=== PATIENT | male | born 1930 | race Caucasian/White ===

== ENCOUNTER 2016-09-13 11:43 | Emergency (ER) | payer MEDICARE, OTHER ==
[2016-09-13 12:40] VITALS: BP 117/64
[2016-09-13] MEDS ORDERED: Oxymetazoline 0.05% Nasal Spray 15 ML Bottle NAS ONE (12:50)
--- NOTE | 2016-09-13 12:51 | EDM.PDOC ---
ED HPI ENT - General Chief Complaint: ENT Problem Stated Complaint: BLOODY NOSE Time Seen by Provider: 09/13/16 12:51 Source: Reports: Patient History Limitations: Reports: No limitations - History of Present Illness INITIAL COMMENTS - FREE TEXT/NARRATIVE: Pt is on coumadin an he developed a nosebleed early this am on the left side. v Timing/Duration: Reports: Hour(s):, Other (Pt was bleeding fairly heavy on arrival. ) Severity: moderate Location: Reports: left nares Associated symptoms: Reports: denies other symptoms - Related Data Allergies/ADRs: Allergies Allergy/AdvReac Type Severity Reaction Status Date / Time amoxicillin AdvReac Diarrhea Verified 02/10/16 09:17 niacin AdvReac Headache Verified 02/10/16 09:17 Home Meds: Home Meds Allopurinol 150 mg PO DAILY 09/26/14 [History] Aspirin [Alize Chewable Aspirin] 81 mg PO DAILY 09/26/14 [History] Budesonide [Pulmicort Flexhaler] 2 puff INH BID 09/26/14 [History] Cetirizine [ZyrTEC] 10 mg PO DAILY 09/26/14 [History] Cholecalciferol (Vitamin D3) [Vitamin D3] 1,000 unit PO DAILY 09/26/14 [History] Ezetimibe [Zetia] 10 mg PO DAILY 09/26/14 [History] Fluticasone Propionate [Flonase] 2 spray NASBOTH DAILY 09/26/14 [History] Glimepiride 4 mg PO DAILY 09/26/14 [History] Metoprolol Succinate [Toprol XL] 25 mg PO BID 09/26/14 [History] Multivitamin with Minerals [Multiple Vitamin] 1 tab PO DAILY 09/26/14 [History] [place]-3 Fatty Acids [Fish Oil] 2 tab PO DAILY 09/26/14 [History] Warfarin [Coumadin] 5 mg PO DAILY 09/26/14 [History] atorvaSTATin [Lipitor] 20 mg PO BEDTIME 09/26/14 [History] metFORMIN [Glucophage] 500 mg PO BID 09/26/14 [History] Magnesium Oxide 400 mg PO DAILY #30 tablet 01/23/16 [Rx] Past Medical History HEENT History: Reports: Impaired vision Cardiovascular History: Reports: Afib, Bypass, CAD, High cholesterol, Hypertension, SOB on exertion, Other (see below) Other Cardiovascular History: Mitral valve insuffiency, recent electrical cardioversion Respiratory History: Reports: Asthma, Pneumonia, recurrent, Sleep apnea Gastrointestinal History: Reports: Diverticulosis, Hiatal hernia Musculoskeletal History: Reports: Osteoarthritis Endocrine/Metabolic History: Reports: Diabetes, type II, Obesity/BMI 30+ Hematologic History: Reports: Blood transfusion(s) Oncologic (Cancer) History: Reports: Basal cell carcinoma Dermatologic History: Reports: Melanoma, Other (see below) Other Dermatologic History: Basal Cell CA - Infectious Disease History Infectious Disease History: Reports: Chicken pox, Measles, Shingles - Past Surgical History HEENT Surgical History: Reports: Oral surgery Cardiovascular Surgical History: Reports: Coronary artery bypass, Other (see below) Other Cardiovascular Surgeries/Procedures: 2002 CABG x 3 GI Surgical History: Reports: Appendectomy, Cholecystectomy, Colon, Colonoscopy , Hernia repair/other Male Surgical History: Reports: Lithotripsy (ESWL) Musculoskeletal Surgical History: Reports: Hip replacement, Knee replacement Social & Family History - Family History Family Medical History: Noncontributory - Tobacco Use Smoking Status *Q: Never Smoker Years of Tobacco use: 0 Used Tobacco, but Quit: No Month Tobacco Last Used: 1961 Second Hand Smoke Exposure: No - Alcohol Use Days Per Week of Alcohol Use: 0 - Recreational Drug Use Recreational Drug Use: No ED ROS ENT - Review of Systems Review Of Systems: See Below Constitutional: Reports: no symptoms HEENT: Reports: Nosebleed Respiratory: Reports: No Symptoms Cardiovascular: Reports: No symptoms Endocrine: Reports: no symptoms GI/Abdominal: Reports: No symptoms : Reports: no symptoms ED EXAM, ENT - Physical Exam Exam: See Below Text/Narrative:: Pt developed bleeding from the left nare. He was bleeding quite heavy. Exam Limited By: No limitations General Appearance: alert, anxious Ears: normal TMs Nose: other (Pt had clots in both nares which he blew out. He was bleeding very little at that time. Both nares were sprayed with afrin. He was observed and he had no further bleeding. ) Mouth/Throat: Normal inspection Head: atraumatic Neck: normal inspection Respiratory/Chest: no respiratory distress Cardiovascular: regular rate, rhythm Course - Vital Signs Last Recorded V/S: Last Vital Signs Temp 36.1 C 09/13/16 14:03 Pulse 63 09/13/16 14:03 Resp 16 09/13/16 14:03 BP 117/64 09/13/16 12:39 Pulse Ox 98 09/13/16 14:03 - Orders/Labs/Meds Labs: Laboratory Tests 09/13/16 09/13/16 09/13/16 Range/Units 12:58 12:58 12:58 WBC 6.2 (4.5-11.0) K/uL RBC 3.82 L (4.30-5.90) M/uL Hgb 12.3 (12.0-15.0) g/dL Hct 38.0 L (40.0-54.0) % MCV 100 H (80-98) fL MCH 32 H (27-31) pg MCHC 32 (32-36) % Plt Count 227 (150-400) K/uL Neut % (Auto) 61 (36-66) % Lymph % (Auto) 26 (24-44) % [place] % (Auto) 11 H (2-6) % Eos % (Auto) 3 (2-4) % Baso % (Auto) 1 (0-1) % PT 21.1 H (9.5-12.0) sec INR 1.95 H (0.80-1.20) Sodium 147 (140-148) mmol/L Potassium 4.9 (3.6-5.2) mmol/L Chloride 111 H (100-108) mmol/L Carbon Dioxide 21 (21-32) mmol/L Anion Gap 19.9 H (5.0-14.0) mmol/L BUN 34 H (7-18) mg/dL Creatinine 1.6 H (0.8-1.3) mg/dL Est Cr Clr Drug Dosing 33.25 mL/min Estimated GFR (MDRD) 41 L (>60) Glucose 147 H (74-106) mg/dL Calcium 9.4 (8.5-10.1) mg/dL Meds: Medications Discontinued Medications Generic Name Dose Route Start Last Admin Trade Name Freq PRN Reason Stop Dose Admin Oxymetazoline HCl 1 ml 09/13/16 12:50 09/13/16 12:59 Afrin Original 0.05% Nasal [place] [facility] 09/13/16 12:51 1 spray ONETIME ONE Administration - Re-Assessments/Exams Free Text/Narrative Re-Assessment/Exam: 09/13/16 14:36 Pt was observed and he had no further bleeding. Departure - Departure Time of Disposition: 14:29 Disposition: Home, Self-Care 01 Condition: fair Clinical Impression: Left-sided nosebleed Referrals: Aldair Carey MD [Primary Care Provider] - Forms: ED Department Discharge Care Plan Goals: for the next 3 days use the spray 4-5 times daily to keep the vessels shrunk down. If pt should develop acute bleeding pt is to return and he will be packed , cool mist humidifier, skep coumadin for 1 day and then resume as usual.
== END 2016-09-13 14:36 | disposition home or self-care (01) ==
LOC: JP.ED 11:43
DX: R04.0 Epistaxis (principal); I25.10 Atherosclerotic heart disease of native coronary artery without angina pectoris; I48.91 Unspecified atrial fibrillation; I10 Essential (primary) hypertension; E78.00 Pure hypercholesterolemia, unspecified; E11.9 Type 2 diabetes mellitus without complications; E66.9 Obesity, unspecified; Z68.33 Body mass index [BMI] 33.0-33.9, adult; Z95.1 Presence of aortocoronary bypass graft; Z90.49 Acquired absence of other specified parts of digestive tract; Z96.659 Presence of unspecified artificial knee joint; Z96.649 Presence of unspecified artificial hip joint; Z98.890 Other specified postprocedural states; Z79.01 Long term (current) use of anticoagulants; Z79.82 Long term (current) use of aspirin; Z79.899 Other long term (current) drug therapy; Z88.1 Allergy status to other antibiotic agents; Z88.8 Allergy status to other drugs, medicaments and biological substances; Z85.828 Personal history of other malignant neoplasm of skin
CPT/HCPCS: 36415; 80048; 85025; 85610; 99284; A9270; 99282

== ENCOUNTER 2017-02-18 12:09 | Emergency (ER) | payer MEDICARE, OTHER ==
[2017-02-18 12:52] VITALS: BP 157/71
[2017-02-18] MEDS ORDERED: Cyclobenzaprine 10 MG Tab PO ONE (13:19)
[2017-02-18] MEDS ORDERED: Ketorolac 60 MG/2 ML SDV IM ONE (13:19)
[2017-02-18] MEDS ORDERED: Ketorolac 30 MG/ML SDV IM ONE (13:20)
--- NOTE | 2017-02-18 13:21 | EDM.PDOC ---
ED HPI GENERAL MEDICAL PROBLEM - General Chief Complaint: Back Pain or Injury Stated Complaint: PAIN IN BACK CAN'T SIT DOWN Time Seen by Provider: 02/18/17 13:14 Source of Information: Reports: Patient History Limitations: Reports: No Limitations - History of Present Illness INITIAL COMMENTS - FREE TEXT/NARRATIVE: 86-year-old gentleman presents emergency department day complaint of low back pain, he states is been ongoing for the last couple days doesn't seem to be improving much she has tried ibuprofen at home without much relief. Denies any loss of bowel or bladder no fevers Back Pain Score (Numeric/FACES): 1 - Related Data Allergies Allergy/AdvReac Type Severity Reaction Status Date / Time amoxicillin AdvReac Diarrhea Verified 02/10/16 09:17 niacin AdvReac Headache Verified 02/10/16 09:17 Home Meds: Home Meds Allopurinol 150 mg PO DAILY 09/26/14 [History] Aspirin [Alize Chewable Aspirin] 81 mg PO DAILY 09/26/14 [History] Budesonide [Pulmicort Flexhaler] 2 puff INH BID 09/26/14 [History] Cetirizine [ZyrTEC] 10 mg PO DAILY 09/26/14 [History] Cholecalciferol (Vitamin D3) [Vitamin D3] 1,000 unit PO DAILY 09/26/14 [History] Ezetimibe [Zetia] 10 mg PO DAILY 09/26/14 [History] Fluticasone Propionate [Flonase] 2 spray NASBOTH DAILY 09/26/14 [History] Glimepiride 4 mg PO DAILY 09/26/14 [History] Metoprolol Succinate [Toprol XL] 25 mg PO BID 09/26/14 [History] Multivitamin with Minerals [Multiple Vitamin] 1 tab PO DAILY 09/26/14 [History] [place]-3 Fatty Acids [Fish Oil] 2 tab PO DAILY 09/26/14 [History] Warfarin [Coumadin] 5 mg PO DAILY 09/26/14 [History] atorvaSTATin [Lipitor] 20 mg PO BEDTIME 09/26/14 [History] metFORMIN [Glucophage] 500 mg PO BID 09/26/14 [History] Magnesium Oxide 400 mg PO DAILY #30 tablet 01/23/16 [Rx] Past Medical History HEENT History: Reports: Impaired Vision Cardiovascular History: Reports: Afib, Bypass, CAD, High Cholesterol, Hypertension, SOB on Exertion, Other (See Below) Other Cardiovascular History: Mitral valve insuffiency, recent electrical cardioversion Respiratory History: Reports: Asthma, Pneumonia, Recurrent, Sleep Apnea Gastrointestinal History: Reports: Diverticulosis, Hiatal Hernia Musculoskeletal History: Reports: Osteoarthritis Endocrine/Metabolic History: Reports: Diabetes, Type II, Obesity/BMI 30+ Hematologic History: Reports: Blood Transfusion(s) Oncologic (Cancer) History: Reports: Basal Cell Carcinoma Dermatologic History: Reports: Melanoma, Other (See Below) Other Dermatologic History: Basal Cell CA - Infectious Disease History Infectious Disease History: Reports: Chicken Pox, Measles, Shingles - Past Surgical History HEENT Surgical History: Reports: Oral Surgery Cardiovascular Surgical History: Reports: Coronary Artery Bypass, Other (See Below) Other Cardiovascular Surgeries/Procedures: 2002 CABG x 3 GI Surgical History: Reports: Appendectomy, Cholecystectomy, Colon, Colonoscopy , Hernia Repair/Other Male Surgical History: Reports: Lithotripsy (ESWL) Musculoskeletal Surgical History: Reports: Hip Replacement, Knee Replacement Social & Family History - Family History Family Medical History: Noncontributory - Tobacco Use Smoking Status *Q: Never Smoker Years of Tobacco use: 0 Used Tobacco, but Quit: No Month Tobacco Last Used: 1961 Second Hand Smoke Exposure: No - Caffeine Use Caffeine Use: Reports: None - Alcohol Use Days Per Week of Alcohol Use: 0 - Recreational Drug Use Recreational Drug Use: No ED ROS GENERAL - Review of Systems Review Of Systems: See Below Respiratory: Reports: No Symptoms Cardiovascular: Reports: No Symptoms GI/Abdominal: Reports: No Symptoms : Reports: No Symptoms Musculoskeletal: Reports: Back Pain, Muscle Pain Skin: Reports: Cyanosis ED EXAM,LOWER BACK PAIN/INJURY - Physical Exam Exam: See Below Exam Limited By: No Limitations General Appearance: Alert, WD/WN, No Apparent Distress Respiratory/Chest: No Respiratory Distress Back Exam: Normal Inspection, Decreased Range of Motion, Muscle Spasm, Paraspinal Tenderness. No: CVA Tenderness (R), CVA Tenderness (L), Vertebral Tenderness Neurological: No: Straight Leg Raise (L), Straight Leg Raise (R) Course - Vital Signs Last Recorded V/S: Last Vital Signs Temp 98.4 F 02/18/17 12:51 Pulse 76 02/18/17 12:51 Resp 15 02/18/17 12:51 BP 157/71 H 02/18/17 12:51 Pulse Ox 97 02/18/17 12:51 - Orders/Labs/Meds Meds: Medications Discontinued Medications Generic Name Dose Route Start Last Admin Trade Name Vee PRN Reason Stop Dose Admin Cyclobenzaprine HCl 10 mg 02/18/17 13:19 02/18/17 13:39 Flexeril PO 02/18/17 13:20 10 mg ONETIME ONE Administration Ketorolac Tromethamine 60 mg 02/18/17 13:19 Toradol IM 02/18/17 13:20 ONETIME ONE Ketorolac Tromethamine 30 mg 02/18/17 13:20 02/18/17 13:38 Toradol IM 02/18/17 13:21 30 mg ONETIME ONE Administration Departure - Departure Time of Disposition: 14:26 Disposition: Home, Self-Care 01 Condition: Good Clinical Impression: Low back pain Qualifiers: Chronicity: acute Back pain laterality: left Sciatica presence: without sciatica Qualified Code(s): M54.5 - Low back pain - Discharge Information Referrals: Aldair Carey MD [Primary Care Provider] - Forms: ED Department Discharge Additional Instructions: Continue to use Aleve as needed, use hydrocodone for breakthrough pain, use Flexeril as needed for muscle relaxant, Please followup with your primary care provider in 3-5 days if not better, please call return to the emergency department with worsening of symptoms. - Assessment/Plan Plan: Assessment Acuity = acute Site and laterality = low back pain Etiology = secondary lifting injury Manifestations = pain Location of injury = Home Lab values = none Plan She had good improvement with the Toradol injection and commendation Flexeril prescription written for Flexeril 10 mg by mouth 3 times a day when necessary total #30 as well as hydrocodone 5/325 one tab by mouth every 6 hours when necessary total #10 from follow-up with his primary care 3-5 days for reevaluation Patient was in agreement with the plan all questions were answered, they were instructed to return to the emergency department or call for worsening symptoms. This note was dictated using [employer] voice recognition software please call with any questions.
== END 2017-02-18 14:45 | disposition home or self-care (01) ==
LOC: JP.ED 12:09
DX: M54.5 Low back pain (principal); I48.91 Unspecified atrial fibrillation; E78.00 Pure hypercholesterolemia, unspecified; I25.10 Atherosclerotic heart disease of native coronary artery without angina pectoris; I10 Essential (primary) hypertension; J45.909 Unspecified asthma, uncomplicated; I34.0 Nonrheumatic mitral (valve) insufficiency; M19.90 Unspecified osteoarthritis, unspecified site; E11.9 Type 2 diabetes mellitus without complications; E66.9 Obesity, unspecified; Z95.1 Presence of aortocoronary bypass graft; Z96.649 Presence of unspecified artificial hip joint; Z96.659 Presence of unspecified artificial knee joint; Z88.1 Allergy status to other antibiotic agents; Z88.8 Allergy status to other drugs, medicaments and biological substances; Z79.82 Long term (current) use of aspirin; Z79.899 Other long term (current) drug therapy; Z79.84 Long term (current) use of oral hypoglycemic drugs; Z68.33 Body mass index [BMI] 33.0-33.9, adult
CPT/HCPCS: 96372; 99283; A9270; J1885

== ENCOUNTER 2017-10-02 21:36 | Emergency (ER) | payer MEDICARE, OTHER ==
[2017-10-02] MEDS ORDERED: Acetaminophen 500 MG Tab PO ONE (22:25)
[2017-10-02] MEDS ORDERED: Sodium Chloride 0.9% 10 ML Syringe FLUSH PRN (22:32)
--- NOTE | 2017-10-02 22:54 | EDM.PDOC ---
ED HPI GENERAL MEDICAL PROBLEM - General Chief Complaint: General Stated Complaint: WEAKNESS Time Seen by Provider: 10/02/17 22:35 Source of Information: Reports: Patient, Old Records, RN History Limitations: Reports: No Limitations - History of Present Illness INITIAL COMMENTS - FREE TEXT/NARRATIVE: 87 yo male presents with progressive weakness since yesterday. Is unaware of fever. No cough, MOTA, sore throat, or dysuria. Does have redness on his R hip area since yesterday and to a lesser extent his L hip. These areas are quite tender and made if not possible for him to lie on his side when he sleeps which is his favored sleep position. Has some mild LLQ abdominal tenderness since yesterday as well. No self tx. Onset: Gradual Onset Date: 10/01/17 Duration: Hour(s):, Getting Worse Location: Reports: Generalized (weakness), Other (skin pain both hips R>L) Quality: Reports: Ache (abdomen LLQ), Burning (skin pain) Severity: Moderate Improves with: Reports: None Worsens with: Reports: Other (? time) Context: Reports: Other (unknown other than he lies on his sides a lot and has AODM.) Associated Symptoms: Reports: Malaise, Rash (both hips R>L), Weakness. Denies: Fever/Chills (unaware), Headaches, Loss of Appetite, Nausea/Vomiting, Shortness of Breath Treatments NUCLEAR PHYSICS PROFESSOR: Reports: Other (see below) (none) Hips Pain Score (Numeric/FACES): 4 - Related Data Allergies Allergy/AdvReac Type Severity Reaction Status Date / Time amoxicillin AdvReac Diarrhea Verified 10/02/17 22:15 niacin AdvReac Headache Verified 10/02/17 22:15 Home Meds: Home Meds Budesonide [Pulmicort Flexhaler] 2 puff INH BID 09/26/14 [History] Cetirizine [ZyrTEC] 10 mg PO DAILY 09/26/14 [History] Cholecalciferol (Vitamin D3) [Vitamin D3] 1,000 unit PO DAILY 09/26/14 [History] Ezetimibe [Zetia] 10 mg PO DAILY 09/26/14 [History] Fluticasone Propionate [Flonase] 2 spray NASBOTH DAILY 09/26/14 [History] Glimepiride 4 mg PO DAILY 09/26/14 [History] Multivitamin with Minerals [Multiple Vitamin] 1 tab PO DAILY 09/26/14 [History] [place]-3 Fatty Acids [Fish Oil] 2 tab PO DAILY 09/26/14 [History] Warfarin [Coumadin] 5 mg PO DAILY 09/26/14 [History] atorvaSTATin [Lipitor] 20 mg PO BEDTIME 09/26/14 [History] metFORMIN [Glucophage] 500 mg PO BID 09/26/14 [History] Magnesium Oxide 400 mg PO DAILY #30 tablet 01/23/16 [Rx] Clopidogrel Bisulfate [Clopidogrel] 75 mg PO DAILY 10/02/17 [History] Metoprolol Succinate [Toprol XL] 25 mg PO BID 10/02/17 [History] Past Medical History HEENT History: Reports: Impaired Vision Cardiovascular History: Reports: Afib, Bypass, CAD, High Cholesterol, Hypertension, SOB on Exertion, Other (See Below) Other Cardiovascular History: Mitral valve insuffiency, recent electrical cardioversion Respiratory History: Reports: Asthma, Pneumonia, Recurrent, Sleep Apnea Gastrointestinal History: Reports: Diverticulosis, Hiatal Hernia Musculoskeletal History: Reports: Osteoarthritis Endocrine/Metabolic History: Reports: Diabetes, Type II, Obesity/BMI 30+ Hematologic History: Reports: Blood Transfusion(s) Oncologic (Cancer) History: Reports: Basal Cell Carcinoma Dermatologic History: Reports: Melanoma, Other (See Below) Other Dermatologic History: Basal Cell CA - Infectious Disease History Infectious Disease History: Reports: Chicken Pox - Past Surgical History HEENT Surgical History: Reports: Oral Surgery Cardiovascular Surgical History: Reports: Coronary Artery Bypass, Other (See Below) Other Cardiovascular Surgeries/Procedures: 2002 CABG x 3 GI Surgical History: Reports: Appendectomy, Cholecystectomy, Colon, Colonoscopy , Hernia Repair/Other Male Surgical History: Reports: Lithotripsy (ESWL) Musculoskeletal Surgical History: Reports: Hip Replacement, Knee Replacement Social & Family History - Family History Family Medical History: Noncontributory - Tobacco Use Smoking Status *Q: Never Smoker Years of Tobacco use: 0 Used Tobacco, but Quit: No Month/Year Tobacco Last Used: 1961 Second Hand Smoke Exposure: No - Caffeine Use Caffeine Use: Reports: Coffee - Alcohol Use Days Per Week of Alcohol Use: 0 - Recreational Drug Use Recreational Drug Use: No ED ROS GENERAL - Review of Systems Review Of Systems: See Below Constitutional: Reports: Malaise, Weakness HEENT: Reports: No Symptoms Respiratory: Reports: No Symptoms Cardiovascular: Reports: No Symptoms Endocrine: Reports: No Symptoms GI/Abdominal: Reports: Abdominal Pain (LLQ) : Reports: No Symptoms Musculoskeletal: Reports: No Symptoms Skin: Reports: Erythema (both hips R>L, with tenderness) Neurological: Reports: No Symptoms ED EXAM, GENERAL - Physical Exam Exam: See Below Exam Limited By: No Limitations General Appearance: Alert, WD/WN, No Apparent Distress Eye Exam: Bilateral Eye: Normal Inspection Ears: Normal External Exam, Normal Canal, Hearing Grossly Normal, Normal TMs Ear Exam: Bilateral Ear: Auricle Normal, Canal Normal, TM normal Nose: Normal Inspection, No Blood Throat/Mouth: Normal Inspection, Normal Lips, Normal Oropharynx, Normal Voice, No Airway Compromise Head: Atraumatic, Normocephalic Neck: Normal Inspection, Supple Respiratory/Chest: No Respiratory Distress, Lungs Clear, Normal Breath Sounds, No Accessory Muscle Use Cardiovascular: Regular Rate, Rhythm, No Edema GI/Abdominal: Normal Bowel Sounds, Soft, No Distention, Tender (LLQ without rebound or guarding). No: Guarding, Rigid, Rebound Back Exam: Normal Inspection. No: CVA Tenderness (R), CVA Tenderness (L) Extremities: Normal Inspection, Normal Range of Motion, Non-Tender, No Pedal Edema Neurological: Alert, Oriented, CN II-XII Intact, Normal Cognition, No Motor/ Sensory Deficits Psychiatric: Normal Affect, Normal Mood Skin Exam: Warm, Dry, Intact, Erythema (both hips R>L, also noted to most of lower abdomen. ), Other (No crepitus) Lymphatic: No Adenopathy Course - Vital Signs Last Recorded V/S: Last Vital Signs Temp 37.7 C 10/02/17 23:36 Pulse 53 L 10/02/17 23:36 Resp 18 10/02/17 23:36 BP 140/62 10/02/17 23:36 Pulse Ox 93 L 10/02/17 23:36 - Orders/Labs/Meds Orders: Active Orders 24 hr Category Date Time Status Abdomen Pelvis w Cont [CT] Stat Exams 10/03/17 00:01 Ordered CULTURE BLOOD [BC] Stat Lab 10/02/17 22:40 Received CULTURE BLOOD [BC] Stat Lab 10/02/17 23:20 Ordered UA W/MICROSCOPIC [URIN] Stat Lab 10/02/17 22:24 Ordered Lactated Ringers [Ringers, Lactated] 1,000 ml Med 10/02/17 23:17 Active IV BOLUS Sodium Chloride 0.9% [Saline Flush] Med 10/02/17 22:32 Active 10 ml FLUSH ASDIRECTED PRN Saline Lock Insert [OM.PC] Routine Oth 10/02/17 22:32 Ordered Medication Orders Lactated Ringer's (Ringers, Lactated) 1,000 mls @ 1,000 mls/hr IV BOLUS ONE Stop: 10/03/17 00:16 Last Admin: 10/02/17 23:29 Dose: 1,000 mls/hr Sodium Chloride (Saline Flush) 10 ml FLUSH ASDIRECTED PRN PRN Reason: Keep Vein Open Last Admin: 10/02/17 22:44 Dose: 10 ml Labs: Laboratory Tests 10/02/17 10/02/17 Range/Units 22:35 22:35 WBC 8.0 (4.5-11.0) K/uL RBC 3.35 L (4.30-5.90) M/uL Hgb 10.7 L (12.0-15.0) g/dL Hct 34.1 L (40.0-54.0) % MCV 102 H (80-98) fL MCH 32 H (27-31) pg MCHC 31 L (32-36) % Plt Count 209 (150-400) K/uL Sodium 140 (140-148) mmol/L Potassium 4.0 (3.6-5.2) mmol/L Chloride 103 (100-108) mmol/L Carbon Dioxide 27 (21-32) mmol/L Anion Gap 10.1 (5.0-14.0) mmol/L BUN 39 H (7-18) mg/dL Creatinine 2.0 H (0.8-1.3) mg/dL Est Cr Clr Drug Dosing 25.65 mL/min Estimated GFR (MDRD) 32 L (>60) Glucose 132 H (74-106) mg/dL Calcium 9.6 (8.5-10.1) mg/dL C-Reactive Protein 14.47 H (0.0-0.3) mg/dL Meds: Medications Generic Name Dose Route Start Last Admin Trade Name Freq PRN Reason Stop Dose Admin Lactated Ringer's 1,000 mls @ 1,000 mls/hr 10/02/17 23:17 10/02/17 23:29 Ringers, Lactated IV 10/03/17 00:16 1,000 mls/hr BOLUS ONE Administration Sodium Chloride 10 ml 10/02/17 22:32 10/02/17 22:44 Saline Flush FLUSH 10 ml ASDIRECTED PRN Administration Keep Vein Open Discontinued Medications Generic Name Dose Route Start Last Admin Trade Name Vee PRN Reason Stop Dose Admin Acetaminophen 1,000 mg 10/02/17 22:25 10/02/17 22:43 Tylenol Extra Strength PO 10/02/17 22:26 1,000 mg ONETIME ONE Administration Meropenem 1 gm/ Sodium 50 mls @ 100 mls/hr 10/02/17 23:16 10/02/17 23:29 Chloride IV 10/02/17 23:45 100 mls/hr ONETIME ONE Administration Departure - Departure Time of Disposition: 00:20 Disposition: DC/Tfer to Acute Hospital 02 Condition: Fair Clinical Impression: Erysipelas Chronic renal failure Qualifiers: Chronic kidney disease stage: stage 3 (moderate) Qualified Code(s): N18.3 - Chronic kidney disease, stage 3 (moderate) - Discharge Information Referrals: PCP,None [Primary Care Provider] - Forms: ED Department Discharge - My Orders Last 24 Hours: My Active Orders 10/02/17 22:24 UA W/MICROSCOPIC [URIN] Stat 10/02/17 22:32 Sodium Chloride 0.9% [Saline Flush] 10 ml FLUSH ASDIRECTED PRN Saline Lock Insert [OM.PC] Routine 10/02/17 22:40 CULTURE BLOOD [BC] Stat 10/02/17 23:17 Lactated Ringers [Ringers, Lactated] 1,000 ml IV BOLUS 10/02/17 23:20 CULTURE BLOOD [BC] Stat 10/03/17 00:01 Abdomen Pelvis w Cont [CT] Stat - Assessment/Plan Last 24 Hours: My Active Orders 10/02/17 22:24 UA W/MICROSCOPIC [URIN] Stat 10/02/17 22:32 Sodium Chloride 0.9% [Saline Flush] 10 ml FLUSH ASDIRECTED PRN Saline Lock Insert [OM.PC] Routine 10/02/17 22:40 CULTURE BLOOD [BC] Stat 10/02/17 23:17 Lactated Ringers [Ringers, Lactated] 1,000 ml IV BOLUS 10/02/17 23:20 CULTURE BLOOD [BC] Stat 10/03/17 00:01 Abdomen Pelvis w Cont [CT] Stat
[2017-10-02] MEDS ORDERED: Lactated Ringers 1,000 ML IV ONE (23:17)
[2017-10-02 23:38] VITALS: BP 140/62
== END 2017-10-03 01:09 ==
LOC: JP.ED 21:36
DX: A46 Erysipelas (principal); I12.9 Hypertensive chronic kidney disease with stage 1 through stage 4 chronic kidney disease, or unspecified chronic kidney disease; N18.3 Chronic kidney disease, stage 3 (moderate); I48.91 Unspecified atrial fibrillation; I25.810 Atherosclerosis of coronary artery bypass graft(s) without angina pectoris; E78.00 Pure hypercholesterolemia, unspecified; J45.909 Unspecified asthma, uncomplicated; Z87.01 Personal history of pneumonia (recurrent); E11.9 Type 2 diabetes mellitus without complications; E66.9 Obesity, unspecified; Z79.01 Long term (current) use of anticoagulants; Z88.1 Allergy status to other antibiotic agents; Z88.8 Allergy status to other drugs, medicaments and biological substances; Z79.899 Other long term (current) drug therapy; Z79.84 Long term (current) use of oral hypoglycemic drugs; Z95.1 Presence of aortocoronary bypass graft; Z68.32 Body mass index [BMI] 32.0-32.9, adult; Z90.49 Acquired absence of other specified parts of digestive tract
CPT/HCPCS: 36415; 80048; 85027; 86140; 87040; 96365; 99285; A9270; J2185; J7050; J7120; 99284

== ENCOUNTER 2017-12-09 06:06 | Emergency (ER) | payer MEDICARE, OTHER ==
[2017-12-09] MEDS ORDERED: Albuterol/Ipratropium 3.0-0.5 MG/3 ML Neb Soln NEB ONE (07:20)
--- NOTE | 2017-12-09 07:58 | EDM.PDOC ---
ED HPI GENERAL MEDICAL PROBLEM - General Chief Complaint: Respiratory Problem Stated Complaint: SOB Time Seen by Provider: 12/09/17 07:00 Source of Information: Reports: Patient History Limitations: Reports: No Limitations - History of Present Illness INITIAL COMMENTS - FREE TEXT/NARRATIVE: 87-year-old male complaining of shortness of breath, thinks that his chest might be "full of fluid". He does have a history of bronchial asthma, and his inhaler does help briefly but doesn't last long. He has a cough productive of some clear sputum. No fever or chills, symptoms of thing going on for 3 or 4 days. He has some chest pain with coughing but not with activity. No recent medication changes. Just doesn't feel well. No abdominal pain, rashes or joint pains. Onset: Gradual Duration: Day(s): (4-5 days) Severity: Moderate Associated Symptoms: Reports: Chest Pain (With coughing), Cough, Malaise, Shortness of Breath. Denies: Fever/Chills, Headaches, Nausea/Vomiting - Related Data Allergies Allergy/AdvReac Type Severity Reaction Status Date / Time amoxicillin AdvReac Diarrhea Verified 10/02/17 22:15 niacin AdvReac Headache Verified 10/02/17 22:15 Home Meds: Home Meds Budesonide [Pulmicort Flexhaler] 2 puff INH BID 09/26/14 [History] Cetirizine [ZyrTEC] 10 mg PO DAILY 09/26/14 [History] Cholecalciferol (Vitamin D3) [Vitamin D3] 1,000 unit PO DAILY 09/26/14 [History] Ezetimibe [Zetia] 10 mg PO DAILY 09/26/14 [History] Fluticasone Propionate [Flonase] 2 spray NASBOTH DAILY 09/26/14 [History] Glimepiride 4 mg PO DAILY 09/26/14 [History] Multivitamin with Minerals [Multiple Vitamin] 1 tab PO DAILY 09/26/14 [History] [place]-3 Fatty Acids [Fish Oil] 2 tab PO DAILY 09/26/14 [History] Warfarin [Coumadin] 5 mg PO DAILY 09/26/14 [History] atorvaSTATin [Lipitor] 20 mg PO BEDTIME 09/26/14 [History] metFORMIN [Glucophage] 500 mg PO BID 09/26/14 [History] Magnesium Oxide 400 mg PO DAILY #30 tablet 01/23/16 [Rx] Clopidogrel Bisulfate [Clopidogrel] 75 mg PO DAILY 10/02/17 [History] Metoprolol Succinate [Toprol XL] 25 mg PO BID 10/02/17 [History] Allopurinol [Zyloprim] 150 mg PO DAILY 12/09/17 [History] Furosemide 40 mg PO DAILY 12/09/17 [History] Past Medical History HEENT History: Reports: Impaired Vision Cardiovascular History: Reports: Afib, Bypass, CAD, High Cholesterol, Hypertension, SOB on Exertion, Other (See Below) Other Cardiovascular History: Mitral valve insuffiency, recent electrical cardioversion Respiratory History: Reports: Asthma, Pneumonia, Recurrent, Sleep Apnea Gastrointestinal History: Reports: Diverticulosis, Hiatal Hernia Musculoskeletal History: Reports: Osteoarthritis Endocrine/Metabolic History: Reports: Diabetes, Type II, Obesity/BMI 30+ Hematologic History: Reports: Blood Transfusion(s) Oncologic (Cancer) History: Reports: Basal Cell Carcinoma Dermatologic History: Reports: Melanoma, Other (See Below) Other Dermatologic History: Basal Cell CA - Infectious Disease History Infectious Disease History: Reports: Chicken Pox, Measles, Mumps - Past Surgical History HEENT Surgical History: Reports: Oral Surgery Cardiovascular Surgical History: Reports: Coronary Artery Bypass, Other (See Below) Other Cardiovascular Surgeries/Procedures: 2002 CABG x 3 GI Surgical History: Reports: Appendectomy, Cholecystectomy, Colon, Colonoscopy , Hernia Repair/Other Male Surgical History: Reports: Lithotripsy (ESWL) Musculoskeletal Surgical History: Reports: Hip Replacement, Knee Replacement Social & Family History - Family History Family Medical History: Noncontributory - Tobacco Use Smoking Status *Q: Former Smoker Used Tobacco, but Quit: Yes Month/Year Tobacco Last Used: 1964 - Caffeine Use Caffeine Use: Reports: Soda - Recreational Drug Use Recreational Drug Use: No ED ROS GENERAL - Review of Systems Review Of Systems: See Below Constitutional: Reports: Malaise. Denies: Fever, Chills HEENT: Denies: Ear Pain, Throat Pain Respiratory: Reports: Shortness of Breath, Wheezing, Cough, Sputum Cardiovascular: Reports: Chest Pain GI/Abdominal: Denies: Abdominal Pain (With coughing), Nausea, Vomiting : Reports: No Symptoms Skin: Reports: No Symptoms Neurological: Denies: Headache Psychiatric: Reports: No Symptoms ED EXAM, GENERAL - Physical Exam Exam: See Below Exam Limited By: No Limitations General Appearance: Alert, No Apparent Distress Head: Atraumatic Respiratory/Chest: No Respiratory Distress, Wheezing (Patient has diffuse expiratory wheezes but otherwise good air movement to the bases) Cardiovascular: Bradycardia (Periods of bradycardia), Systolic Murmur, Irregularly Irregular GI/Abdominal: Soft, Non-Tender Extremities: Normal Inspection. No: Pedal Edema Neurological: Alert, Oriented Psychiatric: Normal Affect, Normal Mood Skin Exam: Other (Numerous ecchymosis and bruises are present on the extremities with deep skin tears in different stages of healing on the forearms) EKG INTERPRETATION Rhythm: A-Fib Rate (Beats/Min): 54 ST-T: Normal Course - Vital Signs Last Recorded V/S: Last Vital Signs Temp 96.7 F 12/09/17 06:10 Pulse 66 12/09/17 09:20 Resp 13 12/09/17 09:20 BP 157/70 H 12/09/17 09:20 Pulse Ox 98 12/09/17 09:20 - Orders/Labs/Meds Orders: Active Orders 24 hr Category Date Time Status EKG Documentation Completion [RC] ASDIRECTED Care 12/09/17 07:26 Active RT Aerosol Therapy [RC] ASDIRECTED Care 12/09/17 07:20 Active EKG 12 Lead [EK] Routine Ther 12/09/17 07:26 Ordered Labs: Laboratory Tests 12/09/17 12/09/17 Range/Units 07:27 07:27 WBC 4.1 L (4.5-11.0) K/uL RBC 2.90 L (4.30-5.90) M/uL Hgb 9.5 L (12.0-15.0) g/dL Hct 30.1 L (40.0-54.0) % MCV 104 H (80-98) fL MCH 33 H (27-31) pg MCHC 32 (32-36) % Plt Count 196 (150-400) K/uL Neut % (Auto) 63 (36-66) % Lymph % (Auto) 23 L (24-44) % [place] % (Auto) 13 H (2-6) % Eos % (Auto) 2 (2-4) % Baso % (Auto) 0 (0-1) % Sodium 143 (140-148) mmol/L Potassium 4.0 (3.6-5.2) mmol/L Chloride 111 H (100-108) mmol/L Carbon Dioxide 23 (21-32) mmol/L Anion Gap 13.0 (5.0-14.0) mmol/L BUN 23 H (7-18) mg/dL Creatinine 1.6 H (0.8-1.3) mg/dL Est Cr Clr Drug Dosing 32.06 mL/min Estimated GFR (MDRD) 41 L (>60) Glucose 121 H (74-106) mg/dL Calcium 8.8 (8.5-10.1) mg/dL Total Bilirubin 0.9 (0.2-1.0) mg/dL AST 18 (15-37) U/L ALT 21 (12-78) U/L Alkaline Phosphatase 99 (46-116) U/L Troponin I 0.023 (0.000-0.056) ng/mL Total Protein 6.0 L (6.4-8.2) g/dL Albumin 3.1 L (3.4-5.0) g/dL Globulin 2.9 (2.3-3.5) g/dL Albumin/Globulin Ratio 1.1 L (1.2-2.2) Meds: Medications Discontinued Medications Generic Name Dose Route Start Last Admin Trade Name Freq PRN Reason Stop Dose Admin Albuterol/Ipratropium 3 ml 12/09/17 07:20 12/09/17 07:27 Duoneb 3.0-0.5 Mg/3 Ml NEB 12/09/17 07:21 3 ml ONETIME ONE Administration Methylprednisolone Sodium Succinate 62.5 mg 12/09/17 09:08 12/09/17 09:20 Solu-Medrol IM 12/09/17 09:09 62.5 mg ONETIME ONE Administration - Re-Assessments/Exams Free Text/Narrative Re-Assessment/Exam: 12/09/17 07:58 EKG showed no acute ST changes. He was in the bradycardic atrial fibrillation. Rate ranged from the low 40s to mid 60s. He said this is normal for him, he also has periods of normal sinus rhythm. He was given a DuoNeb, then sent back for a two-view chest x-ray. CBC CMP and troponin were also obtained. 12/09/17 08:33 Patient did feel better after the DuoNeb but still very weak. Hemoglobin returned 9.5 which is falling from levels 2 months ago. Chest x-ray does not look like there is failure or infiltrates present. 12/09/17 09:07 Patient continued to feel better, O2 saturations 98-99% and no respiratory distress or extra effort. Lung sounds now some basically clear. I reviewed his medication list, he is on Pulmicort twice a day but does not have albuterol. I' m going to give him 62.5 mg of IM Solu-Medrol, and supplied with an albuterol inhaler to use every 3-4 hours and if he is not improved in the next 2-3 days he can return Departure - Departure Time of Disposition: :33 Disposition: Home, Self-Care 01 Condition: Fair Clinical Impression: Exacerbation of asthma Qualifiers: Asthma severity: moderate Asthma persistence: unspecified Qualified Code(s): J45.901 - Unspecified asthma with (acute) exacerbation - Discharge Information Instructions: Shortness of Breath, Adult, [id number] Referrals: PCP,None [Primary Care Provider] - Forms: ED Department Discharge Care Plan Goals: Continue your current medications, and use albuterol inhaler every 3-4 hours if needed to help with wheezing and shortness of breath. Recheck next week if not improving satisfactorily, or return to the emergency room at any time if you feel you are worsening or need further treatment or observation. - My Orders Last 24 Hours: My Active Orders 12/09/17 07:20 RT Aerosol Therapy [RC] ASDIRECTED 12/09/17 07:26 EKG Documentation Completion [RC] ASDIRECTED EKG 12 Lead [EK] Routine - Assessment/Plan Last 24 Hours: My Active Orders 12/09/17 07:20 RT Aerosol Therapy [RC] ASDIRECTED 12/09/17 07:26 EKG Documentation Completion [RC] ASDIRECTED EKG 12 Lead [EK] Routine
[2017-12-09] MEDS ORDERED: methylPREDNISolone Sodium Succinate 125 MG/2 ML SDV IM ONE (09:08)
[2017-12-09 09:22] VITALS: BP 157/70
--- NOTE | 2017-12-09 09:23 | CR ---
CHEST: 2 view CLINICAL HISTORY:Dyspnea COMPARISON:2016 FINDINGS: The heart is mildly enlarged. There are atherosclerotic changes in the aorta. Patient has h ad previous sternotomy. There are numerous the fragments of wire suture in the paraspinal region. [place] earance is unchanged since 2009 Lungs are clear IMPRESSION: Mild cardiomegaly Previous sternotomy with partial removal of numerous sternal sutures. There is some retained the line ar radiopacities in the lower parasternal region.
== END 2017-12-09 09:33 | disposition home or self-care (01) ==
LOC: JP.ED 06:06
DX: J45.901 Unspecified asthma with (acute) exacerbation (principal); I25.810 Atherosclerosis of coronary artery bypass graft(s) without angina pectoris; E78.00 Pure hypercholesterolemia, unspecified; I48.92 Unspecified atrial flutter; I10 Essential (primary) hypertension; J45.909 Unspecified asthma, uncomplicated; Z87.01 Personal history of pneumonia (recurrent); Z79.84 Long term (current) use of oral hypoglycemic drugs; Z88.1 Allergy status to other antibiotic agents; Z88.8 Allergy status to other drugs, medicaments and biological substances; Z79.899 Other long term (current) drug therapy; Z87.891 Personal history of nicotine dependence; Z95.1 Presence of aortocoronary bypass graft
CPT/HCPCS: 36415; 71046; 80053; 84484; 85025; 93005; 94640; 96372; 99285; J2930; J7620; 99284

== ENCOUNTER 2018-09-26 08:10 | Inpatient (IN) | payer MEDICARE, OTHER ==
[2018-09-26] MEDS ORDERED: Nitroglycerin 0.4 MG Tab.SL SL PRN (08:49)
[2018-09-26] MEDS ORDERED: Sodium Chloride 0.9% 10 ML Syringe FLUSH PRN ×2 (08:49→13:17)
[2018-09-26] MEDS ORDERED: Furosemide 40 MG/4 ML VIAL IVPUSH ONE ×2 (08:51→19:00)
--- NOTE | 2018-09-26 08:55 | EDM.PDOC ---
ED HPI GENERAL MEDICAL PROBLEM - General Chief Complaint: Respiratory Problem Stated Complaint: SOB, RETAINING FLUID, COPD Time Seen by Provider: 09/26/18 08:43 Source of Information: Reports: Patient, Old Records, RN Notes Reviewed History Limitations: Reports: No Limitations - History of Present Illness INITIAL COMMENTS - FREE TEXT/NARRATIVE: 87-year-old gentleman presents emergency department today with complaint of shortness of breath, he states he's been short of breath over the last week and has progressively getting worse, he does have leg edema and has gained a significant amount of weight. He does have a history of coronary artery disease as well as congestive heart failure last exacerbation was couple years ago, used to use Lasix on a daily basis but however does not use that at this time. He was evaluated in urgent care clinic felt to have bronchitis treated with azithromycin without any relief. Denies any fevers nausea vomiting chest pain no other GI symptomatology. Echocardiogram done in 2018 shows a reduced ejection fraction around 40% with global kinesis chest Pain Score (Numeric/FACES): 2 - Related Data Allergies Allergy/AdvReac Type Severity Reaction Status Date / Time amoxicillin AdvReac Diarrhea Verified 09/26/18 08:38 niacin AdvReac Headache Verified 09/26/18 08:38 Home Meds: Home Meds Budesonide [Pulmicort Flexhaler] 2 puff INH BID 09/26/14 [History] Cetirizine [ZyrTEC] 10 mg PO DAILY 09/26/14 [History] Cholecalciferol (Vitamin D3) [Vitamin D3] 1,000 unit PO DAILY 09/26/14 [History] Ezetimibe [Zetia] 10 mg PO DAILY 09/26/14 [History] Fluticasone Propionate [Flonase] 2 spray NASBOTH DAILY 09/26/14 [History] Glimepiride 4 mg PO DAILY 09/26/14 [History] Multivitamin with Minerals [Multiple Vitamin] 1 tab PO DAILY 09/26/14 [History] [place]-3 Fatty Acids [Fish Oil] 2 tab PO DAILY 09/26/14 [History] Warfarin [Coumadin] 5 mg PO DAILY 09/26/14 [History] atorvaSTATin [Lipitor] 20 mg PO BEDTIME 09/26/14 [History] metFORMIN [Glucophage] 500 mg PO BID 09/26/14 [History] Magnesium Oxide 400 mg PO DAILY #30 tablet 08/11/16 [Rx] Clopidogrel Bisulfate [Clopidogrel] 75 mg PO DAILY 10/02/17 [History] Metoprolol Succinate [Toprol XL] 25 mg PO BID 10/02/17 [History] Allopurinol [Zyloprim] 150 mg PO DAILY 12/09/17 [History] Furosemide 40 mg PO DAILY 12/09/17 [History] Cilostazol [Pletal] 100 mg PO DAILY 01/17/18 [History] Past Medical History HEENT History: Reports: Impaired Vision Cardiovascular History: Reports: Afib, Bypass, CAD, Heart Failure, High Cholesterol, Hypertension, SOB on Exertion, Other (See Below) Other Cardiovascular History: Mitral valve insuffient, electrical cardioversion Respiratory History: Reports: Asthma, Pneumonia, Recurrent, Sleep Apnea Gastrointestinal History: Reports: Diverticulosis, Hiatal Hernia, Other (See Below) Other Gastrointestinal History: right and left ing hernias Musculoskeletal History: Reports: Osteoarthritis Endocrine/Metabolic History: Reports: Diabetes, Type II, Obesity/BMI 30+ Hematologic History: Reports: Blood Transfusion(s) Oncologic (Cancer) History: Reports: Basal Cell Carcinoma Dermatologic History: Reports: Melanoma, Other (See Below) Other Dermatologic History: Basal Cell CA - Infectious Disease History Infectious Disease History: Reports: Chicken Pox, Measles, Mumps - Past Surgical History HEENT Surgical History: Reports: Oral Surgery Cardiovascular Surgical History: Reports: Coronary Artery Bypass, Other (See Below) Other Cardiovascular Surgeries/Procedures: 2002 CABG x 3 GI Surgical History: Reports: Appendectomy, Cholecystectomy, Colon, Colonoscopy , Hernia Repair/Other Male Surgical History: Reports: Lithotripsy (ESWL) Musculoskeletal Surgical History: Reports: Hip Replacement, Knee Replacement Social & Family History - Family History Family Medical History: Noncontributory - Tobacco Use Smoking Status *Q: Never Smoker - Caffeine Use Caffeine Use: Reports: Soda - Recreational Drug Use Recreational Drug Use: No ED ROS GENERAL - Review of Systems Review Of Systems: See Below Constitutional: Denies: Fever, Chills, Weakness HEENT: Reports: No Symptoms Respiratory: Reports: Shortness of Breath Cardiovascular: Reports: Dyspnea on Exertion. Denies: Chest Pain, Palpitations GI/Abdominal: Reports: No Symptoms : Reports: No Symptoms Musculoskeletal: Reports: No Symptoms Skin: Reports: No Symptoms Neurological: Reports: No Symptoms ED EXAM, GENERAL - Physical Exam Exam: See Below Exam Limited By: No Limitations General Appearance: Alert, WD/WN, No Apparent Distress Throat/Mouth: Normal Inspection, Normal Lips, Normal Teeth, Normal Gums, Normal Oropharynx, Normal Voice, No Airway Compromise Head: Atraumatic, Normocephalic Neck: Normal Inspection, Supple, Other (JVD +2) Respiratory/Chest: No Respiratory Distress, No Accessory Muscle Use, Crackles Cardiovascular: Systolic Murmur, Irregularly Irregular GI/Abdominal: Soft, Non-Tender Extremities: Normal Inspection, Pedal Edema Course - Vital Signs Last Recorded V/S: Last Vital Signs Temp 96.3 F 09/26/18 08:37 Pulse 68 09/26/18 09:16 Resp 24 H 09/26/18 09:16 BP 122/54 L 09/26/18 09:16 Pulse Ox 97 09/26/18 09:16 - Orders/Labs/Meds Orders: Active Orders 24 hr Category Date Time Status Cardiac Monitoring [RC] .As Directed Care 09/26/18 08:49 Active EKG Documentation Completion [RC] ASDIRECTED Care 09/26/18 08:50 Active Peripheral IV Care [RC] . DIRECTED Care 09/26/18 08:50 Active Nitroglycerin [Nitrostat] Med 09/26/18 08:49 Active 0.4 mg SL Q5M PRN Sodium Chloride 0.9% [Saline Flush] Med 09/26/18 08:49 Active 10 ml FLUSH ASDIRECTED PRN Peripheral IV Insertion Adult [OM.PC] Stat Oth 09/26/18 08:49 Ordered Saline Lock Insert [OM.PC] Stat Oth 09/26/18 08:49 Ordered EKG 12 Lead [EK] Stat Ther 09/26/18 08:50 Ordered Medication Orders Nitroglycerin (Nitrostat) 0.4 mg SL Q5M PRN PRN Reason: Chest Pain Stop: 09/27/18 08:50 Last Admin: 09/26/18 09:08 Dose: 0.4 mg Sodium Chloride (Saline Flush) 10 ml FLUSH ASDIRECTED PRN PRN Reason: Keep Vein Open Last Admin: 09/26/18 09:09 Dose: 10 ml Labs: Laboratory Tests 09/26/18 09/26/18 Range/Units 09:04 09:04 WBC 5.4 (4.5-11.0) K/uL RBC 2.57 L (4.30-5.90) M/uL Hgb 9.3 L (12.0-15.0) g/dL Hct 30.0 L (40.0-54.0) % MCV 117 H (80-98) fL MCH 36 H (27-31) pg MCHC 31 L (32-36) % Plt Count 180 (150-400) K/uL Neut % (Auto) 66 (36-66) % Lymph % (Auto) 23 L (24-44) % [place] % (Auto) 9 H (2-6) % Eos % (Auto) 2 (2-4) % Baso % (Auto) 0 (0-1) % Sodium 143 (140-148) mmol/L Potassium 4.4 (3.6-5.2) mmol/L Chloride 109 H (100-108) mmol/L Carbon Dioxide 23 (21-32) mmol/L Anion Gap 15.4 H (5.0-14.0) mmol/L BUN 28 H (7-18) mg/dL Creatinine 1.7 H (0.8-1.3) mg/dL Est Cr Clr Drug Dosing 30.68 mL/min Estimated GFR (MDRD) 38 L (>60) Glucose 121 H (74-106) mg/dL Calcium 9.3 (8.5-10.1) mg/dL Total Bilirubin 1.1 H (0.2-1.0) mg/dL AST 19 (15-37) U/L ALT 18 (12-78) U/L Alkaline Phosphatase 95 (46-116) U/L Troponin I 0.040 (0.000-0.056) ng/mL NT-Pro-B Natriuret Pep 4485 H (5-450) pg/mL Total Protein 6.0 L (6.4-8.2) g/dL Albumin 3.3 L (3.4-5.0) g/dL Globulin 2.7 (2.3-3.5) g/dL Albumin/Globulin Ratio 1.2 (1.2-2.2) Meds: Medications Generic Name Dose Route Start Last Admin Trade Name Freq PRN Reason Stop Dose Admin Nitroglycerin 0.4 mg 09/26/18 08:49 09/26/18 09:08 Nitrostat SL 09/27/18 08:50 0.4 mg Q5M PRN Administration Chest Pain Sodium Chloride 10 ml 09/26/18 08:49 09/26/18 09:09 Saline Flush FLUSH 10 ml ASDIRECTED PRN Administration Keep Vein Open Discontinued Medications Generic Name Dose Route Start Last Admin Trade Name Sathishq PRN Reason Stop Dose Admin Furosemide 40 mg 09/26/18 08:51 09/26/18 09:08 Lasix IVPUSH 09/26/18 08:52 40 mg ONETIME ONE Administration Departure - Departure Time of Disposition: 11:19 Disposition: Refer to Observation Condition: Fair Clinical Impression: Acute exacerbation of CHF (congestive heart failure) Qualifiers: Heart failure type: systolic Qualified Code(s): I50.23 - Acute on chronic systolic (congestive) heart failure - Discharge Information Referrals: Aldair Carey MD [Primary Care Provider] - Forms: ED Department Discharge - My Orders Last 24 Hours: My Active Orders 09/26/18 08:49 Cardiac Monitoring [RC] .As Directed Nitroglycerin [Nitrostat] 0.4 mg SL Q5M PRN Sodium Chloride 0.9% [Saline Flush] 10 ml FLUSH ASDIRECTED PRN Peripheral IV Insertion Adult [OM.PC] Stat Saline Lock Insert [OM.PC] Stat 09/26/18 08:50 EKG Documentation Completion [RC] ASDIRECTED Peripheral IV Care [RC] . DIRECTED EKG 12 Lead [EK] Stat - Assessment/Plan Last 24 Hours: My Active Orders 09/26/18 08:49 Cardiac Monitoring [RC] .As Directed Nitroglycerin [Nitrostat] 0.4 mg SL Q5M PRN Sodium Chloride 0.9% [Saline Flush] 10 ml FLUSH ASDIRECTED PRN Peripheral IV Insertion Adult [OM.PC] Stat Saline Lock Insert [OM.PC] Stat 09/26/18 08:50 EKG Documentation Completion [RC] ASDIRECTED Peripheral IV Care [RC] . 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 creatinine elevated 1.7 consistent chronic renal failure stage GIV troponin elevated 0.04 within normal limits probably related to leak phenomenon BNP elevated 4488 consistent fluid overload type pattern albumin low at 3.3 consistent hypoalbuminemia EKG demonstrates atrial fibrillation chest x-ray shows cardiomegaly Plan Discuss case hospitalist recreational sports director at 11:00 he kindly agreed to evaluate the patient emergency department for admission has received nitroglycerin sublingual 140 mg Lasix with good urine output and some improvement on his dyspnea This note was dictated using [employer] voice recognition software please call with any questions on syntax or grammar.
--- NOTE | 2018-09-26 10:21 | CR ---
CHEST: 2 view CLINICAL HISTORY:Shortness of breath COMPARISON:2018 FINDINGS: Heart is enlarged. Pulmonary vascular disease normal. Patient has had previous sternotomy. No infiltrate effusion or pneumothorax is seen Impression: Cardiomegaly with no significant evidence of decompensation
--- NOTE | 2018-09-26 12:00 | PCM.HP ---
H&P History of Present Illness - General Date of Service: 09/26/18 Admit Problem/Dx: Admission Diagnosis/Problem Admission Diagnosis/Problem CHF, Congestive heart failure Source of Information: Patient, Provider, RN Notes Reviewed History Limitations: Reports: No Limitations - History of Present Illness Initial Comments - Free Text/Narative: Mr. Kamara is an 87-year-old gentleman who is admitted through the emergency department with shortness of breath that is developed over the past several days. He has a known history of congestive heart failure with decreased ejection fraction, most recent echocardiogram showed left ventricular contraction fraction of 40-45%. He is remained on his usual medications but has become progressively more short of breath to the point where he was short of breath at rest this morning. He is unable to sleep during the night he cousin PND and orthopnea. During this period of time has also noted an increase in his peripheral edema. chest Pain Score (Numeric/FACES): 2 Left Middle Abdomen Pain Score (Numeric/FACES): 4 - Related Data Allergies/Adverse Reactions: Allergies Allergy/AdvReac Type Severity Reaction Status Date / Time amoxicillin AdvReac Diarrhea Verified 09/26/18 08:38 niacin AdvReac Headache Verified 09/26/18 08:38 Home Medications: Home Meds Budesonide [Pulmicort Flexhaler] 2 puff INH BID 09/26/14 [History] Cetirizine [ZyrTEC] 10 mg PO DAILY 09/26/14 [History] Cholecalciferol (Vitamin D3) [Vitamin D3] 1,000 unit PO DAILY 09/26/14 [History] Ezetimibe [Zetia] 10 mg PO DAILY 09/26/14 [History] Fluticasone Propionate [Flonase] 2 spray NASBOTH DAILY 09/26/14 [History] Glimepiride 4 mg PO DAILY 09/26/14 [History] Multivitamin with Minerals [Multiple Vitamin] 1 tab PO DAILY 09/26/14 [History] [place]-3 Fatty Acids [Fish Oil] 2 tab PO DAILY 09/26/14 [History] Warfarin [Coumadin] 5 mg PO DAILY 09/26/14 [History] atorvaSTATin [Lipitor] 20 mg PO BEDTIME 09/26/14 [History] metFORMIN [Glucophage] 500 mg PO BID 09/26/14 [History] Magnesium Oxide 400 mg PO DAILY #30 tablet 01/23/16 [Rx] Clopidogrel Bisulfate [Clopidogrel] 75 mg PO DAILY 10/02/17 [History] Metoprolol Succinate [Toprol XL] 25 mg PO BID 10/02/17 [History] Allopurinol [Zyloprim] 150 mg PO DAILY 12/09/17 [History] Furosemide 40 mg PO DAILY 12/09/17 [History] Cilostazol [Pletal] 100 mg PO DAILY 01/17/18 [History] Past Medical History HEENT History: Reports: Impaired Vision Cardiovascular History: Reports: Afib, Bypass, CAD, Heart Failure, High Cholesterol, Hypertension, SOB on Exertion, Other (See Below) Other Cardiovascular History: Mitral valve insuffient, electrical cardioversion Respiratory History: Reports: Asthma, Pneumonia, Recurrent, Sleep Apnea Gastrointestinal History: Reports: Diverticulosis, Hiatal Hernia, Other (See Below) Other Gastrointestinal History: right and left ing hernias Musculoskeletal History: Reports: Osteoarthritis Endocrine/Metabolic History: Reports: Diabetes, Type II, Obesity/BMI 30+ Hematologic History: Reports: Blood Transfusion(s) Oncologic (Cancer) History: Reports: Basal Cell Carcinoma Dermatologic History: Reports: Melanoma, Other (See Below) Other Dermatologic History: Basal Cell CA - Infectious Disease History Infectious Disease History: Reports: Chicken Pox, Measles, Mumps - Past Surgical History HEENT Surgical History: Reports: Oral Surgery Cardiovascular Surgical History: Reports: Coronary Artery Bypass, Other (See Below) Other Cardiovascular Surgeries/Procedures: 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 Denies: Fever, Chills HEENT: Reports: No Symptoms Pulmonary: Reports: Shortness of Breath, Cough, Sputum. Denies: Wheezing, Pleuritic Chest Pain, Hemoptysis Cardiovascular: Reports: Dyspnea on Exertion, Orthopnea, PND, Edema. Denies: Chest Pain, Palpitations, Lightheadedness Gastrointestinal: Reports: No Symptoms Genitourinary: Reports: No Symptoms Musculoskeletal: Reports: No Symptoms Skin: Reports: No Symptoms Psychiatric: Reports: No Symptoms Neurological: Reports: No Symptoms Hematologic/Lymphatic: Reports: No Symptoms Immunologic: Reports: No Symptoms Exam - Exam Exam: See Below - Vital Signs Vital Signs: Last Vital Signs Temp 96.3 F 09/26/18 08:37 Pulse 70 09/26/18 11:07 Resp 24 H 09/26/18 11:07 BP 141/58 H 09/26/18 11:07 Pulse Ox 97 09/26/18 11:07 Weight: 231 lb 0.711 oz - Exam Quality Assessment: Supplemental Oxygen, DVT Prophylaxis General: Alert, Oriented, Cooperative, Mild Distress HEENT: Conjunctiva Clear, Hearing Intact, Mucosa Moist & [place], Normal Nasal Septum, Posterior Pharynx Clear, Pupils Equal Neck: Supple, Trachea Midline, +2 Carotid Pulse wo Bruit Lungs: Normal Respiratory Effort, Rales Cardiovascular: Regular Rate, Regular Rhythm, Normal S1, Normal S2, Systolic Murmur. No: Diastolic Murmur GI/Abdominal Exam: Soft, Non-Tender, No Organomegaly, No Distention Back Exam: Normal Inspection, Full Range of Motion Extremities: Non-Tender, Pedal Edema Skin: Warm, Dry, Intact Neurological: Cranial Nerves Intact, Strength Equal Bilateral, Normal Speech, Normal Tone, Sensation Intact. No: Focal Deficit Neuro Extensive - Mental Status: Alert, Oriented x3, Normal Mood/Affect, Normal Cognition, Memory Intact - Patient Data Lab Results Last 24 hrs: Laboratory Results - last 24 hr 09/26/18 09/26/18 09/26/18 Range/Units 09:00 09:04 09:04 WBC 5.4 (4.5-11.0) K/uL RBC 2.57 L (4.30-5.90) M/uL Hgb 9.3 L (12.0-15.0) g/dL Hct 30.0 L (40.0-54.0) % MCV 117 H (80-98) fL MCH 36 H (27-31) pg MCHC 31 L (32-36) % Plt Count 180 (150-400) K/uL Neut % (Auto) 66 (36-66) % Lymph % (Auto) 23 L (24-44) % [place] % (Auto) 9 H (2-6) % Eos % (Auto) 2 (2-4) % Baso % (Auto) 0 (0-1) % PT 23.5 H (9.5-12.0) sec INR 2.24 H (0.80-1.20) Sodium 143 (140-148) mmol/L Potassium 4.4 (3.6-5.2) mmol/L Chloride 109 H (100-108) mmol/L Carbon Dioxide 23 (21-32) mmol/L Anion Gap 15.4 H (5.0-14.0) mmol/L BUN 28 H (7-18) mg/dL Creatinine 1.7 H (0.8-1.3) mg/dL Est Cr Clr Drug Dosing 30.68 mL/min Estimated GFR (MDRD) 38 L (>60) Glucose 121 H (74-106) mg/dL Calcium 9.3 (8.5-10.1) mg/dL Total Bilirubin 1.1 H (0.2-1.0) mg/dL AST 19 (15-37) U/L ALT 18 (12-78) U/L Alkaline Phosphatase 95 (46-116) U/L Troponin I 0.040 (0.000-0.056) ng/mL NT-Pro-B Natriuret Pep 4485 H (5-450) pg/mL Total Protein 6.0 L (6.4-8.2) g/dL Albumin 3.3 L (3.4-5.0) g/dL Globulin 2.7 (2.3-3.5) g/dL Albumin/Globulin Ratio 1.2 (1.2-2.2) Result Diagrams: 09/26/18 09:04 09/26/18 09:04 *Q Meaningful Use (ADM) - VTE Risk Assess *Q Each Risk Factor Represents 1 Point: Swollen Legs, Current, Obesity ( BMI > 25 kg/m2), Congestive heart failure (CHF) Total Score 1 Point Risk Factors: 3 Each Risk Factor Represents 2 Points: None Total Score 2 Point Risk Factors: 0 Each Risk Factor Represents 3 Points: Age 75 Years or Greater Total Score 3 Point Risk Factors: 3 Each Risk Factor Represents 5 Points: None Total Score 5 Point Risk Factors: 0 Venous Thromboembolism Risk Factor Score *Q: 6 Problem List Initiated/Reviewed/Updated: Yes Orders Last 24hrs: Active Orders 24 hr Category Date Time Status Patient Status Manage Transfer [TRANSFER] Routine ADT 09/26/18 11:48 Active Cardiac Monitoring [RC] .As Directed Care 09/26/18 08:49 Active EKG Documentation Completion [RC] ASDIRECTED Care 09/26/18 08:50 Active Peripheral IV Care [RC] . DIRECTED Care 09/26/18 08:50 Active Nitroglycerin [Nitrostat] Med 09/26/18 08:49 Active 0.4 mg SL Q5M PRN Sodium Chloride 0.9% [Saline Flush] Med 09/26/18 08:49 Active 10 ml FLUSH ASDIRECTED PRN Peripheral IV Insertion Adult [OM.PC] Stat Oth 09/26/18 08:49 Ordered Saline Lock Insert [OM.PC] Stat Oth 09/26/18 08:49 Ordered Resuscitation Status Routine Resus Stat 09/26/18 11:51 Ordered EKG 12 Lead [EK] Stat Ther 09/26/18 08:50 Ordered Medication Orders Nitroglycerin (Nitrostat) 0.4 mg SL Q5M PRN PRN Reason: Chest Pain Stop: 09/27/18 08:50 Last Admin: 09/26/18 09:08 Dose: 0.4 mg Sodium Chloride (Saline Flush) 10 ml FLUSH ASDIRECTED PRN PRN Reason: Keep Vein Open Last Admin: 09/26/18 09:09 Dose: 10 ml Assessment/Plan Comment:: ASSESSMENT AND PLAN CONGESTIVE HEART FAILURE-known history of decreased left ventricular function, most recent estimated ejection fraction of 40-45%. Increased shortness of breath over the past several days, with orthopnea and PND. Increase in peripheral edema occurring during the same period of time. -Furosemide 40 mg IV tonight, reassess in a.m. -2 g sodium diet -Consider addition of MEL inhibitor to current regimen -Echocardiogram to reassess left ventricular function CHRONIC KIDNEY DISEASE STAGE IIIb -Closely monitor urine output and renal function with diuresis TYPE 2 DIABETES MELLITUS -4 times a day glucometers -Low-dose sliding scale insulin -Continue metformin ATRIAL FIBRILLATION-rate control adequate, on long-term oral anticoagulation with warfarin -Continue usual dose of warfarin -Reassess INR in a.m. MAINTENANCE ISSUES -DVT prophylaxis; current therapy with warfarin should provide adequate DVT prophylaxis -GI prophylaxis; not indicated -[place] catheter; not indicated -Nutrition; 2 g sodium diet -Nicotine dependence; not required CODE STATUS-DNR/DNI ADMISSION STATUS-patient will be admitted to inpatient status, expect at least a 2 night hospital stay for evaluation and management of problems as outlined above. At the time of this admission I do not reasonably expected evaluation and management of this problem will require more than a 96 hour hospital stay. DISPOSITION-anticipate discharge to home after the hospital stay. PRIMARY CARE PROVIDER-Braeden Caldwell
[2018-09-26] MEDS ORDERED: 50% Dextrose in Water 50 ML Syringe IV PRN (13:17)
[2018-09-26] MEDS ORDERED: Acetaminophen 325 MG Tab PO PRN (13:17)
[2018-09-26] MEDS ORDERED: Ondansetron 4 MG/2 ML SDV IV PRN (13:17)
[2018-09-26] MEDS ORDERED: Polyethylene Glycol 3350 Powder 17 GM Packet PO PRN (13:17)
[2018-09-26] MEDS ORDERED: Albuterol 0.083% 2.5 MG/3 ML Neb Soln NEB PRN (13:17)
[2018-09-26] MEDS ORDERED: Glucose Gel 15 GM in 37.5 GM Tube PO PRN (13:17)
[2018-09-26] MEDS: metFORMIN 500 MG Tab PO SCH (17:09)
[2018-09-26] MEDS: Insulin Lispro 100 Unit/ML 3 ML KwikPen SUBCUT SCH ×2 (17:10→21:45)
[2018-09-26] MEDS: Magnesium Sulfate/Water 2 GM in Premix Bag 1 BAG IV SCH ×2 (19:07→23:42)
[2018-09-26] MEDS: atorvaSTATin 20 MG Tab PO SCH (20:16)
[2018-09-26] MEDS: Metoprolol Succinate 25 MG Tab.ER PO SCH (20:16)
[2018-09-26] MEDS: Magnesium Oxide 400 MG Tab PO SCH (20:16)
[2018-09-27] MEDS: Mometasone Furoate HFA 200 mcg/Puff 13 GM Inhaler INH SCH (07:22)
[2018-09-27] MEDS: Insulin Lispro 100 Unit/ML 3 ML KwikPen SUBCUT SCH ×4 (08:28→21:15)
[2018-09-27] MEDS ORDERED: Magnesium Oxide 400 MG Tab PO SCH (09:00)
[2018-09-27] MEDS: Ezetimibe 10 MG Tab PO SCH (09:11)
[2018-09-27] MEDS: Glimepiride 2 MG Tab PO SCH (09:11)
[2018-09-27] MEDS: Allopurinol 300 MG Tab PO SCH (09:11)
[2018-09-27] MEDS: Metoprolol Succinate 25 MG Tab.ER PO SCH (09:12)
[2018-09-27] MEDS: Clopidogrel 75 MG Tab PO SCH (09:12)
[2018-09-27] MEDS: metFORMIN 500 MG Tab PO SCH ×2 (09:13→17:13)
[2018-09-27] MEDS: Cetirizine 10 MG Tab PO SCH (09:13)
[2018-09-27] MEDS: Fluticasone Propionate Nasal Spray 16 GM Bottle NASBOTH SCH (09:13)
[2018-09-27] MEDS: Magnesium Oxide 400 MG Tab PO SCH ×2 (09:15→21:17)
[2018-09-27] MEDS ORDERED: Furosemide 40 MG/4 ML VIAL IVPUSH ONE (09:45)
[2018-09-27] MEDS ORDERED: Warfarin 5 MG Tab PO SCH (13:00)
[2018-09-27] MEDS ORDERED: Potassium Chloride 20 MEQ Tab.ER PO ONE (17:45)
--- NOTE | 2018-09-27 17:48 | PCM.PN ---
- General Info Date of Service: 09/27/18 Subjective Update: Mr. Kamara has improved since admission with good diuresis and less shortness of breath. His cough has essentially resolved in peripheral edema significant minimally improved. He has been able to walk short distances in the hallways. He did experience significant bradycardia during the night with heart rate into the low 30s and upper 20s. He was asymptomatic with this and has been not noted to have other episodes of bradycardia. He does report that he has a history of sleep apnea but has not treated this with C Pap. Functional Status: Reports: Tolerating Diet, Ambulating, Urinating - Review of Systems General: Reports: Weakness. Denies: Fever, Chills Pulmonary: Reports: Shortness of Breath. Denies: Pleuritic Chest Pain, Cough, Sputum, Hemoptysis, Wheezing Cardiovascular: Reports: Dyspnea on Exertion, Edema. Denies: Chest Pain, Palpitations, Orthopnea, PND, Lightheadedness Gastrointestinal: Reports: No Symptoms - Patient Data Vitals - Most Recent: Last Vital Signs Temp 97.0 F 09/27/18 14:37 Pulse 73 09/27/18 14:37 Resp 16 09/27/18 14:37 BP 113/56 L 09/27/18 14:37 Pulse Ox 97 09/27/18 14:37 Weight - Most Recent: 220 lb 12.793 oz I&O - Last 24 Hours: Intake & Output 09/27/18 09/27/18 09/27/18 06:59 14:59 22:59 Intake Total 340 150 Output Total 800 985 200 Balance -800 -645 -50 Lab Results Last 24 Hours: Laboratory Results - last 24 hr 09/27/18 09/27/18 09/27/18 Range/Units 05:00 05:00 05:00 WBC 3.9 L (4.5-11.0) K/uL RBC 2.58 L (4.30-5.90) M/uL Hgb 9.3 L (12.0-15.0) g/dL Hct 29.1 L (40.0-54.0) % MCV 113 H (80-98) fL MCH 36 H (27-31) pg MCHC 32 (32-36) % Plt Count 162 (150-400) K/uL Neut % (Auto) 57 (36-66) % Lymph % (Auto) 22 L (24-44) % [place] % (Auto) 17 H (2-6) % Eos % (Auto) 3 (2-4) % Baso % (Auto) 1 (0-1) % PT 20.4 H (9.5-12.0) sec INR 1.92 H (0.80-1.20) Sodium 140 (140-148) mmol/L Potassium 3.7 (3.6-5.2) mmol/L Chloride 105 (100-108) mmol/L Carbon Dioxide 25 (21-32) mmol/L Anion Gap 9.8 (5.0-14.0) mmol/L BUN 26 H (7-18) mg/dL Creatinine 1.5 H (0.8-1.3) mg/dL Est Cr Clr Drug Dosing 34.78 mL/min Estimated GFR (MDRD) 44 L (>60) Glucose 116 H (74-106) mg/dL Calcium 9.6 (8.5-10.1) mg/dL Magnesium 2.2 (1.8-2.4) mg/dL Med Orders - Current: Current Medications Acetaminophen (Tylenol) 650 mg PO Q4H PRN PRN Reason: Pain (Mild 1-3)/fever Albuterol (Proventil Neb Soln) 2.5 mg NEB Q4H PRN PRN Reason: Shortness Of Breath/wheezing Allopurinol (Zyloprim) 150 mg PO DAILY [facility] [place] Last Admin: 09/27/18 09:11 Dose: 150 mg Atorvastatin Calcium (Lipitor) 20 mg PO BEDTIME [facility] [place] Last Admin: 09/26/18 20:16 Dose: 20 mg Cetirizine HCl (Zyrtec) 10 mg PO DAILY [facility] [place] Last Admin: 09/27/18 09:13 Dose: 10 mg Cilostazol (Pletal) 100 mg PO DAILY [facility] [place] Last Admin: 09/27/18 09:12 Dose: 100 mg Clopidogrel Bisulfate (Plavix) 75 mg PO DAILY [facility] [place] Last Admin: 09/27/18 09:12 Dose: 75 mg Dextrose (Glutose 15) 15 gm PO ONETIME PRN PRN Reason: Hypoglycemia Dextrose/Water (Dextrose 50% In Water) 50 ml IV ONETIME PRN PRN Reason: Hypoglycemia Ezetimibe (Zetia) 10 mg PO DAILY [facility] [place] Last Admin: 04/16/19 09:11 Dose: 10 mg Fluticasone Propionate (Flonase) 0 gm NASBOTH DAILY [facility] [place] Last Admin: 09/27/18 09:13 Dose: 16 gm Furosemide (Lasix) 40 mg IVPUSH NOW ONE Stop: 09/27/18 19:01 Glimepiride (Amaryl) 4 mg PO DAILY [facility] [place] Last Admin: 09/27/18 09:11 Dose: 4 mg Insulin Human Lispro (Humalog) 0 unit SUBCUT QIDACANDBED [facility] [place]; Protocol Last Admin: 09/27/18 17:14 Dose: 1 units Magnesium Oxide (Magnesium Oxide) 400 mg PO BID [facility] [place] Last Admin: 09/27/18 09:15 Dose: 400 mg Metformin HCl (Glucophage) 500 mg PO BIDMEALS [facility] [place] Last Admin: 09/27/18 17:13 Dose: 500 mg Mometasone Furoate (Asmanex Hfa 200mcg) [facility] Last Admin: 09/27/18 07:22 Dose: 2 puff Ondansetron HCl (Zofran) 4 mg IV Q4H PRN PRN Reason: Nausea/Vomiting Polyethylene Glycol (Miralax) 17 gm PO DAILY PRN PRN Reason: Constipation Potassium Chloride (Klor-Con M20) 40 meq PO ONETIME ONE Stop: 09/27/18 17:46 Sodium Chloride (Saline Flush) 10 ml FLUSH ASDIRECTED PRN PRN Reason: Keep Vein Open Warfarin Sodium (Coumadin) 5 mg PO DAILY@1300 [facility] [place] Last Admin: 09/27/18 14:06 Dose: 5 mg Discontinued Medications Furosemide (Lasix) 40 mg IVPUSH ONETIME ONE Stop: 09/26/18 08:52 Last Admin: 09/26/18 09:08 Dose: 40 mg Furosemide (Lasix) 40 mg IVPUSH ONETIME ONE Stop: 09/26/18 19:01 Last Admin: 09/26/18 18:50 Dose: 40 mg Furosemide (Lasix) 40 mg IVPUSH NOW ONE Stop: 09/27/18 09:46 Last Admin: 09/27/18 09:49 Dose: 40 mg Magnesium Sulfate 2 gm/ Premix 50 mls @ 25 mls/hr IV Q6H [facility] [place] Stop: 09/27/18 01:44 Last Admin: 09/26/18 23:42 Dose: 25 mls/hr Magnesium Oxide (Magnesium Oxide) 400 mg PO DAILY [facility] [place] Metoprolol Succinate (Toprol Xl) 25 mg PO BID [place] Last Admin: 09/27/18 09:12 Dose: 25 mg Nitroglycerin (Nitrostat) 0.4 mg SL Q5M PRN PRN Reason: Chest Pain Stop: 09/27/18 08:50 Last Admin: 09/26/18 09:08 Dose: 0.4 mg Sodium Chloride (Saline Flush) 10 ml FLUSH ASDIRECTED PRN PRN Reason: Keep Vein Open Last Admin: 09/26/18 09:09 Dose: 10 ml - Exam Quality Assessment: DVT Prophylaxis. No: Supplemental Oxygen, Urine Catheter General: Alert, Oriented, Cooperative, No Acute Distress Lungs: Clear to Auscultation, Normal Respiratory Effort, Decreased Breath Sounds Cardiovascular: Regular Rate, Regular Rhythm, Murmurs GI/Abdominal Exam: Soft, Non-Tender, No Organomegaly, No Distention Extremities: Non-Tender, Pedal Edema - Problem List Review Problem List Initiated/Reviewed/Updated: Yes - My Orders Last 24 Hours: My Active Orders 09/26/18 17:00 Insulin Lispro [HumaLOG] See Protocol SUBCUT QIDACANDBED metFORMIN [Glucophage] 500 mg PO BIDMEALS 09/26/18 21:00 Magnesium Oxide 400 mg PO BID atorvaSTATin [Lipitor] 20 mg PO BEDTIME 09/27/18 07:00 Mometasone Furoate 200mcg [Asmanex HFA 200mcg] 0 gm INH DAILYRT 09/27/18 09:00 Allopurinol [Zyloprim] 150 mg PO DAILY Cetirizine [ZyrTEC] 10 mg PO DAILY Cilostazol [Pletal] 100 mg PO DAILY Clopidogrel [Plavix] 75 mg PO DAILY Ezetimibe [Zetia] 10 mg PO DAILY Fluticasone Propionate [Flonase] 0 gm NASBOTH DAILY Glimepiride [Amaryl] 4 mg PO DAILY 09/27/18 10:30 Echo Comp wo Cont [US] Urgent 09/27/18 13:00 Warfarin [Coumadin] 5 mg PO DAILY@1300 09/27/18 17:16 Overnight Pulse Oximetry [RC] Click to Edit Pulse Oximetry Continuous Monitoring [OM.PC] Routine 09/27/18 17:45 Potassium Chloride [Klor-Con M20] 40 meq PO ONETIME ONE 09/27/18 19:00 Furosemide [Lasix] 40 mg IVPUSH NOW ONE 09/27/18 21:00 GLUCOSE POC LAB TO COLLECT [POC] QIDACANDBED 09/28/18 05:00 BASIC METABOLIC PANEL,BMP [CHEM] Timed INR,PT,PROTHROMBIN TIME [COAG] Timed 09/28/18 07:30 GLUCOSE POC LAB TO COLLECT [POC] QIDACANDBED 09/28/18 11:30 GLUCOSE POC LAB TO COLLECT [POC] QIDACANDBED 09/28/18 16:30 GLUCOSE POC LAB TO COLLECT [POC] QIDACANDBED 09/28/18 21:00 GLUCOSE POC LAB TO COLLECT [POC] QIDACANDBED 09/29/18 07:30 GLUCOSE POC LAB TO COLLECT [POC] QIDACANDBED 09/29/18 11:30 GLUCOSE POC LAB TO COLLECT [POC] QIDACANDBED 09/29/18 16:30 GLUCOSE POC LAB TO COLLECT [POC] QIDACANDBED 09/29/18 21:00 GLUCOSE POC LAB TO COLLECT [POC] QIDACANDBED 09/30/18 07:30 GLUCOSE POC LAB TO COLLECT [POC] QIDACANDBED 09/30/18 11:30 GLUCOSE POC LAB TO COLLECT [POC] QIDACANDBED 09/30/18 16:30 GLUCOSE POC LAB TO COLLECT [POC] QIDACANDBED 09/30/18 21:00 GLUCOSE POC LAB TO COLLECT [POC] QIDACANDBED 10/01/18 07:30 GLUCOSE POC LAB TO COLLECT [POC] QIDACANDBED 10/01/18 11:30 GLUCOSE POC LAB TO COLLECT [POC] QIDACANDBED - Plan Plan:: ASSESSMENT AND PLAN SYSTOLIC AND DIASTOLIC CONGESTIVE HEART FAILURE-preliminary report from echocardiogram obtained earlier today shows decreased left ventricular function , estimated ejection fraction of 40-45%. Level of dysfunction is stable from previous echocardiogram. Echocardiogram also showed evidence of diastolic dysfunction -Furosemide 40 mg IV twice today, reassess in a.m. -2 g sodium diet -Consider addition of MEL inhibitor to current regimen -Echocardiogram to reassess left ventricular function BRADYCARDIA-I suspect that this is related to hypoxia and sleep apnea -Continuous pulse oximeter -Hold metoprolol CHRONIC KIDNEY DISEASE STAGE IIIb -Closely monitor urine output and renal function with diuresis TYPE 2 DIABETES MELLITUS -4 times a day glucometers -Low-dose sliding scale insulin -Continue metformin ATRIAL FIBRILLATION-rate control adequate, on long-term oral anticoagulation with warfarin -Continue usual dose of warfarin -Reassess INR in a.m. MAINTENANCE ISSUES -DVT prophylaxis; current therapy with warfarin should provide adequate DVT prophylaxis -GI prophylaxis; not indicated -[place] catheter; not indicated -Nutrition; 2 g sodium diet -Nicotine dependence; not required CODE STATUS-DNR/DNI ADMISSION STATUS-patient will be admitted to inpatient status, expect at least a 2 night hospital stay for evaluation and management of problems as outlined above. At the time of this admission I do not reasonably expected evaluation and management of this problem will require more than a 96 hour hospital stay. DISPOSITION-anticipate discharge to home after the hospital stay. PRIMARY CARE PROVIDER-Braeden Caldwell
[2018-09-27] MEDS: Furosemide 40 MG/4 ML VIAL IVPUSH ONE ×2 (17:50→18:22)
[2018-09-27] MEDS: atorvaSTATin 20 MG Tab PO SCH (21:17)
[2018-09-28] MEDS: Mometasone Furoate HFA 200 mcg/Puff 13 GM Inhaler INH SCH (07:08)
[2018-09-28 07:18] VITALS: BP 137/64
[2018-09-28] MEDS: Insulin Lispro 100 Unit/ML 3 ML KwikPen SUBCUT SCH ×2 (08:05→11:55)
[2018-09-28] MEDS: metFORMIN 500 MG Tab PO SCH (08:09)
[2018-09-28] MEDS: Fluticasone Propionate Nasal Spray 16 GM Bottle NASBOTH SCH (08:10)
[2018-09-28] MEDS: Glimepiride 2 MG Tab PO SCH (08:10)
[2018-09-28] MEDS: Clopidogrel 75 MG Tab PO SCH (08:11)
[2018-09-28] MEDS: Magnesium Oxide 400 MG Tab PO SCH (08:11)
[2018-09-28] MEDS: Allopurinol 300 MG Tab PO SCH (08:12)
[2018-09-28] MEDS: Ezetimibe 10 MG Tab PO SCH (08:12)
[2018-09-28] MEDS: Cetirizine 10 MG Tab PO SCH (08:13)
[2018-09-28] MEDS ORDERED: Furosemide 40 MG Tab PO SCH (09:00)
--- NOTE | 2018-09-28 11:00 | PCM.DCSUM1 ---
Discharge Summary - Hospital Course Brief History: Mr. Kamara is an 87-year-old gentleman who was admitted through the emergency department with weakness and shortness of breath secondary to congestive heart failure exacerbation. - Discharge Data Discharge Date: 09/28/18 Discharge Disposition: Home, Self-Care 01 Condition: Fair - Discharge Diagnosis/Problem(s) (1) CKD (chronic kidney disease) stage 3, GFR 30-59 ml/min SNOMED Code(s): 285876726 ICD Code: N18.3 - CHRONIC KIDNEY DISEASE, STAGE 3 (MODERATE) Status: Acute Current Visit: Yes (2) Acute exacerbation of CHF (congestive heart failure) SNOMED Code(s): 17540772 ICD Code: I50.9 - HEART FAILURE, UNSPECIFIED Status: Acute Current Visit : Yes Qualifiers: Heart failure type: systolic Qualified Code(s): I50.23 - Acute on chronic systolic (congestive) heart failure (3) Afib, Atrial fibrillation SNOMED Code(s): 19059698 ICD Code: I48.91 - UNSPECIFIED ATRIAL FIBRILLATION Status: Chronic Current Visit: No (4) CAD (coronary artery disease) SNOMED Code(s): 96496049 ICD Code: I25.10 - ATHSCL HEART DISEASE OF [place] CORONARY ARTERY W/O ANG PCTRS Status: Chronic Current Visit: No (5) Type 2 diabetes mellitus SNOMED Code(s): 79712766 ICD Code: E11.9 - TYPE 2 DIABETES MELLITUS WITHOUT COMPLICATIONS Status: Chronic Current Visit: No - Patient Summary/Data Consults: Consultations 09/26/18 13:17 PT Evaluation and Treatment [CONS] Routine Please Evaluate and Treat. PT Reason for Consult: Weakness This query below is only for informational purposes and is not editable. Hospital Course: Mr. Kamara is an 87-year-old gentleman who is admitted through the emergency department with shortness of breath that is developed over the past several days. He has a known history of congestive heart failure with decreased ejection fraction, most recent echocardiogram showed left ventricular contraction fraction of 40-45%. He is remained on his usual medications but has become progressively more short of breath to the point where he was short of breath at rest this morning. He is unable to sleep during the night he cousin PND and orthopnea. During this period of time has also noted an increase in his peripheral edema. In the emergency department he was given IV furosemide, followed by IV furosemide twice daily over the next hospital day. On the day of discharge he was doing well and was transitioned to oral furosemide 40 mg daily. He had an excellent diuresis and was feeling significantly improved. Dyspnea was back to baseline level, he continued to have a slight amount of peripheral edema. Echocardiogram was obtained during the hospitalization, preliminary report showed decreased left ventricular systolic function with estimated ejection fraction of 40-45%. He was also noted to have diastolic dysfunction, biatrial enlargement, and moderate mitral regurgitation, with mild aortic stenosis. On the first hospital night he did develop significant bradycardia during the night with heart rates in the low 30s and upper 20s. His metoprolol was discontinued and he had no further episodes of significant bradycardia. Metoprolol will be discontinued when he goes home and he will be on furosemide 40 mg daily. The importance of a low-sodium diet was reviewed with him. Activity will be as tolerated and a follow-up appointment will be scheduled with Dr. Carey within one week. BMP and magnesium level should be obtained at the time of follow-up appointment. - Patient Instructions Diet: Low Sodium, Diabetic Diet Activity: As Tolerated Other/Special Instructions: Please schedule follow-up appointment with Dr. Carey within one week. BMP and magnesium level should be obtained at the time of follow-up appointment. - Discharge Plan *PRESCRIPTION DRUG MONITORING PROGRAM REVIEWED*: Not Applicable *COPY OF PRESCRIPTION DRUG MONITORING REPORT IN PATIENT ROHIT: Not Applicable Prescriptions/Med Rec: Furosemide [Lasix] 40 mg PO DAILY #30 tablet Home Medications: Home Meds Budesonide [Pulmicort Flexhaler] 2 puff INH BID 09/26/14 [History] Cetirizine [ZyrTEC] 10 mg PO DAILY 09/26/14 [History] Cholecalciferol (Vitamin D3) [Vitamin D3] 1,000 unit PO DAILY 09/26/14 [History] Ezetimibe [Zetia] 10 mg PO DAILY 09/26/14 [History] Fluticasone Propionate [Flonase] 2 spray NASBOTH DAILY 09/26/14 [History] Glimepiride 4 mg PO DAILY 09/26/14 [History] Multivitamin with Minerals [Multiple Vitamin] 1 tab PO DAILY 09/26/14 [History] [place]-3 Fatty Acids [Fish Oil] 2 tab PO DAILY 09/26/14 [History] Warfarin [Coumadin] 5 mg PO DAILY 09/26/14 [History] atorvaSTATin [Lipitor] 20 mg PO BEDTIME 09/26/14 [History] metFORMIN [Glucophage] 500 mg PO BID 09/26/14 [History] Magnesium Oxide 400 mg PO DAILY #30 tablet 01/23/16 [Rx] Clopidogrel Bisulfate [Clopidogrel] 75 mg PO DAILY 10/02/17 [History] Allopurinol [Zyloprim] 150 mg PO DAILY 12/09/17 [History] Furosemide 40 mg PO DAILY 12/09/17 [History] Cilostazol [Pletal] 100 mg PO DAILY 01/17/18 [History] Furosemide [Lasix] 40 mg PO DAILY #30 tablet 09/28/18 [Rx] Patient Handouts: Heart Failure, [id number] Referrals: Aldair Carey MD [Primary Care Provider] - 10/06/18 1:30 pm (Please arrive 15 minutes early to register for your appointment.) Constantino Campbell, PT [Consulting Physician] - 10/04/18 10:00 am (Please arrive 15 minutes early to register for your appointment) - Discharge Summary/Plan Comment DC Time >30 min.: No - Patient Data Vitals - Most Recent: Last Vital Signs Temp 97.3 F 09/28/18 07:16 Pulse 87 09/28/18 07:16 Resp 16 09/28/18 07:16 BP 137/64 09/28/18 07:16 Pulse Ox 97 09/28/18 07:22 Weight - Most Recent: 218 lb 6.4 oz I&O - Last 24 hours: Intake & Output 09/27/18 09/28/18 09/28/18 22:59 06:59 14:59 Intake Total 505 814 Output Total 851 300 325 Balance -346 -300 489 Lab Results - Last 24 hrs: Laboratory Results - last 24 hr 09/28/18 09/28/18 Range/Units 05:09 05:09 PT 22.9 H (9.5-12.0) sec INR 2.18 H (0.80-1.20) Sodium 143 (140-148) mmol/L Potassium 4.2 (3.6-5.2) mmol/L Chloride 107 (100-108) mmol/L Carbon Dioxide 25 (21-32) mmol/L Anion Gap 11.4 (5.0-14.0) mmol/L BUN 36 H (7-18) mg/dL Creatinine 1.7 H (0.8-1.3) mg/dL Est Cr Clr Drug Dosing 30.69 mL/min Estimated GFR (MDRD) 38 L (>60) Glucose 140 H (74-106) mg/dL Calcium 9.8 (8.5-10.1) mg/dL Med Orders - Current: Current Medications Acetaminophen (Tylenol) 650 mg PO Q4H PRN PRN Reason: Pain (Mild 1-3)/fever Albuterol (Proventil Neb Soln) 2.5 mg NEB Q4H PRN PRN Reason: Shortness Of Breath/wheezing Allopurinol (Zyloprim) 150 mg PO DAILY [facility] Last Admin: 09/28/18 08:12 Dose: 150 mg Atorvastatin Calcium (Lipitor) 20 mg PO BEDTIME [facility] Last Admin: 09/27/18 21:17 Dose: 20 mg Cetirizine HCl (Zyrtec) 10 mg PO DAILY [facility] Last Admin: 09/28/18 08:13 Dose: 10 mg Cilostazol (Pletal) 100 mg PO DAILY [facility] Last Admin: 09/28/18 08:12 Dose: 100 mg Clopidogrel Bisulfate (Plavix) 75 mg PO DAILY [facility] Last Admin: 09/28/18 08:11 Dose: 75 mg Dextrose (Glutose 15) 15 gm PO ONETIME PRN PRN Reason: Hypoglycemia Dextrose/Water (Dextrose 50% In Water) 50 ml IV ONETIME PRN PRN Reason: Hypoglycemia Ezetimibe (Zetia) 10 mg PO DAILY [facility] Last Admin: 09/28/18 08:12 Dose: 10 mg Fluticasone Propionate (Flonase) 0 gm NASBOTH DAILY [facility] Last Admin: 09/28/18 08:10 Dose: 1 spray Furosemide (Lasix) 40 mg PO DAILY [facility] Last Admin: 09/28/18 09:52 Dose: 40 mg Glimepiride (Amaryl) 4 mg PO DAILY [facility] Last Admin: 09/28/18 08:10 Dose: 4 mg Insulin Human Lispro (Humalog) 0 unit SUBCUT QIDACANDBED [facility]; Protocol Last Admin: 09/28/18 08:05 Dose: 1 units Magnesium Oxide (Magnesium Oxide) 400 mg PO BID [facility] Last Admin: 09/28/18 08:11 Dose: 400 mg Metformin HCl (Glucophage) 500 mg PO BIDMEALS [facility] Last Admin: 09/28/18 08:09 Dose: 500 mg Mometasone Furoate (Asmanex Hfa 200mcg) 0 gm INH DAILYRT [facility] Last Admin: 09/28/18 07:08 Dose: 2 puff Ondansetron HCl (Zofran) 4 mg IV Q4H PRN PRN Reason: Nausea/Vomiting Polyethylene Glycol (Miralax) 17 gm PO DAILY PRN PRN Reason: Constipation Sodium Chloride (Saline Flush) 10 ml FLUSH ASDIRECTED PRN PRN Reason: Keep Vein Open Warfarin Sodium (Coumadin) 5 mg PO DAILY@1300 [facility] Last Admin: 09/27/18 14:06 Dose: 5 mg Discontinued Medications Furosemide (Lasix) 40 mg IVPUSH ONETIME ONE Stop: 09/26/18 08:52 Last Admin: 09/26/18 09:08 Dose: 40 mg Furosemide (Lasix) 40 mg IVPUSH ONETIME ONE Stop: 09/26/18 19:01 Last Admin: 09/26/18 18:50 Dose: 40 mg Furosemide (Lasix) 40 mg IVPUSH NOW ONE Stop: 09/27/18 09:46 Last Admin: 09/27/18 09:49 Dose: 40 mg Furosemide (Lasix) 40 mg IVPUSH NOW ONE Stop: 09/27/18 19:01 Last Admin: 09/27/18 18:22 Dose: Not Given Magnesium Sulfate 2 gm/ Premix 50 mls @ 25 mls/hr IV Q6H [facility] Stop: 09/27/18 01:44 Last Admin: 09/26/18 23:42 Dose: 25 mls/hr Magnesium Oxide (Magnesium Oxide) 400 mg PO DAILY [facility] Metoprolol Succinate (Toprol Xl) 25 mg PO BID [facility] Last Admin: 09/27/18 09:12 Dose: 25 mg Nitroglycerin (Nitrostat) 0.4 mg SL Q5M PRN PRN Reason: Chest Pain Stop: 09/27/18 08:50 Last Admin: 09/26/18 09:08 Dose: 0.4 mg Potassium Chloride (Klor-Con M20) 40 meq PO ONETIME ONE Stop: 09/27/18 17:46 Last Admin: 04/16/19 17:50 Dose: 40 meq Sodium Chloride (Saline Flush) 10 ml FLUSH ASDIRECTED PRN PRN Reason: Keep Vein Open Last Admin: 09/26/18 09:09 Dose: 10 ml - Exam General: Reports: Alert, Oriented, Cooperative, No Acute Distress Lungs: Reports: Clear to Auscultation, Normal Respiratory Effort Cardiovascular: Reports: Regular Rate, Irregular Rhythm, Murmurs GI/Abdominal Exam: Soft, Non-Tender, No Organomegaly, No Distention Extremities: Non-Tender, Pedal Edema *Q Meaningful Use (DIS) - VTE *Q VTE Pharmacological Contraindications *Q: High INR Value
== END 2018-09-28 13:11 | disposition home or self-care (01) | DRG 291 ==
LOC: JP.ED 08:10 → JP.MS 11:48
PROVIDERS: ADMIT Hospitalist; ATTEND Hospitalist
DX: I13.0 Hypertensive heart and chronic kidney disease with heart failure and stage 1 through stage 4 chronic kidney disease, or unspecified chronic kidney disease (principal); I50.23 Acute on chronic systolic (congestive) heart failure; I50.43 Acute on chronic combined systolic (congestive) and diastolic (congestive) heart failure; Z66 Do not resuscitate; N18.3 Chronic kidney disease, stage 3 (moderate); E11.22 Type 2 diabetes mellitus with diabetic chronic kidney disease; Z79.84 Long term (current) use of oral hypoglycemic drugs; I48.2 Chronic atrial fibrillation; R53.1 Weakness; R06.02 Shortness of breath; I25.10 Atherosclerotic heart disease of native coronary artery without angina pectoris; Z79.01 Long term (current) use of anticoagulants; I34.0 Nonrheumatic mitral (valve) insufficiency; I35.0 Nonrheumatic aortic (valve) stenosis; R00.1 Bradycardia, unspecified; T44.7X5A Adverse effect of beta-adrenoreceptor antagonists, initial encounter; Y92.239 Unspecified place in hospital as the place of occurrence of the external cause; E78.00 Pure hypercholesterolemia, unspecified; G47.30 Sleep apnea, unspecified; M19.90 Unspecified osteoarthritis, unspecified site; Z85.820 Personal history of malignant melanoma of skin; Z85.828 Personal history of other malignant neoplasm of skin; Z87.01 Personal history of pneumonia (recurrent); Z95.1 Presence of aortocoronary bypass graft; H54.7 Unspecified visual loss; Z90.49 Acquired absence of other specified parts of digestive tract; Z96.649 Presence of unspecified artificial hip joint; Z96.659 Presence of unspecified artificial knee joint; Z88.1 Allergy status to other antibiotic agents; Z88.8 Allergy status to other drugs, medicaments and biological substances; Z79.899 Other long term (current) drug therapy; E66.9 Obesity, unspecified; Z68.34 Body mass index [BMI] 34.0-34.9, adult
CPT/HCPCS: 36415; 71046; 71046-26; 80048; 80053; 82962; 83735; 83880; 84484; 85025; 85610; 93005; 93306; 94640; 96374; 97162-GP; 97530-GP; 97535-GP; 99285-25; A9270-GY; C9399; J1815; J1940; J3475

== ENCOUNTER 2018-12-15 10:49 | Inpatient (IN) | payer MEDICARE, OTHER ==
[2018-12-15] MEDS ORDERED: Sodium Chloride 0.9% 10 ML Syringe FLUSH PRN (11:37)
[2018-12-15] MEDS ORDERED: Furosemide 40 MG/4 ML VIAL IVPUSH ONE (11:37)
--- NOTE | 2018-12-15 11:40 | EDM.PDOC ---
ED HPI GENERAL MEDICAL PROBLEM - General Chief Complaint: Respiratory Problem Stated Complaint: SOB Time Seen by Provider: 12/15/18 11:38 Source of Information: Reports: Patient History Limitations: Reports: No Limitations - History of Present Illness INITIAL COMMENTS - FREE TEXT/NARRATIVE: pt has been very sob for the past 2 days. He has not had chest pain. He does notice that he has had increased ankle swelling. He has had fluid overload in the past. Onset: Gradual, Other (last 2-3 days. ) Duration: Hour(s): Location: Reports: Chest Associated Symptoms: Reports: Cough, Shortness of Breath, Weakness - Related Data Allergies Allergy/AdvReac Type Severity Reaction Status Date / Time amoxicillin AdvReac Diarrhea Verified 12/15/18 11:08 niacin AdvReac Headache Verified 12/15/18 11:08 Home Meds: Home Meds Budesonide [Pulmicort Flexhaler] 2 puff INH BID 09/26/14 [History] Cetirizine [ZyrTEC] 10 mg PO DAILY 09/26/14 [History] Cholecalciferol (Vitamin D3) [Vitamin D3] 1,000 unit PO DAILY 09/26/14 [History] Ezetimibe [Zetia] 10 mg PO DAILY 09/26/14 [History] Fluticasone Propionate [Flonase] 2 spray NASBOTH DAILY 09/26/14 [History] Glimepiride 4 mg PO DAILY 09/26/14 [History] Multivitamin with Minerals [Multiple Vitamin] 1 tab PO DAILY 09/26/14 [History] [place]-3 Fatty Acids [Fish Oil] 2 tab PO DAILY 09/26/14 [History] Warfarin [Coumadin] 5 mg PO DAILY 09/26/14 [History] atorvaSTATin [Lipitor] 20 mg PO BEDTIME 09/26/14 [History] metFORMIN [Glucophage] 500 mg PO BID 09/26/14 [History] Magnesium Oxide 400 mg PO DAILY #30 tablet 01/23/16 [Rx] Clopidogrel Bisulfate [Clopidogrel] 75 mg PO DAILY 10/02/17 [History] Allopurinol [Zyloprim] 150 mg PO DAILY 12/09/17 [History] Furosemide 40 mg PO DAILY 12/09/17 [History] Cilostazol [Pletal] 100 mg PO DAILY 01/17/18 [History] Furosemide [Lasix] 40 mg PO DAILY #30 tablet 09/28/18 [Rx] Past Medical History HEENT History: Reports: Impaired Vision Cardiovascular History: Reports: Afib, Bypass, CAD, Heart Failure, High Cholesterol, Hypertension, SOB on Exertion, Other (See Below) Other Cardiovascular History: Mitral valve insuffient, electrical cardioversion Respiratory History: Reports: Asthma, Pneumonia, Recurrent, Sleep Apnea Gastrointestinal History: Reports: Diverticulosis, Hiatal Hernia, Other (See Below) Other Gastrointestinal History: right and left ing hernias Genitourinary History: Reports: Other (See Below) Other Genitourinary History: "kidneys getting weak" Musculoskeletal History: Reports: Osteoarthritis Endocrine/Metabolic History: Reports: Diabetes, Type II, Obesity/BMI 30+ Hematologic History: Reports: Blood Transfusion(s) Oncologic (Cancer) History: Reports: Basal Cell Carcinoma Other Oncologic History: melanoma on nose Dermatologic History: Reports: Melanoma, Other (See Below) Other Dermatologic History: Basal Cell CA - Infectious Disease History Infectious Disease History: Reports: Chicken Pox, Measles, Mumps - Past Surgical History HEENT Surgical History: Reports: Oral Surgery GI Surgical History: Reports: Appendectomy, Cholecystectomy, Colon, Colonoscopy , Hernia Repair/Other Musculoskeletal Surgical History: Reports: Hip Replacement, Knee Replacement Social & Family History - Family History Family Medical History: Noncontributory - Tobacco Use Smoking Status *Q: Never Smoker - Caffeine Use Caffeine Use: Reports: Soda ED ROS GENERAL - Review of Systems Review Of Systems: See Below Constitutional: Reports: Weakness HEENT: Reports: No Symptoms Respiratory: Reports: Shortness of Breath Cardiovascular: Reports: Dyspnea on Exertion, Edema, PND Endocrine: Reports: No Symptoms GI/Abdominal: Reports: No Symptoms : Reports: No Symptoms Musculoskeletal: Reports: No Symptoms Skin: Reports: No Symptoms ED EXAM, GENERAL - Physical Exam Exam: See Below Free Text/Narrative:: pt arrived with a history of 2 nites of marked sob. He states last nite he was not able to sleep at all. He was very sob on arrival but was oxgenating fair at 93. Exam Limited By: No Limitations General Appearance: Alert, Anxious, Moderate Distress Ears: Normal TMs Nose: Normal Inspection Throat/Mouth: Normal Inspection Head: Atraumatic Neck: Normal Inspection Respiratory/Chest: Respiratory Distress Cardiovascular: Regular Rate, Rhythm GI/Abdominal: Soft, Non-Tender (Male) Exam: Deferred Rectal (Males) Exam: Deferred Back Exam: Normal Inspection Extremities: Pedal Edema Neurological: Alert, Oriented, Normal Cognition Course - Vital Signs Last Recorded V/S: Last Vital Signs Temp 37.1 C 12/15/18 11:13 Pulse 82 12/15/18 11:13 Resp 20 12/15/18 11:06 BP 154/67 H 12/15/18 11:13 Pulse Ox 96 12/15/18 11:13 - Orders/Labs/Meds Orders: Active Orders 24 hr Category Date Time Status EKG Documentation Completion [RC] ASDIRECTED Care 12/15/18 11:36 Active Sodium Chloride 0.9% [Saline Flush] Med 12/15/18 11:37 Active 10 ml FLUSH ASDIRECTED PRN Saline Lock Insert [OM.PC] Routine Oth 12/15/18 11:37 Ordered EKG 12 Lead [EK] Routine Ther 12/15/18 11:36 Ordered Medication Orders Sodium Chloride (Saline Flush) 10 ml FLUSH ASDIRECTED PRN PRN Reason: Keep Vein Open Last Admin: 12/15/18 12:09 Dose: 10 ml Labs: Laboratory Tests 12/15/18 12/15/18 12/15/18 Range/Units 11:25 11:35 11:40 WBC (4.5-11.0) K/uL RBC (4.30-5.90) M/uL Hgb (12.0-15.0) g/dL Hct (40.0-54.0) % MCV (80-98) fL MCH (27-31) pg MCHC (32-36) % Plt Count (150-400) K/uL Neut % (Auto) (36-66) % Lymph % (Auto) (24-44) % Harris % (Auto) (2-6) % Eos % (Auto) (2-4) % Baso % (Auto) (0-1) % PT 20.2 H (9.5-12.0) sec INR 1.90 H (0.80-1.20) Sodium (140-148) mmol/L Potassium (3.6-5.2) mmol/L Chloride (100-108) mmol/L Carbon Dioxide (21-32) mmol/L Anion Gap (5.0-14.0) mmol/L BUN (7-18) mg/dL Creatinine (0.8-1.3) mg/dL Est Cr Clr Drug Dosing mL/min Estimated GFR (MDRD) (>60) Glucose (74-106) mg/dL Calcium (8.5-10.1) mg/dL Total Bilirubin (0.2-1.0) mg/dL AST (15-37) U/L ALT (12-78) U/L Alkaline Phosphatase (46-116) U/L Troponin I 0.046 (0.000-0.056) ng/mL NT-Pro-B Natriuret Pep (5-450) pg/mL Total Protein (6.4-8.2) g/dL Albumin (3.4-5.0) g/dL Globulin (2.3-3.5) g/dL Albumin/Globulin Ratio (1.2-2.2) Urine Color Yellow Urine Appearance Clear Urine pH 7.0 (4.5-8.0) Ur Specific [place] 1.010 (1.008-1.030) Urine Protein Negative (NEGATIVE) mg/dL Urine Glucose (UA) Normal (NEGATIVE) mg/dL Urine Ketones Negative (NEGATIVE) mg/dL Urine Occult Blood Negative (NEGATIVE) Urine Nitrite Negative (NEGAITVE) Urine Bilirubin Negative (NEGATIVE) Urine Urobilinogen Normal (NORMAL) mg/dL Ur Leukocyte Esterase Negative (NEGATIVE) Urine RBC Not seen (0-5) Urine WBC Not seen (0-5) Ur Epithelial Cells Not seen Amorphous Sediment Few Urine Bacteria Not seen Urine Mucus Not seen 12/15/18 12/15/18 12/15/18 Range/Units 11:40 11:40 11:43 WBC 4.3 L (4.5-11.0) K/uL RBC 2.17 L (4.30-5.90) M/uL Hgb 8.1 L (12.0-15.0) g/dL Hct 25.6 L (40.0-54.0) % MCV 118 H (80-98) fL MCH 37 H (27-31) pg MCHC 32 (32-36) % Plt Count 176 (150-400) K/uL Neut % (Auto) 70 H (36-66) % Lymph % (Auto) 16 L (24-44) % Harris % (Auto) 12 H (2-6) % Eos % (Auto) 2 (2-4) % Baso % (Auto) 0 (0-1) % PT (9.5-12.0) sec INR (0.80-1.20) Sodium 144 (140-148) mmol/L Potassium 3.9 (3.6-5.2) mmol/L Chloride 109 H (100-108) mmol/L Carbon Dioxide 26 (21-32) mmol/L Anion Gap 12.9 (5.0-14.0) mmol/L BUN 34 H (7-18) mg/dL Creatinine 1.8 H (0.8-1.3) mg/dL Est Cr Clr Drug Dosing 28.44 mL/min Estimated GFR (MDRD) 36 L (>60) Glucose 160 H (74-106) mg/dL Calcium 9.1 (8.5-10.1) mg/dL Total Bilirubin 1.1 H (0.2-1.0) mg/dL AST 14 L (15-37) U/L ALT 17 (12-78) U/L Alkaline Phosphatase 85 (46-116) U/L Troponin I (0.000-0.056) ng/mL NT-Pro-B Natriuret Pep 4270 H (5-450) pg/mL Total Protein 5.7 L (6.4-8.2) g/dL Albumin 3.3 L (3.4-5.0) g/dL Globulin 2.4 (2.3-3.5) g/dL Albumin/Globulin Ratio 1.4 (1.2-2.2) Urine Color Urine Appearance Urine pH (4.5-8.0) Ur Specific [place] (1.008-1.030) Urine Protein (NEGATIVE) mg/dL Urine Glucose (UA) (NEGATIVE) mg/dL Urine Ketones (NEGATIVE) mg/dL Urine Occult Blood (NEGATIVE) Urine Nitrite (NEGAITVE) Urine Bilirubin (NEGATIVE) Urine Urobilinogen (NORMAL) mg/dL Ur Leukocyte Esterase (NEGATIVE) Urine RBC (0-5) Urine WBC (0-5) Ur Epithelial Cells Amorphous Sediment Urine Bacteria Urine Mucus Meds: Medications Generic Name Dose Route Start Last Admin Trade Name Freq PRN Reason Stop Dose Admin Sodium Chloride 10 ml 12/15/18 11:37 12/15/18 12:09 Saline Flush FLUSH 10 ml ASDIRECTED PRN Administration Keep Vein Open Discontinued Medications Generic Name Dose Route Start Last Admin Trade Name Vee PRN Reason Stop Dose Admin Furosemide 60 mg 12/15/18 11:37 12/15/18 12:09 Lasix IVPUSH 12/15/18 11:38 60 mg ONETIME ONE Administration - Re-Assessments/Exams Free Text/Narrative Re-Assessment/Exam: 12/15/18 14:06 pt had a high bnp, his chest did not reveal alot of fluid, He has sig edema in his ankles and he was very symptomatic in the last 2 nites. Departure - Departure Time of Disposition: 14:24 Disposition: Admitted As Inpatient 67 Condition: Fair Clinical Impression: Fluid overload, Renal insufficiency - Discharge Information Referrals: Aldair Carey MD [Primary Care Provider] - Forms: ED Department Discharge Care Plan Goals: admit to Dr Moreno. - My Orders Last 24 Hours: My Active Orders 12/15/18 11:36 EKG Documentation Completion [RC] ASDIRECTED EKG 12 Lead [EK] Routine 12/15/18 11:37 Sodium Chloride 0.9% [Saline Flush] 10 ml FLUSH ASDIRECTED PRN Saline Lock Insert [OM.PC] Routine - Assessment/Plan Last 24 Hours: My Active Orders 12/15/18 11:36 EKG Documentation Completion [RC] ASDIRECTED EKG 12 Lead [EK] Routine 12/15/18 11:37 Sodium Chloride 0.9% [Saline Flush] 10 ml FLUSH ASDIRECTED PRN Saline Lock Insert [OM.PC] Routine
--- NOTE | 2018-12-15 12:36 | CRLCR ---
INDICATION: Shortness of breath TECHNIQUE: Chest radiograph 1 view COMPARISON: None FINDINGS: Cardiac silhouette mildly enlarged. 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 No congestive heart failure pattern. Costophrenic sulci clear. Both lungs are unremarkable in appearance. No sign of pleural effusion seen. No pneumothorax is identified. IMPRESSION: 1. Mild cardiomegaly. No acute abnormality. Dictated by Tomás Mendez MD @ 12/15/2018 12:34:18 PM Dictated by: Tomás Mendez MD @ 12/15/2018 12:34:22 (Electronically Signed)
--- NOTE | 2018-12-15 14:52 | PCM.HP ---
H&P History of Present Illness - General Date of Service: 12/15/18 Admit Problem/Dx: Admission Diagnosis/Problem Admission Diagnosis/Problem Systolic congestive heart failure Source of Information: Patient, Provider History Limitations: Reports: No Limitations - History of Present Illness Initial Comments - Free Text/Narative: CC: I'm short of breath HPI: Juan presents to the emergency room today with 2 days of progressive shortness of breath and orthopnea. He noted a fairly sudden onset of shortness of breath with any activity and even at rest 2 days ago. That night he had difficulty sleeping because of orthopnea and had persistent symptoms throughout the day yesterday and worsening throughout the day and overnight last night. This morning he was extremely short of breath and came to the emergency room for evaluation. He has not had any chest pain. He has noticed that his ankles have been more swollen over the past couple of days. His abdomen feels bloated but does not have any pain. He does not regularly keep track of his weight but doesn't think he's gained significant weight. He does have a cough with some clear sputum but has not had any fevers or chills. This feels similar to previous exacerbations of his congestive heart failure. Workup in the emergency room was suggestive of acute on chronic congestive heart failure. He has edema, crackles and JVD. Creatinine slightly higher than usual. He is not currently hypoxic but short of breath even at rest. He will be admitted for further management. He did receive furosemide in the emergency room and has been urinating frequently. - Related Data Allergies/Adverse Reactions: Allergies Allergy/AdvReac Type Severity Reaction Status Date / Time amoxicillin AdvReac Diarrhea Verified 12/15/18 11:08 niacin AdvReac Headache Verified 12/15/18 11:08 Home Medications: Home Meds Budesonide [Pulmicort Flexhaler] 2 puff INH BID 09/26/14 [History] Cetirizine [ZyrTEC] 10 mg PO DAILY 09/26/14 [History] Cholecalciferol (Vitamin D3) [Vitamin D3] 1,000 unit PO DAILY 09/26/14 [History] Ezetimibe [Zetia] 10 mg PO DAILY 09/26/14 [History] Fluticasone Propionate [Flonase] 2 spray NASBOTH DAILY 09/26/14 [History] Glimepiride 4 mg PO DAILY 09/26/14 [History] Multivitamin with Minerals [Multiple Vitamin] 1 tab PO DAILY 09/26/14 [History] [place]-3 Fatty Acids [Fish Oil] 2 tab PO DAILY 09/26/14 [History] Warfarin [Coumadin] 5 mg PO ASDIRECTED 09/26/14 [History] atorvaSTATin [Lipitor] 20 mg PO BEDTIME 09/26/14 [History] metFORMIN [Glucophage] 1,000 mg PO BID 09/26/14 [History] Magnesium Oxide 400 mg PO DAILY #30 tablet 01/23/16 [Rx] Clopidogrel Bisulfate [Clopidogrel] 75 mg PO DAILY 10/02/17 [History] Allopurinol [Zyloprim] 150 mg PO DAILY 12/09/17 [History] Cilostazol [Pletal] 100 mg PO DAILY 01/17/18 [History] Furosemide [Lasix] 40 mg PO DAILY #30 tablet 09/28/18 [Rx] Warfarin [Coumadin] 2.5 mg PO ASDIRECTED 12/15/18 [History] Past Medical History HEENT History: Reports: Impaired Vision Cardiovascular History: Reports: Afib, Bypass, CAD, Heart Failure, High Cholesterol, Hypertension, SOB on Exertion, Other (See Below) Other Cardiovascular History: Mitral valve insuffient, electrical cardioversion Respiratory History: Reports: Asthma, Pneumonia, Recurrent, Sleep Apnea Gastrointestinal History: Reports: Diverticulosis, Hiatal Hernia, Other (See Below) Other Gastrointestinal History: right and left ing hernias Genitourinary History: Reports: Other (See Below) Other Genitourinary History: "kidneys getting weak" Musculoskeletal History: Reports: Osteoarthritis Endocrine/Metabolic History: Reports: Diabetes, Type II, Obesity/BMI 30+ Hematologic History: Reports: Blood Transfusion(s) Oncologic (Cancer) History: Reports: Basal Cell Carcinoma Other Oncologic History: melanoma on nose Dermatologic History: Reports: Melanoma, Other (See Below) Other Dermatologic History: Basal Cell CA - Infectious Disease History Infectious Disease History: Reports: Chicken Pox, Measles, Mumps - Past Surgical History HEENT Surgical History: Reports: Oral Surgery GI Surgical History: Reports: Appendectomy, Cholecystectomy, Colon, Colonoscopy , Hernia Repair/Other Musculoskeletal Surgical History: Reports: Hip Replacement, Knee Replacement Social & Family History - Family History Family Medical History: Noncontributory - Tobacco Use Smoking Status *Q: Never Smoker - Caffeine Use Caffeine Use: Reports: Soda - Alcohol Use Alcohol Use History: No H&P Review of Systems - Review of Systems: Review Of Systems: See Below Free Text/Narrative: A complete 12 point review of systems was obtained. Pertinent positives and negatives are noted in the history of present illness. All other systems were reviewed and were negative except as noted. Exam - Exam Exam: See Below - Vital Signs Vital Signs: Last Vital Signs Temp 37.1 C 12/15/18 11:13 Pulse 82 12/15/18 11:13 Resp 20 12/15/18 11:06 BP 154/67 H 12/15/18 11:13 Pulse Ox 96 12/15/18 11:13 Weight: 102.9 kg - Exam Quality Assessment: No: Supplemental Oxygen General: Alert, Oriented, Cooperative. No: Mild Distress HEENT: Conjunctiva Clear, Mucosa Moist & [place]. No: Scleral Icterus Neck: Supple, Trachea Midline, JVD. No: Lymphadenopathy Lungs: Normal Respiratory Effort, Crackles (both bases) Cardiovascular: Regular Rate, Irregular Rhythm, Systolic Murmur, Gallop/S3 GI/Abdominal Exam: Normal Bowel Sounds, Soft, Non-Tender, No Distention Extremities: Pedal Edema (pitting to midshin bilaterally ). No: Increased Warmth Skin: Warm, Dry Neuro Extensive - Mental Status: Alert, Oriented x3, Nl Response to Commands Neuro Extensive - Motor, Sensory, Reflexes: No: Dysarthria, Abnormal Motor, Tremor Psychiatric: Alert, Normal Affect - Patient Data Lab Results Last 24 hrs: Laboratory Results - last 24 hr 12/15/18 12/15/18 12/15/18 Range/Units 11:25 11:35 11:40 WBC (4.5-11.0) K/uL RBC (4.30-5.90) M/uL Hgb (12.0-15.0) g/dL Hct (40.0-54.0) % MCV (80-98) fL MCH (27-31) pg MCHC (32-36) % Plt Count (150-400) K/uL Neut % (Auto) (36-66) % Lymph % (Auto) (24-44) % Boyd % (Auto) (2-6) % Eos % (Auto) (2-4) % Baso % (Auto) (0-1) % PT 20.2 H (9.5-12.0) sec INR 1.90 H (0.80-1.20) Sodium (140-148) mmol/L Potassium (3.6-5.2) mmol/L Chloride (100-108) mmol/L Carbon Dioxide (21-32) mmol/L Anion Gap (5.0-14.0) mmol/L BUN (7-18) mg/dL Creatinine (0.8-1.3) mg/dL Est Cr Clr Drug Dosing mL/min Estimated GFR (MDRD) (>60) Glucose (74-106) mg/dL Calcium (8.5-10.1) mg/dL Total Bilirubin (0.2-1.0) mg/dL AST (15-37) U/L ALT (12-78) U/L Alkaline Phosphatase (46-116) U/L Troponin I 0.046 (0.000-0.056) ng/mL NT-Pro-B Natriuret Pep (5-450) pg/mL Total Protein (6.4-8.2) g/dL Albumin (3.4-5.0) g/dL Globulin (2.3-3.5) g/dL Albumin/Globulin Ratio (1.2-2.2) Urine Color Yellow Urine Appearance Clear Urine pH 7.0 (4.5-8.0) Ur Specific [place] 1.010 (1.008-1.030) Urine Protein Negative (NEGATIVE) mg/dL Urine Glucose (UA) Normal (NEGATIVE) mg/dL Urine Ketones Negative (NEGATIVE) mg/dL Urine Occult Blood Negative (NEGATIVE) Urine Nitrite Negative (NEGAITVE) Urine Bilirubin Negative (NEGATIVE) Urine Urobilinogen Normal (NORMAL) mg/dL Ur Leukocyte Esterase Negative (NEGATIVE) Urine RBC Not seen (0-5) Urine WBC Not seen (0-5) Ur Epithelial Cells Not seen Amorphous Sediment Few Urine Bacteria Not seen Urine Mucus Not seen 12/15/18 12/15/18 12/15/18 Range/Units 11:40 11:40 11:43 WBC 4.3 L (4.5-11.0) K/uL RBC 2.17 L (4.30-5.90) M/uL Hgb 8.1 L (12.0-15.0) g/dL Hct 25.6 L (40.0-54.0) % MCV 118 H (80-98) fL MCH 37 H (27-31) pg MCHC 32 (32-36) % Plt Count 176 (150-400) K/uL Neut % (Auto) 70 H (36-66) % Lymph % (Auto) 16 L (24-44) % Boyd % (Auto) 12 H (2-6) % Eos % (Auto) 2 (2-4) % Baso % (Auto) 0 (0-1) % PT (9.5-12.0) sec INR (0.80-1.20) Sodium 144 (140-148) mmol/L Potassium 3.9 (3.6-5.2) mmol/L Chloride 109 H (100-108) mmol/L Carbon Dioxide 26 (21-32) mmol/L Anion Gap 12.9 (5.0-14.0) mmol/L BUN 34 H (7-18) mg/dL Creatinine 1.8 H (0.8-1.3) mg/dL Est Cr Clr Drug Dosing 28.44 mL/min Estimated GFR (MDRD) 36 L (>60) Glucose 160 H (74-106) mg/dL Calcium 9.1 (8.5-10.1) mg/dL Total Bilirubin 1.1 H (0.2-1.0) mg/dL AST 14 L (15-37) U/L ALT 17 (12-78) U/L Alkaline Phosphatase 85 (46-116) U/L Troponin I (0.000-0.056) ng/mL NT-Pro-B Natriuret Pep 4270 H (5-450) pg/mL Total Protein 5.7 L (6.4-8.2) g/dL Albumin 3.3 L (3.4-5.0) g/dL Globulin 2.4 (2.3-3.5) g/dL Albumin/Globulin Ratio 1.4 (1.2-2.2) Urine Color Urine Appearance Urine pH (4.5-8.0) Ur Specific [place] (1.008-1.030) Urine Protein (NEGATIVE) mg/dL Urine Glucose (UA) (NEGATIVE) mg/dL Urine Ketones (NEGATIVE) mg/dL Urine Occult Blood (NEGATIVE) Urine Nitrite (NEGAITVE) Urine Bilirubin (NEGATIVE) Urine Urobilinogen (NORMAL) mg/dL Ur Leukocyte Esterase (NEGATIVE) Urine RBC (0-5) Urine WBC (0-5) Ur Epithelial Cells Amorphous Sediment Urine Bacteria Urine Mucus Result Diagrams: 12/15/18 11:40 12/15/18 11:40 Imaging Impressions Last 24 hrs: CXR - images personally reviewed - lungs are clear with no mass, infiltrate or effusion. Cardiomegally present. *Q Meaningful Use (ADM) - VTE Risk Assess *Q Each Risk Factor Represents 1 Point: Swollen Legs, Current, Obesity ( BMI > 25 kg/m2), Congestive heart failure (CHF) Total Score 1 Point Risk Factors: 3 Each Risk Factor Represents 2 Points: None Total Score 2 Point Risk Factors: 0 Each Risk Factor Represents 3 Points: Age 75 Years or Greater Total Score 3 Point Risk Factors: 3 Each Risk Factor Represents 5 Points: None Total Score 5 Point Risk Factors: 0 Venous Thromboembolism Risk Factor Score *Q: 6 - Problem List (1) Systolic congestive heart failure, NYHA class 3 SNOMED Code(s): 433176574, 867623520, 475220416 ICD Code: I50.20 - UNSPECIFIED SYSTOLIC (CONGESTIVE) HEART FAILURE Status: Acute Current Visit: Yes Qualifiers: Congestive heart failure chronicity: acute on chronic Qualified Code(s): I50.23 - Acute on chronic systolic (congestive) heart failure (2) CKD (chronic kidney disease) stage 3, GFR 30-59 ml/min SNOMED Code(s): 463091833 ICD Code: N18.3 - CHRONIC KIDNEY DISEASE, STAGE 3 (MODERATE) Status: Acute Current Visit: No (3) Afib, Atrial fibrillation SNOMED Code(s): 59441236 ICD Code: I48.91 - UNSPECIFIED ATRIAL FIBRILLATION Status: Chronic Current Visit: No (4) Type 2 diabetes mellitus SNOMED Code(s): 66767325 ICD Code: E11.9 - TYPE 2 DIABETES MELLITUS WITHOUT COMPLICATIONS Status: Chronic Current Visit: No Qualifiers: Diabetes mellitus skilled nursing insulin use: without skilled nursing use Diabetes mellitus complication status: with other specified complication Qualified Code (s): E11.69 - Type 2 diabetes mellitus with other specified complication Problem List Initiated/Reviewed/Updated: Yes Orders Last 24hrs: Active Orders 24 hr Category Date Time Status Patient Status Manage Transfer [TRANSFER] Routine ADT 12/15/18 14:44 Ordered EKG Documentation Completion [RC] ASDIRECTED Care 12/15/18 11:36 Active Sodium Chloride 0.9% [Saline Flush] Med 12/15/18 11:37 Active 10 ml FLUSH ASDIRECTED PRN Saline Lock Insert [OM.PC] Routine Oth 12/15/18 11:37 Ordered Resuscitation Status Routine Resus Stat 12/15/18 14:46 Ordered EKG 12 Lead [EK] Routine Ther 12/15/18 11:36 Ordered Medication Orders Sodium Chloride (Saline Flush) 10 ml FLUSH ASDIRECTED PRN PRN Reason: Keep Vein Open Last Admin: 12/15/18 12:09 Dose: 10 ml Assessment/Plan Comment:: ASSESSMENT AND PLAN - Acute on chronic systolic congestive heart failure - some contribution from valvular disease. No obvious trigger for the exacerbation with possible multifactorial contributions including atrial fibrillation, systolic dysfunction and chronic kidney disease. Current manifestations include dyspnea with any exertion, orthopnea and lower extremity edema . Patient is very short of breath even at rest and not safe for outpatient management. He does feel a little better after the furosemide administered in the emergency room. -Strict intake and output monitoring -Repeat furosemide dosing in the morning -Daily weights -Supplement oxygen if needed Chronic atrial fibrillation - Currently rate controlled. He is systemically anticoagulated on a chronic basis. -Continue warfarin Stage III B chronic kidney disease - Creatinine slightly higher than baseline but not too far off. Should improve with diuresis. -Management as above and repeat labs in the morning Type 2 diabetes mellitus - not on long-term insulin therapy. -Hold metformin with low GFR -Continue Maintenance issues - - DVT prophylaxis - warfarin - GI prophylaxis - not indicated - Nutrition - low sodium - [place] catheter - not indicated CODE STATUS - DNR/DNI Admission justification - This patient will be admitted for inpatient services and is medically appropriate meeting medical necessity for inpatient admission as outlined in my documentation. I reasonably expect the patient will require inpatient services that span a period time over 2 midnights. I reasonably expect this patient to be discharged or transferred within 96 hours [facility]. Disposition - I would anticipate discharge home after the hospital stay Primary care physician - Dr. Aurelio Moreno M.D.
[2018-12-15] MEDS ORDERED: Ondansetron 4 MG Tab.DIS PO PRN (16:04)
[2018-12-15] MEDS ORDERED: Ondansetron 4 MG/2 ML SDV IV PRN (16:04)
[2018-12-15] MEDS ORDERED: traZODone 50 MG Tab PO PRN (16:04)
[2018-12-15] MEDS ORDERED: Acetaminophen 325 MG Tab PO PRN (16:04)
[2018-12-15] MEDS ORDERED: Albuterol 0.083% 2.5 MG/3 ML Neb Soln NEB PRN (16:04)
[2018-12-15] MEDS ORDERED: Warfarin 5 MG Tab PO ONE (16:04)
[2018-12-15] MEDS: atorvaSTATin 20 MG Tab PO SCH (20:03)
[2018-12-15] MEDS ORDERED: Trolamine Salicylate/Aloe Vera 10% Crm 85 GM Tube TOP PRN (22:03)
[2018-12-15] MEDS ORDERED: Lidocaine 5% 700 MG Patch TOP ONE (23:00)
[2018-12-16] MEDS: Glimepiride 2 MG Tab PO SCH (07:46)
[2018-12-16] MEDS: Allopurinol 300 MG Tab PO SCH (08:10)
[2018-12-16] MEDS: Clopidogrel 75 MG Tab PO SCH (08:11)
[2018-12-16] MEDS: Ezetimibe 10 MG Tab PO SCH (08:11)
[2018-12-16] MEDS: Mometasone Furoate Powder 220 MCG/Puff 14 Dose Inhaler INH SCH (08:30)
[2018-12-16] MEDS ORDERED: Furosemide 40 MG/4 ML VIAL IVPUSH SCH (09:00)
--- NOTE | 2018-12-16 11:02 | PCM.PN ---
- General Info Date of Service: 12/16/18 Subjective Update: there were no acute events overnight. The patient has had a good response to diuresis and feels moderately better today. Shortness of breath has improved. Lower extremity edema has improved but he still has some left on his right leg. No complaints of chest pain. He did have orthopnea overnight. No fevers. Still has a cough with clear sputum. Kidney function slightly better today. INR still therapeutic. Functional Status: Reports: Pain Controlled, Tolerating Diet - Review of Systems General: Denies: Fever Pulmonary: Reports: Shortness of Breath - Patient Data Vitals - Most Recent: Last Vital Signs Temp 36.1 C 12/16/18 07:00 Pulse 70 12/16/18 07:00 Resp 18 12/16/18 07:00 BP 134/53 L 12/16/18 07:00 Pulse Ox 93 L 12/16/18 07:00 Weight - Most Recent: 98.792 kg I&O - Last 24 Hours: Intake & Output 12/15/18 12/16/18 12/16/18 22:59 06:59 14:59 Intake Total 750 120 Output Total 650 200 425 Balance 100 -200 -305 Lab Results Last 24 Hours: Laboratory Results - last 24 hr 12/15/18 12/15/18 12/15/18 Range/Units 11:25 11:35 11:40 WBC (4.5-11.0) K/uL RBC (4.30-5.90) M/uL Hgb (12.0-15.0) g/dL Hct (40.0-54.0) % MCV (80-98) fL MCH (27-31) pg MCHC (32-36) % Plt Count (150-400) K/uL Neut % (Auto) (36-66) % Lymph % (Auto) (24-44) % [place] % (Auto) (2-6) % Eos % (Auto) (2-4) % Baso % (Auto) (0-1) % PT 20.2 H (9.5-12.0) sec INR 1.90 H (0.80-1.20) Sodium (140-148) mmol/L Potassium (3.6-5.2) mmol/L Chloride (100-108) mmol/L Carbon Dioxide (21-32) mmol/L Anion Gap (5.0-14.0) mmol/L BUN (7-18) mg/dL Creatinine (0.8-1.3) mg/dL Est Cr Clr Drug Dosing mL/min Estimated GFR (MDRD) (>60) Glucose (74-106) mg/dL Calcium (8.5-10.1) mg/dL Magnesium (1.8-2.4) mg/dL Total Bilirubin (0.2-1.0) mg/dL AST (15-37) U/L ALT (12-78) U/L Alkaline Phosphatase (46-116) U/L Troponin I 0.046 (0.000-0.056) ng/mL NT-Pro-B Natriuret Pep (5-450) pg/mL Total Protein (6.4-8.2) g/dL Albumin (3.4-5.0) g/dL Globulin (2.3-3.5) g/dL Albumin/Globulin Ratio (1.2-2.2) Urine Color Yellow Urine Appearance Clear Urine pH 7.0 (4.5-8.0) Ur Specific [place] 1.010 (1.008-1.030) Urine Protein Negative (NEGATIVE) mg/dL Urine Glucose (UA) Normal (NEGATIVE) mg/dL Urine Ketones Negative (NEGATIVE) mg/dL Urine Occult Blood Negative (NEGATIVE) Urine Nitrite Negative (NEGAITVE) Urine Bilirubin Negative (NEGATIVE) Urine Urobilinogen Normal (NORMAL) mg/dL Ur Leukocyte Esterase Negative (NEGATIVE) Urine RBC Not seen (0-5) Urine WBC Not seen (0-5) Ur Epithelial Cells Not seen Amorphous Sediment Few Urine Bacteria Not seen Urine Mucus Not seen 12/15/18 12/15/18 12/15/18 Range/Units 11:40 11:40 11:43 WBC 4.3 L (4.5-11.0) K/uL RBC 2.17 L (4.30-5.90) M/uL Hgb 8.1 L (12.0-15.0) g/dL Hct 25.6 L (40.0-54.0) % MCV 118 H (80-98) fL MCH 37 H (27-31) pg MCHC 32 (32-36) % Plt Count 176 (150-400) K/uL Neut % (Auto) 70 H (36-66) % Lymph % (Auto) 16 L (24-44) % [place] % (Auto) 12 H (2-6) % Eos % (Auto) 2 (2-4) % Baso % (Auto) 0 (0-1) % PT (9.5-12.0) sec INR (0.80-1.20) Sodium 144 (140-148) mmol/L Potassium 3.9 (3.6-5.2) mmol/L Chloride 109 H (100-108) mmol/L Carbon Dioxide 26 (21-32) mmol/L Anion Gap 12.9 (5.0-14.0) mmol/L BUN 34 H (7-18) mg/dL Creatinine 1.8 H (0.8-1.3) mg/dL Est Cr Clr Drug Dosing 28.44 mL/min Estimated GFR (MDRD) 36 L (>60) Glucose 160 H (74-106) mg/dL Calcium 9.1 (8.5-10.1) mg/dL Magnesium (1.8-2.4) mg/dL Total Bilirubin 1.1 H (0.2-1.0) mg/dL AST 14 L (15-37) U/L ALT 17 (12-78) U/L Alkaline Phosphatase 85 (46-116) U/L Troponin I (0.000-0.056) ng/mL NT-Pro-B Natriuret Pep 4270 H (5-450) pg/mL Total Protein 5.7 L (6.4-8.2) g/dL Albumin 3.3 L (3.4-5.0) g/dL Globulin 2.4 (2.3-3.5) g/dL Albumin/Globulin Ratio 1.4 (1.2-2.2) Urine Color Urine Appearance Urine pH (4.5-8.0) Ur Specific [place] (1.008-1.030) Urine Protein (NEGATIVE) mg/dL Urine Glucose (UA) (NEGATIVE) mg/dL Urine Ketones (NEGATIVE) mg/dL Urine Occult Blood (NEGATIVE) Urine Nitrite (NEGAITVE) Urine Bilirubin (NEGATIVE) Urine Urobilinogen (NORMAL) mg/dL Ur Leukocyte Esterase (NEGATIVE) Urine RBC (0-5) Urine WBC (0-5) Ur Epithelial Cells Amorphous Sediment Urine Bacteria Urine Mucus 12/16/18 12/16/18 Range/Units 05:11 05:11 WBC (4.5-11.0) K/uL RBC (4.30-5.90) M/uL Hgb (12.0-15.0) g/dL Hct (40.0-54.0) % MCV (80-98) fL MCH (27-31) pg MCHC (32-36) % Plt Count (150-400) K/uL Neut % (Auto) (36-66) % Lymph % (Auto) (24-44) % [place] % (Auto) (2-6) % Eos % (Auto) (2-4) % Baso % (Auto) (0-1) % PT 21.8 H (9.5-12.0) sec INR 2.06 H (0.80-1.20) Sodium 145 (140-148) mmol/L Potassium 3.7 (3.6-5.2) mmol/L Chloride 107 (100-108) mmol/L Carbon Dioxide 27 (21-32) mmol/L Anion Gap 10.9 (5.0-14.0) mmol/L BUN 30 H (7-18) mg/dL Creatinine 1.7 H (0.8-1.3) mg/dL Est Cr Clr Drug Dosing 29.62 mL/min Estimated GFR (MDRD) 38 L (>60) Glucose 120 H (74-106) mg/dL Calcium 9.2 (8.5-10.1) mg/dL Magnesium 1.6 L D (1.8-2.4) mg/dL Total Bilirubin (0.2-1.0) mg/dL AST (15-37) U/L ALT (12-78) U/L Alkaline Phosphatase (46-116) U/L Troponin I (0.000-0.056) ng/mL NT-Pro-B Natriuret Pep (5-450) pg/mL Total Protein (6.4-8.2) g/dL Albumin (3.4-5.0) g/dL Globulin (2.3-3.5) g/dL Albumin/Globulin Ratio (1.2-2.2) Urine Color Urine Appearance Urine pH (4.5-8.0) Ur Specific [place] (1.008-1.030) Urine Protein (NEGATIVE) mg/dL Urine Glucose (UA) (NEGATIVE) mg/dL Urine Ketones (NEGATIVE) mg/dL Urine Occult Blood (NEGATIVE) Urine Nitrite (NEGAITVE) Urine Bilirubin (NEGATIVE) Urine Urobilinogen (NORMAL) mg/dL Ur Leukocyte Esterase (NEGATIVE) Urine RBC (0-5) Urine WBC (0-5) Ur Epithelial Cells Amorphous Sediment Urine Bacteria Urine Mucus Med Orders - Current: Current Medications Acetaminophen (Tylenol) 650 mg PO Q4H PRN PRN Reason: Pain (Mild 1-3)/fever Albuterol (Proventil Neb Soln) 2.5 mg NEB Q4H PRN PRN Reason: Shortness Of Breath/wheezing Allopurinol (Zyloprim) 150 mg PO DAILY [facility] Last Admin: 12/16/18 08:10 Dose: 150 mg Atorvastatin Calcium (Lipitor) 20 mg PO BEDTIME [facility] Last Admin: 12/15/18 20:03 Dose: 20 mg Clopidogrel Bisulfate (Plavix) 75 mg PO DAILY [facility] Last Admin: 12/16/18 08:11 Dose: 75 mg Ezetimibe (Zetia) 10 mg PO DAILY [facility] Last Admin: 12/16/18 08:11 Dose: 10 mg Furosemide (Lasix) 40 mg IVPUSH DAILY [facility] Last Admin: 12/16/18 08:12 Dose: 40 mg Glimepiride (Amaryl) 4 mg PO DAILY@0800 [facility] Last Admin: 12/16/18 07:46 Dose: 4 mg Mometasone Furoate (Asmanex 220 Mcg) 2 puff INH DAILY [facility] Last Admin: 12/16/18 08:30 Dose: 2 puff Ondansetron HCl (Zofran Odt) 4 mg PO Q6H PRN PRN Reason: Nausea able to take PO Ondansetron HCl (Zofran) 4 mg IV Q6H PRN PRN Reason: Nausea/Vomiting Sodium Chloride (Saline Flush) 10 ml FLUSH ASDIRECTED PRN PRN Reason: Keep Vein Open Last Admin: 12/15/18 12:09 Dose: 10 ml Trazodone HCl (Trazodone) 50 mg PO BEDTIME PRN PRN Reason: Sleep Trolamine Salicylate (Aspercreme 10%) 0 gm TOP Q2H PRN PRN Reason: Pain Warfarin Sodium (Coumadin) 2.5 mg PO DAILY@1300 [facility] Stop: 12/16/18 13:01 Discontinued Medications Furosemide (Lasix) 60 mg IVPUSH ONETIME ONE Stop: 12/15/18 11:38 Last Admin: 12/15/18 12:09 Dose: 60 mg Lidocaine (Lidoderm 5%) 700 mg TOP ONETIME ONE Stop: 12/15/18 23:01 Last Admin: 12/15/18 23:27 Dose: 700 mg Miscellaneous Information (Remove Patch) 1 ea TRDERM ONETIME ONE Stop: 12/16/18 11:01 Trolamine Salicylate (Aspercreme 10%) 1 gm TOP Q2H PRN PRN Reason: Pain Warfarin Sodium (Coumadin) 5 mg PO ONETIME ONE Stop: 12/15/18 16:05 Last Admin: 12/15/18 17:23 Dose: 5 mg - Exam Quality Assessment: No: Supplemental Oxygen General: Alert, Oriented, Cooperative, No Acute Distress Lungs: Clear to Auscultation, Normal Respiratory Effort. No: Crackles, Wheezing Cardiovascular: Regular Rate, Irregular Rhythm GI/Abdominal Exam: Soft, No Distention Extremities: Pedal Edema (mild left leg). No: Increased Warmth Psy/Mental Status: Alert, Normal Affect - Problem List & Annotations (1) Systolic congestive heart failure, NYHA class 3 SNOMED Code(s): 139277838, 435792202, 110027584 Code(s): I50.20 - UNSPECIFIED SYSTOLIC (CONGESTIVE) HEART FAILURE Status: Acute Current Visit: Yes Qualifiers: Congestive heart failure chronicity: acute on chronic Qualified Code(s): I50.23 - Acute on chronic systolic (congestive) heart failure (2) CKD (chronic kidney disease) stage 3, GFR 30-59 ml/min SNOMED Code(s): 913408119 Code(s): N18.3 - CHRONIC KIDNEY DISEASE, STAGE 3 (MODERATE) Status: Acute Current Visit: No (3) Afib, Atrial fibrillation SNOMED Code(s): 98210874 Code(s): I48.91 - UNSPECIFIED ATRIAL FIBRILLATION Status: Chronic Current Visit: No (4) Type 2 diabetes mellitus SNOMED Code(s): 58395921 Code(s): E11.9 - TYPE 2 DIABETES MELLITUS WITHOUT COMPLICATIONS Status: Chronic Current Visit: No Qualifiers: Diabetes mellitus chcf insulin use: without terminal system operator use Diabetes mellitus complication status: with other specified complication Qualified Code (s): E11.69 - Type 2 diabetes mellitus with other specified complication - Problem List Review Problem List Initiated/Reviewed/Updated: Yes - My Orders Last 24 Hours: My Active Orders 12/15/18 14:46 Resuscitation Status Routine 12/15/18 16:04 Patient Status [ADT] Routine Height and Weight [RC] DAILY Intake and Output [RC] QSHIFT Notify Provider Vital Signs [RC] ASDIRECTED Oxygen Therapy [RC] PRN RT Aerosol Therapy [RC] ASDIRECTED Up With Assistance [RC] ASDIRECTED VTE/DVT Education [RC] Per Unit Routine Vital Signs [RC] Q4H Acetaminophen [Tylenol] 650 mg PO Q4H PRN Albuterol [Proventil Neb Soln] 2.5 mg NEB Q4H PRN Ondansetron [Zofran ODT] 4 mg PO Q6H PRN Ondansetron [Zofran] 4 mg IV Q6H PRN traZODone 50 mg PO BEDTIME PRN Antiembolic Hose [OM.PC] Routine 12/15/18 21:00 atorvaSTATin [Lipitor] 20 mg PO BEDTIME 12/15/18 Dinner 2 Gram Sodium Diet [DIET] 12/16/18 08:00 Glimepiride [Amaryl] 4 mg PO DAILY@0800 Trolamine Salicylate/Aloe Vera [Aspercreme 10%] 0 gm TOP Q2H PRN 12/16/18 09:00 Allopurinol [Zyloprim] 150 mg PO DAILY Clopidogrel [Plavix] 75 mg PO DAILY Ezetimibe [Zetia] 10 mg PO DAILY Furosemide [Lasix] 40 mg IVPUSH DAILY Mometasone Furoate [Asmanex 220 MCG] 2 puff INH DAILY 12/16/18 11:01 Magnesium Sulfate/Water [Magnesium Sulfate in Water Premix] 2 gm Premix Bag 1 bag IV ONETIME 12/16/18 13:00 Warfarin [Coumadin] 2.5 mg PO DAILY@1300 12/16/18 15:00 Furosemide [Lasix] 40 mg IVPUSH ONETIME ONE 12/17/18 05:00 BASIC METABOLIC PANEL,BMP [CHEM] Timed INR,PT,PROTHROMBIN TIME [COAG] Timed 12/17/18 09:00 Furosemide [Lasix] 40 mg PO DAILY - Plan Plan:: ASSESSMENT AND PLAN - Acute on chronic systolic congestive heart failure - some contribution from valvular disease. No obvious trigger for the exacerbation with possible multifactorial contributions including atrial fibrillation, systolic dysfunction and chronic kidney disease. clinically improving with current management. Still has some JVD and edema. Still short of breath and has orthopnea. He would benefit from additional IV diuresis. -Strict intake and output monitoring -IV furosemide twice today, anticipate transition to oral medications tomorrow -Daily weights -Supplement oxygen if needed Chronic atrial fibrillation - Currently rate controlled. He is systemically anticoagulated and his INR is therapeutic. -Continue warfarin Stage III B chronic kidney disease - Creatinine slightly better today than at the time of admission. -Management as above and repeat labs in the morning Type 2 diabetes mellitus - not on long-term insulin therapy. -Hold metformin with low GFR -Continue glimepiride Maintenance issues - - DVT prophylaxis - warfarin - GI prophylaxis - not indicated - Nutrition - low sodium Disposition - I would anticipate discharge home after the hospital stay Primary care physician - Dr. Aurelio Moreno M.D.
[2018-12-16] MEDS ORDERED: Magnesium Sulfate/Water 2 GM in Premix Bag 1 BAG IV ONE (11:30)
[2018-12-16] MEDS: Trolamine Salicylate/Aloe Vera 10% Crm 85 GM Tube TOP PRN ×3 (11:38→23:01)
[2018-12-16] MEDS ORDERED: Warfarin 2.5 MG Tab PO SCH (13:00)
[2018-12-16] MEDS ORDERED: Furosemide 40 MG/4 ML VIAL IVPUSH ONE (15:00)
[2018-12-16] MEDS: atorvaSTATin 20 MG Tab PO SCH (21:21)
[2018-12-17] MEDS: Trolamine Salicylate/Aloe Vera 10% Crm 85 GM Tube TOP PRN ×2 (07:33→14:32)
[2018-12-17] MEDS: Glimepiride 2 MG Tab PO SCH (07:33)
[2018-12-17] MEDS: Furosemide 40 MG Tab PO SCH (08:14)
[2018-12-17] MEDS: Allopurinol 300 MG Tab PO SCH (08:15)
[2018-12-17] MEDS: Clopidogrel 75 MG Tab PO SCH (08:15)
[2018-12-17] MEDS: Ezetimibe 10 MG Tab PO SCH (08:15)
[2018-12-17] MEDS: Mometasone Furoate Powder 220 MCG/Puff 14 Dose Inhaler INH SCH (08:18)
[2018-12-17] MEDS ORDERED: Potassium Chloride 20 MEQ Tab.ER PO ONE (10:00)
[2018-12-17] MEDS: Warfarin 5 MG Tab PO SCH (13:41)
--- NOTE | 2018-12-17 13:50 | PCM.PN ---
- General Info Date of Service: 12/17/18 Subjective Update: No acute events overnight. Shortness of breath and edema have improved further today but have not gone back to baseline. Still short of breath with activity. Still coughing up clear phlegm. No complaints of chest pain. Strength is not as good as usual but improving. Kidney function stable. Still having radicular pain from his back down the right leg which has not improved much since admission though it is at his chronic level. Functional Status: Reports: Pain Controlled, Tolerating Diet - Review of Systems Pulmonary: Reports: Shortness of Breath, Cough Cardiovascular: Reports: Edema - Patient Data Vitals - Most Recent: Last Vital Signs Temp 36.7 C 12/17/18 10:52 Pulse 66 12/17/18 10:52 Resp 18 12/17/18 10:52 BP 159/55 H 12/17/18 10:52 Pulse Ox 96 12/17/18 10:52 Weight - Most Recent: 97.25 kg I&O - Last 24 Hours: Intake & Output 12/16/18 12/17/18 12/17/18 22:59 06:59 14:59 Intake Total 720 200 720 Output Total 1075 150 575 Balance -355 50 145 Lab Results Last 24 Hours: Laboratory Results - last 24 hr 12/17/18 12/17/18 Range/Units 05:04 05:04 PT 21.6 H (9.5-12.0) sec INR 2.04 H (0.80-1.20) Sodium 145 (140-148) mmol/L Potassium 3.3 L (3.6-5.2) mmol/L Chloride 107 (100-108) mmol/L Carbon Dioxide 28 (21-32) mmol/L Anion Gap 13.3 (5.0-14.0) mmol/L BUN 33 H (7-18) mg/dL Creatinine 1.7 H (0.8-1.3) mg/dL Est Cr Clr Drug Dosing 29.73 mL/min Estimated GFR (MDRD) 38 L (>60) Glucose 145 H (74-106) mg/dL Calcium 9.3 (8.5-10.1) mg/dL Med Orders - Current: Current Medications Acetaminophen (Tylenol) 650 mg PO Q4H PRN PRN Reason: Pain (Mild 1-3)/fever Albuterol (Proventil Neb Soln) 2.5 mg NEB Q4H PRN PRN Reason: Shortness Of Breath/wheezing Allopurinol (Zyloprim) 150 mg PO DAILY [facility] Last Admin: 12/17/18 08:15 Dose: 150 mg Atorvastatin Calcium (Lipitor) 20 mg PO BEDTIME [facility] Last Admin: 12/16/18 21:21 Dose: 20 mg Clopidogrel Bisulfate (Plavix) 75 mg PO DAILY [facility] Last Admin: 12/17/18 08:15 Dose: 75 mg Ezetimibe (Zetia) 10 mg PO DAILY [facility] Last Admin: 12/17/18 08:15 Dose: 10 mg Furosemide (Lasix) 40 mg PO DAILY [facility] Last Admin: 12/17/18 08:14 Dose: 40 mg Glimepiride (Amaryl) 4 mg PO DAILY@0800 [facility] Last Admin: 12/17/18 07:33 Dose: 4 mg Mometasone Furoate (Asmanex 220 Mcg) 2 puff INH DAILY [facility] Last Admin: 12/17/18 08:18 Dose: 2 puff Ondansetron HCl (Zofran Odt) 4 mg PO Q6H PRN PRN Reason: Nausea able to take PO Ondansetron HCl (Zofran) 4 mg IV Q6H PRN PRN Reason: Nausea/Vomiting Sodium Chloride (Saline Flush) 10 ml FLUSH ASDIRECTED PRN PRN Reason: Keep Vein Open Last Admin: 12/15/18 12:09 Dose: 10 ml Trazodone HCl (Trazodone) 50 mg PO BEDTIME PRN PRN Reason: Sleep Trolamine Salicylate (Aspercreme 10%) 0 gm TOP Q2H PRN PRN Reason: Pain Last Admin: 12/17/18 07:33 Dose: 1 applic Warfarin Sodium (Coumadin) 5 mg PO DAILY@1300 [facility] Stop: 12/18/18 13:01 Last Admin: 12/17/18 13:41 Dose: 5 mg Discontinued Medications Furosemide (Lasix) 60 mg IVPUSH ONETIME ONE Stop: 12/15/18 11:38 Last Admin: 12/15/18 12:09 Dose: 60 mg Furosemide (Lasix) 40 mg IVPUSH DAILY [facility] Last Admin: 12/16/18 08:12 Dose: 40 mg Furosemide (Lasix) 40 mg IVPUSH ONETIME ONE Stop: 12/16/18 15:01 Last Admin: 12/16/18 15:10 Dose: 40 mg Magnesium Sulfate 2 gm/ Premix 50 mls @ 12.5 mls/hr IV ONETIME ONE Stop: 12/16/18 15:29 Last Admin: 12/16/18 11:35 Dose: 12.5 mls/hr Lidocaine (Lidoderm 5%) 700 mg TOP ONETIME ONE Stop: 12/15/18 23:01 Last Admin: 12/15/18 23:27 Dose: 700 mg Miscellaneous Information (Remove Patch) 1 ea TRDERM ONETIME ONE Stop: 12/16/18 11:01 Last Admin: 12/16/18 11:40 Dose: 1 ea Potassium Chloride (Klor-Con M20) 40 meq PO ONETIME ONE Stop: 12/17/18 10:01 Last Admin: 12/17/18 09:50 Dose: 40 meq Trolamine Salicylate (Aspercreme 10%) 1 gm TOP Q2H PRN PRN Reason: Pain Warfarin Sodium (Coumadin) 5 mg PO ONETIME ONE Stop: 12/15/18 16:05 Last Admin: 12/15/18 17:23 Dose: 5 mg Warfarin Sodium (Coumadin) 2.5 mg PO DAILY@1300 [facility] Stop: 12/16/18 13:01 Last Admin: 12/16/18 12:52 Dose: 2.5 mg - Exam Quality Assessment: No: Supplemental Oxygen General: Alert, Oriented, Cooperative, No Acute Distress Neck: No JVD Lungs: Clear to Auscultation, Normal Respiratory Effort Cardiovascular: Regular Rate, Irregular Rhythm, Murmurs GI/Abdominal Exam: Soft, No Distention Extremities: Pedal Edema (Trace bilateral ankle edema). No: Increased Warmth Skin: Warm, Dry Psy/Mental Status: Alert, Normal Affect - Problem List & Annotations (1) Systolic congestive heart failure, NYHA class 3 SNOMED Code(s): 837507081, 845108049, 165321483 Code(s): I50.20 - UNSPECIFIED SYSTOLIC (CONGESTIVE) HEART FAILURE Status: Acute Current Visit: Yes Qualifiers: Congestive heart failure chronicity: acute on chronic Qualified Code(s): I50.23 - Acute on chronic systolic (congestive) heart failure (2) CKD (chronic kidney disease) stage 3, GFR 30-59 ml/min SNOMED Code(s): 989476014 Code(s): N18.3 - CHRONIC KIDNEY DISEASE, STAGE 3 (MODERATE) Status: Acute Current Visit: No (3) Afib, Atrial fibrillation SNOMED Code(s): 97334619 Code(s): I48.91 - UNSPECIFIED ATRIAL FIBRILLATION Status: Chronic Current Visit: No (4) Type 2 diabetes mellitus SNOMED Code(s): 56429021 Code(s): E11.9 - TYPE 2 DIABETES MELLITUS WITHOUT COMPLICATIONS Status: Chronic Current Visit: No Qualifiers: Diabetes mellitus halfway insulin use: without halfway use Diabetes mellitus complication status: with other specified complication Qualified Code (s): E11.69 - Type 2 diabetes mellitus with other specified complication - Problem List Review Problem List Initiated/Reviewed/Updated: Yes - My Orders Last 24 Hours: My Active Orders 12/17/18 09:00 Furosemide [Lasix] 40 mg PO DAILY 12/17/18 13:00 Warfarin [Coumadin] 5 mg PO DAILY@1300 12/18/18 05:00 BASIC METABOLIC PANEL,BMP [CHEM] Timed HGB [HEMOGLOBIN] [HEME] Timed INR,PT,PROTHROMBIN TIME [COAG] Timed - Plan Plan:: ASSESSMENT AND PLAN - Acute on chronic systolic congestive heart failure - some contribution from valvular disease. No obvious trigger for the exacerbation with possible multifactorial contributions including atrial fibrillation, systolic dysfunction and chronic kidney disease. Steadily improving and volume status appears to be nearly euvolemic. Still short of breath and coughing but steadily improving. This is his second exacerbation in 3 months and he may need some adjustment on his oral dosing. -Start oral furosemide today with close monitoring of intake and output -Daily weights -Supplement oxygen if needed Lumbar radiculopathy - pain radiating from his low back down the right leg below the knee. This is a chronic issue that has been giving him more trouble over the recent months. Gabapentin started last night. -Continue gabapentin -Consider outpatient steroid injections Chronic atrial fibrillation - Currently rate controlled. He is systemically anticoagulated and his INR is therapeutic. -Continue warfarin Stage III B chronic kidney disease - Creatinine back to baseline. -Management as above and repeat labs in the morning Type 2 diabetes mellitus - not on long-term insulin therapy. -Discontinue metformin with low GFR -Continue glimepiride Maintenance issues - - DVT prophylaxis - warfarin - GI prophylaxis - not indicated - Nutrition - low sodium Disposition - I would anticipate discharge home after the hospital stay Primary care physician - Dr. Aurelio Moreno M.D.
[2018-12-17] MEDS: atorvaSTATin 20 MG Tab PO SCH (21:04)
[2018-12-18] MEDS: Trolamine Salicylate/Aloe Vera 10% Crm 85 GM Tube TOP PRN (07:25)
[2018-12-18] MEDS: Glimepiride 2 MG Tab PO SCH (07:26)
[2018-12-18] MEDS: Mometasone Furoate Powder 220 MCG/Puff 14 Dose Inhaler INH SCH (08:17)
[2018-12-18] MEDS: Ezetimibe 10 MG Tab PO SCH (09:02)
[2018-12-18] MEDS: Clopidogrel 75 MG Tab PO SCH (09:03)
[2018-12-18] MEDS: Furosemide 40 MG Tab PO SCH (09:03)
[2018-12-18] MEDS: Allopurinol 300 MG Tab PO SCH (09:03)
[2018-12-18] MEDS ORDERED: Furosemide 40 MG/4 ML VIAL IVPUSH ONE (11:00)
--- NOTE | 2018-12-18 12:19 | PCM.DCSUM1 ---
Discharge Summary - Hospital Course Brief History: 88-year-old male with history of systolic congestive heart failure, chronic atrial fibrillation and stage III chronic kidney disease who presented with increasing shortness of breath and edema. He was admitted for management of decompensated congestive heart failure. Diagnosis: Stroke: No - Discharge Data Discharge Date: 12/18/18 Discharge Disposition: Home, Self-Care 01 Condition: Good - Discharge Diagnosis/Problem(s) (1) Systolic congestive heart failure, NYHA class 3 SNOMED Code(s): 089480892, 105655352, 294143834 ICD Code: I50.20 - UNSPECIFIED SYSTOLIC (CONGESTIVE) HEART FAILURE Status: Acute Current Visit: Yes Qualifiers: Congestive heart failure chronicity: acute on chronic Qualified Code(s): I50.23 - Acute on chronic systolic (congestive) heart failure (2) CKD (chronic kidney disease) stage 3, GFR 30-59 ml/min SNOMED Code(s): 548506464 ICD Code: N18.3 - CHRONIC KIDNEY DISEASE, STAGE 3 (MODERATE) Status: Acute Current Visit: No (3) Afib, Atrial fibrillation SNOMED Code(s): 37144518 ICD Code: I48.91 - UNSPECIFIED ATRIAL FIBRILLATION Status: Chronic Current Visit: No (4) Type 2 diabetes mellitus SNOMED Code(s): 65276316 ICD Code: E11.9 - TYPE 2 DIABETES MELLITUS WITHOUT COMPLICATIONS Status: Chronic Current Visit: No Qualifiers: Diabetes mellitus salvage determiner insulin use: without group home use Diabetes mellitus complication status: with other specified complication Qualified Code (s): E11.69 - Type 2 diabetes mellitus with other specified complication - Patient Summary/Data Hospital Course: Juan presented to the emergency room with progressive shortness of breath and increasing lower extremity edema as well as mild weight gain. Workup in the emergency room suggested subacute exacerbation of his systolic congestive heart failure. He was short of breath with any activity and had significant orthopnea. He received parenteral diuretic in the emergency room and was admitted for further management. He did respond well to IV diuresis over the next couple of days. Symptoms and clinical examination both improved steadily throughout the course of the hospital stay. He remains mildly short of breath towards the end of the hospital stay and the day of discharge but dramatically better than at the time of presentation. He also has mild residual swelling in his feet but most of his lower extremity edema has resolved. JVD has resolved by the day of discharge. Weight is down more than 10 pounds since his admission. He has been up and walking around without significant symptoms. Tolerating his diet well. We did monitor his intake and output with his previous usual home dosing regimen at 40 mg daily but unfortunately this was not adequate to maintain balance between intake and output. At the time of discharge the plan is for him to increase his furosemide to 60 mg once daily. He has 40 mg tablets at home and I sent a prescription for 20 mg tablets to take in addition. He has follow-up scheduled for the end of this week which is 5 days away. His INR has been therapeutic during the course of the hospital stay and we did not make any changes to his warfarin dosing. I suspect the trigger for the exacerbation was slow accumulation of fluid with suboptimal furosemide dosing. Kidney function has been stable. Also of note, his GFR is low enough that metformin is contraindicated in this medication was discontinued. He will continue with his other oral antidiabetic medication. - Patient Instructions Diet: Low Sodium Activity: As Tolerated Showering/Bathing: May Shower Notify Provider of: Fever, Increased Pain, Nausea and/or Vomiting Other/Special Instructions: 1. You were in the hospital for management of acute on chronic systolic congestive heart failure. Your condition is improving with diuretic therapy. I would recommend that you increase your daily dose of furosemide to 60 mg daily. I have sent a new prescription for 20 mg tablets which you can take along with your 40 mg tablets. Your first dose of the new 60 mg dose will start Wednesday morning. Please weigh yourself regularly and alert your provider if you gain more than 2 pounds in 1 day or 4 pounds over several days. 2. Continue your other medications as previously prescribed. 3. Follow up as scheduled with the Coumadin clinic and Dr. Carey. 4. Seek medical attention if you have fever greater than 101, severe shortness of breath or significant weight gain and increased swelling - Discharge Plan *PRESCRIPTION DRUG MONITORING PROGRAM REVIEWED*: Not Applicable *COPY OF PRESCRIPTION DRUG MONITORING REPORT IN PATIENT ROHIT: Not Applicable Prescriptions/Med Rec: Furosemide [Lasix] 20 mg PO DAILY #30 tab Home Medications: Home Meds Budesonide [Pulmicort Flexhaler] 2 puff INH BID 09/26/14 [History] Cetirizine [ZyrTEC] 10 mg PO DAILY 09/26/14 [History] Cholecalciferol (Vitamin D3) [Vitamin D3] 1,000 unit PO DAILY 09/26/14 [History] Ezetimibe [Zetia] 10 mg PO DAILY 09/26/14 [History] Fluticasone Propionate [Flonase] 2 spray NASBOTH DAILY 09/26/14 [History] Glimepiride 4 mg PO DAILY 09/26/14 [History] Multivitamin with Minerals [Multiple Vitamin] 1 tab PO DAILY 09/26/14 [History] [place]-3 Fatty Acids [Fish Oil] 2 tab PO DAILY 09/26/14 [History] Warfarin [Coumadin] 5 mg PO ASDIRECTED 09/26/14 [History] atorvaSTATin [Lipitor] 20 mg PO BEDTIME 09/26/14 [History] metFORMIN [Glucophage] 1,000 mg PO BID 09/26/14 [History] Magnesium Oxide 400 mg PO DAILY #30 tablet 01/23/16 [Rx] Clopidogrel Bisulfate [Clopidogrel] 75 mg PO DAILY 10/02/17 [History] Allopurinol [Zyloprim] 150 mg PO DAILY 12/09/17 [History] Cilostazol [Pletal] 100 mg PO DAILY 01/17/18 [History] Furosemide [Lasix] 40 mg PO DAILY #30 tablet 09/28/18 [Rx] Warfarin [Coumadin] 2.5 mg PO ASDIRECTED 12/15/18 [History] traZODone HCl [Trazodone HCl] 50 mg PO BEDTIME PRN 12/15/18 [History] Furosemide [Lasix] 20 mg PO DAILY #30 tab 12/18/18 [Rx] Oxygen Therapy Mode: Room Air Patient Handouts: Furosemide tablets, Heart Failure, [id number] Referrals: Aldair Carey MD [Primary Care Provider] - 12/23/18 1:30 pm (Please arrive 15 minutes ara to register for your appointment.) - Discharge Summary/Plan Comment DC Time >30 min.: No - Patient Data Vitals - Most Recent: Last Vital Signs Temp 35.9 C 12/18/18 10:51 Pulse 64 12/18/18 10:51 Resp 18 12/18/18 10:51 BP 139/52 L 12/18/18 10:51 Pulse Ox 97 12/18/18 10:51 Weight - Most Recent: 97.636 kg I&O - Last 24 hours: Intake & Output 12/17/18 12/18/18 12/18/18 22:59 06:59 14:59 Intake Total 420 Output Total 100 200 Balance -100 220 Lab Results - Last 24 hrs: Laboratory Results - last 24 hr 12/18/18 12/18/18 12/18/18 Range/Units 04:30 04:30 04:30 Hgb 8.7 L (12.0-15.0) g/dL PT 20.1 H (9.5-12.0) sec INR 1.89 H (0.80-1.20) Sodium 145 (140-148) mmol/L Potassium 3.5 L (3.6-5.2) mmol/L Chloride 108 (100-108) mmol/L Carbon Dioxide 27 (21-32) mmol/L Anion Gap 13.5 (5.0-14.0) mmol/L BUN 32 H (7-18) mg/dL Creatinine 1.5 H (0.8-1.3) mg/dL Est Cr Clr Drug Dosing 33.69 mL/min Estimated GFR (MDRD) 44 L (>60) Glucose 148 H (74-106) mg/dL Calcium 9.2 (8.5-10.1) mg/dL Med Orders - Current: Current Medications Acetaminophen (Tylenol) 650 mg PO Q4H PRN PRN Reason: Pain (Mild 1-3)/fever Albuterol (Proventil Neb Soln) 2.5 mg NEB Q4H PRN PRN Reason: Shortness Of Breath/wheezing Allopurinol (Zyloprim) 150 mg PO DAILY [facility] Last Admin: 12/18/18 09:03 Dose: 150 mg Atorvastatin Calcium (Lipitor) 20 mg PO BEDTIME [facility] Last Admin: 12/17/18 21:04 Dose: 20 mg Clopidogrel Bisulfate (Plavix) 75 mg PO DAILY [facility] Last Admin: 12/18/18 09:03 Dose: 75 mg Ezetimibe (Zetia) 10 mg PO DAILY [facility] Last Admin: 12/18/18 09:02 Dose: 10 mg Furosemide (Lasix) 40 mg PO DAILY [facility] Last Admin: 12/18/18 09:03 Dose: 40 mg Glimepiride (Amaryl) 4 mg PO DAILY@0800 [facility] Last Admin: 12/18/18 07:26 Dose: 4 mg Mometasone Furoate (Asmanex 220 Mcg) 2 puff INH DAILY [facility] Last Admin: 12/18/18 08:17 Dose: 2 puff Ondansetron HCl (Zofran Odt) 4 mg PO Q6H PRN PRN Reason: Nausea able to take PO Ondansetron HCl (Zofran) 4 mg IV Q6H PRN PRN Reason: Nausea/Vomiting Sodium Chloride (Saline Flush) 10 ml FLUSH ASDIRECTED PRN PRN Reason: Keep Vein Open Last Admin: 12/15/18 12:09 Dose: 10 ml Trazodone HCl (Trazodone) 50 mg PO BEDTIME PRN PRN Reason: Sleep Trolamine Salicylate (Aspercreme 10%) 0 gm TOP Q2H PRN PRN Reason: Pain Last Admin: 12/18/18 07:25 Dose: 1 applic Warfarin Sodium (Coumadin) 5 mg PO DAILY@1300 [facility] Stop: 12/18/18 13:01 Last Admin: 12/17/18 13:41 Dose: 5 mg Discontinued Medications Furosemide (Lasix) 60 mg IVPUSH ONETIME ONE Stop: 12/15/18 11:38 Last Admin: 12/15/18 12:09 Dose: 60 mg Furosemide (Lasix) 40 mg IVPUSH DAILY [facility] Last Admin: 12/16/18 08:12 Dose: 40 mg Furosemide (Lasix) 40 mg IVPUSH ONETIME ONE Stop: 12/16/18 15:01 Last Admin: 12/16/18 15:10 Dose: 40 mg Furosemide (Lasix) 40 mg IVPUSH ONETIME ONE Stop: 12/18/18 11:01 Last Admin: 12/18/18 11:24 Dose: 40 mg Magnesium Sulfate 2 gm/ Premix 50 mls @ 12.5 mls/hr IV ONETIME ONE Stop: 12/16/18 15:29 Last Admin: 12/16/18 11:35 Dose: 12.5 mls/hr Lidocaine (Lidoderm 5%) 700 mg TOP ONETIME ONE Stop: 12/15/18 23:01 Last Admin: 12/15/18 23:27 Dose: 700 mg Miscellaneous Information (Remove Patch) 1 ea TRDERM ONETIME ONE Stop: 12/16/18 11:01 Last Admin: 12/16/18 11:40 Dose: 1 ea Potassium Chloride (Klor-Con M20) 40 meq PO ONETIME ONE Stop: 12/17/18 10:01 Last Admin: 12/17/18 09:50 Dose: 40 meq Trolamine Salicylate (Aspercreme 10%) 1 gm TOP Q2H PRN PRN Reason: Pain Warfarin Sodium (Coumadin) 5 mg PO ONETIME ONE Stop: 12/15/18 16:05 Last Admin: 12/15/18 17:23 Dose: 5 mg Warfarin Sodium (Coumadin) 2.5 mg PO DAILY@1300 [place] Stop: 12/16/18 13:01 Last Admin: 12/16/18 12:52 Dose: 2.5 mg - Exam Quality Assessment: Denies: Supplemental Oxygen General: Reports: Alert, Oriented, Cooperative, No Acute Distress Lungs: Reports: Normal Respiratory Effort Cardiovascular: Reports: Regular Rate, Irregular Rhythm GI/Abdominal Exam: Soft, No Distention Extremities: Pedal Edema (Pitting bilateral ankle edema) Psy/Mental Status: Reports: Alert, Normal Affect
[2018-12-18] MEDS: Warfarin 5 MG Tab PO SCH (13:28)
[2018-12-18 14:48] VITALS: BP 142/60; PULSE 66
== END 2018-12-18 16:56 | disposition home or self-care (01) | DRG 291 ==
LOC: JP.ED 10:49 → JP.MS 14:44
PROVIDERS: ADMIT Internal Medicine; ATTEND Internal Medicine
DX: E87.70 Fluid overload, unspecified (principal); N28.9 Disorder of kidney and ureter, unspecified; I13.0 Hypertensive heart and chronic kidney disease with heart failure and stage 1 through stage 4 chronic kidney disease, or unspecified chronic kidney disease; I48.91 Unspecified atrial fibrillation; I50.23 Acute on chronic systolic (congestive) heart failure; I50.9 Heart failure, unspecified; E11.22 Type 2 diabetes mellitus with diabetic chronic kidney disease; I11.0 Hypertensive heart disease with heart failure; N18.3 Chronic kidney disease, stage 3 (moderate); H54.7 Unspecified visual loss; I25.10 Atherosclerotic heart disease of native coronary artery without angina pectoris; E78.00 Pure hypercholesterolemia, unspecified; I34.0 Nonrheumatic mitral (valve) insufficiency; J45.909 Unspecified asthma, uncomplicated; G47.30 Sleep apnea, unspecified; M19.90 Unspecified osteoarthritis, unspecified site; G89.29 Other chronic pain; I48.2 Chronic atrial fibrillation; M54.16 Radiculopathy, lumbar region; E66.9 Obesity, unspecified; Z68.34 Body mass index [BMI] 34.0-34.9, adult; Z66 Do not resuscitate; Z85.828 Personal history of other malignant neoplasm of skin; Z85.820 Personal history of malignant melanoma of skin; R06.00 Dyspnea, unspecified; R06.03 Acute respiratory distress; R53.1 Weakness; R60.9 Edema, unspecified; R06.02 Shortness of breath; R05 Cough; Z90.49 Acquired absence of other specified parts of digestive tract; Z88.8 Allergy status to other drugs, medicaments and biological substances; Z79.899 Other long term (current) drug therapy; Z87.01 Personal history of pneumonia (recurrent); Z88.1 Allergy status to other antibiotic agents; Z95.1 Presence of aortocoronary bypass graft; Z79.01 Long term (current) use of anticoagulants; Z96.649 Presence of unspecified artificial hip joint; Z96.659 Presence of unspecified artificial knee joint
CPT/HCPCS: 36415; 71045; 80053; 81001; 83880; 84484; 85025; 85610; 93005; 96374; 99285; J1940; 80048; 83735; 85018; 93010; 94640; A9270-GY; J3475

== ENCOUNTER 2019-05-07 00:36 | Emergency (ER) | payer MEDICARE, OTHER ==
[2019-05-07 00:55] VITALS: BP 147/74; PULSE 62
[2019-05-07] MEDS ORDERED: Silver Nitrate Applicator Each TOP ONE (01:09)
--- NOTE | 2019-05-07 01:20 | EDM.PDOC ---
ED HPI GENERAL MEDICAL PROBLEM - General Chief Complaint: Lower Extremity Injury/Pain Stated Complaint: BLEEDING TOE RIGHT FOOT Time Seen by Provider: 05/07/19 01:05 Source of Information: Reports: Patient, Family, Old Records, RN Notes Reviewed History Limitations: Reports: No Limitations - History of Present Illness INITIAL COMMENTS - FREE TEXT/NARRATIVE: 88-year-old gentleman presents to the emergency department today with complaint of bleeding from his fifth toe on his right foot he was in the emergency department couple days ago same complaint does have a known history of diabetes as well as peripheral vascular disease and peripheral neuropathy, also on Coumadin for atrial fibrillation - Related Data Allergies Allergy/AdvReac Type Severity Reaction Status Date / Time amoxicillin AdvReac Diarrhea Verified 05/07/19 00:54 niacin AdvReac Headache Verified 05/07/19 00:54 Home Meds: Home Meds Budesonide [Pulmicort Flexhaler] 2 puff INH BID 09/26/14 [History] Cetirizine [ZyrTEC] 10 mg PO DAILY 09/26/14 [History] Cholecalciferol (Vitamin D3) [Vitamin D3] 1,000 unit PO DAILY 09/26/14 [History] Ezetimibe [Zetia] 10 mg PO DAILY 09/26/14 [History] Fluticasone Propionate [Flonase] 2 spray NASBOTH DAILY 09/26/14 [History] Glimepiride 4 mg PO DAILY 09/26/14 [History] Multivitamin with Minerals [Multiple Vitamin] 1 tab PO DAILY 09/26/14 [History] [place]-3 Fatty Acids [Fish Oil] 2 tab PO DAILY 09/26/14 [History] Warfarin [Coumadin] 5 mg PO ASDIRECTED 09/26/14 [History] atorvaSTATin [Lipitor] 20 mg PO BEDTIME 09/26/14 [History] Clopidogrel Bisulfate [Clopidogrel] 75 mg PO DAILY 10/02/17 [History] Allopurinol [Zyloprim] 150 mg PO DAILY 12/09/17 [History] Cilostazol [Pletal] 100 mg PO DAILY 01/17/18 [History] Furosemide [Lasix] 40 mg PO DAILY #30 tablet 09/28/18 [Rx] Warfarin [Coumadin] 2.5 mg PO ASDIRECTED 12/15/18 [History] traZODone HCl [Trazodone HCl] 50 mg PO BEDTIME PRN 12/15/18 [History] Furosemide [Lasix] 20 mg PO DAILY #30 tab 12/18/18 [Rx] Past Medical History HEENT History: Reports: Impaired Vision Cardiovascular History: Reports: Afib, Bypass, CAD, Heart Failure, High Cholesterol, Hypertension, SOB on Exertion, Other (See Below) Other Cardiovascular History: Mitral valve insuffient, electrical cardioversion Respiratory History: Reports: Asthma, Pneumonia, Recurrent, Sleep Apnea Gastrointestinal History: Reports: Diverticulosis, Hiatal Hernia, Other (See Below) Other Gastrointestinal History: right and left ing hernias Genitourinary History: Reports: Other (See Below) Other Genitourinary History: "kidneys getting weak" Musculoskeletal History: Reports: Osteoarthritis, Other (See Below) Other Musculoskeletal History: low back and right hip pain Neurological History: Reports: None Psychiatric History: Reports: None Endocrine/Metabolic History: Reports: Diabetes, Type II, Obesity/BMI 30+ Hematologic History: Reports: Blood Transfusion(s) Immunologic History: Reports: None Oncologic (Cancer) History: Reports: Basal Cell Carcinoma Other Oncologic History: melanoma on nose Dermatologic History: Reports: Melanoma, Other (See Below) Other Dermatologic History: Basal Cell CA - Infectious Disease History Infectious Disease History: Reports: Chicken Pox, Measles, Mumps - Past Surgical History HEENT Surgical History: Reports: Oral Surgery GI Surgical History: Reports: Appendectomy, Cholecystectomy, Colon, Colonoscopy , Hernia Repair/Other Musculoskeletal Surgical History: Reports: Hip Replacement, Knee Replacement Social & Family History - Family History Family Medical History: Noncontributory - Tobacco Use Smoking Status *Q: Never Smoker - Caffeine Use Caffeine Use: Reports: Soda - Recreational Drug Use Recreational Drug Use: No Review of Systems - Review of Systems Review Of Systems: See Below Constitutional: Reports: No Symptoms Skin: Reports: Wound ED EXAM, GENERAL - Physical Exam Exam: See Below Free Text/Narrative:: Examination of the right foot he does have a number superficial abrasion distal aspect of digit #5 right foot bleeding is controlled with a small amount of silver nitrate Course - Vital Signs Last Recorded V/S: Last Vital Signs Temp 98.6 F 05/07/19 00:57 Pulse 62 05/07/19 00:57 Resp 16 05/07/19 00:57 BP 147/74 H 05/07/19 00:57 Pulse Ox 97 05/07/19 00:57 - Orders/Labs/Meds Meds: Medications Discontinued Medications Generic Name Dose Route Start Last Admin Trade Name Vee PRN Reason Stop Dose Admin Silver Nitrate 1 each 05/07/19 01:09 05/07/19 01:13 Silver Nitrate TOP 05/07/19 01:10 1 each ONETIME ONE Administration Departure - Departure Time of Disposition: : Disposition: Home, Self-Care 01 Condition: Fair Clinical Impression: Abrasion of toe of right foot Qualifiers: Encounter type: initial encounter Qualified Code(s): S90.414A - Abrasion, right lesser toe(s), initial encounter - Discharge Information Referrals: Aldair Carey MD [Primary Care Provider] - Additional Instructions: Use the silver nitrate if bleeding starts again, please followup with your primary care provider in 3-5 days if not better, please call return to the emergency department with worsening of symptoms. - Assessment/Plan Plan: Assessment Acuity = acute Site and laterality = bleeding digit #5 right foot Etiology = superficial abrasion Manifestations = none Location of injury = Home Lab values = none Plan After bleeding was controlled, wound was dressed he will follow-up with his primary care in 3 to 5 days for reevaluation was provided to extra sticks of silver nitrate if bleeding restarts This note was dictated using iGo voice recognition software please call with any questions on syntax or grammar.
== END 2019-05-07 01:33 | disposition home or self-care (01) ==
LOC: JP.ED 00:36
DX: S90.414A Abrasion, right lesser toe(s), initial encounter (principal); I48.91 Unspecified atrial fibrillation; I25.10 Atherosclerotic heart disease of native coronary artery without angina pectoris; E78.00 Pure hypercholesterolemia, unspecified; I11.0 Hypertensive heart disease with heart failure; I50.9 Heart failure, unspecified; J45.909 Unspecified asthma, uncomplicated; E11.9 Type 2 diabetes mellitus without complications; Z88.1 Allergy status to other antibiotic agents; Z88.8 Allergy status to other drugs, medicaments and biological substances; Z68.32 Body mass index [BMI] 32.0-32.9, adult; Z79.02 Long term (current) use of antithrombotics/antiplatelets; Z79.51 Long term (current) use of inhaled steroids; Z79.84 Long term (current) use of oral hypoglycemic drugs; Z79.01 Long term (current) use of anticoagulants; Z85.828 Personal history of other malignant neoplasm of skin; X58.XXXA Exposure to other specified factors, initial encounter
CPT/HCPCS: 99283

== ENCOUNTER 2019-05-23 09:09 | Inpatient (IN) | payer MEDICARE, OTHER ==
[2019-05-23] MEDS ORDERED: traZODone 50 MG Tab PO PRN (10:01)
[2019-05-23] MEDS ORDERED: Albuterol 0.083% 2.5 MG/3 ML Neb Soln NEB PRN (10:05)
[2019-05-23] MEDS ORDERED: Glucose Gel 15 GM in 37.5 GM Tube PO PRN (10:05)
[2019-05-23] MEDS ORDERED: Polyethylene Glycol 3350 Powder 17 GM Packet PO PRN (10:05)
[2019-05-23] MEDS ORDERED: Sodium Chloride 0.9% 10 ML Syringe FLUSH PRN (10:05)
[2019-05-23] MEDS ORDERED: 50% Dextrose in Water 50 ML Syringe IV PRN (10:05)
[2019-05-23] MEDS ORDERED: Ondansetron 4 MG/2 ML SDV IV PRN (10:05)
--- NOTE | 2019-05-23 10:15 | PCM.HP.2 ---
H&P History of Present Illness - General Date of Service: 05/23/19 Admit Problem/Dx: Admission Diagnosis/Problem Admission Diagnosis/Problem CHF, Congestive heart failure Source of Information: Patient, Old Records, Provider, RN Notes Reviewed History Limitations: Reports: No Limitations - History of Present Illness Initial Comments - Free Text/Narative: Mr. Kamara is an 88-year-old gentleman who was admitted as a direct admission from the clinic with weakness and shortness of breath secondary to congestive heart failure, fluid retention, and anemia. He has a known history of coronary artery disease and is status post coronary artery bypass surgery, denies a history of congestive heart failure. He has long-standing type 2 diabetes mellitus and underlying chronic kidney disease. He is had pain in his right leg over the past year and apparently has problems with his prosthetic hip as well as evidence of radiculopathy. Over the past few weeks his had increased swelling in the leg. Venous Doppler study pain last week showed evidence of superficial thrombophlebitis. He is on long-term oral anticoagulation with warfarin. The past week has become progressively more short of breath and his experienced increased swelling in the right lower extremity. He was felt to have cellulitis last week and has been treated with antibiotic therapy for the past 7 days. - Related Data Allergies/Adverse Reactions: Allergies Allergy/AdvReac Type Severity Reaction Status Date / Time amoxicillin AdvReac Intermediate Diarrhea Verified 05/23/19 09:41 niacin AdvReac Mild Headache Verified 05/23/19 09:41 Home Medications: Home Meds Budesonide [Pulmicort Flexhaler] 2 puff INH BID 09/26/14 [History] Cetirizine [ZyrTEC] 10 mg PO DAILY 09/26/14 [History] Cholecalciferol (Vitamin D3) [Vitamin D3] 1,000 unit PO DAILY 09/26/14 [History] Ezetimibe [Zetia] 10 mg PO DAILY 09/26/14 [History] Fluticasone Propionate [Flonase] 2 spray NASBOTH DAILY 09/26/14 [History] Glimepiride 4 mg PO DAILY 09/26/14 [History] Multivitamin with Minerals [Multiple Vitamin] 1 tab PO DAILY 09/26/14 [History] Sanborn-3 Fatty Acids [Fish Oil] 2 tab PO DAILY 09/26/14 [History] Warfarin [Coumadin] 5 mg PO DAILY 09/26/14 [History] atorvaSTATin [Lipitor] 20 mg PO BEDTIME 09/26/14 [History] Clopidogrel Bisulfate [Clopidogrel] 75 mg PO DAILY 10/02/17 [History] Allopurinol [Zyloprim] 150 mg PO DAILY 12/09/17 [History] Cilostazol [Pletal] 100 mg PO BIDAC 01/17/18 [History] Furosemide [Lasix] 40 mg PO DAILY #30 tablet 09/28/18 [Rx] traZODone HCl [Trazodone HCl] 50 mg PO BEDTIME PRN 12/15/18 [History] Furosemide [Lasix] 20 mg PO DAILY 05/23/19 [History] Sulfamethoxazole/Trimethoprim [Bactrim Ds Tablet] 1 tab PO BID 05/23/19 [History ] Past Medical History HEENT History: Reports: Impaired Vision Cardiovascular History: Reports: Afib, Bypass, CAD, Heart Failure, High Cholesterol, Hypertension, SOB on Exertion, Other (See Below) Other Cardiovascular History: Mitral valve insuffient, electrical cardioversion Respiratory History: Reports: Asthma, Pneumonia, Recurrent, Sleep Apnea Gastrointestinal History: Reports: Diverticulosis, Hiatal Hernia, Other (See Below) Other Gastrointestinal History: right and left ing hernias Genitourinary History: Reports: Other (See Below) Other Genitourinary History: "kidneys getting weak" Musculoskeletal History: Reports: Osteoarthritis, Other (See Below) Other Musculoskeletal History: low back and right hip pain Neurological History: Reports: None Psychiatric History: Reports: None Endocrine/Metabolic History: Reports: Diabetes, Type II, Obesity/BMI 30+ Hematologic History: Reports: Blood Transfusion(s) Immunologic History: Reports: None Oncologic (Cancer) History: Reports: Basal Cell Carcinoma Other Oncologic History: melanoma on nose Dermatologic History: Reports: Melanoma, Other (See Below) Other Dermatologic History: Basal Cell CA - Infectious Disease History Infectious Disease History: Reports: Chicken Pox, Measles, Mumps - Past Surgical History HEENT Surgical History: Reports: Oral Surgery GI Surgical History: Reports: Appendectomy, Cholecystectomy, Colon, Colonoscopy , Hernia Repair/Other Musculoskeletal Surgical History: Reports: Hip Replacement, Knee Replacement Social & Family History - Family History Family Medical History: Noncontributory - Tobacco Use Smoking Status *Q: Former Smoker Years of Tobacco use: 10 Packs/Tins Daily: 1 Used Tobacco, but Quit: Yes Month/Year Tobacco Last Used: 1961 - Caffeine Use Caffeine Use: Reports: Soda - Alcohol Use Days Per Week of Alcohol Use: 0 - Recreational Drug Use Recreational Drug Use: No H&P Review of Systems - Review of Systems: Review Of Systems: See Below General: Reports: Malaise, Weakness. Denies: Fever, Chills HEENT: Reports: No Symptoms Pulmonary: Reports: Shortness of Breath. Denies: Wheezing, Pleuritic Chest Pain , Cough, Sputum, Hemoptysis Cardiovascular: Reports: Dyspnea on Exertion, Edema. Denies: Chest Pain, Palpitations, Orthopnea, PND, Lightheadedness Gastrointestinal: Reports: No Symptoms Genitourinary: Reports: No Symptoms Musculoskeletal: Reports: Leg Pain Skin: Reports: No Symptoms Psychiatric: Reports: No Symptoms Neurological: Reports: No Symptoms Exam - Exam Exam: See Below - Vital Signs Vital Signs: Last Vital Signs Temp 96.1 F 05/23/19 09:22 Pulse 75 05/23/19 09:22 Resp 20 05/23/19 09:22 BP 145/68 H 05/23/19 09:22 Pulse Ox 100 05/23/19 09:22 Weight: 228 lb 4.8 oz - Exam Quality Assessment: DVT Prophylaxis General: Alert, Oriented, Cooperative, Mild Distress HEENT: Conjunctiva Clear, Hearing Intact, Mucosa Moist & [place], Normal Nasal Septum, Posterior Pharynx Clear, Pupils Equal Neck: Supple, Trachea Midline, +2 Carotid Pulse wo Bruit Lungs: Clear to Auscultation, Normal Respiratory Effort Cardiovascular: Regular Rate, Regular Rhythm, Normal S1, Normal S2. No: Systolic Murmur, Diastolic Murmur GI/Abdominal Exam: Soft, Non-Tender, No Organomegaly, No Distention Extremities: Non-Tender, Pedal Edema, Leg Pain Skin: Warm, Dry, Intact Neurological: Cranial Nerves Intact, Strength Equal Bilateral, Normal Speech, Normal Tone, Sensation Intact Neuro Extensive - Mental Status: Alert, Oriented x3, Normal Mood/Affect, Normal Cognition, Memory Intact Sepsis Event Note - Evaluation Current Stage of Sepsis: Ruled Out Reason for Ruling Out Sepsis: No current infection - Focused Exam Vital Signs: Vital Signs Temp Pulse Resp BP Pulse Ox 05/23/19 09:22 96.1 F 75 20 145/68 H 100 Date Exam was Performed: 05/23/19 Time Exam was Performed: 10:17 *Q Meaningful Use (ADM) - VTE *Q VTE Pharmacological Contraindications *Q: High INR Value - VTE Risk Assess *Q Each Risk Factor Represents 1 Point: Swollen Legs, Current, Obesity ( BMI > 25 kg/m2), Congestive heart failure (CHF) Total Score 1 Point Risk Factors: 3 Each Risk Factor Represents 2 Points: None Total Score 2 Point Risk Factors: 0 Each Risk Factor Represents 3 Points: Age 75 Years or Greater Total Score 3 Point Risk Factors: 3 Each Risk Factor Represents 5 Points: None Total Score 5 Point Risk Factors: 0 Venous Thromboembolism Risk Factor Score *Q: 6 Problem List Initiated/Reviewed/Updated: Yes Orders Last 24hrs: Active Orders 24 hr Category Date Time Status Patient Status [ADT] Routine ADT 05/23/19 10:05 Active Ambulate [RC] QID Care 05/23/19 10:05 Active Blood Glucose Check, Bedside [RC] QIDACANDBED Care 05/23/19 10:05 Active Cardiac Monitoring [RC] .As Directed Care 05/23/19 10:07 Active Communication Order [RC] STAT Care 05/23/19 10:05 Active Diabetes Education [RC] Click to Edit Care 05/23/19 10:05 Active Height and Weight [RC] DAILY Care 05/23/19 10:05 Active Intake and Output [RC] QSHIFT Care 05/23/19 10:05 Active Notify Provider Vital Signs [RC] ASDIRECTED Care 05/23/19 10:05 Active Notify Provider [RC] PRN Care 05/23/19 10:05 Active Oxygen Therapy [RC] PRN Care 05/23/19 10:05 Active RT Aerosol Therapy [RC] ASDIRECTED Care 05/23/19 10:09 Active Up With Assistance [RC] ASDIRECTED Care 05/23/19 10:05 Active Up to Chair [RC] QID Care 05/23/19 10:05 Active VTE/DVT Education [RC] Per Unit Routine Care 05/23/19 10:05 Active Vital Signs [RC] Q4H Care 05/23/19 10:05 Active 2 Gram Sodium Diet [DIET] Diet 05/23/19 Lunch Active Chest 2V [CR] Stat Exams 05/23/19 10:05 Ordered Echo Comp wo Cont [US] Urgent Exams 05/24/19 08:00 Ordered VL Duplex Lwr Ext Veins Ltd Rt [US] Urgent Exams 05/23/19 10:10 Ordered BASIC METABOLIC PANEL,BMP [CHEM] Timed Lab 05/24/19 05:00 Ordered CBC WITH AUTO DIFF [HEME] Stat Lab 05/23/19 10:05 Ordered CBC WITH AUTO DIFF [HEME] Timed Lab 05/24/19 05:00 Ordered COMPREHENSIVE METABOLIC PN,CMP [CHEM] Stat Lab 05/23/19 10:05 Ordered GLUCOSE POC LAB TO COLLECT [POC] QIDACANDBED Lab 05/23/19 11:30 Ordered GLUCOSE POC LAB TO COLLECT [POC] QIDACANDBED Lab 05/23/19 16:30 Ordered GLUCOSE POC LAB TO COLLECT [POC] QIDACANDBED Lab 05/23/19 21:00 Ordered GLUCOSE POC LAB TO COLLECT [POC] QIDACANDBED Lab 05/24/19 07:30 Ordered GLUCOSE POC LAB TO COLLECT [POC] QIDACANDBED Lab 05/24/19 11:30 Ordered GLUCOSE POC LAB TO COLLECT [POC] QIDACANDBED Lab 05/24/19 16:30 Ordered GLUCOSE POC LAB TO COLLECT [POC] QIDACANDBED Lab 05/24/19 21:00 Ordered GLUCOSE POC LAB TO COLLECT [POC] QIDACANDBED Lab 05/25/19 07:30 Ordered GLUCOSE POC LAB TO COLLECT [POC] QIDACANDBED Lab 05/25/19 11:30 Ordered GLUCOSE POC LAB TO COLLECT [POC] QIDACANDBED Lab 05/25/19 16:30 Ordered GLUCOSE POC LAB TO COLLECT [POC] QIDACANDBED Lab 05/25/19 21:00 Ordered GLUCOSE POC LAB TO COLLECT [POC] QIDACANDBED Lab 05/26/19 07:30 Ordered GLUCOSE POC LAB TO COLLECT [POC] QIDACANDBED Lab 05/26/19 11:30 Ordered GLUCOSE POC LAB TO COLLECT [POC] QIDACANDBED Lab 05/26/19 16:30 Ordered GLUCOSE POC LAB TO COLLECT [POC] QIDACANDBED Lab 05/26/19 21:00 Ordered GLUCOSE POC LAB TO COLLECT [POC] QIDACANDBED Lab 05/27/19 07:30 Ordered GLUCOSE POC LAB TO COLLECT [POC] QIDACANDBED Lab 05/27/19 11:30 Ordered GLUCOSE POC LAB TO COLLECT [POC] QIDACANDBED Lab 05/27/19 16:30 Ordered GLUCOSE POC LAB TO COLLECT [POC] QIDACANDBED Lab 05/27/19 21:00 Ordered GLUCOSE POC LAB TO COLLECT [POC] QIDACANDBED Lab 05/28/19 07:30 Ordered INR,PT,PROTHROMBIN TIME [COAG] Stat Lab 05/23/19 10:05 Ordered INR,PT,PROTHROMBIN TIME [COAG] Timed Lab 05/24/19 05:00 Ordered MAGNESIUM [CHEM] Stat Lab 05/23/19 10:05 Ordered MAGNESIUM [CHEM] Timed Lab 05/24/19 05:00 Ordered Acetaminophen [Tylenol] Med 05/23/19 10:05 Ordered 650 mg PO Q4H PRN Albuterol [Proventil Neb Soln] Med 05/23/19 10:05 Ordered 2.5 mg NEB Q4H PRN Allopurinol [Zyloprim] Med 05/24/19 09:00 Ordered 150 mg PO DAILY Budesonide [Pulmicort Flexhaler] Med 05/23/19 21:00 Ordered 2 puff INH BID Bumetanide [Bumex] Med 05/23/19 10:12 Once 4 mg IVPUSH ONETIME ONE Cetirizine [ZyrTEC] Med 05/24/19 09:00 Ordered 10 mg PO DAILY Cilostazol [Pletal] Med 05/23/19 16:30 Ordered 100 mg PO BIDAC Clopidogrel [Plavix] Med 05/24/19 09:00 Ordered 75 mg PO DAILY Dextrose 50% in Water Med 05/23/19 10:05 Ordered 50 ml IV ONETIME PRN Dextrose [Glutose 15] Med 05/23/19 10:05 Ordered 15 gm PO ONETIME PRN Ezetimibe [Zetia] Med 05/24/19 09:00 Ordered 10 mg PO DAILY Fluticasone Propionate [Flonase] Med 05/24/19 09:00 Ordered 2 spray NASBOTH DAILY Glimepiride [Glimepiride] Med 05/24/19 09:00 Ordered 4 mg PO DAILY Insulin Lispro [HumaLOG] Med 05/23/19 11:00 Ordered See Protocol SUBCUT QIDACANDBED Ondansetron [Zofran] Med 05/23/19 10:05 Ordered 4 mg IV Q4H PRN Polyethylene Glycol 3350 [MiraLAX] Med 05/23/19 10:05 Ordered 17 gm PO DAILY PRN Sodium Chloride 0.9% [Saline Flush] Med 05/23/19 10:05 Ordered 10 ml FLUSH ASDIRECTED PRN Warfarin [Coumadin] Med 05/24/19 09:00 Ordered 5 mg PO DAILY atorvaSTATin [Lipitor] Med 05/23/19 21:00 Ordered 20 mg PO BEDTIME traZODone Med 05/23/19 10:01 Ordered 50 mg PO BEDTIME PRN Saline Lock Insert [OM.PC] Routine Oth 05/23/19 10:05 Ordered VTE Pharmacological Contraindications [AST] Per Unit Oth 05/23/19 10:05 Ordered Routine Resuscitation Status Routine Resus Stat 05/23/19 10:05 Ordered Assessment/Plan Comment:: ASSESSMENT AND PLAN CONGESTIVE HEART FAILURE-increased shortness of breath and unilateral edema right lower leg over the past few weeks. -Echocardiogram -PA and lateral chest x-ray -Venous Doppler right lower extremity -Bumex 4 mg IV now -2 Gram sodium diet CHRONIC KIDNEY DISEASE-labs pending -Closely monitor renal function output TYPE 2 DIABETES MELLITUS -Continue oral hypoglycemic therapy -Low-dose sliding scale Humalog -4 times a day glucometers ANEMIA-History of chronic mild anemia, now worse with hemoglobin of 7.9. Denies any history or symptoms of active bleeding -Laboratory studies pending, including; iron, ferritin, vitamin B12, Folic acid , LDH, and reticulocyte count MAINTENANCE ISSUES -DVT prophylaxis;Warfarin -GI prophylaxis;Not indicated -Gaona catheter;Not indicated -Nutrition;2 Gram sodium -Nicotine dependence;Not indicated CODE STATUS-DNR/DNI ADMISSION STATUS-patient will be admitted to inpatient status, expect at least a 2 night hospital stay for evaluation and management of problems as outlined above. At the time of this admission I do not reasonably expected evaluation and management of this problem will require more than a 96 hour hospital stay. DISPOSITION-anticipate discharge to home after the hospital stay. PRIMARY CARE PROVIDER-Dr. Carey - Mortality Measure Prognosis:: Good
[2019-05-23] MEDS ORDERED: Bumetanide 2.5 MG/10 ML MDV IVPUSH ONE (10:45)
--- NOTE | 2019-05-23 11:38 | CRLCR ---
INDICATION: Dyspnea. TECHNIQUE: PA and lateral. COMPARISON: 12/15/2018. FINDINGS: No obvious change. Lungs low in volume. No obvious infiltrate. No pleural effusion. Mild cardiomegaly and postop changes of coronary bypass. Pulmonary veins normal in caliber. No significant bony abnormality. IMPRESSION: 1. No significant change. 2. Lungs low in volume, clear. 3. Mild cardiomegaly and postop changes of coronary bypass. Dictated by Hernán Mccrary MD @ May 23 2019 11:35AM Signed by Dr. Hernán Mccrary @ May 23 2019 11:37AM
[2019-05-23] MEDS: Insulin Lispro 100 Unit/ML 3 ML KwikPen SUBCUT SCH ×3 (11:50→21:27)
--- NOTE | 2019-05-23 12:09 | CRLUS ---
INDICATION: Right leg edema. TECHNIQUE: Grayscale two-dimensional ultrasound without and with compression as well as color-flow and spectral Doppler of the right lower extremity veins. COMPARISON: None. FINDINGS: Normal compressibility of and flow within the right common femoral, superficial femoral, popliteal, posterior tibial, profunda, and greater saphenous veins is demonstrated. No thrombus is identified. The left common femoral vein is clear. IMPRESSION: Negative right lower extremity venous Doppler study. Dictated by Hernán Mccrary MD @ May 23 2019 12:07PM Signed by Dr. Hernán Mccrary @ May 23 2019 12:08PM
[2019-05-23] MEDS ORDERED: BUDESONIDE INH SCH (21:00)
[2019-05-23] MEDS: atorvaSTATin 20 MG Tab PO SCH (21:26)
[2019-05-23] MEDS: Acetaminophen 325 MG Tab PO PRN (21:56)
[2019-05-24] MEDS: Mometasone Furoate Powder 220 MCG/Puff 14 Dose Inhaler INH SCH (07:29)
[2019-05-24] MEDS: Insulin Lispro 100 Unit/ML 3 ML KwikPen SUBCUT SCH ×4 (07:37→19:50)
[2019-05-24] MEDS ORDERED: Bumetanide 2.5 MG/10 ML MDV IVPUSH ONE (08:45)
[2019-05-24] MEDS ORDERED: Non-Formulary Medication 1 Each (Glimepiride [Glimepiride] 4 MG) PO SCH (09:00)
[2019-05-24] MEDS: Ezetimibe 10 MG Tab PO SCH (09:25)
[2019-05-24] MEDS: Clopidogrel 75 MG Tab PO SCH (09:25)
[2019-05-24] MEDS: Glimepiride 2 MG Tab PO SCH (09:26)
[2019-05-24] MEDS: Fluticasone Propionate Nasal Spray 16 GM Bottle NASBOTH SCH (09:26)
[2019-05-24] MEDS: Cetirizine 10 MG Tab PO SCH (09:26)
[2019-05-24] MEDS: Allopurinol 300 MG Tab PO SCH (09:26)
--- NOTE | 2019-05-24 09:49 | PCM.PN ---
- General Info Date of Service: 05/24/19 Subjective Update: Mr. Kamara has been stable since admission. He had an excellent diuresis yesterday, resulting in decreased edema of his right lower extremity. Renal function has remained stable with diuresis, not significantly improved from admission. Hemoglobin has dropped further today and he will require transfusion of 1 units of red blood cells. Functional Status: Reports: Tolerating Diet, Ambulating, Urinating - Review of Systems General: Reports: Weakness. Denies: Fever, Chills Pulmonary: Reports: Shortness of Breath. Denies: Pleuritic Chest Pain, Cough, Sputum, Hemoptysis, Wheezing Cardiovascular: Reports: Dyspnea on Exertion, Edema. Denies: Chest Pain, Palpitations, Orthopnea, PND Gastrointestinal: Reports: No Symptoms - Patient Data Vitals - Most Recent: Last Vital Signs Temp 97.5 F 05/24/19 08:00 Pulse 73 05/24/19 08:00 Resp 14 05/24/19 08:00 BP 135/65 05/24/19 08:00 Pulse Ox 95 05/24/19 08:00 Weight - Most Recent: 228 lb 4.8 oz I&O - Last 24 Hours: Intake & Output 05/23/19 05/24/19 05/24/19 22:59 06:59 14:59 Intake Total 360 Output Total 1700 375 Balance -1700 -375 360 Lab Results Last 24 Hours: Laboratory Results - last 24 hr 05/23/19 05/23/19 05/23/19 Range/Units 10:30 10:30 10:30 WBC 5.6 (4.5-11.0) K/uL RBC 2.21 L (4.30-5.90) M/uL Hgb 7.8 L (12.0-15.0) g/dL Hct 25.6 L (40.0-54.0) % MCV 116 H (80-98) fL MCH 35 H (27-31) pg MCHC 31 L (32-36) % Plt Count 233 (150-400) K/uL Add Manual Diff Yes Neutrophils % (Manual) 71 H (36-66) % Band Neutrophils % 9 (5-11) % Lymphocytes % (Manual) 8 L (24-44) % Monocytes % (Manual) 7 H (2-6) % Eosinophils % (Manual) 1 L (2-4) % Metamyelocytes % 4 % Hypochromasia Tear Drop Cells Schistocytes Percent Retic (0.5-1.5) % PT 20.6 H (9.5-12.0) sec INR 1.98 H (0.80-1.20) Sodium 139 L (140-148) mmol/L Potassium 4.6 (3.6-5.2) mmol/L Chloride 104 (100-108) mmol/L Carbon Dioxide 25 (21-32) mmol/L Anion Gap 14.6 H (5.0-14.0) mmol/L BUN 38 H (7-18) mg/dL Creatinine 2.6 H D (0.8-1.3) mg/dL Est Cr Clr Drug Dosing 19.69 mL/min Estimated GFR (MDRD) 23 L (>60) Glucose 169 H (74-106) mg/dL Calcium 8.9 (8.5-10.1) mg/dL Magnesium 2.1 (1.8-2.4) mg/dL Iron (65-175) ug/dL TIBC (250-450) ug/dl % Saturation (20-55) % Ferritin (8-388) ng/ml Total Bilirubin 0.6 (0.2-1.0) mg/dL AST 15 (15-37) U/L ALT 19 (12-78) U/L Alkaline Phosphatase 110 (46-116) U/L Lactate Dehydrogenase (85-227) U/L Total Protein 5.9 L (6.4-8.2) g/dL Albumin 3.1 L (3.4-5.0) g/dL Globulin 2.8 (2.3-3.5) g/dL Albumin/Globulin Ratio 1.1 L (1.2-2.2) Vitamin B12 (193-986) pg/ml Folate (8.6-58.9) ng/ml Blood Type Gel Antibody Screen Crossmatch 05/23/19 05/23/19 05/23/19 Range/Units 10:30 10:30 10:30 WBC (4.5-11.0) K/uL RBC (4.30-5.90) M/uL Hgb (12.0-15.0) g/dL Hct (40.0-54.0) % MCV (80-98) fL MCH (27-31) pg MCHC (32-36) % Plt Count (150-400) K/uL Add Manual Diff Neutrophils % (Manual) (36-66) % Band Neutrophils % (5-11) % Lymphocytes % (Manual) (24-44) % Monocytes % (Manual) (2-6) % Eosinophils % (Manual) (2-4) % Metamyelocytes % % Hypochromasia Tear Drop Cells Schistocytes Percent Retic 2.1 H (0.5-1.5) % PT (9.5-12.0) sec INR (0.80-1.20) Sodium (140-148) mmol/L Potassium (3.6-5.2) mmol/L Chloride (100-108) mmol/L Carbon Dioxide (21-32) mmol/L Anion Gap (5.0-14.0) mmol/L BUN (7-18) mg/dL Creatinine (0.8-1.3) mg/dL Est Cr Clr Drug Dosing mL/min Estimated GFR (MDRD) (>60) Glucose (74-106) mg/dL Calcium (8.5-10.1) mg/dL Magnesium (1.8-2.4) mg/dL Iron (65-175) ug/dL TIBC (250-450) ug/dl % Saturation (20-55) % Ferritin 118 (8-388) ng/ml Total Bilirubin (0.2-1.0) mg/dL AST (15-37) U/L ALT (12-78) U/L Alkaline Phosphatase (46-116) U/L Lactate Dehydrogenase 205 (85-227) U/L Total Protein (6.4-8.2) g/dL Albumin (3.4-5.0) g/dL Globulin (2.3-3.5) g/dL Albumin/Globulin Ratio (1.2-2.2) Vitamin B12 1416 H (193-986) pg/ml Folate 13.9 (8.6-58.9) ng/ml Blood Type Gel Antibody Screen Crossmatch 05/23/19 05/24/19 05/24/19 Range/Units 10:30 04:54 04:54 WBC 4.1 L (4.5-11.0) K/uL RBC 2.07 L (4.30-5.90) M/uL Hgb 7.4 L (12.0-15.0) g/dL Hct 24.0 L (40.0-54.0) % MCV 116 H (80-98) fL MCH 36 H (27-31) pg MCHC 31 L (32-36) % Plt Count 223 (150-400) K/uL Add Manual Diff Yes Neutrophils % (Manual) 57 (36-66) % Band Neutrophils % 10 (5-11) % Lymphocytes % (Manual) 23 L (24-44) % Monocytes % (Manual) 10 H (2-6) % Eosinophils % (Manual) (2-4) % Metamyelocytes % % Hypochromasia Few Tear Drop Cells Few Schistocytes Few Percent Retic (0.5-1.5) % PT 22.7 H (9.5-12.0) sec INR 2.20 H (0.80-1.20) Sodium (140-148) mmol/L Potassium (3.6-5.2) mmol/L Chloride (100-108) mmol/L Carbon Dioxide (21-32) mmol/L Anion Gap (5.0-14.0) mmol/L BUN (7-18) mg/dL Creatinine (0.8-1.3) mg/dL Est Cr Clr Drug Dosing mL/min Estimated GFR (MDRD) (>60) Glucose (74-106) mg/dL Calcium (8.5-10.1) mg/dL Magnesium (1.8-2.4) mg/dL Iron 104 (65-175) ug/dL TIBC 344 (250-450) ug/dl % Saturation 30 (20-55) % Ferritin (8-388) ng/ml Total Bilirubin (0.2-1.0) mg/dL AST (15-37) U/L ALT (12-78) U/L Alkaline Phosphatase (46-116) U/L Lactate Dehydrogenase (85-227) U/L Total Protein (6.4-8.2) g/dL Albumin (3.4-5.0) g/dL Globulin (2.3-3.5) g/dL Albumin/Globulin Ratio (1.2-2.2) Vitamin B12 (193-986) pg/ml Folate (8.6-58.9) ng/ml Blood Type Gel Antibody Screen Crossmatch 05/24/19 05/24/19 Range/Units 04:54 08:17 WBC (4.5-11.0) K/uL RBC (4.30-5.90) M/uL Hgb (12.0-15.0) g/dL Hct (40.0-54.0) % MCV (80-98) fL MCH (27-31) pg MCHC (32-36) % Plt Count (150-400) K/uL Add Manual Diff Neutrophils % (Manual) (36-66) % Band Neutrophils % (5-11) % Lymphocytes % (Manual) (24-44) % Monocytes % (Manual) (2-6) % Eosinophils % (Manual) (2-4) % Metamyelocytes % % Hypochromasia Tear Drop Cells Schistocytes Percent Retic (0.5-1.5) % PT (9.5-12.0) sec INR (0.80-1.20) Sodium 140 (140-148) mmol/L Potassium 4.6 (3.6-5.2) mmol/L Chloride 105 (100-108) mmol/L Carbon Dioxide 28 (21-32) mmol/L Anion Gap 7.2 (5.0-14.0) mmol/L BUN 36 H (7-18) mg/dL Creatinine 2.5 H (0.8-1.3) mg/dL Est Cr Clr Drug Dosing 20.48 mL/min Estimated GFR (MDRD) 25 L (>60) Glucose 153 H (74-106) mg/dL Calcium 8.8 (8.5-10.1) mg/dL Magnesium (1.8-2.4) mg/dL Iron (65-175) ug/dL TIBC (250-450) ug/dl % Saturation (20-55) % Ferritin (8-388) ng/ml Total Bilirubin (0.2-1.0) mg/dL AST (15-37) U/L ALT (12-78) U/L Alkaline Phosphatase (46-116) U/L Lactate Dehydrogenase (85-227) U/L Total Protein (6.4-8.2) g/dL Albumin (3.4-5.0) g/dL Globulin (2.3-3.5) g/dL Albumin/Globulin Ratio (1.2-2.2) Vitamin B12 (193-986) pg/ml Folate (8.6-58.9) ng/ml Blood Type O POSITIVE Gel Antibody Screen Negative Crossmatch See Detail Med Orders - Current: Current Medications Acetaminophen (Tylenol) 650 mg PO Q4H PRN PRN Reason: Pain (Mild 1-3)/fever Last Admin: 05/23/19 21:56 Dose: 650 mg Albuterol (Proventil Neb Soln) 2.5 mg NEB Q4H PRN PRN Reason: Shortness Of Breath/wheezing Allopurinol (Zyloprim) 150 mg PO DAILY [facility] Last Admin: 05/24/19 09:26 Dose: 150 mg Atorvastatin Calcium (Lipitor) 20 mg PO BEDTIME [facility] Last Admin: 05/23/19 21:26 Dose: 20 mg Cetirizine HCl (Zyrtec) 10 mg PO DAILY [facility] Last Admin: 05/24/19 09:26 Dose: 10 mg Cilostazol (Pletal) 100 mg PO BIDAC [facility] Last Admin: 05/24/19 07:47 Dose: 100 mg Clopidogrel Bisulfate (Plavix) 75 mg PO DAILY [facility] Last Admin: 05/24/19 09:25 Dose: 75 mg Dextrose (Glutose 15) 15 gm PO ASDIRECTED PRN PRN Reason: Hypoglycemia Dextrose/Water (Dextrose 50% In Water) 50 ml IV ASDIRECTED PRN PRN Reason: Hypoglycemia Ezetimibe (Zetia) 10 mg PO DAILY [facility] Last Admin: 05/24/19 09:25 Dose: 10 mg Fluticasone Propionate (Flonase) 0 gm NASBOTH DAILY [facility] Last Admin: 05/24/19 09:26 Dose: 2 spray Glimepiride (Amaryl) 4 mg PO DAILY [facility] Last Admin: 05/24/19 09:26 Dose: 4 mg Insulin Human Lispro (Humalog) 0 unit SUBCUT QIDACANDBED [facility]; Protocol Last Admin: 05/24/19 07:37 Dose: 1 units Mometasone Furoate (Asmanex 220 Mcg) 0 puff INH DAILYRT [facility] Last Admin: 05/24/19 07:29 Dose: 2 puff Ondansetron HCl (Zofran) 4 mg IV Q4H PRN PRN Reason: Nausea/Vomiting Polyethylene Glycol (Miralax) 17 gm PO DAILY PRN PRN Reason: Constipation Sodium Chloride (Saline Flush) 10 ml FLUSH ASDIRECTED PRN PRN Reason: Keep Vein Open Trazodone HCl (Trazodone) 50 mg PO BEDTIME PRN PRN Reason: Sleep Warfarin Sodium (Coumadin) 5 mg PO DAILY@1300 [place] Discontinued Medications Bumetanide (Bumex) 4 mg IVPUSH ONETIME ONE Stop: 05/23/19 10:46 Last Admin: 05/23/19 11:39 Dose: 4 mg Bumetanide (Bumex) 4 mg IVPUSH ONETIME ONE Stop: 05/24/19 08:46 Last Admin: 05/24/19 09:25 Dose: 4 mg - Exam Quality Assessment: DVT Prophylaxis General: Alert, Oriented, Cooperative, Mild Distress Lungs: Clear to Auscultation, Normal Respiratory Effort Cardiovascular: Regular Rate, Regular Rhythm, No Murmurs GI/Abdominal Exam: Soft, Non-Tender, No Organomegaly, No Distention Extremities: Pedal Edema (Persistent edema right lower extremity, improved from admission) Peripheral Pulses: 4+: Radial (L) Sepsis Event Note - Evaluation Sepsis Screening Result: No Definite Risk - Focused Exam Vital Signs: Vital Signs Temp Pulse Resp BP Pulse Ox 05/24/19 08:00 97.5 F 73 14 135/65 95 05/24/19 04:00 72 14 141/82 H 100 05/24/19 00:00 60 19 135/56 L 98 Date Exam was Performed: 05/24/19 Time Exam was Performed: 09:43 - Problem List Review Problem List Initiated/Reviewed/Updated: Yes - My Orders Last 24 Hours: My Active Orders 05/23/19 10:01 traZODone 50 mg PO BEDTIME PRN 05/23/19 10:05 Patient Status [ADT] Routine Ambulate [RC] QID Blood Glucose Check, Bedside [RC] QIDACANDBED Communication Order [RC] STAT Diabetes Education [RC] Click to Edit Height and Weight [RC] DAILY Intake and Output [RC] QSHIFT Notify Provider Vital Signs [RC] ASDIRECTED Notify Provider [RC] PRN Oxygen Therapy [RC] PRN Up With Assistance [RC] ASDIRECTED Up to Chair [RC] QID VTE/DVT Education [RC] Per Unit Routine Vital Signs [RC] Q4H Acetaminophen [Tylenol] 650 mg PO Q4H PRN Albuterol [Proventil Neb Soln] 2.5 mg NEB Q4H PRN Dextrose 50% in Water 50 ml IV ASDIRECTED PRN Dextrose [Glutose 15] 15 gm PO ASDIRECTED PRN Ondansetron [Zofran] 4 mg IV Q4H PRN Polyethylene Glycol 3350 [MiraLAX] 17 gm PO DAILY PRN Sodium Chloride 0.9% [Saline Flush] 10 ml FLUSH ASDIRECTED PRN Saline Lock Insert [OM.PC] Routine VTE Pharmacological Contraindications [AST] Per Unit Routine Resuscitation Status Routine 05/23/19 10:07 Cardiac Monitoring [RC] .As Directed 05/23/19 10:09 RT Aerosol Therapy [RC] ASDIRECTED 05/23/19 11:00 Insulin Lispro [HumaLOG] See Protocol SUBCUT QIDACANDBED 05/23/19 12:52 HEMATOPATH CONSULTATION, SMEAR Routine 05/23/19 13:00 Echo Comp wo Cont [US] Urgent 05/23/19 16:30 Cilostazol [Pletal] 100 mg PO BIDAC 05/23/19 21:00 atorvaSTATin [Lipitor] 20 mg PO BEDTIME 05/23/19 Lunch 2 Gram Sodium Diet [DIET] 05/24/19 07:00 Mometasone Furoate [Asmanex 220 MCG] 0 puff INH DAILYRT 05/24/19 08:17 RED BLOOD CELLS LP [BBK] Urgent TYPE AND SCREEN [BBK] Urgent Transfuse Red Blood Cells [COMM] Urgent 05/24/19 09:00 Allopurinol [Zyloprim] 150 mg PO DAILY Cetirizine [ZyrTEC] 10 mg PO DAILY Clopidogrel [Plavix] 75 mg PO DAILY Ezetimibe [Zetia] 10 mg PO DAILY Fluticasone Propionate [Flonase] 0 gm NASBOTH DAILY Glimepiride [Amaryl] 4 mg PO DAILY 05/24/19 13:00 Warfarin [Coumadin] 5 mg PO DAILY@1300 05/24/19 21:00 GLUCOSE POC LAB TO COLLECT [POC] QIDACANDBED 05/25/19 05:00 BASIC METABOLIC PANEL,BMP [CHEM] Timed CBC WITH AUTO DIFF [HEME] Timed INR,PT,PROTHROMBIN TIME [COAG] Timed MAGNESIUM [CHEM] Timed 05/25/19 07:30 GLUCOSE POC LAB TO COLLECT [POC] QIDACANDBED 05/25/19 11:30 GLUCOSE POC LAB TO COLLECT [POC] QIDACANDBED 05/25/19 16:30 GLUCOSE POC LAB TO COLLECT [POC] QIDACANDBED 05/25/19 21:00 GLUCOSE POC LAB TO COLLECT [POC] QIDACANDBED 05/26/19 07:30 GLUCOSE POC LAB TO COLLECT [POC] QIDACANDBED 05/26/19 11:30 GLUCOSE POC LAB TO COLLECT [POC] QIDACANDBED 05/26/19 16:30 GLUCOSE POC LAB TO COLLECT [POC] QIDACANDBED 05/26/19 21:00 GLUCOSE POC LAB TO COLLECT [POC] QIDACANDBED 05/27/19 07:30 GLUCOSE POC LAB TO COLLECT [POC] QIDACANDBED 05/27/19 11:30 GLUCOSE POC LAB TO COLLECT [POC] QIDACANDBED 05/27/19 16:30 GLUCOSE POC LAB TO COLLECT [POC] QIDACANDBED 05/27/19 21:00 GLUCOSE POC LAB TO COLLECT [POC] QIDACANDBED 05/28/19 07:30 GLUCOSE POC LAB TO COLLECT [POC] QIDACANDBED - Plan Plan:: ASSESSMENT AND PLAN DIASTOLIC CONGESTIVE HEART FAILURE-increased shortness of breath and unilateral edema right lower leg over the past few weeks. Improvement in edema with diuresis. Echocardiogram shows preserved systolic left ventricular function, moderate diastolic dysfunction, moderate to severe aortic stenosis, severe mitral regurgitation, severe tricuspid regurgitation, and severe pulmonary hypertension. -Bumex 4 mg IV now -2 Gram sodium diet CHRONIC KIDNEY DISEASE-labs pending -Closely monitor renal function output TYPE 2 DIABETES MELLITUS -Continue oral hypoglycemic therapy -Low-dose sliding scale Humalog -4 times a day glucometers CHRONIC MACROCYTIC ANEMIA-History of chronic mild/moderate anemia, and leukopenia. Probable underlying myelodysplastic syndrome. Hemoglobin this morning is down to 7.4. -Peripheral smear pending -May need to consider bone marrow biopsy -Transfuse 1 unit of red blood cells MAINTENANCE ISSUES -DVT prophylaxis;Warfarin -GI prophylaxis;Not indicated -Gaona catheter;Not indicated -Nutrition;2 Gram sodium -Nicotine dependence;Not indicated CODE STATUS-DNR/DNI ADMISSION STATUS-patient will be admitted to inpatient status, expect at least a 2 night hospital stay for evaluation and management of problems as outlined above. At the time of this admission I do not reasonably expected evaluation and management of this problem will require more than a 96 hour hospital stay. DISPOSITION-anticipate discharge to home after the hospital stay. PRIMARY CARE PROVIDER-Dr. Carey
[2019-05-24] MEDS ORDERED: Warfarin 5 MG Tab PO SCH (13:00)
[2019-05-24] MEDS: Acetaminophen 325 MG Tab PO PRN (21:30)
[2019-05-24] MEDS: atorvaSTATin 20 MG Tab PO SCH (21:31)
[2019-05-25] MEDS: Insulin Lispro 100 Unit/ML 3 ML KwikPen SUBCUT SCH ×4 (06:32→21:39)
[2019-05-25] MEDS ORDERED: Bumetanide 1 MG/4 ML MDV IVPUSH ONE (07:15)
[2019-05-25] MEDS: Mometasone Furoate Powder 220 MCG/Puff 14 Dose Inhaler INH SCH (07:32)
[2019-05-25] MEDS: Glimepiride 2 MG Tab PO SCH (08:51)
[2019-05-25] MEDS: Ezetimibe 10 MG Tab PO SCH (08:51)
[2019-05-25] MEDS: Clopidogrel 75 MG Tab PO SCH (08:51)
[2019-05-25] MEDS: Fluticasone Propionate Nasal Spray 16 GM Bottle NASBOTH SCH (08:51)
[2019-05-25] MEDS: Cetirizine 10 MG Tab PO SCH (08:52)
[2019-05-25] MEDS: Allopurinol 300 MG Tab PO SCH (08:52)
--- NOTE | 2019-05-25 11:51 | PCM.PN ---
- General Info Date of Service: 05/25/19 Subjective Update: Mr. Kamara been stable since yesterday, shortness of breath and peripheral edema have improved with diuretic therapy. Vital signs have remained stable and he is been afebrile. Renal function has improved modestly since admission. Functional Status: Reports: Tolerating Diet, Ambulating, Urinating - Review of Systems General: Reports: Weakness. Denies: Fever, Chills Pulmonary: Reports: No Symptoms Cardiovascular: Reports: No Symptoms Gastrointestinal: Reports: No Symptoms - Patient Data Vitals - Most Recent: Last Vital Signs Temp 98.1 F 05/25/19 07:00 Pulse 86 05/25/19 07:00 Resp 14 05/25/19 07:00 BP 126/61 05/25/19 07:00 Pulse Ox 95 05/25/19 07:00 Weight - Most Recent: 226 lb I&O - Last 24 Hours: Intake & Output 05/24/19 05/25/19 05/25/19 22:59 06:59 14:59 Intake Total 240 Output Total 450 300 675 Balance -210 300 -675 Lab Results Last 24 Hours: Laboratory Results - last 24 hr 05/25/19 05/25/19 05/25/19 Range/Units 05:30 05:30 05:30 WBC 4.0 L (4.5-11.0) K/uL RBC 2.33 L (4.30-5.90) M/uL Hgb 8.1 L (12.0-15.0) g/dL Hct 25.5 L (40.0-54.0) % MCV 109 H (80-98) fL MCH 35 H (27-31) pg MCHC 32 (32-36) % Plt Count 210 (150-400) K/uL Neut % (Auto) 54 (36-66) % Lymph % (Auto) 24 (24-44) % Hayes % (Auto) 16 H (2-6) % Eos % (Auto) 5 H (2-4) % Baso % (Auto) 1 (0-1) % PT 18.2 H (9.5-12.0) sec INR 1.74 H (0.80-1.20) Sodium 140 (140-148) mmol/L Potassium 3.9 (3.6-5.2) mmol/L Chloride 105 (100-108) mmol/L Carbon Dioxide 26 (21-32) mmol/L Anion Gap 8.9 (5.0-14.0) mmol/L BUN 40 H (7-18) mg/dL Creatinine 2.4 H (0.8-1.3) mg/dL Est Cr Clr Drug Dosing 21.33 mL/min Estimated GFR (MDRD) 26 L (>60) Glucose 174 H (74-106) mg/dL Calcium 8.6 (8.5-10.1) mg/dL Magnesium 1.8 (1.8-2.4) mg/dL Med Orders - Current: Current Medications Acetaminophen (Tylenol) 650 mg PO Q4H PRN PRN Reason: Pain (Mild 1-3)/fever Last Admin: 05/24/19 21:30 Dose: 650 mg Albuterol (Proventil Neb Soln) 2.5 mg NEB Q4H PRN PRN Reason: Shortness Of Breath/wheezing Allopurinol (Zyloprim) 150 mg PO DAILY [facility] Last Admin: 05/25/19 08:52 Dose: 150 mg Atorvastatin Calcium (Lipitor) 20 mg PO BEDTIME [facility] Last Admin: 05/24/19 21:31 Dose: 20 mg Cetirizine HCl (Zyrtec) 10 mg PO DAILY [facility] Last Admin: 05/25/19 08:52 Dose: 10 mg Cilostazol (Pletal) 100 mg PO BIDAC [facility] Last Admin: 05/25/19 08:51 Dose: 100 mg Clopidogrel Bisulfate (Plavix) 75 mg PO DAILY [facility] Last Admin: 05/25/19 08:51 Dose: 75 mg Dextrose (Glutose 15) 15 gm PO ASDIRECTED PRN PRN Reason: Hypoglycemia Dextrose/Water (Dextrose 50% In Water) 50 ml IV ASDIRECTED PRN PRN Reason: Hypoglycemia Ezetimibe (Zetia) 10 mg PO DAILY [facility] Last Admin: 05/25/19 08:51 Dose: 10 mg Fluticasone Propionate (Flonase) 0 gm NASBOTH DAILY [facility] Last Admin: 05/25/19 08:51 Dose: 2 spray Glimepiride (Amaryl) 4 mg PO DAILY [facility] Last Admin: 05/25/19 08:51 Dose: 4 mg Insulin Human Lispro (Humalog) 0 unit SUBCUT QIDACANDBED [facility]; Protocol Last Admin: 05/25/19 06:32 Dose: 1 units Mometasone Furoate (Asmanex 220 Mcg) 0 puff INH DAILYRT [facility] Last Admin: 05/25/19 07:32 Dose: 2 puff Ondansetron HCl (Zofran) 4 mg IV Q4H PRN PRN Reason: Nausea/Vomiting Polyethylene Glycol (Miralax) 17 gm PO DAILY PRN PRN Reason: Constipation Sodium Chloride (Saline Flush) 10 ml FLUSH ASDIRECTED PRN PRN Reason: Keep Vein Open Trazodone HCl (Trazodone) 50 mg PO BEDTIME PRN PRN Reason: Sleep Warfarin Sodium (Coumadin) 7.5 mg PO DAILY@1300 [facility] Discontinued Medications Bumetanide (Bumex) 4 mg IVPUSH ONETIME ONE Stop: 05/23/19 10:46 Last Admin: 05/23/19 11:39 Dose: 4 mg Bumetanide (Bumex) 4 mg IVPUSH ONETIME ONE Stop: 05/24/19 08:46 Last Admin: 05/24/19 09:25 Dose: 4 mg Bumetanide (Bumex) 4 mg IVPUSH ONETIME ONE Stop: 05/25/19 07:16 Last Admin: 05/25/19 08:49 Dose: 4 mg Warfarin Sodium (Coumadin) 5 mg PO DAILY@1300 [facility] Last Admin: 05/24/19 12:29 Dose: 5 mg - Exam Quality Assessment: DVT Prophylaxis General: Mild Distress Lungs: Clear to Auscultation, Normal Respiratory Effort Cardiovascular: Regular Rate, Irregular Rhythm, Murmurs GI/Abdominal Exam: Soft, Non-Tender, No Organomegaly, No Distention Extremities: Pedal Edema (Right leg) Sepsis Event Note - Evaluation Sepsis Screening Result: No Definite Risk - Focused Exam Vital Signs: Vital Signs Temp Pulse Resp BP Pulse Ox 05/25/19 07:00 98.1 F 86 14 126/61 95 05/25/19 03:00 108 H 19 125/74 96 Date Exam was Performed: 05/25/19 Time Exam was Performed: 11:48 - Problem List Review Problem List Initiated/Reviewed/Updated: Yes - My Orders Last 24 Hours: My Active Orders 05/24/19 21:00 GLUCOSE POC LAB TO COLLECT [POC] QIDACANDBED 05/25/19 13:00 Warfarin [Coumadin] 7.5 mg PO DAILY@1300 05/26/19 05:00 BASIC METABOLIC PANEL,BMP [CHEM] Timed CBC WITH AUTO DIFF [HEME] Timed INR,PT,PROTHROMBIN TIME [COAG] Timed 05/26/19 07:30 GLUCOSE POC LAB TO COLLECT [POC] QIDACANDBED 05/26/19 11:30 GLUCOSE POC LAB TO COLLECT [POC] QIDACANDBED 05/26/19 16:30 GLUCOSE POC LAB TO COLLECT [POC] QIDACANDBED 05/26/19 21:00 GLUCOSE POC LAB TO COLLECT [POC] QIDACANDBED 05/27/19 07:30 GLUCOSE POC LAB TO COLLECT [POC] QIDACANDBED 05/27/19 11:30 GLUCOSE POC LAB TO COLLECT [POC] QIDACANDBED 05/27/19 16:30 GLUCOSE POC LAB TO COLLECT [POC] QIDACANDBED 05/27/19 21:00 GLUCOSE POC LAB TO COLLECT [POC] QIDACANDBED 05/28/19 07:30 GLUCOSE POC LAB TO COLLECT [POC] QIDACANDBED - Plan Plan:: ASSESSMENT AND PLAN DIASTOLIC CONGESTIVE HEART FAILURE-increased shortness of breath and unilateral edema right lower leg over the past few weeks. Echocardiogram shows preserved systolic left ventricular function, moderate diastolic dysfunction, moderate to severe aortic stenosis, severe mitral regurgitation, severe tricuspid regurgitation, and severe pulmonary hypertension. Futher improvement noted over the last 24 hours -Bumex 4 mg IV now -2 Gram sodium diet CHRONIC KIDNEY DISEASE-renal function modestly improved -Closely monitor renal function output TYPE 2 DIABETES MELLITUS -Continue oral hypoglycemic therapy -Low-dose sliding scale Humalog -4 times a day glucometers CHRONIC MACROCYTIC ANEMIA-History of chronic mild/moderate anemia, and leukopenia. Probable underlying myelodysplastic syndrome. Hemoglobin this morning is down to 7.4. -Peripheral smear pending -May need to consider bone marrow biopsy -Follow-up hemoglobin in a.m. MAINTENANCE ISSUES -DVT prophylaxis;Warfarin -GI prophylaxis;Not indicated -Gaona catheter;Not indicated -Nutrition;2 Gram sodium -Nicotine dependence;Not indicated CODE STATUS-DNR/DNI ADMISSION STATUS-patient will be admitted to inpatient status, expect at least a 2 night hospital stay for evaluation and management of problems as outlined above. At the time of this admission I do not reasonably expected evaluation and management of this problem will require more than a 96 hour hospital stay. DISPOSITION-anticipate discharge to home after the hospital stay. PRIMARY CARE PROVIDER-Dr. Carey
[2019-05-25] MEDS: Warfarin 2.5 MG Tab PO SCH (13:31)
[2019-05-25] MEDS: Acetaminophen 325 MG Tab PO PRN ×2 (17:30→23:19)
[2019-05-25 18:08] LABS: BASO (ABSOLUTE) 0.1 x10E3/uL (0.0-0.2); BASOS 1 % (Not Estab.); COMMENTS/RECOMMENDATIONS Note: (.); EOS 3 % (Not Estab.); EOS (ABSOLUTE) 0.2 x10E3/uL (0.0-0.4); HEMATOCRIT 23.4 % (37.5-51.0); HEMATOLOGY COMMENTS: Note: (.); HEMOGLOBIN 7.9 g/dL (13.0-17.7); IMMATURE CELLS Note (.); LYMPHS 12 % (Not Estab.); LYMPHS (ABSOLUTE) 0.7 x10E3/uL (0.7-3.1); MCH 36.2 pg (26.6-33.0); MCHC 33.8 g/dL (31.5-35.7); MCV 107 fL (79-97); METAMYELOCYTES 1 % (0 - 0); MONOCYTES 3 % (Not Estab.); MONOCYTES(ABSOLUTE) 0.2 x10E3/uL (0.1-0.9); MYELOCYTES 2 % (0 - 0); NEUTROPHILS 78 % (Not Estab.); NEUTROPHILS (ABSOLUTE) 4.3 x10E3/uL (1.4-7.0); NRBC 1 % (0 - 0); PATHOLOGIST Note: (.); PLATELETS 233 x10E3/uL (150-450); PLTS Note: (.); RBC 2.18 x10E6/uL (4.14-5.80); RBC Note: (.); RDW 20.6 % (12.3-15.4); WBC 5.5 x10E3/uL (3.4-10.8); WBC Note: (.)
[2019-05-25] MEDS: atorvaSTATin 20 MG Tab PO SCH (21:38)
[2019-05-26] MEDS: Mometasone Furoate Powder 220 MCG/Puff 14 Dose Inhaler INH SCH (07:05)
[2019-05-26] MEDS: Insulin Lispro 100 Unit/ML 3 ML KwikPen SUBCUT SCH ×3 (07:43→17:09)
[2019-05-26] MEDS ORDERED: Potassium Chloride 20 MEQ Tab.ER PO ONE (08:00)
[2019-05-26] MEDS: Clopidogrel 75 MG Tab PO SCH (09:18)
[2019-05-26] MEDS: Glimepiride 2 MG Tab PO SCH (09:18)
[2019-05-26] MEDS: Fluticasone Propionate Nasal Spray 16 GM Bottle NASBOTH SCH (09:18)
[2019-05-26] MEDS: Ezetimibe 10 MG Tab PO SCH (09:19)
[2019-05-26] MEDS: Allopurinol 300 MG Tab PO SCH (09:19)
[2019-05-26] MEDS: Cetirizine 10 MG Tab PO SCH (09:19)
--- NOTE | 2019-05-26 10:24 | PCM.DCSUM1 ---
Discharge Summary - Hospital Course Brief History: Mr. Kamara is an 88-year-old gentleman who was admitted as a direct admission from the clinic with shortness of breath and right lower extremity edema secondary to congestive heart failure. - Discharge Data Discharge Date: 05/26/19 Discharge Disposition: Home, Self-Care 01 Condition: Fair - Referral to Home Health Primary Care Physician: Aldair Carey MD - Discharge Diagnosis/Problem(s) (1) Diastolic CHF SNOMED Code(s): 082614377, 413059427 ICD Code: I50.30 - UNSPECIFIED DIASTOLIC (CONGESTIVE) HEART FAILURE Status : Acute Current Visit: Yes (2) CKD (chronic kidney disease) stage 3, GFR 30-59 ml/min SNOMED Code(s): 332192269 ICD Code: N18.3 - CHRONIC KIDNEY DISEASE, STAGE 3 (MODERATE) Status: Acute Current Visit: Yes (3) Aortic stenosis SNOMED Code(s): 43327946 ICD Code: I35.0 - NONRHEUMATIC AORTIC (VALVE) STENOSIS Status: Acute Current Visit: Yes (4) Pulmonary hypertension SNOMED Code(s): 04434932 ICD Code: I27.20 - PULMONARY HYPERTENSION, UNSPECIFIED Status: Acute Current Visit: Yes (5) Mitral regurgitation SNOMED Code(s): 60497946 ICD Code: I34.0 - NONRHEUMATIC MITRAL (VALVE) INSUFFICIENCY Status: Acute Current Visit: Yes (6) Peripheral edema SNOMED Code(s): 602017786 ICD Code: R60.9 - EDEMA, UNSPECIFIED Status: Acute Current Visit: Yes (7) Macrocytic anemia SNOMED Code(s): 68751045 ICD Code: D53.9 - NUTRITIONAL ANEMIA, UNSPECIFIED Status: Acute Current Visit: Yes - Patient Summary/Data Consults: Consultations 05/25/19 11:52 Consult to Physical Therapy [PT Evaluation and Treatment] [CONS] Routine Please Evaluate and Treat. PT Reason for Consult: Weakness This query below is only for informational purposes and is not editable. Admission Diagnosis/Problem: CHF, Congestive heart failure Hospital Course: Mr. Kamara is an 88-year-old gentleman who was admitted as a direct admission from the clinic with weakness and shortness of breath secondary to congestive heart failure, fluid retention, and anemia. He has a known history of coronary artery disease and is status post coronary artery bypass surgery, denies a history of congestive heart failure. He has long-standing type 2 diabetes mellitus and underlying chronic kidney disease. He is had pain in his right leg over the past year and apparently has problems with his prosthetic hip as well as evidence of radiculopathy. Over the past few weeks his had increased swelling in the leg. Venous Doppler study pain last week showed evidence of superficial thrombophlebitis. He is on long-term oral anticoagulation with warfarin. The past week has become progressively more short of breath and his experienced increased swelling in the right lower extremity. He was felt to have cellulitis last week and has been treated with antibiotic therapy for the past 7 days. On admission he was given daily dose of Bumex 4 mg IV. During the course of his hospital stay he had a good improvement of peripheral edema and erythema. On evaluation on admission was not felt to have significant cellulitis so he was not treated with further antibiotic therapy. Venous Doppler study of the right leg was obtained after admission and showed no evidence of vein thrombosis or superficial thrombophlebitis. He was continued on his usual dose of oral anticoagulation while hospitalized and INR was checked daily. Diabetes was monitored regularly and he was treated with low- dose sliding scale Humalog. Hemoglobin was low on admission and followed up the next morning at which time it was down to 7.4. He was transfused 1 unit of red blood cells and hemoglobin came up to slightly above 8. Laboratory studies were obtained showing no evidence of significant vitamin or iron deficiency. Review of past laboratory studies show that he has had a significant macrocytic anemia over the past several months. Peripheral smear was obtained during hospitalization, the results of which are pending at the time of this dictation. I am suspicious that he has an underlying myelodysplastic syndrome. Hematology consult will be scheduled for further evaluation, he will likely require a bone marrow biopsy. Echocardiogram was obtained and showed preserved left ventricular systolic function, moderate diastolic dysfunction, moderate to severe aortic stenosis, severe mitral regurgitation and tricuspid regurgitation , and severe pulmonary hypertension. With daily diuretic therapy his shortness of breath improved significantly prior to discharge and he was able to ambulate around the room hypoxia or significant shortness of breath. On discharge his furosemide will be discontinued and he will be started on oral Bumex 4 mg daily. Follow-up appointment will be scheduled with his primary care provider within 1 week, BMP and CBC should be obtained at the time of follow-up appointment. Follow-up appointment will be scheduled in the Coumadin clinic for May 30. - Patient Instructions Diet: Heart Healthy Diet, Diabetic Diet Activity: As Tolerated Other/Special Instructions: Kieran wrap right lower extremity daily. Keep leg elevated when sitting. Please schedule follow-up appointment with Dr. Carey within 1 week, BMP and CBC should be obtained at the time of follow-up appointment. Please schedule hematology consult for evaluation of macrocytic anemia. Coumadin clinic follow-up appointment May 30. - Discharge Plan *PRESCRIPTION DRUG MONITORING PROGRAM REVIEWED*: Not Applicable *COPY OF PRESCRIPTION DRUG MONITORING REPORT IN PATIENT ROHIT: Not Applicable Prescriptions/Med Rec: Bumetanide [Bumex] 4 mg PO DAILY #60 tab Home Medications: Home Meds Budesonide [Pulmicort Flexhaler] 2 puff INH BID 09/26/14 [History] Cetirizine [ZyrTEC] 10 mg PO DAILY 09/26/14 [History] Cholecalciferol (Vitamin D3) [Vitamin D3] 1,000 unit PO DAILY 09/26/14 [History] Ezetimibe [Zetia] 10 mg PO DAILY 09/26/14 [History] Fluticasone Propionate [Flonase] 2 spray NASBOTH DAILY 09/26/14 [History] Glimepiride 4 mg PO DAILY 09/26/14 [History] Multivitamin with Minerals [Multiple Vitamin] 1 tab PO DAILY 09/26/14 [History] [place]-3 Fatty Acids [Fish Oil] 2 tab PO DAILY 09/26/14 [History] Warfarin [Coumadin] 5 mg PO DAILY 09/26/14 [History] atorvaSTATin [Lipitor] 20 mg PO BEDTIME 09/26/14 [History] Clopidogrel Bisulfate [Clopidogrel] 75 mg PO DAILY 10/02/17 [History] Allopurinol [Zyloprim] 150 mg PO DAILY 12/09/17 [History] Cilostazol [Pletal] 100 mg PO BIDAC 01/17/18 [History] traZODone HCl [Trazodone HCl] 50 mg PO BEDTIME PRN 12/15/18 [History] Bumetanide [Bumex] 4 mg PO DAILY #60 tab 05/26/19 [Rx] Patient Handouts: Heart Failure, Qdem-[id number] - Discharge Summary/Plan Comment DC Time >30 min.: No - Patient Data Vitals - Most Recent: Last Vital Signs Temp 98.1 F 05/26/19 07:00 Pulse 96 05/26/19 07:00 Resp 20 05/26/19 07:00 BP 133/83 05/26/19 07:00 Pulse Ox 95 05/26/19 07:09 Weight - Most Recent: 219 lb I&O - Last 24 hours: Intake & Output 05/25/19 05/26/19 05/26/19 22:59 06:59 14:59 Intake Total 560 300 Output Total 500 200 200 Balance 60 -200 100 Lab Results - Last 24 hrs: Laboratory Results - last 24 hr 05/23/19 05/26/19 05/26/19 Range/Units 12:52 05:47 05:47 WBC 3.7 L (4.5-11.0) K/uL WBC (Send Out) 5.5 (3.4-10.8) x10E3/uL RBC 2.31 L (4.30-5.90) M/uL RBC (Send Out) 2.18 L (4.14-5.80) x10E6/uL Hgb 7.9 L (12.0-15.0) g/dL Hgb (Send Out) 7.9 L (13.0-17.7) g/dL Hct 25.1 L (40.0-54.0) % Hct (Send Out) 23.4 L (37.5-51.0) % MCV 109 H (80-98) fL MCV (Send Out) 107 H (79-97) fL MCH 34 H (27-31) pg MCH (Send Out) 36.2 H (26.6-33.0) pg MCHC 32 (32-36) % MCHC (Send Out) 33.8 (31.5-35.7) g/dL Red Cell Dist (Send Out) 20.6 H (12.3-15.4) % Plt Count 199 (150-400) K/uL Plt Count (Send Out) 233 (150-450) x10E3/uL Add Manual Diff Yes Diff Scan Note: (.) Immature Gran % TNP Neutrophils % (Manual) 56 (36-66) % Neutrophils % Send Out 78 (Not Estab.) % Band Neutrophils % TNP 1 L Lymphocytes % (Manual) 24 (24-44) % Lymphocytes % (Send Out) 12 (Not Estab.) % Monocytes % (Manual) 14 H (2-6) % Monocytes % (Send Out) 3 (Not Estab.) % Eosinophils % (Manual) 5 H (2-4) % Eosinophils % Send Out 3 (Not Estab.) % Basophils % (Send Out) 1 (Not Estab.) % Metamyelocytes % 1 H (0 - 0) % Myelocytes % 2 H (0 - 0) % Promyelocytes % TNP Blast Cells % TNP Megakaryocytes % TNP Other Cells % TNP Immature Gran # TNP Neutrophils # (Send Out) 4.3 (1.4-7.0) x10E3/uL Lymphocytes # (Send Out) 0.7 (0.7-3.1) x10E3/uL Monocytes #(Send Out) 0.2 (0.1-0.9) x10E3/uL Eosinophils # Send Out 0.2 (0.0-0.4) x10E3/uL Basophils # (Send Out) 0.1 (0.0-0.2) x10E3/uL Nucleated RBCs Send Out 1 H (0 - 0) % Immature Cells Send Out Note (.) Platelet Morphology Note: (.) RBC Morphology Note: (.) Anisocytosis Marked H Tear Drop Cells Few Ovalocytes Few Peripher Smr Path Cons Note: (.) Smear Path Review Note: (.) Hematology Comments Note: (.) PT 20.1 H (9.5-12.0) sec INR 1.93 H (0.80-1.20) Sodium (140-148) mmol/L Potassium (3.6-5.2) mmol/L Chloride (100-108) mmol/L Carbon Dioxide (21-32) mmol/L Anion Gap (5.0-14.0) mmol/L BUN (7-18) mg/dL Creatinine (0.8-1.3) mg/dL Est Cr Clr Drug Dosing mL/min Estimated GFR (MDRD) (>60) Glucose (74-106) mg/dL Calcium (8.5-10.1) mg/dL 05/26/19 Range/Units 05:47 WBC (4.5-11.0) K/uL WBC (Send Out) (3.4-10.8) x10E3/uL RBC (4.30-5.90) M/uL RBC (Send Out) (4.14-5.80) x10E6/uL Hgb (12.0-15.0) g/dL Hgb (Send Out) (13.0-17.7) g/dL Hct (40.0-54.0) % Hct (Send Out) (37.5-51.0) % MCV (80-98) fL MCV (Send Out) (79-97) fL MCH (27-31) pg MCH (Send Out) (26.6-33.0) pg MCHC (32-36) % MCHC (Send Out) (31.5-35.7) g/dL Red Cell Dist (Send Out) (12.3-15.4) % Plt Count (150-400) K/uL Plt Count (Send Out) (150-450) x10E3/uL Add Manual Diff Diff Scan (.) Immature Gran % Neutrophils % (Manual) (36-66) % Neutrophils % Send Out (Not Estab.) % Band Neutrophils % Lymphocytes % (Manual) (24-44) % Lymphocytes % (Send Out) (Not Estab.) % Monocytes % (Manual) (2-6) % Monocytes % (Send Out) (Not Estab.) % Eosinophils % (Manual) (2-4) % Eosinophils % Send Out (Not Estab.) % Basophils % (Send Out) (Not Estab.) % Metamyelocytes % (0 - 0) % Myelocytes % (0 - 0) % Promyelocytes % Blast Cells % Megakaryocytes % Other Cells % Immature Gran # Neutrophils # (Send Out) (1.4-7.0) x10E3/uL Lymphocytes # (Send Out) (0.7-3.1) x10E3/uL Monocytes #(Send Out) (0.1-0.9) x10E3/uL Eosinophils # Send Out (0.0-0.4) x10E3/uL Basophils # (Send Out) (0.0-0.2) x10E3/uL Nucleated RBCs Send Out (0 - 0) % Immature Cells Send Out (.) Platelet Morphology (.) RBC Morphology (.) Anisocytosis Tear Drop Cells Ovalocytes Peripher Smr Path Cons (.) Smear Path Review (.) Hematology Comments (.) PT (9.5-12.0) sec INR (0.80-1.20) Sodium 141 (140-148) mmol/L Potassium 3.5 L (3.6-5.2) mmol/L Chloride 105 (100-108) mmol/L Carbon Dioxide 25 (21-32) mmol/L Anion Gap 14.5 H (5.0-14.0) mmol/L BUN 40 H (7-18) mg/dL Creatinine 2.2 H (0.8-1.3) mg/dL Est Cr Clr Drug Dosing 23.27 mL/min Estimated GFR (MDRD) 28 L (>60) Glucose 185 H (74-106) mg/dL Calcium 8.7 (8.5-10.1) mg/dL Med Orders - Current: Current Medications Acetaminophen (Tylenol) 650 mg PO Q4H PRN PRN Reason: Pain (Mild 1-3)/fever Last Admin: 05/25/19 23:19 Dose: 650 mg Albuterol (Proventil Neb Soln) 2.5 mg NEB Q4H PRN PRN Reason: Shortness Of Breath/wheezing Allopurinol (Zyloprim) 150 mg PO DAILY [facility] Last Admin: 05/26/19 09:19 Dose: 150 mg Atorvastatin Calcium (Lipitor) 20 mg PO BEDTIME [facility] Last Admin: 05/25/19 21:38 Dose: 20 mg Bumetanide (Bumex) 4 mg IVPUSH ONETIME ONE Stop: 05/26/19 10:31 Cetirizine HCl (Zyrtec) 10 mg PO DAILY [facility] Last Admin: 05/26/19 09:19 Dose: 10 mg Cilostazol (Pletal) 100 mg PO BIDAC [facility] Last Admin: 05/26/19 07:44 Dose: 100 mg Clopidogrel Bisulfate (Plavix) 75 mg PO DAILY [facility] Last Admin: 05/26/19 09:18 Dose: 75 mg Dextrose (Glutose 15) 15 gm PO ASDIRECTED PRN PRN Reason: Hypoglycemia Dextrose/Water (Dextrose 50% In Water) 50 ml IV ASDIRECTED PRN PRN Reason: Hypoglycemia Ezetimibe (Zetia) 10 mg PO DAILY [facility] Last Admin: 05/26/19 09:19 Dose: 10 mg Fluticasone Propionate (Flonase) 0 gm NASBOTH DAILY [facility] Last Admin: 05/26/19 09:18 Dose: 1 spray Glimepiride (Amaryl) 4 mg PO DAILY [facility] Last Admin: 05/26/19 09:18 Dose: 4 mg Insulin Human Lispro (Humalog) 0 unit SUBCUT QIDACANDBED [facility]; Protocol Last Admin: 05/26/19 07:43 Dose: 1 units Mometasone Furoate (Asmanex 220 Mcg) [facility] Last Admin: 05/26/19 07:05 Dose: 2 puff Ondansetron HCl (Zofran) 4 mg IV Q4H PRN PRN Reason: Nausea/Vomiting Polyethylene Glycol (Miralax) 17 gm PO DAILY PRN PRN Reason: Constipation Sodium Chloride (Saline Flush) 10 ml FLUSH ASDIRECTED PRN PRN Reason: Keep Vein Open Trazodone HCl (Trazodone) 50 mg PO BEDTIME PRN PRN Reason: Sleep Last Admin: 05/25/19 23:20 Dose: 50 mg Warfarin Sodium (Coumadin) 7.5 mg PO DAILY@1300 [facility] Last Admin: 05/25/19 13:31 Dose: 7.5 mg Discontinued Medications Bumetanide (Bumex) 4 mg IVPUSH ONETIME ONE Stop: 05/23/19 10:46 Last Admin: 05/23/19 11:39 Dose: 4 mg Bumetanide (Bumex) 4 mg IVPUSH ONETIME ONE Stop: 05/24/19 08:46 Last Admin: 05/24/19 09:25 Dose: 4 mg Bumetanide (Bumex) 4 mg IVPUSH ONETIME ONE Stop: 05/25/19 07:16 Last Admin: 05/25/19 08:49 Dose: 4 mg Potassium Chloride (Klor-Con M20) 40 meq PO ONETIME ONE Stop: 05/26/19 08:01 Last Admin: 05/26/19 09:21 Dose: 40 meq Warfarin Sodium (Coumadin) 5 mg PO DAILY@1300 [facility] Last Admin: 05/24/19 12:29 Dose: 5 mg - Exam General: Reports: Alert, Oriented, Cooperative, No Acute Distress Lungs: Reports: Clear to Auscultation, Normal Respiratory Effort Cardiovascular: Reports: Regular Rate, Irregular Rhythm GI/Abdominal Exam: Soft, Non-Tender, No Organomegaly, No Distention Extremities: Pedal Edema (Mild persistent edema and erythema right lower leg) *Q Meaningful Use (DIS) - VTE *Q VTE Pharmacological Contraindications *Q: High INR Value
[2019-05-26] MEDS ORDERED: Bumetanide 1 MG/4 ML MDV IVPUSH ONE (10:30)
[2019-05-26 11:26] VITALS: BP 123/85; PULSE 92
[2019-05-26] MEDS: Acetaminophen 325 MG Tab PO PRN (11:36)
[2019-05-26] MEDS: Warfarin 2.5 MG Tab PO SCH (13:15)
== END 2019-05-26 16:45 | disposition home or self-care (01) | DRG 291 ==
LOC: JP.ICU 09:09 → JP.MS 05-25 15:51
PROVIDERS: ADMIT Hospitalist; ATTEND Hospitalist
PROC: 30233N1 Transfusion of Nonautologous Red Blood Cells into Peripheral Vein, Percutaneous Approach (ICD-10-PCS; principal; 2019-05-24)
DX: I13.0 Hypertensive heart and chronic kidney disease with heart failure and stage 1 through stage 4 chronic kidney disease, or unspecified chronic kidney disease (principal); I50.31 Acute diastolic (congestive) heart failure; N18.3 Chronic kidney disease, stage 3 (moderate); I27.20 Pulmonary hypertension, unspecified; D53.9 Nutritional anemia, unspecified; Z66 Do not resuscitate; I25.10 Atherosclerotic heart disease of native coronary artery without angina pectoris; E11.22 Type 2 diabetes mellitus with diabetic chronic kidney disease; D46.9 Myelodysplastic syndrome, unspecified; I08.1 Rheumatic disorders of both mitral and tricuspid valves; H54.7 Unspecified visual loss; I48.91 Unspecified atrial fibrillation; E78.00 Pure hypercholesterolemia, unspecified; J45.909 Unspecified asthma, uncomplicated; G47.30 Sleep apnea, unspecified; K44.9 Diaphragmatic hernia without obstruction or gangrene; M19.90 Unspecified osteoarthritis, unspecified site; E66.9 Obesity, unspecified; Z96.649 Presence of unspecified artificial hip joint; Z96.659 Presence of unspecified artificial knee joint; Z87.891 Personal history of nicotine dependence; Z87.01 Personal history of pneumonia (recurrent); Z79.899 Other long term (current) drug therapy; Z79.84 Long term (current) use of oral hypoglycemic drugs; Z90.49 Acquired absence of other specified parts of digestive tract; Z79.01 Long term (current) use of anticoagulants; Z85.828 Personal history of other malignant neoplasm of skin; Z95.1 Presence of aortocoronary bypass graft; Z88.1 Allergy status to other antibiotic agents; Z68.32 Body mass index [BMI] 32.0-32.9, adult
CPT/HCPCS: 36415; 36430; 71046; 80048; 80053; 82607; 82728; 82746; 82962; 83550; 83615; 83735; 85025; 85045; 85060; 85610; 86850; 86900; 86901; 86920; 86922; 93306; 93971-RT; 94640; 97110-GP; 97162-GP; 97530-GP; A9270-GY; J1815; J3490; P9016

== ENCOUNTER 2019-07-25 13:42 | Emergency (ER) | payer MEDICARE, OTHER ==
--- NOTE | 2019-07-25 14:46 | EDM.PDOC ---
ED HPI GENERAL MEDICAL PROBLEM - General Chief Complaint: Cardiovascular Problem Stated Complaint: RETAINING FLUIDS Time Seen by Provider: 07/25/19 14:26 Source of Information: Reports: Patient, Provider, RN Notes Reviewed History Limitations: Reports: No Limitations - History of Present Illness INITIAL COMMENTS - FREE TEXT/NARRATIVE: 88-year-old gentleman presents emergency department today with complaint of increasing shortness of breath and weight gain. He has known history of diastolic congestive heart failure which is usually controlled with Bumex he states over the last week he has progressively gained more weight estimate 7 pounds. He initially went to the clinic for evaluation however clinic provider felt she was uncomfortable sending him home at this time and wanted him evaluated in the emergency department. He denies any chest pain nausea or vomiting feels the shortness of breath is worse with exertion Right Leg Pain Score (Numeric/FACES): 8 - Related Data Allergies Allergy/AdvReac Type Severity Reaction Status Date / Time amoxicillin AdvReac Intermediate Diarrhea Verified 07/25/19 14:10 niacin AdvReac Mild Headache Verified 07/25/19 14:10 Home Meds: Home Meds Budesonide [Pulmicort Flexhaler] 2 puff INH BID 09/26/14 [History] Cetirizine [ZyrTEC] 10 mg PO DAILY 09/26/14 [History] Ezetimibe [Zetia] 10 mg PO DAILY 09/26/14 [History] Fluticasone Propionate [Flonase] 2 spray NASBOTH DAILY 09/26/14 [History] Glimepiride 4 mg PO DAILY 09/26/14 [History] Multivitamin with Minerals [Multiple Vitamin] 1 tab PO DAILY 09/26/14 [History] Warfarin [Coumadin] 5 mg PO DAILY 09/26/14 [History] atorvaSTATin [Lipitor] 20 mg PO BEDTIME 09/26/14 [History] Clopidogrel Bisulfate [Clopidogrel] 75 mg PO DAILY 10/02/17 [History] allopurinoL [Zyloprim] 150 mg PO DAILY 12/09/17 [History] cilostazoL [Pletal] 100 mg PO BIDAC 01/17/18 [History] traZODone HCl [Trazodone HCl] 50 mg PO BEDTIME PRN 12/15/18 [History] Bumetanide [Bumex] 4 mg PO DAILY #60 tab 05/26/19 [Rx] Warfarin [Coumadin] 2.5 mg PO DAILY 07/25/19 [History] Past Medical History HEENT History: Reports: Impaired Vision Cardiovascular History: Reports: Afib, Bypass, CAD, Heart Failure, High Cholesterol, Hypertension, SOB on Exertion, Other (See Below) Other Cardiovascular History: Mitral valve insuffient, electrical cardioversion Respiratory History: Reports: Asthma, Pneumonia, Recurrent, Sleep Apnea Gastrointestinal History: Reports: Diverticulosis, Hiatal Hernia, Other (See Below) Other Gastrointestinal History: right and left ing hernias Genitourinary History: Reports: Other (See Below) Other Genitourinary History: "kidneys getting weak" Musculoskeletal History: Reports: Osteoarthritis, Other (See Below) Other Musculoskeletal History: low back and right hip pain Endocrine/Metabolic History: Reports: Diabetes, Type II, Obesity/BMI 30+ Hematologic History: Reports: Blood Transfusion(s) Oncologic (Cancer) History: Reports: Basal Cell Carcinoma Other Oncologic History: melanoma on nose Dermatologic History: Reports: Melanoma, Other (See Below) Other Dermatologic History: Basal Cell CA - Infectious Disease History Infectious Disease History: Reports: C-Difficile, Measles, Mumps - Past Surgical History HEENT Surgical History: Reports: Oral Surgery GI Surgical History: Reports: Appendectomy, Cholecystectomy, Colon, Colonoscopy , Hernia Repair/Other Musculoskeletal Surgical History: Reports: Hip Replacement, Knee Replacement Social & Family History - Family History Family Medical History: Noncontributory - Tobacco Use Smoking Status *Q: Former Smoker Used Tobacco, but Quit: Yes Month/Year Tobacco Last Used: 1961 - Caffeine Use Caffeine Use: Reports: Soda - Recreational Drug Use Recreational Drug Use: No ED ROS GENERAL - Review of Systems Review Of Systems: See Below Constitutional: Denies: Fever, Chills, Diaphoresis HEENT: Reports: No Symptoms Respiratory: Reports: Shortness of Breath. Denies: Cough, Sputum Cardiovascular: Reports: Dyspnea on Exertion. Denies: Chest Pain GI/Abdominal: Reports: No Symptoms : Reports: No Symptoms Musculoskeletal: Reports: No Symptoms ED EXAM, GENERAL - Physical Exam Exam: See Below Exam Limited By: No Limitations General Appearance: Alert, WD/WN, No Apparent Distress Neck: Normal Inspection, Supple, Non-Tender, Full Range of Motion Respiratory/Chest: No Respiratory Distress, Lungs Clear, Normal Breath Sounds, No Accessory Muscle Use, Chest Non-Tender Cardiovascular: No Murmur, Irregularly Irregular GI/Abdominal: Soft, Distended Back Exam: Normal Inspection, Full Range of Motion. No: CVA Tenderness (R), CVA Tenderness (L) Extremities: Normal Inspection, No Pedal Edema Course - Vital Signs Last Recorded V/S: Last Vital Signs Temp 96.9 F 07/25/19 14:08 Pulse 75 07/25/19 15:47 Resp 20 07/25/19 14:08 BP 145/58 H 07/25/19 15:47 Pulse Ox 100 07/25/19 15:47 - Orders/Labs/Meds Orders: Active Orders 24 hr Category Date Time Status Cardiac Monitoring [RC] .As Directed Care 07/25/19 15:01 Active Peripheral IV Care [RC] . DIRECTED Care 07/25/19 15:04 Active Sodium Chloride 0.9% [Saline Flush] Med 07/25/19 15:01 Active 10 ml FLUSH ASDIRECTED PRN Peripheral IV Insertion Adult [OM.PC] Stat Oth 07/25/19 15:01 Ordered Saline Lock Insert [OM.PC] Stat Ot 07/25/19 15:01 Ordered Medication Orders Sodium Chloride (Saline Flush) 10 ml FLUSH ASDIRECTED PRN PRN Reason: Keep Vein Open Last Admin: 07/25/19 15:36 Dose: 10 ml Labs: Laboratory Tests 07/25/19 07/25/19 07/25/19 Range/Units 15:15 15:15 15:15 PT 25.7 H (9.5-12.0) sec INR 2.51 H (0.80-1.20) Sodium 142 (140-148) mmol/L Potassium 4.3 (3.6-5.2) mmol/L Chloride 104 (100-108) mmol/L Carbon Dioxide 30 (21-32) mmol/L Anion Gap 8.3 (5.0-14.0) mmol/L BUN 36 H (7-18) mg/dL Creatinine 2.1 H (0.8-1.3) mg/dL Est Cr Clr Drug Dosing 24.78 mL/min Estimated GFR (MDRD) 30 L (>60) Glucose 251 H (74-106) mg/dL Lactic Acid 1.9 (0.4-2.0) mmol/L Calcium 9.2 (8.5-10.1) mg/dL Total Bilirubin 1.1 H D (0.2-1.0) mg/dL AST 20 (15-37) U/L ALT 20 (12-78) U/L Alkaline Phosphatase 105 (46-116) U/L Troponin I 0.051 (0.000-0.056) ng/mL NT-Pro-B Natriuret Pep 2949 H (5-450) pg/mL Total Protein 6.1 L (6.4-8.2) g/dL Albumin 3.6 (3.4-5.0) g/dL Globulin 2.5 (2.3-3.5) g/dL Albumin/Globulin Ratio 1.4 (1.2-2.2) Meds: Medications Generic Name Dose Route Start Last Admin Trade Name Freq PRN Reason Stop Dose Admin Sodium Chloride 10 ml 07/25/19 15:01 07/25/19 15:36 Saline Flush FLUSH 10 ml ASDIRECTED PRN Administration Keep Vein Open Discontinued Medications Generic Name Dose Route Start Last Admin Trade Name Freq PRN Reason Stop Dose Admin Hydrocodone Bitart/Acetaminophen 1 tab 07/25/19 16:48 07/25/19 16:58 [place] 325-5 Mg PO 07/25/19 16:49 1 tab ONETIME ONE Administration Bumetanide 5 mg 07/25/19 15:04 07/25/19 15:35 Bumex IVPUSH 07/25/19 15:05 5 mg ONETIME ONE Administration Fentanyl 50 mcg 07/25/19 15:23 07/25/19 15:30 Sublimaze IVPUSH 07/25/19 15:24 50 mcg ONETIME ONE Administration Departure - Departure Time of Disposition: 17:43 Disposition: Home, Self-Care 01 Condition: Fair Clinical Impression: Diastolic congestive heart failure Qualifiers: Heart failure chronicity: acute on chronic Qualified Code(s): I50.33 - Acute on chronic diastolic (congestive) heart failure Referrals: Aldair Carey MD [Primary Care Provider] - Forms: ED Department Discharge Additional Instructions: Recommend taking an extra 2 mg of Bumex in the afternoon for the next 3 days start tomorrow, please follow-up with your primary care provider in the next 3 to 5 days for reevaluation, monitor your weight at home with the goal of losing that 7 pounds of water weight Sepsis Event Note - Evaluation Sepsis Screening Result: No Definite Risk - Focused Exam Vital Signs: Vital Signs Temp Pulse Resp BP Pulse Ox 07/25/19 15:47 75 145/58 H 100 07/25/19 15:15 79 136/65 07/25/19 14:08 96.9 F 70 20 132/57 L 97 07/25/19 13:58 96.9 F 70 20 132/57 L 97 Date Exam was Performed: 07/25/19 Time Exam was Performed: 17:40 - My Orders Last 24 Hours: My Active Orders 07/25/19 15:01 Cardiac Monitoring [RC] .As Directed Sodium Chloride 0.9% [Saline Flush] 10 ml FLUSH ASDIRECTED PRN Peripheral IV Insertion Adult [OM.PC] Stat Saline Lock Insert [OM.PC] Stat 07/25/19 15:04 Peripheral IV Care [RC] . DIRECTED - Assessment/Plan Last 24 Hours: My Active Orders 07/25/19 15:01 Cardiac Monitoring [RC] .As Directed Sodium Chloride 0.9% [Saline Flush] 10 ml FLUSH ASDIRECTED PRN Peripheral IV Insertion Adult [OM.PC] Stat Saline Lock Insert [OM.PC] Stat 07/25/19 15:04 Peripheral IV Care [RC] . DIRECTED Plan: Assessment Acuity = acute Site and laterality = exacerbation diastolic congestive heart failure Etiology = fluid overload Manifestations = dyspnea with exertion Location of injury = Home Lab values = INR 2.51 therapeutic creatinine elevated 2.1 consistent with chronic renal failure stage G4 lactic acid normal 1.9 BNP elevated 2949 this is up about 1000 from his prior admission troponin elevated 0.051 probably related to leak phenomenon with elevated BNP and the elevated creatinine, chest x-ray is consistent with mild cardiomegaly Plan He was given Bumex 5 mg IV x1 good urine output he felt better and was able to breathe more comfortably plan is to increase his Bumex to 6 mg/day for the next 3 days, he takes normal dose 4 mg in the morning will add 2 mg in the afternoon he will monitor his weight follow-up primary care in the next 3 to 5 days for reevaluation. This note was dictated using [employer] voice recognition software please call with any questions on syntax or grammar.
[2019-07-25] MEDS ORDERED: Sodium Chloride 0.9% 10 ML Syringe FLUSH PRN (15:01)
[2019-07-25] MEDS ORDERED: Bumetanide 2.5 MG/10 ML MDV IVPUSH ONE (15:04)
[2019-07-25] MEDS ORDERED: fentaNYL 100 MCG/2 ML SDV IVPUSH ONE (15:23)
--- NOTE | 2019-07-25 16:30 | CR ---
CHEST: 2 view CLINICAL HISTORY:Chest pain COMPARISON:05/23/2019 FINDINGS: The heart is moderately enlarged. Pulmonary vascularity is normal. No infiltrate, effusion or pneumothorax is seen. There are atherosclerotic changes in the aorta. Impression: Moderate cardiomegaly. No acute cardiopulmonary process or significant change from prior study
[2019-07-25] MEDS ORDERED: Acetaminophen/HYDROcodone 325-5 MG Tab PO ONE (16:48)
[2019-07-25 18:17] VITALS: BP 129/59; PULSE 68
== END 2019-07-25 18:33 | disposition home or self-care (01) ==
LOC: JP.ED 13:42
DX: I11.0 Hypertensive heart disease with heart failure (principal); I50.33 Acute on chronic diastolic (congestive) heart failure; E11.9 Type 2 diabetes mellitus without complications; I25.10 Atherosclerotic heart disease of native coronary artery without angina pectoris; E78.00 Pure hypercholesterolemia, unspecified; I48.91 Unspecified atrial fibrillation; Z95.1 Presence of aortocoronary bypass graft; J45.909 Unspecified asthma, uncomplicated; M19.90 Unspecified osteoarthritis, unspecified site; E66.9 Obesity, unspecified; Z68.33 Body mass index [BMI] 33.0-33.9, adult; Z87.891 Personal history of nicotine dependence; Z88.1 Allergy status to other antibiotic agents; Z88.8 Allergy status to other drugs, medicaments and biological substances; Z79.899 Other long term (current) drug therapy; Z79.01 Long term (current) use of anticoagulants; Z79.02 Long term (current) use of antithrombotics/antiplatelets
CPT/HCPCS: 36415; 71046; 80053; 83605; 83880; 84484; 85610; 96374; 96375; 99285; A9270; J3010; J3490; 99283

== ENCOUNTER 2019-09-12 08:23 | Emergency (ER) | payer MEDICARE, OTHER ==
[2019-09-12 08:46] VITALS: PULSE 96
[2019-09-12] MEDS ORDERED: Sodium Chloride 0.9% 10 ML Syringe FLUSH PRN (09:15)
[2019-09-12] MEDS ORDERED: Bumetanide 1 MG/4 ML MDV IVPUSH ONE ×2 (09:17→10:46)
[2019-09-12] MEDS ORDERED: Nitroglycerin 0.4 MG Tab.SL SL ONE (09:19)
--- NOTE | 2019-09-12 09:22 | EDM.PDOC ---
ED HPI GENERAL MEDICAL PROBLEM - General Chief Complaint: Respiratory Problem Stated Complaint: RETAINING FLUIDS SHORTNESS OF BREATH Time Seen by Provider: 09/12/19 09:12 Source of Information: Reports: Patient, RN Notes Reviewed History Limitations: Reports: No Limitations - History of Present Illness INITIAL COMMENTS - FREE TEXT/NARRATIVE: 88-year-old gentleman presents emergency department with a complaint of shortness of breath he has known history of diastolic congestive heart failure he states over the last 24 hours he has gotten progressively worse he is now sleeping in a chair he is noticed that he has had increased in leg edema he is currently on Bumex 2 mg 3 times a day he did not take his medications this morning. No chest pain no fevers no nausea vomiting Right Leg Pain Score (Numeric/FACES): 8 - Related Data Allergies Allergy/AdvReac Type Severity Reaction Status Date / Time amoxicillin AdvReac Intermediate Diarrhea Verified 09/12/19 08:46 niacin AdvReac Mild Headache Verified 09/12/19 08:46 Home Meds: Home Meds Budesonide [Pulmicort Flexhaler] 2 puff INH BID 09/26/14 [History] Cetirizine [ZyrTEC] 10 mg PO DAILY 09/26/14 [History] Ezetimibe [Zetia] 10 mg PO DAILY 09/26/14 [History] Fluticasone Propionate [Flonase] 2 spray NASBOTH DAILY 09/26/14 [History] Glimepiride 4 mg PO DAILY 09/26/14 [History] Multivitamin with Minerals [Multiple Vitamin] 1 tab PO DAILY 09/26/14 [History] Warfarin [Coumadin] 5 mg PO MOFR 09/26/14 [History] Clopidogrel Bisulfate [Clopidogrel] 75 mg PO BEDTIME 10/02/17 [History] allopurinoL [Zyloprim] 150 mg PO DAILY 12/09/17 [History] cilostazoL [Pletal] 100 mg PO BIDAC 01/17/18 [History] traZODone HCl [Trazodone HCl] 50 mg PO BEDTIME PRN 12/15/18 [History] Warfarin [Coumadin] 2.5 mg PO SUTUWETHSA 07/25/19 [History] Bumetanide [Bumex] 2 mg PO TID 08/16/19 [History] Bumetanide [Bumex] 4 mg PO BID #30 tab 09/12/19 [Rx] Ibuprofen [Advil] 200 mg PO ASDIRECTED 09/12/19 [History] metOLazone [Metolazone] 2.5 mg PO ASDIRECTED #30 tablet 09/12/19 [Rx] Past Medical History HEENT History: Reports: Impaired Vision Cardiovascular History: Reports: Afib, Bypass, CAD, Heart Failure, High Cholesterol, Hypertension, SOB on Exertion, Other (See Below) Other Cardiovascular History: Mitral valve insuffient, electrical cardioversion Respiratory History: Reports: Asthma, Pneumonia, Recurrent, Sleep Apnea Gastrointestinal History: Reports: Diverticulosis, Hiatal Hernia, Other (See Below) Other Gastrointestinal History: right and left ing hernias Genitourinary History: Reports: Other (See Below) Other Genitourinary History: "kidneys getting weak" Musculoskeletal History: Reports: Osteoarthritis, Other (See Below) Other Musculoskeletal History: low back and left hip pain. R hip pain. R leg pain Endocrine/Metabolic History: Reports: Diabetes, Type II, Obesity/BMI 30+ Hematologic History: Reports: Blood Transfusion(s) Immunologic History: Reports: None Oncologic (Cancer) History: Reports: Basal Cell Carcinoma Other Oncologic History: melanoma on nose Dermatologic History: Reports: Melanoma, Other (See Below) Other Dermatologic History: Basal Cell CA - Infectious Disease History Infectious Disease History: Reports: C-Difficile, Measles, Mumps - Past Surgical History Head Surgeries/Procedures: Reports: None HEENT Surgical History: Reports: Cataract Surgery, Oral Surgery Cardiovascular Surgical History: Reports: Coronary Artery Bypass Respiratory Surgical History: Reports: None GI Surgical History: Reports: Appendectomy, Cholecystectomy, Colon, Colonoscopy , Hernia Repair/Other Male Surgical History: Reports: None Endocrine Surgical History: Reports: None Musculoskeletal Surgical History: Reports: Hip Replacement, Knee Replacement Oncologic Surgical History: Reports: None Dermatological Surgical History: Reports: Other (See Below) Social & Family History - Family History Family Medical History: Noncontributory - Tobacco Use Smoking Status *Q: Never Smoker Second Hand Smoke Exposure: No - Caffeine Use Caffeine Use: Reports: Soda - Recreational Drug Use Recreational Drug Use: No ED ROS GENERAL - Review of Systems Review Of Systems: See Below Constitutional: Reports: No Symptoms HEENT: Reports: No Symptoms Respiratory: Reports: Shortness of Breath. Denies: Wheezing, Cough, Sputum Cardiovascular: Reports: Dyspnea on Exertion, Edema. Denies: Chest Pain GI/Abdominal: Reports: No Symptoms Musculoskeletal: Reports: No Symptoms ED EXAM, GENERAL - Physical Exam Exam: See Below Exam Limited By: No Limitations General Appearance: Alert, WD/WN, No Apparent Distress Neck: Normal Inspection, Supple, Non-Tender, Full Range of Motion Respiratory/Chest: No Respiratory Distress, No Accessory Muscle Use, Chest Non- Tender, Crackles Cardiovascular: No Murmur, Irregularly Irregular GI/Abdominal: Soft, Non-Tender, Distended Back Exam: Normal Inspection, Full Range of Motion. No: CVA Tenderness (R), CVA Tenderness (L) Extremities: Pedal Edema Course - Vital Signs Last Recorded V/S: Last Vital Signs Temp 97.9 F 09/12/19 08:44 Pulse 96 09/12/19 08:44 Resp 21 H 09/12/19 08:44 BP 132/59 L 09/12/19 09:36 Pulse Ox 97 09/12/19 08:44 - Orders/Labs/Meds Orders: Active Orders 24 hr Category Date Time Status Cardiac Monitoring [RC] .As Directed Care 09/12/19 09:16 Active EKG Documentation Completion [RC] ASDIRECTED Care 09/12/19 09:16 Active Peripheral IV Care [RC] . DIRECTED Care 09/12/19 09:16 Active Sodium Chloride 0.9% [Saline Flush] Med 09/12/19 09:15 Active 10 ml FLUSH ASDIRECTED PRN Peripheral IV Insertion Adult [OM.PC] Stat Oth 09/12/19 09:15 Ordered Saline Lock Insert [OM.PC] Stat Oth 09/12/19 09:15 Ordered EKG 12 Lead [EK] Stat Ther 09/12/19 09:16 Ordered Medication Orders Sodium Chloride (Saline Flush) 10 ml FLUSH ASDIRECTED PRN PRN Reason: Keep Vein Open Last Admin: 09/12/19 09:36 Dose: 10 ml Labs: Laboratory Tests 09/12/19 09/12/19 09/12/19 Range/Units 09:32 09:32 09:32 WBC 4.3 L (4.5-11.0) K/uL RBC 2.33 L (4.30-5.90) M/uL Hgb 8.4 L (12.0-15.0) g/dL Hct 25.8 L (40.0-54.0) % MCV 111 H (80-98) fL MCH 36 H (27-31) pg MCHC 33 (32-36) % Plt Count 213 (150-400) K/uL Neut % (Auto) 74 H (36-66) % Lymph % (Auto) 12 L (24-44) % [place] % (Auto) 10 H (2-6) % Eos % (Auto) 2 (2-4) % Baso % (Auto) 1 (0-1) % PT 20.0 H (9.5-12.0) sec INR 1.92 H (0.80-1.20) Sodium 141 (140-148) mmol/L Potassium 3.7 (3.6-5.2) mmol/L Chloride 104 (100-108) mmol/L Carbon Dioxide 25 (21-32) mmol/L Anion Gap 11.6 (5.0-14.0) mmol/L BUN 47 H (7-18) mg/dL Creatinine 2.3 H (0.8-1.3) mg/dL Est Cr Clr Drug Dosing 22.26 mL/min Estimated GFR (MDRD) 27 L (>60) Glucose 218 H (74-106) mg/dL Calcium 8.7 (8.5-10.1) mg/dL Total Bilirubin 1.4 H (0.2-1.0) mg/dL AST 17 (15-37) U/L ALT 21 (12-78) U/L Alkaline Phosphatase 131 H (46-116) U/L Troponin I 0.062 H* (0.000-0.056) ng/mL NT-Pro-B Natriuret Pep 3563 H (5-450) pg/mL Total Protein 5.9 L (6.4-8.2) g/dL Albumin 3.3 L (3.4-5.0) g/dL Globulin 2.6 (2.3-3.5) g/dL Albumin/Globulin Ratio 1.3 (1.2-2.2) Meds: Medications Generic Name Dose Route Start Last Admin Trade Name Freq PRN Reason Stop Dose Admin Sodium Chloride 10 ml 09/12/19 09:15 09/12/19 09:36 Saline Flush FLUSH 10 ml ASDIRECTED PRN Administration Keep Vein Open Discontinued Medications Generic Name Dose Route Start Last Admin Trade Name Vee PRN Reason Stop Dose Admin Bumetanide 2 mg 09/12/19 09:17 09/12/19 09:38 Bumex IVPUSH 09/12/19 09:18 2 mg ONETIME ONE Administration Bumetanide 4 mg 09/12/19 10:46 09/12/19 10:52 Bumex IVPUSH 09/12/19 10:47 4 mg ONETIME ONE Administration Nitroglycerin 0.4 mg 09/12/19 09:19 09/12/19 09:36 Nitrostat SL 09/12/19 09:20 0.4 mg ONETIME ONE Administration Departure - Departure Time of Disposition: 12:42 Disposition: Home, Self-Care 01 Condition: Fair Clinical Impression: Diastolic CHF Qualifiers: Heart failure chronicity: acute on chronic Qualified Code(s): I50.33 - Acute on chronic diastolic (congestive) heart failure - Discharge Information Prescriptions: Bumetanide [Bumex] 4 mg PO BID #30 tab metOLazone [Metolazone] 2.5 mg PO ASDIRECTED #30 tablet Instructions: Preventing Heart Failure Referrals: Aldair Carey MD [Primary Care Provider] - Forms: ED Department Discharge Additional Instructions: Take an additional 4 mg of Bumex this afternoon, start your Bumex 4 mg orally twice a day tomorrow start metolazone 2.5 mg Wednesday and Wednesday, your medications have been faxed to [facility] pharmacy, please follow-up with your primary care in the next 2 to 3 days for recheck as well as blood work check call or return to the emergency department worsening of symptoms Sepsis Event Note - Evaluation Sepsis Screening Result: No Definite Risk - Focused Exam Vital Signs: Vital Signs Temp Temp Pulse Pulse Resp BP BP 09/12/19 09:36 132/59 L 09/12/19 09:30 09/12/19 08:44 97.9 F 96 21 H 144/45 H 09/12/19 08:41 97.9 F 81 22 H BP Pulse Ox 09/12/19 09:36 09/12/19 09:30 132/59 L 09/12/19 08:44 97 09/12/19 08:41 144/45 H 97 Date Exam was Performed: 09/12/19 Time Exam was Performed: 12:40 - My Orders Last 24 Hours: My Active Orders 09/12/19 09:15 Sodium Chloride 0.9% [Saline Flush] 10 ml FLUSH ASDIRECTED PRN Peripheral IV Insertion Adult [OM.PC] Stat Saline Lock Insert [OM.PC] Stat 09/12/19 09:16 Cardiac Monitoring [RC] .As Directed EKG Documentation Completion [RC] ASDIRECTED Peripheral IV Care [RC] . DIRECTED EKG 12 Lead [EK] Stat - Assessment/Plan Last 24 Hours: My Active Orders 09/12/19 09:15 Sodium Chloride 0.9% [Saline Flush] 10 ml FLUSH ASDIRECTED PRN Peripheral IV Insertion Adult [OM.PC] Stat Saline Lock Insert [OM.PC] Stat 09/12/19 09:16 Cardiac Monitoring [RC] .As Directed EKG Documentation Completion [RC] ASDIRECTED Peripheral IV Care [RC] . 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 INR slightly subtherapeutic at 1.92 creatinine elevated 2.3 consistent with chronic renal failure stage G4 bilirubin elevated 1.4 consistent with hyperbilirubinemia troponin slightly elevated 0.062 consistent with leak related to congestive heart failure BNP markedly elevated 3563 about 1000 above his baseline Plan He had good improvement with a total of 6 mg Bumex provided in the ED over a period of 4 hours plan is to change his Bumex to 4 mg twice a day add metolazone 2.5 mg Wednesday and Wednesday would like him to follow-up with his primary care provider in the next 2 to 3 days to recheck lab work at that time as well as reevaluation This note was dictated using [employer] voice recognition software please call with any questions on syntax or grammar.
[2019-09-12 09:37] VITALS: BP 132/59
--- NOTE | 2019-09-12 10:16 | CR ---
CHEST: Portable 09/12/2019 at 10:01 AM CLINICAL HISTORY:SOB COMPARISON:07/25/2019 FINDINGS: There is moderate cartilage megaly. Patient has had previous sternotomy. Bony vascularity is normal. No infiltrates are seen. There are atherosclerotic changes in the aorta. Impression: Moderate cardiomegaly with normal pulmonary vascularity. No infiltrates are seen No significant change since prior study
== END 2019-09-12 13:13 | disposition home or self-care (01) ==
LOC: JP.ED 08:23
DX: I11.0 Hypertensive heart disease with heart failure (principal); I50.33 Acute on chronic diastolic (congestive) heart failure; E78.00 Pure hypercholesterolemia, unspecified; I48.91 Unspecified atrial fibrillation; I25.10 Atherosclerotic heart disease of native coronary artery without angina pectoris; Z95.1 Presence of aortocoronary bypass graft; J45.909 Unspecified asthma, uncomplicated; M19.90 Unspecified osteoarthritis, unspecified site; E11.9 Type 2 diabetes mellitus without complications; E66.9 Obesity, unspecified; Z68.34 Body mass index [BMI] 34.0-34.9, adult; Z90.49 Acquired absence of other specified parts of digestive tract; Z88.1 Allergy status to other antibiotic agents; Z88.8 Allergy status to other drugs, medicaments and biological substances; Z79.899 Other long term (current) drug therapy; Z79.84 Long term (current) use of oral hypoglycemic drugs; Z79.02 Long term (current) use of antithrombotics/antiplatelets
CPT/HCPCS: 36415; 71045; 80053; 83880; 84484; 85025; 85610; 93005; 96374; 96376; 99285; J3490; 99283; A9270-GY

== ENCOUNTER 2019-10-04 18:00 | Inpatient (IN) | payer MEDICARE, OTHER ==
[2019-10-04] MEDS ORDERED: Piperacillin/Tazobactam 4.5 GM in Sodium Chloride 0.9% 100 ML IV SCH (18:45)
--- NOTE | 2019-10-04 18:47 | EDM.PDOC ---
ED HPI GENERAL MEDICAL PROBLEM - General Chief Complaint: Cardiovascular Problem Stated Complaint: [facility] Time Seen by Provider: 10/04/19 18:31 Source of Information: Reports: Patient, RN Notes Reviewed History Limitations: Reports: No Limitations - History of Present Illness INITIAL COMMENTS - FREE TEXT/NARRATIVE: 89-year-old gentleman presents emergency department today via EMS services, complaint of increasing weakness with fall states he fell today on his right hip it is causing pain all throughout he does have a large erythematous patch in that area he is unsure of when that started. He does have an extensive history of coronary artery disease with congestive heart failure recent adjustment of medications in August with initiation of metolazone he states the breathing is about the same for him but he has had a decrease in his leg edema, denies any fevers or chest pain right hip leg Pain Score (Numeric/FACES): 9 - Related Data Allergies Allergy/AdvReac Type Severity Reaction Status Date / Time amoxicillin AdvReac Intermediate Diarrhea Verified 10/04/19 18:15 niacin AdvReac Mild Headache Verified 10/04/19 18:15 Home Meds: Home Meds Budesonide [Pulmicort Flexhaler] 2 puff INH BID 09/26/14 [History] Cetirizine [ZyrTEC] 10 mg PO DAILY 09/26/14 [History] Ezetimibe [Zetia] 10 mg PO DAILY 09/26/14 [History] Fluticasone Propionate [Flonase] 2 spray NASBOTH DAILY 09/26/14 [History] Glimepiride 4 mg PO DAILY 09/26/14 [History] Multivitamin with Minerals [Multiple Vitamin] 1 tab PO DAILY 09/26/14 [History] Warfarin [Coumadin] 5 mg PO MOFR 09/26/14 [History] Clopidogrel Bisulfate [Clopidogrel] 75 mg PO BEDTIME 10/02/17 [History] allopurinoL [Zyloprim] 150 mg PO DAILY 12/09/17 [History] cilostazoL [Pletal] 100 mg PO BIDAC 01/17/18 [History] traZODone HCl [Trazodone HCl] 50 mg PO BEDTIME PRN 12/15/18 [History] Warfarin [Coumadin] 2.5 mg PO SUTUWETHSA 07/25/19 [History] Bumetanide [Bumex] 2 mg PO TID 08/16/19 [History] Ibuprofen [Advil] 200 mg PO ASDIRECTED 09/12/19 [History] metOLazone [Metolazone] 2.5 mg PO ASDIRECTED #30 tablet 09/12/19 [Rx] Past Medical History HEENT History: Reports: Impaired Vision Cardiovascular History: Reports: Afib, Bypass, CAD, Heart Failure, High Cholesterol, Hypertension, SOB on Exertion, Other (See Below) Other Cardiovascular History: Mitral valve insuffient, electrical cardioversion Respiratory History: Reports: Asthma, Pneumonia, Recurrent, Sleep Apnea Gastrointestinal History: Reports: Diverticulosis, Hiatal Hernia, Other (See Below) Other Gastrointestinal History: right and left ing hernias Genitourinary History: Reports: Other (See Below) Other Genitourinary History: "kidneys getting weak" Musculoskeletal History: Reports: Osteoarthritis, Other (See Below) Other Musculoskeletal History: low back and left hip pain. R hip pain. R leg pain Endocrine/Metabolic History: Reports: Diabetes, Type II, Obesity/BMI 30+ Hematologic History: Reports: Blood Transfusion(s) Immunologic History: Reports: None Oncologic (Cancer) History: Reports: Basal Cell Carcinoma Other Oncologic History: melanoma on nose Dermatologic History: Reports: Melanoma, Other (See Below) Other Dermatologic History: Basal Cell CA - Infectious Disease History Infectious Disease History: Reports: C-Difficile, Influenza, Measles, Mumps, Shingles - Past Surgical History Head Surgeries/Procedures: Reports: None HEENT Surgical History: Reports: Cataract Surgery, Oral Surgery Cardiovascular Surgical History: Reports: Coronary Artery Bypass Respiratory Surgical History: Reports: None GI Surgical History: Reports: Appendectomy, Cholecystectomy, Colon, Colonoscopy , Hernia Repair/Other Male Surgical History: Reports: None Endocrine Surgical History: Reports: None Musculoskeletal Surgical History: Reports: Hip Replacement, Knee Replacement Oncologic Surgical History: Reports: None Dermatological Surgical History: Reports: Other (See Below) Social & Family History - Family History Family Medical History: Noncontributory - Tobacco Use Smoking Status *Q: Former Smoker Used Tobacco, but Quit: Yes Month/Year Tobacco Last Used: 62 years - Caffeine Use Caffeine Use: Reports: None - Recreational Drug Use Recreational Drug Use: No ED ROS GENERAL - Review of Systems Review Of Systems: See Below Constitutional: Reports: Weakness. Denies: Fever, Chills HEENT: Reports: No Symptoms Respiratory: Reports: Shortness of Breath (Not beyond baseline). Denies: Wheezing, Cough, Sputum Cardiovascular: Reports: Dyspnea on Exertion (Not beyond baseline). Denies: Chest Pain GI/Abdominal: Reports: No Symptoms : Reports: No Symptoms Musculoskeletal: Reports: Joint Pain (Hip pain right side) Skin: Reports: Pallor, Rash, Erythema Neurological: Reports: No Symptoms ED EXAM, SEPSIS - Physical Exam Exam: See Below Exam Limited By: No Limitations General Appearance: Alert, Mild Distress Neck: Normal Inspection, Supple, Non-Tender, Full Range of Motion Respiratory/Chest: No Respiratory Distress, Lungs Clear, Decreased Breath Sounds Cardiovascular: Systolic Murmur, Irregularly Irregular GI/Abdominal Exam: Soft, Non-Tender Extremities: Pedal Edema Skin: Erythema, Increased Warmth, Pallor, Rash Front/Back of Body, Lg ([place]): 1 - Rash consistent with cellulitis 2 - Open wound grade 2 ulcer Course - Vital Signs Last Recorded V/S: Last Vital Signs Temp 96.7 F L 10/04/19 18:14 Pulse 65 10/04/19 19:54 Resp 17 10/04/19 19:54 BP 121/53 L 10/04/19 19:54 Pulse Ox 100 10/04/19 19:54 - Orders/Labs/Meds Orders: Active Orders 24 hr Category Date Time Status Chest 1V Frontal [CR] Stat Exams 10/04/19 18:40 Taken Hip Min 2V or 3V w Pelvis Rt [CR] Stat Exams 10/04/19 18:39 Taken CULTURE BLOOD [BC] Urgent Lab 10/04/19 18:50 Received CULTURE BLOOD [BC] Urgent Lab 10/04/19 19:00 Received REFLEX LACTIC ACID YES OR NO [CHEM] Routine Lab 10/04/19 19:33 Received Piperacillin/Tazobactam [Zosyn] 4.5 gm Med 10/04/19 18:45 Active Sodium Chloride 0.9% [Normal Saline] 100 ml IV Q6H Potassium Chloride [KCL 20 MEQ in Water 100 ML] 20 meq Med 10/04/19 19:35 Active Premix Bag 1 bag IV ONETIME Vancomycin 1 gm Med 10/04/19 19:00 Active Sodium Chloride 0.9% [Normal Saline] 250 ml IV Q12H Blood Culture x2 Reflex Set [OM.PC] Urgent Oth 10/04/19 18:40 Ordered Severe Sepsis Onset Time [OM.PC] Stat Oth 10/04/19 18:40 Ordered Medication Orders Piperacillin Sod/Tazobactam (Sod 4.5 gm/ Sodium Chloride) 100 mls @ 100 mls/hr IV Q6H [facility] Last Admin: 10/04/19 19:25 Dose: 100 mls/hr Vancomycin HCl 1 gm/ Sodium (Chloride) 250 mls @ 150 mls/hr IV Q12H [place] Last Admin: 10/04/19 19:27 Dose: 150 mls/hr Potassium Chloride 20 meq/ (Premix) 100 mls @ 50 mls/hr IV ONETIME ONE Stop: 10/04/19 21:34 Labs: Laboratory Tests 10/04/19 10/04/19 10/04/19 Range/Units 18:50 18:54 19:00 WBC (4.5-11.0) K/uL RBC (4.30-5.90) M/uL Hgb (12.0-15.0) g/dL Hct (40.0-54.0) % MCV (80-98) fL MCH (27-31) pg MCHC (32-36) % Plt Count (150-400) K/uL Neut % (Auto) (36-66) % Lymph % (Auto) (24-44) % [place] % (Auto) (2-6) % Eos % (Auto) (2-4) % Baso % (Auto) (0-1) % PT (9.5-12.0) sec INR (0.80-1.20) APTT (27.0-36.0) sec Sodium (140-148) mmol/L Potassium (3.6-5.2) mmol/L Chloride (100-108) mmol/L Carbon Dioxide (21-32) mmol/L Anion Gap (5.0-14.0) mmol/L BUN (7-18) mg/dL Creatinine (0.8-1.3) mg/dL Est Cr Clr Drug Dosing mL/min Estimated GFR (MDRD) (>60) Glucose (74-106) mg/dL Lactic Acid (0.4-2.0) mmol/L Calcium (8.5-10.1) mg/dL Total Bilirubin (0.2-1.0) mg/dL AST (15-37) U/L ALT (12-78) U/L Alkaline Phosphatase (46-116) U/L C-Reactive Protein 11.82 H (0.0-0.3) mg/dL Total Protein (6.4-8.2) g/dL Albumin (3.4-5.0) g/dL Globulin (2.3-3.5) g/dL Albumin/Globulin Ratio (1.2-2.2) Procalcitonin 0.31 ng/mL Urine Color Yellow (YELLOW) Urine Appearance Clear (CLEAR) Urine pH 5.5 (5.0-8.0) Ur Specific [place] 1.020 (1.008-1.030) Urine Protein Negative (NEGATIVE) mg/dL Urine Glucose (UA) 250 H (NEGATIVE) mg/dL Urine Ketones Negative (NEGATIVE) mg/dL Urine Occult Blood Negative (NEGATIVE) Urine Nitrite Negative (NEGATIVE) Urine Bilirubin Negative (NEGATIVE) Urine Urobilinogen 0.2 (0.2-1.0) EU/dL Ur Leukocyte Esterase Negative (NEGATIVE) Urine RBC 0-5 (0-5) Urine WBC 0-5 (0-5) Ur Epithelial Cells Not seen Amorphous Sediment Not seen Urine Bacteria Not seen Urine Mucus Not seen 10/04/19 10/04/19 10/04/19 Range/Units 19:00 19:00 19:00 WBC 10.6 (4.5-11.0) K/uL RBC 2.03 L (4.30-5.90) M/uL Hgb 7.4 L (12.0-15.0) g/dL Hct 21.9 L (40.0-54.0) % MCV 108 H (80-98) fL MCH 37 H (27-31) pg MCHC 34 (32-36) % Plt Count 220 (150-400) K/uL Neut % (Auto) 92 H (36-66) % Lymph % (Auto) 3 L (24-44) % [place] % (Auto) 4 (2-6) % Eos % (Auto) 1 L (2-4) % Baso % (Auto) 0 (0-1) % PT 20.6 H (9.5-12.0) sec INR 1.98 H (0.80-1.20) APTT 44.1 H (27.0-36.0) sec Sodium 128 L (140-148) mmol/L Potassium 2.3 L* (3.6-5.2) mmol/L Chloride 86 L (100-108) mmol/L Carbon Dioxide 30 (21-32) mmol/L Anion Gap 14.3 H (5.0-14.0) mmol/L BUN 91 H* D (7-18) mg/dL Creatinine 3.3 H (0.8-1.3) mg/dL Est Cr Clr Drug Dosing 15.22 mL/min Estimated GFR (MDRD) 18 L (>60) Glucose 471 H* (74-106) mg/dL Lactic Acid (0.4-2.0) mmol/L Calcium 8.5 (8.5-10.1) mg/dL Total Bilirubin 1.1 H (0.2-1.0) mg/dL AST 16 (15-37) U/L ALT 20 (12-78) U/L Alkaline Phosphatase 125 H (46-116) U/L C-Reactive Protein (0.0-0.3) mg/dL Total Protein 5.7 L (6.4-8.2) g/dL Albumin 3.0 L (3.4-5.0) g/dL Globulin 2.7 (2.3-3.5) g/dL Albumin/Globulin Ratio 1.1 L (1.2-2.2) Procalcitonin ng/mL Urine Color (YELLOW) Urine Appearance (CLEAR) Urine pH (5.0-8.0) Ur Specific [place] (1.008-1.030) Urine Protein (NEGATIVE) mg/dL Urine Glucose (UA) (NEGATIVE) mg/dL Urine Ketones (NEGATIVE) mg/dL Urine Occult Blood (NEGATIVE) Urine Nitrite (NEGATIVE) Urine Bilirubin (NEGATIVE) Urine Urobilinogen (0.2-1.0) EU/dL Ur Leukocyte Esterase (NEGATIVE) Urine RBC (0-5) Urine WBC (0-5) Ur Epithelial Cells Amorphous Sediment Urine Bacteria Urine Mucus 10/04/19 Range/Units 19:00 WBC (4.5-11.0) K/uL RBC (4.30-5.90) M/uL Hgb (12.0-15.0) g/dL Hct (40.0-54.0) % MCV (80-98) fL MCH (27-31) pg MCHC (32-36) % Plt Count (150-400) K/uL Neut % (Auto) (36-66) % Lymph % (Auto) (24-44) % [place] % (Auto) (2-6) % Eos % (Auto) (2-4) % Baso % (Auto) (0-1) % PT (9.5-12.0) sec INR (0.80-1.20) APTT (27.0-36.0) sec Sodium (140-148) mmol/L Potassium (3.6-5.2) mmol/L Chloride (100-108) mmol/L Carbon Dioxide (21-32) mmol/L Anion Gap (5.0-14.0) mmol/L BUN (7-18) mg/dL Creatinine (0.8-1.3) mg/dL Est Cr Clr Drug Dosing mL/min Estimated GFR (MDRD) (>60) Glucose (74-106) mg/dL Lactic Acid 4.3 H (0.4-2.0) mmol/L Calcium (8.5-10.1) mg/dL Total Bilirubin (0.2-1.0) mg/dL AST (15-37) U/L ALT (12-78) U/L Alkaline Phosphatase (46-116) U/L C-Reactive Protein (0.0-0.3) mg/dL Total Protein (6.4-8.2) g/dL Albumin (3.4-5.0) g/dL Globulin (2.3-3.5) g/dL Albumin/Globulin Ratio (1.2-2.2) Procalcitonin ng/mL Urine Color (YELLOW) Urine Appearance (CLEAR) Urine pH (5.0-8.0) Ur Specific [place] (1.008-1.030) Urine Protein (NEGATIVE) mg/dL Urine Glucose (UA) (NEGATIVE) mg/dL Urine Ketones (NEGATIVE) mg/dL Urine Occult Blood (NEGATIVE) Urine Nitrite (NEGATIVE) Urine Bilirubin (NEGATIVE) Urine Urobilinogen (0.2-1.0) EU/dL Ur Leukocyte Esterase (NEGATIVE) Urine RBC (0-5) Urine WBC (0-5) Ur Epithelial Cells Amorphous Sediment Urine Bacteria Urine Mucus Meds: Medications Generic Name Dose Route Start Last Admin Trade Name Freq PRN Reason Stop Dose Admin Piperacillin Sod/Tazobactam 100 mls @ 100 mls/hr 10/04/19 18:45 10/04/19 19: 25 Sod 4.5 gm/ Sodium Chloride IV 100 mls/hr Q6H [facility] Administration Vancomycin HCl 1 gm/ Sodium 250 mls @ 150 mls/hr 10/04/19 19:00 10/04/19 19: 27 Chloride IV 150 mls/hr Q12H [place] Administration Potassium Chloride 20 meq/ 100 mls @ 50 mls/hr 10/04/19 19:35 Premix IV 10/04/19 21:34 ONETIME ONE Discontinued Medications Generic Name Dose Route Start Last Admin Trade Name Freq PRN Reason Stop Dose Admin Potassium Chloride 40 meq 10/04/19 19:35 10/04/19 19:58 Klor-Con M20 PO 10/04/19 19:36 40 meq ONETIME ONE Administration Departure - Departure Time of Disposition: 20:03 Disposition: Admitted As Inpatient 67 Condition: Fair Clinical Impression: Sepsis Qualifiers: Sepsis type: sepsis due to unspecified organism Sepsis acute organ dysfunction status: without acute organ dysfunction Qualified Code(s): A41.9 - Sepsis, unspecified organism Cellulitis Qualifiers: Site of cellulitis: extremity Site of cellulitis of extremity: lower extremity Laterality: right Qualified Code(s): L03.115 - Cellulitis of right lower limb - Discharge Information Referrals: PCP,None [Primary Care Provider] - Forms: ED Department Discharge Sepsis Event Note - Evaluation Sepsis Screening Result: No Definite Risk - Focused Exam Vital Signs: Vital Signs Temp Pulse Resp BP Pulse Ox 10/04/19 19:54 65 17 121/53 L 100 10/04/19 18:36 68 14 110/57 L 94 L 10/04/19 18:14 96.7 F L 73 16 113/52 L 96 10/04/19 18:05 96.7 F L 73 16 113/52 L 96 Date Exam was Performed: 10/04/19 Time Exam was Performed: 20:01 - My Orders Last 24 Hours: My Active Orders 10/04/19 18:39 Hip Min 2V or 3V w Pelvis Rt [CR] Stat 10/04/19 18:40 Chest 1V Frontal [CR] Stat Blood Culture x2 Reflex Set [OM.PC] Urgent Severe Sepsis Onset Time [OM.PC] Stat 10/04/19 18:45 Piperacillin/Tazobactam [Zosyn] 4.5 gm Sodium Chloride 0.9% [Normal Saline] 100 ml IV Q6H 10/04/19 18:50 CULTURE BLOOD [BC] Urgent 10/04/19 19:00 CULTURE BLOOD [BC] Urgent Vancomycin 1 gm Sodium Chloride 0.9% [Normal Saline] 250 ml IV Q12H 10/04/19 19:33 REFLEX LACTIC ACID YES OR NO [CHEM] Routine 10/04/19 19:35 Potassium Chloride [KCL 20 MEQ in Water 100 ML] 20 meq Premix Bag 1 bag IV ONETIME - Assessment/Plan Last 24 Hours: My Active Orders 10/04/19 18:39 Hip Min 2V or 3V w Pelvis Rt [CR] Stat 10/04/19 18:40 Chest 1V Frontal [CR] Stat Blood Culture x2 Reflex Set [OM.PC] Urgent Severe Sepsis Onset Time [OM.PC] Stat 10/04/19 18:45 Piperacillin/Tazobactam [Zosyn] 4.5 gm Sodium Chloride 0.9% [Normal Saline] 100 ml IV Q6H 10/04/19 18:50 CULTURE BLOOD [BC] Urgent 10/04/19 19:00 CULTURE BLOOD [BC] Urgent Vancomycin 1 gm Sodium Chloride 0.9% [Normal Saline] 250 ml IV Q12H 10/04/19 19:33 REFLEX LACTIC ACID YES OR NO [CHEM] Routine 10/04/19 19:35 Potassium Chloride [KCL 20 MEQ in Water 100 ML] 20 meq Premix Bag 1 bag IV ONETIME Plan: Assessment Acuity = acute Site and laterality = cellulitis right lower extremity with early sepsis also grade 2 pressure ulcer right buttocks probable source Etiology = bacterial cause Manifestations = weakness Location of injury = Home Lab values = hemoglobin low at 7.4 consistent microchromic anemia INR subtherapeutic 1.98 sodium low at 128 consistent hyponatremia potassium low at 2.3 consistent with hypokalemia creatinine elevated 3.3 consistent chronic renal failure stage G4 glucose elevated 471 consistent hyperglycemia lactic acid elevated 4.3 consistent lactic acidosis CRP elevated 11.82 albumin low at 3.0 consistent hypoalbuminemia procalcitonin elevated 0.31 urinalysis reveals 250 glucose consistent with glucosuria chest x-ray shows a cardiomegaly otherwise no acute process official read radiologist pending hip and pelvic x- ray I do not appreciate a fracture official read radiologist pending Plan Call discussed case with hospitalist at 1940 kindly agreed to come and evaluate the patient emergency department for admission thus far has been given 1 L fluids, 1 g Rocephin, 1 dose of Zosyn blood cultures are pending This note was dictated using [employer] voice recognition software please call with any questions on syntax or grammar.
[2019-10-04] MEDS ORDERED: Potassium Chloride 20 MEQ Tab.ER PO ONE (19:35)
[2019-10-04] MEDS ORDERED: Potassium Chloride 20 MEQ in Premix Bag 1 BAG IV ONE (19:35)
[2019-10-04] MEDS ORDERED: Acetaminophen/Codeine 300-30 MG Tab PO PRN (20:42)
[2019-10-04] MEDS ORDERED: Insulin Regular, Human 100 Units/ML 3 ML Vial SUBCUT ONE (21:31)
[2019-10-04] MEDS ORDERED: Bisacodyl 5 MG Tab PO PRN (22:15)
[2019-10-04] MEDS ORDERED: Ondansetron 4 MG/2 ML SDV IV PRN (22:15)
[2019-10-04] MEDS ORDERED: Sodium Chloride 0.9% 1,000 ML IV SCH (22:15)
[2019-10-04] MEDS ORDERED: Docusate Sodium 100 MG Cap PO PRN (22:15)
[2019-10-04] MEDS ORDERED: Warfarin 2.5 MG Tab PO SCH (22:15)
[2019-10-04] MEDS ORDERED: Albuterol/Ipratropium 3.0-0.5 MG/3 ML Neb Soln NEB PRN (22:15)
[2019-10-04] MEDS ORDERED: Ondansetron 4 MG Tab.DIS PO PRN (22:15)
[2019-10-04] MEDS ORDERED: Albuterol 0.083% 2.5 MG/3 ML Neb Soln NEB PRN (22:15)
--- NOTE | 2019-10-04 22:24 | PCM.HP.2 ---
H&P History of Present Illness - General Date of Service: 10/04/19 Admit Problem/Dx: Admission Diagnosis/Problem Admission Diagnosis/Problem Cellulitis Source of Information: Patient, [facility] Records, Provider, RN History Limitations: Reports: No Limitations - History of Present Illness Initial Comments - Free Text/Narative: chief complaint: fall at 4 pm. and weakness 89-year-old gentleman presents emergency department today via EMS services, complaint of increasing weakness with fall states he fell today on his right hip it is causing pain all throughout he does have a large erythematous patch in that area he is unsure of when that started. He does have an extensive history of coronary artery disease with congestive heart failure recent adjustment of medications in August with initiation of metolazone he states the breathing is about the same for him but he has had a decrease in his leg edema, denies any fevers or chest pain right hip leg Plan: Assessment Acuity = acute Site and laterality = cellulitis right lower extremity with early sepsis also grade 2 pressure ulcer right buttocks probable source Etiology = bacterial cause Manifestations = weakness Location of injury = Home Lab values = hemoglobin low at 7.4 consistent microchromic anemia INR subtherapeutic 1.98 sodium low at 128 consistent hyponatremia potassium low at 2.3 consistent with hypokalemia creatinine elevated 3.3 consistent chronic renal failure stage G4 glucose elevated 471 consistent hyperglycemia lactic acid elevated 4.3 consistent lactic acidosis CRP elevated 11.82 albumin low at 3.0 consistent hypoalbuminemia procalcitonin elevated 0.31 urinalysis reveals 250 glucose consistent with glucosuria chest x-ray shows a cardiomegaly otherwise no acute process official read radiologist pending hip and pelvic x- ray I do not appreciate a fracture official read radiologist pending Plan Call discussed case with hospitalist at 1940 kindly agreed to come and evaluate the patient emergency department for admission thus far has been given 1 L fluids, 1 g Rocephin, 1 dose of Zosyn blood cultures are pending Onset of Symptoms: Reports: Today Symptom Onset Date: 10/04/19 Symptom Onset Time: 16:00 Duration of Symptoms: Reports: Hour(s):, Other (reports [facility] unable to get up due to weakness. ambulance called) Location: Reports: Generalized Quality: Reports: Same as Previous Episode Improves with: Reports: None Worsens with: Reports: None Context: Reports: Other (fall at [facility] due to weakness, cellulitis) Associated Symptoms: Reports: Cough, Weakness right hip leg Pain Score (Numeric/FACES): 9 - Related Data Allergies/Adverse Reactions: Allergies Allergy/AdvReac Type Severity Reaction Status Date / Time amoxicillin AdvReac Intermediate Diarrhea Verified 10/04/19 18:15 niacin AdvReac Mild Headache Verified 10/04/19 18:15 Home Medications: Home Meds Budesonide [Pulmicort Flexhaler] 2 puff INH BID 09/26/14 [History] Cetirizine [ZyrTEC] 10 mg PO DAILY 09/26/14 [History] Ezetimibe [Zetia] 10 mg PO DAILY 09/26/14 [History] Fluticasone Propionate [Flonase] 2 spray NASBOTH DAILY 09/26/14 [History] Glimepiride 4 mg PO DAILY 09/26/14 [History] Multivitamin with Minerals [Multiple Vitamin] 1 tab PO DAILY 09/26/14 [History] Warfarin [Coumadin] 5 mg PO MOFR 09/26/14 [History] Clopidogrel Bisulfate [Clopidogrel] 75 mg PO BEDTIME 10/02/17 [History] allopurinoL [Zyloprim] 150 mg PO DAILY 12/09/17 [History] cilostazoL [Pletal] 100 mg PO BIDAC 01/17/18 [History] traZODone HCl [Trazodone HCl] 50 mg PO BEDTIME PRN 12/15/18 [History] Warfarin [Coumadin] 2.5 mg PO SUTUWETHSA 07/25/19 [History] Bumetanide [Bumex] 2 mg PO TID 08/16/19 [History] Ibuprofen [Advil] 200 mg PO ASDIRECTED 09/12/19 [History] metOLazone [Metolazone] 2.5 mg PO ASDIRECTED #30 tablet 09/12/19 [Rx] Past Medical History HEENT History: Reports: Impaired Vision Cardiovascular History: Reports: Afib, Bypass, CAD, Heart Failure, High Cholesterol, Hypertension, SOB on Exertion, Other (See Below) Other Cardiovascular History: Mitral valve insuffient, electrical cardioversion Respiratory History: Reports: Asthma, Pneumonia, Recurrent, Sleep Apnea Gastrointestinal History: Reports: Diverticulosis, Hiatal Hernia, Other (See Below) Other Gastrointestinal History: right and left ing hernias Genitourinary History: Reports: Other (See Below) Other Genitourinary History: "kidneys getting weak" Musculoskeletal History: Reports: Osteoarthritis, Other (See Below) Other Musculoskeletal History: low back and left hip pain. R hip pain. R leg pain Endocrine/Metabolic History: Reports: Diabetes, Type II, Obesity/BMI 30+ Hematologic History: Reports: Blood Transfusion(s) Immunologic History: Reports: None Oncologic (Cancer) History: Reports: Basal Cell Carcinoma Other Oncologic History: melanoma on nose Dermatologic History: Reports: Melanoma, Other (See Below) Other Dermatologic History: Basal Cell CA - Infectious Disease History Infectious Disease History: Reports: C-Difficile, Influenza, Measles, Mumps, Shingles - Past Surgical History Head Surgeries/Procedures: Reports: None HEENT Surgical History: Reports: Cataract Surgery, Oral Surgery Cardiovascular Surgical History: Reports: Coronary Artery Bypass Respiratory Surgical History: Reports: None GI Surgical History: Reports: Appendectomy, Cholecystectomy, Colon, Colonoscopy , Hernia Repair/Other Male Surgical History: Reports: None Endocrine Surgical History: Reports: None Musculoskeletal Surgical History: Reports: Hip Replacement, Knee Replacement Oncologic Surgical History: Reports: None Dermatological Surgical History: Reports: Other (See Below) Social & Family History - Family History Family Medical History: Noncontributory - Tobacco Use Smoking Status *Q: Former Smoker Used Tobacco, but Quit: Yes Month/Year Tobacco Last Used: 62 years - Caffeine Use Caffeine Use: Reports: None - Recreational Drug Use Recreational Drug Use: No - Living Situation & Occupation Living situation: Reports: , Extended Care Facility 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, 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 at [facility] Living [facility], 3 adult children.) H&P Review of Systems - Review of Systems: Review Of Systems: See Below General: Reports: Weakness, Decreased Appetite HEENT: Reports: Glasses, Other (natural teeth) Pulmonary: Reports: Pleuritic Chest Pain, Cough, Other (hx of Afib) Cardiovascular: Reports: Palpitations (chronic), Orthopnea Gastrointestinal: Reports: Decreased Appetite Genitourinary: Reports: Other (decrease urine output, last bowel movement 2019) Musculoskeletal: Reports: Muscle Stiffness (due to advance age) Skin: Reports: Rash (right thigh with redness, firmness, pain to touch extends to abdomen.), Wound (decub ulcers to sacral spine), Change in Color (legs and abdomen) Psychiatric: Reports: No Symptoms Neurological: Reports: Pre-Existing Deficit, Weakness Hematologic/Lymphatic: Reports: Anemia Immunologic: Reports: No Symptoms Exam - Exam Exam: See Below - Vital Signs Vital Signs: Last Vital Signs Temp 36.2 C 10/04/19 22:15 Pulse 65 10/04/19 21:22 Resp 16 10/04/19 21:22 BP 113/51 L 10/04/19 22:15 Pulse Ox 96 10/04/19 21:22 Weight: 102.058 kg - Exam Quality Assessment: Skin Breakdown General: Alert, Oriented, Cooperative, Mild Distress HEENT: PERRLA, Conjunctiva Clear, EACs Clear, EOMI, Hearing Intact, Mucosa Moist & [place], Nares Patent, Normal Nasal Septum Neck: Supple, Trachea Midline Lungs: Decreased Breath Sounds, Other Cardiovascular: Irregular Rhythm, Other (murmur noted) GI/Abdominal Exam: Normal Bowel Sounds, Soft, Tender (low abdomen with redness and tenderness) (Male) Exam: Normal Inspection. No: Circumcised (uncircumcised male) Rectal (Males) Exam: Deferred Back Exam: Normal Inspection, Full Range of Motion Extremities: Slow Capillary Refill, Leg Pain (right upper thigh), Redness ( right upper thigh), Other (lower legs wrapped wtih karen wraps, removed, lower legs without edema.) Peripheral Pulses: 0: Dorsalis Pedis (L), Dorsalis Pedis (R), 2+: Radial (L), Radial (R) Skin: Warm (erythema noted to right upper thigh and low abdomen), Cool ( bilateral feet) Neurological: Normal Speech, Normal Tone Neuro Extensive - Mental Status: Alert, Oriented x3 Neuro Extensive - Motor, Sensory, Reflexes: Motor/Sensory Deficits Psychiatric: Alert, Normal Affect, Normal Mood - Patient Data Lab Results Last 24 hrs: Laboratory Results - last 24 hr 10/04/19 10/04/19 10/04/19 Range/Units 18:50 18:54 19:00 WBC (4.5-11.0) K/uL RBC (4.30-5.90) M/uL Hgb (12.0-15.0) g/dL Hct (40.0-54.0) % MCV (80-98) fL MCH (27-31) pg MCHC (32-36) % Plt Count (150-400) K/uL Neut % (Auto) (36-66) % Lymph % (Auto) (24-44) % [place] % (Auto) (2-6) % Eos % (Auto) (2-4) % Baso % (Auto) (0-1) % PT (9.5-12.0) sec INR (0.80-1.20) APTT (27.0-36.0) sec Sodium (140-148) mmol/L Potassium (3.6-5.2) mmol/L Chloride (100-108) mmol/L Carbon Dioxide (21-32) mmol/L Anion Gap (5.0-14.0) mmol/L BUN (7-18) mg/dL Creatinine (0.8-1.3) mg/dL Est Cr Clr Drug Dosing mL/min Estimated GFR (MDRD) (>60) Glucose (74-106) mg/dL Lactic Acid (0.4-2.0) mmol/L Calcium (8.5-10.1) mg/dL Total Bilirubin (0.2-1.0) mg/dL AST (15-37) U/L ALT (12-78) U/L Alkaline Phosphatase (46-116) U/L Troponin I (0.000-0.056) ng/mL C-Reactive Protein 11.82 H (0.0-0.3) mg/dL Total Protein (6.4-8.2) g/dL Albumin (3.4-5.0) g/dL Globulin (2.3-3.5) g/dL Albumin/Globulin Ratio (1.2-2.2) Procalcitonin 0.31 ng/mL Urine Color Yellow (YELLOW) Urine Appearance Clear (CLEAR) Urine pH 5.5 (5.0-8.0) Ur Specific [place] 1.020 (1.008-1.030) Urine Protein Negative (NEGATIVE) mg/dL Urine Glucose (UA) 250 H (NEGATIVE) mg/dL Urine Ketones Negative (NEGATIVE) mg/dL Urine Occult Blood Negative (NEGATIVE) Urine Nitrite Negative (NEGATIVE) Urine Bilirubin Negative (NEGATIVE) Urine Urobilinogen 0.2 (0.2-1.0) EU/dL Ur Leukocyte Esterase Negative (NEGATIVE) Urine RBC 0-5 (0-5) Urine WBC 0-5 (0-5) Ur Epithelial Cells Not seen Amorphous Sediment Not seen Urine Bacteria Not seen Urine Mucus Not seen 10/04/19 10/04/19 10/04/19 Range/Units 19:00 19:00 19:00 WBC 10.6 (4.5-11.0) K/uL RBC 2.03 L (4.30-5.90) M/uL Hgb 7.4 L (12.0-15.0) g/dL Hct 21.9 L (40.0-54.0) % MCV 108 H (80-98) fL MCH 37 H (27-31) pg MCHC 34 (32-36) % Plt Count 220 (150-400) K/uL Neut % (Auto) 92 H (36-66) % Lymph % (Auto) 3 L (24-44) % [place] % (Auto) 4 (2-6) % Eos % (Auto) 1 L (2-4) % Baso % (Auto) 0 (0-1) % PT 20.6 H (9.5-12.0) sec INR 1.98 H (0.80-1.20) APTT 44.1 H (27.0-36.0) sec Sodium 128 L (140-148) mmol/L Potassium 2.3 L* (3.6-5.2) mmol/L Chloride 86 L (100-108) mmol/L Carbon Dioxide 30 (21-32) mmol/L Anion Gap 14.3 H (5.0-14.0) mmol/L BUN 91 H* D (7-18) mg/dL Creatinine 3.3 H (0.8-1.3) mg/dL Est Cr Clr Drug Dosing 15.22 mL/min Estimated GFR (MDRD) 18 L (>60) Glucose 471 H* (74-106) mg/dL Lactic Acid (0.4-2.0) mmol/L Calcium 8.5 (8.5-10.1) mg/dL Total Bilirubin 1.1 H (0.2-1.0) mg/dL AST 16 (15-37) U/L ALT 20 (12-78) U/L Alkaline Phosphatase 125 H (46-116) U/L Troponin I (0.000-0.056) ng/mL C-Reactive Protein (0.0-0.3) mg/dL Total Protein 5.7 L (6.4-8.2) g/dL Albumin 3.0 L (3.4-5.0) g/dL Globulin 2.7 (2.3-3.5) g/dL Albumin/Globulin Ratio 1.1 L (1.2-2.2) Procalcitonin ng/mL Urine Color (YELLOW) Urine Appearance (CLEAR) Urine pH (5.0-8.0) Ur Specific [place] (1.008-1.030) Urine Protein (NEGATIVE) mg/dL Urine Glucose (UA) (NEGATIVE) mg/dL Urine Ketones (NEGATIVE) mg/dL Urine Occult Blood (NEGATIVE) Urine Nitrite (NEGATIVE) Urine Bilirubin (NEGATIVE) Urine Urobilinogen (0.2-1.0) EU/dL Ur Leukocyte Esterase (NEGATIVE) Urine RBC (0-5) Urine WBC (0-5) Ur Epithelial Cells Amorphous Sediment Urine Bacteria Urine Mucus 10/04/19 10/04/19 Range/Units 19:00 21:12 WBC (4.5-11.0) K/uL RBC (4.30-5.90) M/uL Hgb (12.0-15.0) g/dL Hct (40.0-54.0) % MCV (80-98) fL MCH (27-31) pg MCHC (32-36) % Plt Count (150-400) K/uL Neut % (Auto) (36-66) % Lymph % (Auto) (24-44) % [place] % (Auto) (2-6) % Eos % (Auto) (2-4) % Baso % (Auto) (0-1) % PT (9.5-12.0) sec INR (0.80-1.20) APTT (27.0-36.0) sec Sodium (140-148) mmol/L Potassium (3.6-5.2) mmol/L Chloride (100-108) mmol/L Carbon Dioxide (21-32) mmol/L Anion Gap (5.0-14.0) mmol/L BUN (7-18) mg/dL Creatinine (0.8-1.3) mg/dL Est Cr Clr Drug Dosing mL/min Estimated GFR (MDRD) (>60) Glucose (74-106) mg/dL Lactic Acid 4.3 H (0.4-2.0) mmol/L Calcium (8.5-10.1) mg/dL Total Bilirubin (0.2-1.0) mg/dL AST (15-37) U/L ALT (12-78) U/L Alkaline Phosphatase (46-116) U/L Troponin I 0.071 H* (0.000-0.056) ng/mL C-Reactive Protein (0.0-0.3) mg/dL Total Protein (6.4-8.2) g/dL Albumin (3.4-5.0) g/dL Globulin (2.3-3.5) g/dL Albumin/Globulin Ratio (1.2-2.2) Procalcitonin ng/mL Urine Color (YELLOW) Urine Appearance (CLEAR) Urine pH (5.0-8.0) Ur Specific [place] (1.008-1.030) Urine Protein (NEGATIVE) mg/dL Urine Glucose (UA) (NEGATIVE) mg/dL Urine Ketones (NEGATIVE) mg/dL Urine Occult Blood (NEGATIVE) Urine Nitrite (NEGATIVE) Urine Bilirubin (NEGATIVE) Urine Urobilinogen (0.2-1.0) EU/dL Ur Leukocyte Esterase (NEGATIVE) Urine RBC (0-5) Urine WBC (0-5) Ur Epithelial Cells Amorphous Sediment Urine Bacteria Urine Mucus Result Diagrams: 10/04/19 19:00 10/04/19 19:00 Sepsis Event Note - Evaluation Sepsis Screening Result: No Definite Risk - Focused Exam Vital Signs: Vital Signs Temp Pulse Resp BP Pulse Ox 10/04/19 22:15 36.2 C 113/51 L 10/04/19 21:53 35.6 C L 10/04/19 21:22 65 16 112/51 L 96 10/04/19 20:35 72 17 130/47 L 96 10/04/19 19:54 65 17 121/53 L 100 10/04/19 18:36 68 14 110/57 L 94 L 10/04/19 18:14 35.9 C L 73 16 113/52 L 96 10/04/19 18:05 35.9 C L 73 16 113/52 L 96 Date Exam was Performed: 10/05/19 Time Exam was Performed: 00:59 - Problem List (1) Sepsis SNOMED Code(s): 79621488 ICD Code: A41.9 - SEPSIS, UNSPECIFIED ORGANISM Status: Acute Priority: High Current Visit: Yes Qualifiers: Sepsis type: sepsis due to unspecified organism Sepsis acute organ dysfunction status: without acute organ dysfunction Qualified Code(s): A41.9 - Sepsis, unspecified organism (2) Cellulitis SNOMED Code(s): 125128494 ICD Code: L03.90 - CELLULITIS, UNSPECIFIED Status: Acute Priority: High Current Visit: Yes Qualifiers: Site of cellulitis: extremity Site of cellulitis of extremity: lower extremity Laterality: right Qualified Code(s): L03.115 - Cellulitis of right lower limb (3) Hypokalemia SNOMED Code(s): 05516328 ICD Code: E87.6 - HYPOKALEMIA Status: Acute Priority: High Current Visit: Yes (4) CHF (congestive heart failure) SNOMED Code(s): 37833733 ICD Code: I50.9 - HEART FAILURE, UNSPECIFIED Status: Acute Priority: Low Current Visit: No Qualifiers: Heart failure chronicity: chronic (5) Decubital ulcer SNOMED Code(s): 968207887 ICD Code: L89.90 - PRESSURE ULCER OF UNSPECIFIED SITE, UNSPECIFIED STAGE Status: Acute Priority: High Current Visit: Yes Qualifiers: Pressure injury location: sacral region Pressure injury stage: stage 2 Qualified Code(s): L89.152 - Pressure ulcer of sacral region, stage 2 (6) Type 2 diabetes mellitus SNOMED Code(s): 37739562 ICD Code: E11.9 - TYPE 2 DIABETES MELLITUS WITHOUT COMPLICATIONS Status: Chronic Priority: Medium Current Visit: Yes Qualifiers: Diabetes mellitus long-term insulin use: without long-term use Diabetes mellitus complication status: with other specified complication Qualified Code (s): E11.69 - Type 2 diabetes mellitus with other specified complication (7) CKD (chronic kidney disease) stage 3, GFR 30-59 ml/min SNOMED Code(s): 556824445 ICD Code: N18.3 - CHRONIC KIDNEY DISEASE, STAGE 3 (MODERATE) Status: Acute Priority: Low Current Visit: No (8) Afib, Atrial fibrillation SNOMED Code(s): 83408068 ICD Code: I48.91 - UNSPECIFIED ATRIAL FIBRILLATION Status: Chronic Priority: Low Current Visit: No (9) CAD (coronary artery disease) SNOMED Code(s): 84927283 ICD Code: I25.10 - ATHSCL HEART DISEASE OF [place] CORONARY ARTERY W/O ANG PCTRS Status: Chronic Priority: Low Current Visit: No Problem List Initiated/Reviewed/Updated: Yes Orders Last 24hrs: Active Orders 24 hr Category Date Time Status Bedrest Bedside Commode [RC] ASDIRECTED Care 10/04/19 22:15 Active Cardiac Monitoring [RC] CONTINUOUS Care 10/04/19 22:15 Active Diabetes Education [RC] Click to Edit Care 10/04/19 22:15 Active EKG Documentation Completion [RC] ASDIRECTED Care 10/04/19 21:12 Active EKG Documentation Completion [RC] ASDIRECTED Care 10/04/19 21:19 Active Intake and Output [RC] QSHIFT Care 10/04/19 22:15 Active Notify Provider Vital Signs [RC] ASDIRECTED Care 10/04/19 22:15 Active Notify Provider [RC] PRN Care 10/04/19 22:15 Active Oxygen Therapy [RC] PRN Care 10/04/19 22:15 Active Pressure Ulcer Assessment [RC] .As Directed Care 10/04/19 22:15 Active Pulse Oximetry [RC] CONTINUOUS Care 10/04/19 22:15 Active RT Aerosol Therapy [RC] ASDIRECTED Care 10/04/19 22:15 Active VTE/DVT Education [RC] Per Unit Routine Care 10/04/19 22:15 Active Vital Signs [RC] Q4H Care 10/04/19 22:15 Active Wound Care [RC] Q12H Care 10/04/19 22:15 Active Consult to Wound Care Services [CONS] Routine Cons 10/04/19 22:15 Active OT Evaluation and Treatment [CONS] Routine Cons 10/04/19 22:15 Active PT Evaluation and Treatment [CONS] Routine Cons 10/04/19 22:15 Active Consistent Carbohydrate Diet [DIET] Diet 10/04/19 Dinner Active Chest 1V Frontal [CR] Stat Exams 10/04/19 18:40 Taken Hip Min 2V or 3V w Pelvis Rt [CR] Stat Exams 10/04/19 18:39 Taken BASIC METABOLIC PANEL,BMP [CHEM] AM Lab 10/05/19 05:11 Ordered CBC WITH AUTO DIFF [HEME] AM Lab 10/05/19 05:11 Ordered CULTURE BLOOD [BC] Urgent Lab 10/04/19 18:50 Received CULTURE BLOOD [BC] Urgent Lab 10/04/19 19:00 Received GLUCOSE POC LAB TO COLLECT [POC] QIDACANDBED Lab 10/05/19 07:30 Ordered LACTIC ACID [CHEM] Timed Lab 10/05/19 01:10 Ordered POTASSIUM,K [CHEM] Timed Lab 10/05/19 01:10 Cancelled REFLEX LACTIC ACID YES OR NO [CHEM] Routine Lab 10/04/19 19:33 Received Acetaminophen/Codeine [Tylenol with Codeine No.3 300MG/ Med 10/04/19 20:42 Active 30MG] 1 tab PO Q4H PRN Albuterol [Proventil Neb Soln] Med 10/04/19 22:15 Ordered 2.5 mg NEB Q4H PRN Albuterol/Ipratropium [DuoNeb 3.0-0.5 MG/3 ML] Med 10/04/19 22:15 Ordered 3 ml NEB QID PRN Budesonide [Pulmicort Flexhaler] Med 10/04/19 22:15 Ordered 2 puff INH BID Bumetanide [Bumex] Med 10/04/19 22:15 Ordered 2 mg PO TID Clopidogrel [Plavix] Med 10/04/19 22:15 Ordered 75 mg PO BEDTIME Docusate Sodium [Colace] Med 10/04/19 22:15 Ordered 100 mg PO BID PRN Ezetimibe [Zetia] Med 10/05/19 09:00 Ordered 10 mg PO DAILY Glimepiride [Glimepiride] Med 10/05/19 09:00 Ordered 4 mg PO DAILY Insulin Lispro [HumaLOG] Med 10/04/19 22:15 Ordered See Protocol SUBCUT QIDACANDBED Multivitamin with Minerals [Multiple Vitamin] Med 10/05/19 09:00 Ordered 1 tab PO DAILY Ondansetron [Zofran ODT] Med 10/04/19 22:15 Ordered 4 mg PO Q6H PRN Ondansetron [Zofran] Med 10/04/19 22:15 Ordered 4 mg IV Q4H PRN Piperacillin/Tazobactam/Dext [Zosyn in Dextrose Iso- Med 10/05/19 04:00 Active Osmotic] 50 ml IV Q8H Sodium Chloride 0.9% [Normal Saline] 1,000 ml Med 10/04/19 22:15 Ordered IV ASDIRECTED Vancomycin 1 gm Med 10/05/19 07:00 Pending Sodium Chloride 0.9% [Normal Saline] 250 ml IV Q12H Warfarin [Coumadin] Med 10/04/19 22:15 Ordered 2.5 mg PO SUTUWETHSA Warfarin [Coumadin] Med 10/06/19 20:02 Ordered 5 mg PO MOFR allopurinoL [Zyloprim] Med 10/05/19 09:00 Ordered 150 mg PO DAILY bisacodyL [Dulcolax] Med 10/04/19 22:15 Ordered 5 mg PO DAILY PRN cilostazoL [Pletal] Med 10/05/19 07:30 Ordered 100 mg PO BIDAC metOLazone [Zaroxolyn] Med 10/04/19 22:15 Ordered 2.5 mg PO ASDIRECTED traZODone Med 10/04/19 22:15 Ordered 50 mg PO BEDTIME PRN Blood Culture x2 Reflex Set [OM.PC] Urgent Oth 10/04/19 18:40 Ordered Pressure Reduction Mattress [OM.PC] Routine Oth 10/04/19 22:15 Ordered Severe Sepsis Onset Time [OM.PC] Stat Oth 10/04/19 18:40 Ordered Resuscitation Status Routine Resus Stat 10/04/19 19:54 Ordered EKG 12 Lead [EK] Stat Ther 10/04/19 21:19 Stop Req EKG 12 Lead [EK] Urgent Ther 10/04/19 21:12 Ordered Medication Orders Acetaminophen/Codeine Phosphate (Tylenol With Codeine No.3 300mg/30mg) 1 tab PO Q4H PRN PRN Reason: Pain Albuterol (Proventil Neb Soln) 2.5 mg NEB Q4H PRN PRN Reason: Shortness Of Breath/wheezing Albuterol/Ipratropium (Duoneb 3.0-0.5 Mg/3 Ml) 3 ml NEB QID PRN PRN Reason: Shortness Of Breath/wheezing Allopurinol (Zyloprim) 150 mg PO DAILY [facility] Bisacodyl (Dulcolax) 5 mg PO DAILY PRN PRN Reason: Constipation Cilostazol (Pletal) 100 mg PO BIDAC [facility] Clopidogrel Bisulfate (Plavix) 75 mg PO BEDTIME [facility] Docusate Sodium (Colace) 100 mg PO BID PRN PRN Reason: Constipation Ezetimibe (Zetia) 10 mg PO DAILY [facility] Piperacillin/Tazobactam/Dextrose (Zosyn In Dextrose Iso-Osmotic) 50 mls @ 100 mls/hr IV Q8H [facility] Vancomycin HCl 1 gm/ Sodium (Chloride) 250 mls @ 150 mls/hr IV Q12H [facility] Sodium Chloride (Normal Saline) 1,000 mls @ 75 mls/hr IV ASDIRECTED [facility] Insulin Human Lispro (Humalog) 0 unit SUBCUT QIDACANDBED [facility]; Protocol Metolazone (Zaroxolyn) 2.5 mg PO ASDIRECTED [facility] Non-Formulary Medication (Budesonide [Pulmicort Flexhaler]) 2 puff INH BID [facility] Non-Formulary Medication (Bumetanide [Bumex]) 2 mg PO TID [facility] Non-Formulary Medication (Glimepiride [Glimepiride]) 4 mg PO DAILY [facility] Non-Formulary Medication (Multivitamin With Minerals [Multiple Vitamin]) 1 tab PO DAILY [facility] Ondansetron HCl (Zofran Odt) 4 mg PO Q6H PRN PRN Reason: Nausea able to take PO Ondansetron HCl (Zofran) 4 mg IV Q4H PRN PRN Reason: Nausea/Vomiting Trazodone HCl (Trazodone) 50 mg PO BEDTIME PRN PRN Reason: Sleep Warfarin Sodium (Coumadin) 2.5 mg PO SUTUWETHSA [facility] Warfarin Sodium (Coumadin) 5 mg PO MOFR [facility] Assessment/Plan Comment:: ASSESSMENT / PLAN 89-year-old gentleman presents emergency department today via EMS services, complaint of increasing weakness with fall states he fell today on his right hip it is causing pain all throughout he does have a large erythematous patch in that area he is unsure of when that started. He does have an extensive history of coronary artery disease with congestive heart failure recent adjustment of medications in August with initiation of metolazone he states the breathing is about the same for him but he has had a decrease in his leg edema, denies any fevers or chest pain right hip leg Plan: Assessment Acuity = acute Site and laterality = cellulitis right lower extremity with early sepsis also grade 2 pressure ulcer right buttocks probable source Etiology = bacterial cause Manifestations = weakness Location of injury = Home Lab values = hemoglobin low at 7.4 consistent microchromic anemia INR subtherapeutic 1.98 sodium low at 128 consistent hyponatremia potassium low at 2.3 consistent with hypokalemia creatinine elevated 3.3 consistent chronic renal failure stage G4 glucose elevated 471 consistent hyperglycemia lactic acid elevated 4.3 consistent lactic acidosis CRP elevated 11.82 albumin low at 3.0 consistent hypoalbuminemia procalcitonin elevated 0.31 urinalysis reveals 250 glucose consistent with glucosuria chest x-ray shows a cardiomegaly otherwise no acute process official read radiologist pending hip and pelvic x- ray I do not appreciate a fracture official read radiologist pending Plan Call discussed case with hospitalist at 1940 kindly agreed to come and evaluate the patient emergency department for admission thus far has been given 1 L fluids, 1 g Rocephin, 1 dose of Zosyn blood cultures are pending Cellulitis, Sepsis -Admit to [address] [place] [address] med-surg. for further monitoring -IV Fluids for rehydration NS at 75 mL per hour -IV Antibiotic: Rocephin 1 gram IV every 24 hours -IV Antibiotic: Vancomycin 1gm IV every 24 hours -IV Antibiotic: Zosyn every 8 hours -Advise to notify nurses of any chest pain or other symptoms -Lactic acid at 0100 -am labs CBC, BMP Pressure ulcers x2 -consult to Wound Care -wound care Hypokalemia Potassium 2.3 -PO Potassium 40 meq given in ER -attempted to give IV Potassium 20 meq, then Mr. Kamara develops chest discomfort. stopped infusion -am labs BMP Heart failure -continue outpatient medications A-fib chronic -continue outpatient coumadin -am PT, INR Diabetes Type 2 -continue Glyubride -high dose sliding scale coverage -blood glucose testing before meals and at bedtime Maintenance issues -Orders home meds: -Nutrition: consistent carb diet -Gaona catheter not indicated at this time -DVT: Coumadin therapy -PPI: IV Protonix 40mg daily -consult OT for discharge planning -consult PT for strengthening. -consult to Wound Care CODE STATUS: [id number] Admission status: Admit to [address] [place] [address] Admission justification. This patient will be admitted for inpatient services and is medically appropriate meeting medical necessity for inpatient admission as outlined in my documentation. I reasonably expect the patient will require inpatient services that span. Time over 2 midnights. I reasonably expect this patient to be discharged or transferred within 96 hours after admission to the critical access hospital. Disposition- [facility] with Adal Primary care provider: Dr. Carey Hospitalist: Dr. Moreno - Mortality Measure Prognosis:: Good
[2019-10-04] MEDS: Clopidogrel 75 MG Tab PO SCH (22:44)
[2019-10-04] MEDS ORDERED: Insulin Lispro 100 Unit/ML 3 ML KwikPen SUBCUT ONE (22:48)
[2019-10-04] MEDS: Insulin Lispro 100 Unit/ML 3 ML KwikPen SUBCUT SCH (23:14)
[2019-10-04] MEDS: Acetaminophen/HYDROcodone 325-5 MG Tab PO PRN (23:35)
[2019-10-05] MEDS ORDERED: Sodium Chloride 0.9% 50 ML ONE (03:40)
[2019-10-05] MEDS: Piperacillin/Tazobactam/Dext 50 ML IV SCH ×2 (03:53→12:05)
[2019-10-05] MEDS ORDERED: Potassium Chloride 20 MEQ Tab.ER PO ONE ×2 (06:19→15:35)
[2019-10-05] MEDS: Budesonide 0.5 MG/2 ML Neb Susp INH SCH ×2 (07:02→21:12)
[2019-10-05] MEDS: Insulin Lispro 100 Unit/ML 3 ML KwikPen SUBCUT SCH ×4 (07:50→21:50)
[2019-10-05] MEDS: Multivitamins with Iron/Calcium/Folic Acid/Minerals Tab PO SCH (08:02)
[2019-10-05] MEDS: Ezetimibe 10 MG Tab PO SCH (08:02)
[2019-10-05] MEDS: Allopurinol 300 MG Tab PO SCH (08:03)
[2019-10-05] MEDS ORDERED: Bumetanide 1 MG Tab PO SCH (09:00)
[2019-10-05] MEDS ORDERED: Glimepiride 2 MG Tab PO SCH (09:00)
--- NOTE | 2019-10-05 11:04 | CR ---
Hip Min 2V or 3V w Pelvis Rt CLINICAL HISTORY: Fall FINDINGS: Patient has a right hip arthroplasty. There is some lucency around the acetabular component. This is similar to a study from August 2018. There is no fracture or dislocation IMPRESSION: Right hip arthroplasty appears intact No fracture or dislocation
--- NOTE | 2019-10-05 11:05 | CR ---
CHEST: Portable 10/04/2019 at 1904 CLINICAL HISTORY:Weakness COMPARISON:09/12/2019 FINDINGS: Heart is moderately enlarged. There has been previous sternotomy. Pulmonary vascularity is normal. No infiltrates are seen. Impression: Moderate cardiomegaly No acute cardiopulmonary process or significant change from prior study.
--- NOTE | 2019-10-05 11:36 | PCM.PN ---
- General Info Date of Service: 10/05/19 Subjective Update: No acute events overnight following admission. He is feeling a little better today. His right leg pain has improved. He thinks that the redness and warmth of the right leg are better today than last night. He has not noticed any bleeding. He remains weak. Shortness of breath is near baseline. Troponin level slightly higher this morning but then came down to level similar of that from admission. Potassium level still low but slowly improving. Functional Status: Reports: Pain Controlled, Tolerating Diet - Review of Systems General: Denies: Fever Pulmonary: Reports: Shortness of Breath Musculoskeletal: Reports: Leg Pain - Patient Data Vitals - Most Recent: Last Vital Signs Temp 2.6 C L 10/05/19 10:41 Pulse 71 10/05/19 10:41 Resp 18 10/05/19 10:41 BP 101/52 L 10/05/19 10:41 Pulse Ox 100 10/05/19 10:41 Weight - Most Recent: 102.058 kg I&O - Last 24 Hours: Intake & Output 10/04/19 10/05/19 10/05/19 22:59 06:59 14:59 Intake Total 600 450 Output Total 300 350 200 Balance -300 250 250 Lab Results Last 24 Hours: Laboratory Results - last 24 hr 10/04/19 10/04/19 10/04/19 Range/Units 18:50 18:54 19:00 WBC (4.5-11.0) K/uL RBC (4.30-5.90) M/uL Hgb (12.0-15.0) g/dL Hct (40.0-54.0) % MCV (80-98) fL MCH (27-31) pg MCHC (32-36) % Plt Count (150-400) K/uL Neut % (Auto) (36-66) % Lymph % (Auto) (24-44) % [place] % (Auto) (2-6) % Eos % (Auto) (2-4) % Baso % (Auto) (0-1) % PT (9.5-12.0) sec INR (0.80-1.20) APTT (27.0-36.0) sec Sodium (140-148) mmol/L Potassium (3.6-5.2) mmol/L Chloride (100-108) mmol/L Carbon Dioxide (21-32) mmol/L Anion Gap (5.0-14.0) mmol/L BUN (7-18) mg/dL Creatinine (0.8-1.3) mg/dL Est Cr Clr Drug Dosing mL/min Estimated GFR (MDRD) (>60) Glucose (74-106) mg/dL Lactic Acid (0.4-2.0) mmol/L Calcium (8.5-10.1) mg/dL Magnesium (1.8-2.4) mg/dL Total Bilirubin (0.2-1.0) mg/dL AST (15-37) U/L ALT (12-78) U/L Alkaline Phosphatase (46-116) U/L Troponin I (0.000-0.056) ng/mL C-Reactive Protein 11.82 H (0.0-0.3) mg/dL Total Protein (6.4-8.2) g/dL Albumin (3.4-5.0) g/dL Globulin (2.3-3.5) g/dL Albumin/Globulin Ratio (1.2-2.2) Procalcitonin 0.31 ng/mL Urine Color Yellow (YELLOW) Urine Appearance Clear (CLEAR) Urine pH 5.5 (5.0-8.0) Ur Specific [place] 1.020 (1.008-1.030) Urine Protein Negative (NEGATIVE) mg/dL Urine Glucose (UA) 250 H (NEGATIVE) mg/dL Urine Ketones Negative (NEGATIVE) mg/dL Urine Occult Blood Negative (NEGATIVE) Urine Nitrite Negative (NEGATIVE) Urine Bilirubin Negative (NEGATIVE) Urine Urobilinogen 0.2 (0.2-1.0) EU/dL Ur Leukocyte Esterase Negative (NEGATIVE) Urine RBC 0-5 (0-5) Urine WBC 0-5 (0-5) Ur Epithelial Cells Not seen Amorphous Sediment Not seen Urine Bacteria Not seen Urine Mucus Not seen 10/04/19 10/04/19 10/04/19 Range/Units 19:00 19:00 19:00 WBC 10.6 (4.5-11.0) K/uL RBC 2.03 L (4.30-5.90) M/uL Hgb 7.4 L (12.0-15.0) g/dL Hct 21.9 L (40.0-54.0) % MCV 108 H (80-98) fL MCH 37 H (27-31) pg MCHC 34 (32-36) % Plt Count 220 (150-400) K/uL Neut % (Auto) 92 H (36-66) % Lymph % (Auto) 3 L (24-44) % [place] % (Auto) 4 (2-6) % Eos % (Auto) 1 L (2-4) % Baso % (Auto) 0 (0-1) % PT 20.6 H (9.5-12.0) sec INR 1.98 H (0.80-1.20) APTT 44.1 H (27.0-36.0) sec Sodium 128 L (140-148) mmol/L Potassium 2.3 L* (3.6-5.2) mmol/L Chloride 86 L (100-108) mmol/L Carbon Dioxide 30 (21-32) mmol/L Anion Gap 14.3 H (5.0-14.0) mmol/L BUN 91 H* D (7-18) mg/dL Creatinine 3.3 H (0.8-1.3) mg/dL Est Cr Clr Drug Dosing 15.22 mL/min Estimated GFR (MDRD) 18 L (>60) Glucose 471 H* (74-106) mg/dL Lactic Acid (0.4-2.0) mmol/L Calcium 8.5 (8.5-10.1) mg/dL Magnesium (1.8-2.4) mg/dL Total Bilirubin 1.1 H (0.2-1.0) mg/dL AST 16 (15-37) U/L ALT 20 (12-78) U/L Alkaline Phosphatase 125 H (46-116) U/L Troponin I (0.000-0.056) ng/mL C-Reactive Protein (0.0-0.3) mg/dL Total Protein 5.7 L (6.4-8.2) g/dL Albumin 3.0 L (3.4-5.0) g/dL Globulin 2.7 (2.3-3.5) g/dL Albumin/Globulin Ratio 1.1 L (1.2-2.2) Procalcitonin ng/mL Urine Color (YELLOW) Urine Appearance (CLEAR) Urine pH (5.0-8.0) Ur Specific [place] (1.008-1.030) Urine Protein (NEGATIVE) mg/dL Urine Glucose (UA) (NEGATIVE) mg/dL Urine Ketones (NEGATIVE) mg/dL Urine Occult Blood (NEGATIVE) Urine Nitrite (NEGATIVE) Urine Bilirubin (NEGATIVE) Urine Urobilinogen (0.2-1.0) EU/dL Ur Leukocyte Esterase (NEGATIVE) Urine RBC (0-5) Urine WBC (0-5) Ur Epithelial Cells Amorphous Sediment Urine Bacteria Urine Mucus 10/04/19 10/04/19 10/05/19 Range/Units 19:00 21:12 01:10 WBC (4.5-11.0) K/uL RBC (4.30-5.90) M/uL Hgb (12.0-15.0) g/dL Hct (40.0-54.0) % MCV (80-98) fL MCH (27-31) pg MCHC (32-36) % Plt Count (150-400) K/uL Neut % (Auto) (36-66) % Lymph % (Auto) (24-44) % [place] % (Auto) (2-6) % Eos % (Auto) (2-4) % Baso % (Auto) (0-1) % PT (9.5-12.0) sec INR (0.80-1.20) APTT (27.0-36.0) sec Sodium (140-148) mmol/L Potassium (3.6-5.2) mmol/L Chloride (100-108) mmol/L Carbon Dioxide (21-32) mmol/L Anion Gap (5.0-14.0) mmol/L BUN (7-18) mg/dL Creatinine (0.8-1.3) mg/dL Est Cr Clr Drug Dosing mL/min Estimated GFR (MDRD) (>60) Glucose (74-106) mg/dL Lactic Acid 4.3 H 2.2 H (0.4-2.0) mmol/L Calcium (8.5-10.1) mg/dL Magnesium (1.8-2.4) mg/dL Total Bilirubin (0.2-1.0) mg/dL AST (15-37) U/L ALT (12-78) U/L Alkaline Phosphatase (46-116) U/L Troponin I 0.071 H* (0.000-0.056) ng/mL C-Reactive Protein (0.0-0.3) mg/dL Total Protein (6.4-8.2) g/dL Albumin (3.4-5.0) g/dL Globulin (2.3-3.5) g/dL Albumin/Globulin Ratio (1.2-2.2) Procalcitonin ng/mL Urine Color (YELLOW) Urine Appearance (CLEAR) Urine pH (5.0-8.0) Ur Specific [place] (1.008-1.030) Urine Protein (NEGATIVE) mg/dL Urine Glucose (UA) (NEGATIVE) mg/dL Urine Ketones (NEGATIVE) mg/dL Urine Occult Blood (NEGATIVE) Urine Nitrite (NEGATIVE) Urine Bilirubin (NEGATIVE) Urine Urobilinogen (0.2-1.0) EU/dL Ur Leukocyte Esterase (NEGATIVE) Urine RBC (0-5) Urine WBC (0-5) Ur Epithelial Cells Amorphous Sediment Urine Bacteria Urine Mucus 10/05/19 10/05/19 10/05/19 Range/Units 05:30 05:54 05:54 WBC 8.3 (4.5-11.0) K/uL RBC 1.93 L (4.30-5.90) M/uL Hgb 7.0 L (12.0-15.0) g/dL Hct 21.1 L (40.0-54.0) % MCV 109 H (80-98) fL MCH 36 H (27-31) pg MCHC 33 (32-36) % Plt Count 205 (150-400) K/uL Neut % (Auto) 84 H (36-66) % Lymph % (Auto) 8 L (24-44) % [place] % (Auto) 7 H (2-6) % Eos % (Auto) 2 (2-4) % Baso % (Auto) 0 (0-1) % PT (9.5-12.0) sec INR (0.80-1.20) APTT (27.0-36.0) sec Sodium 133 L (140-148) mmol/L Potassium 2.6 L* (3.6-5.2) mmol/L Chloride 94 L (100-108) mmol/L Carbon Dioxide 30 (21-32) mmol/L Anion Gap 11.6 (5.0-14.0) mmol/L BUN 88 H* (7-18) mg/dL Creatinine 3.0 H (0.8-1.3) mg/dL Est Cr Clr Drug Dosing 16.47 mL/min Estimated GFR (MDRD) 20 L (>60) Glucose 224 H (74-106) mg/dL Lactic Acid (0.4-2.0) mmol/L Calcium 8.4 L (8.5-10.1) mg/dL Magnesium 2.2 (1.8-2.4) mg/dL Total Bilirubin (0.2-1.0) mg/dL AST (15-37) U/L ALT (12-78) U/L Alkaline Phosphatase (46-116) U/L Troponin I (0.000-0.056) ng/mL C-Reactive Protein (0.0-0.3) mg/dL Total Protein (6.4-8.2) g/dL Albumin (3.4-5.0) g/dL Globulin (2.3-3.5) g/dL Albumin/Globulin Ratio (1.2-2.2) Procalcitonin ng/mL Urine Color (YELLOW) Urine Appearance (CLEAR) Urine pH (5.0-8.0) Ur Specific [place] (1.008-1.030) Urine Protein (NEGATIVE) mg/dL Urine Glucose (UA) (NEGATIVE) mg/dL Urine Ketones (NEGATIVE) mg/dL Urine Occult Blood (NEGATIVE) Urine Nitrite (NEGATIVE) Urine Bilirubin (NEGATIVE) Urine Urobilinogen (0.2-1.0) EU/dL Ur Leukocyte Esterase (NEGATIVE) Urine RBC (0-5) Urine WBC (0-5) Ur Epithelial Cells Amorphous Sediment Urine Bacteria Urine Mucus 10/05/19 Range/Units 07:55 WBC (4.5-11.0) K/uL RBC (4.30-5.90) M/uL Hgb (12.0-15.0) g/dL Hct (40.0-54.0) % MCV (80-98) fL MCH (27-31) pg MCHC (32-36) % Plt Count (150-400) K/uL Neut % (Auto) (36-66) % Lymph % (Auto) (24-44) % [place] % (Auto) (2-6) % Eos % (Auto) (2-4) % Baso % (Auto) (0-1) % PT (9.5-12.0) sec INR (0.80-1.20) APTT (27.0-36.0) sec Sodium (140-148) mmol/L Potassium (3.6-5.2) mmol/L Chloride (100-108) mmol/L Carbon Dioxide (21-32) mmol/L Anion Gap (5.0-14.0) mmol/L BUN (7-18) mg/dL Creatinine (0.8-1.3) mg/dL Est Cr Clr Drug Dosing mL/min Estimated GFR (MDRD) (>60) Glucose (74-106) mg/dL Lactic Acid (0.4-2.0) mmol/L Calcium (8.5-10.1) mg/dL Magnesium (1.8-2.4) mg/dL Total Bilirubin (0.2-1.0) mg/dL AST (15-37) U/L ALT (12-78) U/L Alkaline Phosphatase (46-116) U/L Troponin I 0.113 H* (0.000-0.056) ng/mL C-Reactive Protein (0.0-0.3) mg/dL Total Protein (6.4-8.2) g/dL Albumin (3.4-5.0) g/dL Globulin (2.3-3.5) g/dL Albumin/Globulin Ratio (1.2-2.2) Procalcitonin ng/mL Urine Color (YELLOW) Urine Appearance (CLEAR) Urine pH (5.0-8.0) Ur Specific [place] (1.008-1.030) Urine Protein (NEGATIVE) mg/dL Urine Glucose (UA) (NEGATIVE) mg/dL Urine Ketones (NEGATIVE) mg/dL Urine Occult Blood (NEGATIVE) Urine Nitrite (NEGATIVE) Urine Bilirubin (NEGATIVE) Urine Urobilinogen (0.2-1.0) EU/dL Ur Leukocyte Esterase (NEGATIVE) Urine RBC (0-5) Urine WBC (0-5) Ur Epithelial Cells Amorphous Sediment Urine Bacteria Urine Mucus Med Orders - Current: Current Medications Hydrocodone Bitart/Acetaminophen ([place] 325-5 Mg) 1 - 2 tab PO Q6H PRN PRN Reason: Pain Last Admin: 10/04/19 23:35 Dose: 1 tab Albuterol (Proventil Neb Soln) 2.5 mg NEB Q4H PRN PRN Reason: Shortness Of Breath/wheezing Albuterol/Ipratropium (Duoneb 3.0-0.5 Mg/3 Ml) 3 ml NEB QID PRN PRN Reason: Shortness Of Breath/wheezing Allopurinol (Zyloprim) 150 mg PO DAILY [facility] Last Admin: 10/05/19 08:03 Dose: 150 mg Bisacodyl (Dulcolax) 5 mg PO DAILY PRN PRN Reason: Constipation Budesonide (Pulmicort) 0.5 mg INH BIDRT [facility] Last Admin: 10/05/19 07:02 Dose: 0.5 mg Cilostazol (Pletal) 100 mg PO BIDAC [facility] Last Admin: 10/05/19 07:59 Dose: 100 mg Clopidogrel Bisulfate (Plavix) 75 mg PO BEDTIME [facility] Last Admin: 10/04/19 22:44 Dose: 75 mg Docusate Sodium (Colace) 100 mg PO BID PRN PRN Reason: Constipation Ezetimibe (Zetia) 10 mg PO DAILY [facility] Last Admin: 10/05/19 08:02 Dose: 10 mg Piperacillin/Tazobactam/Dextrose (Zosyn In Dextrose Iso-Osmotic) 50 mls @ 100 mls/hr IV Q8H [facility] Last Admin: 10/05/19 03:53 Dose: 100 mls/hr Vancomycin HCl 1.5 gm/ Sodium (Chloride) 250 mls @ 167 mls/hr IV Q24H [facility] Multivitamins/Minerals (Thera M Plus) 1 tab PO DAILY [facility] Last Admin: 10/05/19 08:02 Dose: 1 tab Ondansetron HCl (Zofran Odt) 4 mg PO Q6H PRN PRN Reason: Nausea able to take PO Ondansetron HCl (Zofran) 4 mg IV Q4H PRN PRN Reason: Nausea/Vomiting Trazodone HCl (Trazodone) 50 mg PO BEDTIME PRN PRN Reason: Sleep Warfarin Sodium (Coumadin) 2.5 mg PO SUTUWETHSA [facility] Warfarin Sodium (Coumadin) 5 mg PO MOFR [facility] Discontinued Medications Acetaminophen/Codeine Phosphate (Tylenol With Codeine No.3 300mg/30mg) 1 tab PO Q4H PRN PRN Reason: Pain Bumetanide (Bumex) 2 mg PO TID [facility] Glimepiride (Amaryl) 4 mg PO DAILY [facility] Last Admin: 10/05/19 08:01 Dose: 4 mg Piperacillin Sod/Tazobactam (Sod 4.5 gm/ Sodium Chloride) 100 mls @ 100 mls/hr IV Q6H [facility] Last Admin: 10/04/19 19:25 Dose: 100 mls/hr Vancomycin HCl 1 gm/ Sodium (Chloride) 250 mls @ 150 mls/hr IV Q12H [facility] Last Admin: 10/04/19 19:27 Dose: 150 mls/hr Potassium Chloride 20 meq/ (Premix) 100 mls @ 50 mls/hr IV ONETIME ONE Stop: 10/04/19 21:34 Last Admin: 10/04/19 20:33 Dose: 50 mls/hr Sodium Chloride (Normal Saline) 1,000 mls @ 75 mls/hr IV ASDIRECTED [facility] Last Admin: 10/04/19 22:47 Dose: 75 mls/hr Sodium Chloride (Normal Saline) Confirm Administered Dose 50 mls @ as directed .ROUTE .STK-MED ONE Stop: 10/05/19 03:41 Last Admin: 10/05/19 03:59 Dose: Not Given Insulin Human Lispro (Humalog) 0 unit SUBCUT QIDACANDBED [facility]; Protocol Last Admin: 10/05/19 07:50 Dose: 9 units Insulin Human Lispro (Humalog) 10 unit SUBCUT ONETIME ONE Stop: 10/04/19 22:49 Last Admin: 10/04/19 23:36 Dose: 10 unit Metolazone (Zaroxolyn) 2.5 mg PO MoWeFr@0900 [facility] Potassium Chloride (Klor-Con M20) 40 meq PO ONETIME ONE Stop: 10/04/19 19:36 Last Admin: 10/04/19 19:58 Dose: 40 meq Potassium Chloride (Klor-Con M20) 40 meq PO ONETIME ONE Stop: 10/05/19 06:20 Last Admin: 10/05/19 06:35 Dose: 40 meq Warfarin Sodium (Coumadin) 2.5 mg PO SUTUWETHSA [facility] Last Admin: 10/04/19 22:44 Dose: 2.5 mg Warfarin Sodium (Coumadin) 5 mg PO MOFR [place] - Exam Quality Assessment: Supplemental Oxygen General: Alert, Oriented, Cooperative, No Acute Distress Lungs: Clear to Auscultation, Normal Respiratory Effort Cardiovascular: Regular Rate, Regular Rhythm, Murmurs GI/Abdominal Exam: Soft, No Distention Extremities: No Pedal Edema. No: Increased Warmth Skin: Warm, Dry Psy/Mental Status: Alert, Normal Affect Sepsis Event Note - Evaluation Sepsis Screening Result: No Definite Risk - Focused Exam Vital Signs: Vital Signs Temp Pulse Resp BP Pulse Ox 10/05/19 10:41 2.6 C L 71 18 101/52 L 100 10/05/19 07:20 99 10/05/19 07:08 36.5 C 72 18 97/50 L 98 10/05/19 07:02 66 10/05/19 02:53 36.8 C 69 16 111/73 94 L 10/05/19 01:31 100 Date Exam was Performed: 10/05/19 Time Exam was Performed: 15:41 - Problem List Review Problem List Initiated/Reviewed/Updated: Yes - My Orders Last 24 Hours: My Active Orders 10/05/19 11:30 RED BLOOD CELLS LP [BBK] Routine Transfuse Red Blood Cells [COMM] Routine 10/05/19 11:32 Discontinue Telemetry Monitoring [Cardiac Monitoring Discontinue] [RC] Click to Edit 10/05/19 12:00 Sodium Chloride 0.9% [Normal Saline] 1,000 ml IV ASDIRECTED 10/05/19 15:00 POTASSIUM,K [CHEM] Timed TROPONIN I [CHEM] Timed 10/06/19 05:00 BASIC METABOLIC PANEL,BMP [CHEM] Timed CBC W/O DIFF,HEMOGRAM [HEME] Timed (1) INR,PT,PROTHROMBIN TIME [COAG] Timed TROPONIN I [CHEM] Timed - Plan Plan:: ASSESSMENT / PLAN Cellulitis of the right lower extremity with sepsis-sepsis seems to have resolved. Probably a component of hypoperfusion with overdiuresis as discussed below leading to the lactic acidosis. Cultures negative so far. Clinically he is improving. -Gentle IV fluids -Continue vancomycin and Pip/Tazo -Follow-up cultures -Pain control -Physical therapy Hypokalemia-profound hypokalemia noted at admission. This is slowly improving but remains quite low. -PO Potassium 40 meq again this morning and repeat this afternoon -Recheck potassium in the morning Heart failure-no evidence for exacerbation. He seems intravascularly deplete and his diuretics will be on hold. -continue outpatient medications except diuretics A-fib chronic-INR nearly therapeutic. -continue outpatient coumadin -Repeat INR in the morning Diabetes Type 2-significant elevation of blood sugar at presentation likely secondary to infection and sepsis. Level has been trending down. With his decreased GFR from baseline I am going to hold his oral medication for now. -Hold Glyubride -Medium dose sliding scale coverage -blood glucose testing before meals and at bedtime Pressure ulcers x2-present on admission. -wound care Maintenance issues -Nutrition: consistent carb diet -DVT: Coumadin therapy -GI: PPI Disposition- [facility] with Adal Moreno MD
[2019-10-05] MEDS: Sodium Chloride 0.9% 1,000 ML IV SCH (11:45)
[2019-10-05] MEDS: Warfarin 2.5 MG Tab PO SCH (12:05)
[2019-10-05] MEDS ORDERED: Insulin Lispro 100 Unit/ML 3 ML KwikPen SUBCUT ONE ×2 (16:35→20:54)
[2019-10-05] MEDS: Acetaminophen/HYDROcodone 325-5 MG Tab PO PRN ×2 (17:02→21:12)
[2019-10-05] MEDS: Piperacillin/Tazobactam/Dext 2.25 GM in Premix Bag 1 BAG IV SCH (21:01)
[2019-10-05] MEDS: Potassium Chloride 20 MEQ Tab.ER PO SCH (21:02)
[2019-10-05] MEDS: Clopidogrel 75 MG Tab PO SCH (21:04)
[2019-10-06] MEDS: traZODone 50 MG Tab PO PRN (00:39)
[2019-10-06] MEDS: Acetaminophen/HYDROcodone 325-5 MG Tab PO PRN ×4 (01:13→21:10)
[2019-10-06] MEDS: Piperacillin/Tazobactam/Dext 2.25 GM in Premix Bag 1 BAG IV SCH (03:56)
[2019-10-06] MEDS: Budesonide 0.5 MG/2 ML Neb Susp INH SCH ×2 (07:04→21:11)
[2019-10-06] MEDS: Insulin Lispro 100 Unit/ML 3 ML KwikPen SUBCUT SCH ×4 (07:42→21:11)
[2019-10-06] MEDS ORDERED: Metolazone 2.5 MG Tab PO SCH (09:00)
[2019-10-06] MEDS: Potassium Chloride 20 MEQ Tab.ER PO SCH (09:06)
[2019-10-06] MEDS: Multivitamins with Iron/Calcium/Folic Acid/Minerals Tab PO SCH (09:06)
[2019-10-06] MEDS: Ezetimibe 10 MG Tab PO SCH (09:07)
[2019-10-06] MEDS: Allopurinol 300 MG Tab PO SCH (09:07)
[2019-10-06] MEDS: Sodium Chloride 0.9% 1,000 ML IV SCH (09:10)
--- NOTE | 2019-10-06 10:40 | PCM.PN ---
- General Info Date of Service: 10/06/19 Subjective Update: There were no acute events overnight. Patient reportsModerate pain in the right leg radiating from the buttocks down his thigh to the knee. Pain is stable but not improving. He thinks that the right thigh swelling is a little better today. Blood sugars have been well controlled. No fevers. Blood pressures improving. No lower extremity edema. Tolerated blood transfusion well yesterday but hemoglobin only up to 7.4. Creatinine is improving but not quite back to baseline. Functional Status: Reports: Tolerating Diet. Denies: Pain Controlled - Review of Systems General: Denies: Fever Gastrointestinal: Reports: Nausea Musculoskeletal: Reports: Leg Pain - Patient Data Vitals - Most Recent: Last Vital Signs Temp 36 C L 10/06/19 10:25 Pulse 64 10/06/19 10:25 Resp 18 10/06/19 10:25 BP 143/51 H 10/06/19 10:25 Pulse Ox 97 10/06/19 07:55 Weight - Most Recent: 102.058 kg I&O - Last 24 Hours: Intake & Output 10/05/19 10/06/19 10/06/19 22:59 06:59 14:59 Intake Total 922 781 0 Output Total 1000 200 Balance -78 581 0 Lab Results Last 24 Hours: Laboratory Results - last 24 hr 10/05/19 10/05/19 10/06/19 Range/Units 11:50 14:52 04:05 WBC 4.8 (4.5-11.0) K/uL RBC 2.04 L (4.30-5.90) M/uL Hgb 7.4 L (12.0-15.0) g/dL Hct 21.7 L (40.0-54.0) % MCV 106 H (80-98) fL MCH 36 H (27-31) pg MCHC 34 (32-36) % Plt Count 187 (150-400) K/uL PT (9.5-12.0) sec INR (0.80-1.20) Sodium (140-148) mmol/L Potassium 2.8 L* (3.6-5.2) mmol/L Chloride (100-108) mmol/L Carbon Dioxide (21-32) mmol/L Anion Gap (5.0-14.0) mmol/L BUN (7-18) mg/dL Creatinine (0.8-1.3) mg/dL Est Cr Clr Drug Dosing mL/min Estimated GFR (MDRD) (>60) Glucose (74-106) mg/dL Calcium (8.5-10.1) mg/dL Troponin I 0.099 H* (0.000-0.056) ng/mL Blood Type O POSITIVE Gel Antibody Screen Negative Crossmatch See Detail 10/06/19 10/06/19 10/06/19 Range/Units 04:05 04:05 09:58 WBC (4.5-11.0) K/uL RBC (4.30-5.90) M/uL Hgb (12.0-15.0) g/dL Hct (40.0-54.0) % MCV (80-98) fL MCH (27-31) pg MCHC (32-36) % Plt Count (150-400) K/uL PT 20.3 H (9.5-12.0) sec INR 1.95 H (0.80-1.20) Sodium 135 L (140-148) mmol/L Potassium 3.4 L (3.6-5.2) mmol/L Chloride 99 L (100-108) mmol/L Carbon Dioxide 29 (21-32) mmol/L Anion Gap 10.4 (5.0-14.0) mmol/L BUN 79 H* (7-18) mg/dL Creatinine 2.7 H (0.8-1.3) mg/dL Est Cr Clr Drug Dosing 18.30 mL/min Estimated GFR (MDRD) 22 L (>60) Glucose 242 H (74-106) mg/dL Calcium 8.3 L (8.5-10.1) mg/dL Troponin I 0.109 H* 0.103 H* (0.000-0.056) ng/mL Blood Type Gel Antibody Screen Crossmatch Danny Results Last 24 Hours: Microbiology 10/04/19 19:00 Aerobic Blood Culture - Preliminary Blood - Arm, Left NO GROWTH AFTER 1 DAY Anaerobic Blood Culture - Preliminary NO GROWTH AFTER 1 DAY 10/04/19 18:50 Aerobic Blood Culture - Preliminary Blood - Venous - Iv Start NO GROWTH AFTER 1 DAY Anaerobic Blood Culture - Preliminary NO GROWTH AFTER 1 DAY Med Orders - Current: Current Medications Hydrocodone Bitart/Acetaminophen ([place] 325-5 Mg) 0 tab PO Q4H PRN PRN Reason: Pain (severe 7-10) Last Admin: 10/06/19 10:21 Dose: 2 tab Albuterol (Proventil Neb Soln) 2.5 mg NEB Q4H PRN PRN Reason: Shortness Of Breath/wheezing Albuterol/Ipratropium (Duoneb 3.0-0.5 Mg/3 Ml) 3 ml NEB QID PRN PRN Reason: Shortness Of Breath/wheezing Allopurinol (Zyloprim) 150 mg PO DAILY [facility] Last Admin: 10/06/19 09:07 Dose: 150 mg Bisacodyl (Dulcolax) 5 mg PO DAILY PRN PRN Reason: Constipation Last Admin: 10/06/19 09:07 Dose: 5 mg Budesonide (Pulmicort) 0.5 mg INH BIDRT [facility] Last Admin: 10/06/19 07:04 Dose: 0.5 mg Cephalexin (Keflex) 500 mg PO TID [facility] Cilostazol (Pletal) 100 mg PO BIDAC [facility] Last Admin: 10/06/19 07:50 Dose: 100 mg Clopidogrel Bisulfate (Plavix) 75 mg PO BEDTIME [facility] Last Admin: 10/05/19 21:04 Dose: 75 mg Docusate Sodium (Colace) 100 mg PO BID PRN PRN Reason: Constipation Ezetimibe (Zetia) 10 mg PO DAILY [facility] Last Admin: 10/06/19 09:07 Dose: 10 mg Sodium Chloride (Normal Saline) 1,000 mls @ 50 mls/hr IV ASDIRECTED [facility] Stop: 10/06/19 13:00 Last Admin: 10/06/19 09:10 Dose: 50 mls/hr Insulin Human Lispro (Humalog) 0 unit SUBCUT QIDACANDBED [facility]; Protocol Last Admin: 10/06/19 07:42 Dose: 6 units Multivitamins/Minerals (Thera M Plus) 1 tab PO DAILY [facility] Last Admin: 10/06/19 09:06 Dose: 1 tab Ondansetron HCl (Zofran Odt) 4 mg PO Q6H PRN PRN Reason: Nausea able to take PO Ondansetron HCl (Zofran) 4 mg IV Q4H PRN PRN Reason: Nausea/Vomiting Trazodone HCl (Trazodone) 50 mg PO BEDTIME PRN PRN Reason: Sleep Last Admin: 10/06/19 00:39 Dose: 50 mg Warfarin Sodium (Coumadin) 2.5 mg PO SUTUWETHSA [facility] Last Admin: 10/05/19 12:05 Dose: 2.5 mg Warfarin Sodium (Coumadin) 5 mg PO MOFR [facility] Discontinued Medications Acetaminophen/Codeine Phosphate (Tylenol With Codeine No.3 300mg/30mg) 1 tab PO Q4H PRN PRN Reason: Pain Hydrocodone Bitart/Acetaminophen ([place] 325-5 Mg) 1 - 2 tab PO Q6H PRN PRN Reason: Pain Last Admin: 10/05/19 17:02 Dose: 1 tab Bumetanide (Bumex) 2 mg PO TID [facility] Glimepiride (Amaryl) 4 mg PO DAILY [facility] Last Admin: 10/05/19 08:01 Dose: 4 mg Piperacillin Sod/Tazobactam (Sod 4.5 gm/ Sodium Chloride) 100 mls @ 100 mls/hr IV Q6H [facility] Last Admin: 10/04/19 19:25 Dose: 100 mls/hr Vancomycin HCl 1 gm/ Sodium (Chloride) 250 mls @ 150 mls/hr IV Q12H [facility] Last Admin: 10/04/19 19:27 Dose: 150 mls/hr Potassium Chloride 20 meq/ (Premix) 100 mls @ 50 mls/hr IV ONETIME ONE Stop: 10/04/19 21:34 Last Admin: 10/04/19 20:33 Dose: 50 mls/hr Piperacillin/Tazobactam/Dextrose (Zosyn In Dextrose Iso-Osmotic) 50 mls @ 100 mls/hr IV Q8H [facility] Stop: 10/05/19 14:00 Last Admin: 10/05/19 12:05 Dose: 100 mls/hr Sodium Chloride (Normal Saline) 1,000 mls @ 75 mls/hr IV ASDIRECTED [facility] Last Admin: 10/04/19 22:47 Dose: 75 mls/hr Sodium Chloride (Normal Saline) Confirm Administered Dose 50 mls @ as directed .ROUTE .STK-MED ONE Stop: 10/05/19 03:41 Last Admin: 10/05/19 03:59 Dose: Not Given Vancomycin HCl 1.5 gm/ Sodium (Chloride) 250 mls @ 167 mls/hr IV Q24H [facility] Last Admin: 10/05/19 17:03 Dose: 167 mls/hr Piperacillin/Tazobactam/ (Dextrose 2.25 gm/ Premix) 50 mls @ 100 mls/hr IV Q8H [facility] Last Admin: 10/06/19 03:56 Dose: 100 mls/hr Insulin Human Lispro (Humalog) 0 unit SUBCUT QIDACANDBED [facility]; Protocol Last Admin: 10/05/19 12:00 Dose: Not Given Insulin Human Lispro (Humalog) 10 unit SUBCUT ONETIME ONE Stop: 10/04/19 22:49 Last Admin: 10/04/19 23:36 Dose: 10 unit Insulin Human Lispro (Humalog) 15 unit SUBCUT ONETIME ONE Stop: 10/05/19 16:36 Last Admin: 10/05/19 16:46 Dose: 15 units Insulin Human Lispro (Humalog) 20 unit SUBCUT ONETIME ONE Stop: 10/05/19 20:55 Last Admin: 10/05/19 21:02 Dose: 20 units Metolazone (Zaroxolyn) 2.5 mg PO MoWeFr@0900 [facility] Potassium Chloride (Klor-Con M20) 40 meq PO ONETIME ONE Stop: 10/04/19 19:36 Last Admin: 10/04/19 19:58 Dose: 40 meq Potassium Chloride (Klor-Con M20) 40 meq PO ONETIME ONE Stop: 10/05/19 06:20 Last Admin: 10/05/19 06:35 Dose: 40 meq Potassium Chloride (Klor-Con M20) 40 meq PO ONETIME ONE Stop: 10/05/19 15:36 Last Admin: 10/05/19 16:48 Dose: 40 meq Potassium Chloride (Klor-Con M20) 40 meq PO BID [facility] Stop: 10/06/19 09:01 Last Admin: 10/06/19 09:06 Dose: 40 meq Warfarin Sodium (Coumadin) 2.5 mg PO SUTUWETHSA [facility] Last Admin: 10/04/19 22:44 Dose: 2.5 mg Warfarin Sodium (Coumadin) 5 mg PO MOFR [facility] - Exam Quality Assessment: No: Supplemental Oxygen General: Alert, Oriented, Cooperative, No Acute Distress Neck: Supple Lungs: Normal Respiratory Effort Cardiovascular: Regular Rate, Regular Rhythm GI/Abdominal Exam: Soft, No Distention Extremities: No Pedal Edema, Other (no deformity of right hip or thigh. Mild ttp right lateral thigh) Skin: Warm, Dry. No: Ecchymosis (no bruising right thigh ) Psy/Mental Status: Alert, Normal Affect Sepsis Event Note - Evaluation Sepsis Screening Result: No Definite Risk - Focused Exam Vital Signs: Vital Signs Temp Temp Pulse Resp BP Pulse Ox 10/06/19 10:25 36 C L 64 18 143/51 H 10/06/19 10:15 36 C L 66 18 137/75 10/06/19 10:11 36.2 C 70 18 131/64 10/06/19 07:55 36.2 C 79 18 142/58 H 97 10/06/19 07:03 68 10/06/19 03:55 36.4 C 69 18 111/46 L 94 L 10/05/19 23:00 36.2 C 52 L 18 132/51 L 96 Date Exam was Performed: 10/06/19 Time Exam was Performed: 14:10 - Problem List Review Problem List Initiated/Reviewed/Updated: Yes - My Orders Last 24 Hours: My Active Orders 10/05/19 11:30 Transfuse Red Blood Cells [COMM] Routine 10/05/19 12:00 Sodium Chloride 0.9% [Normal Saline] 1,000 ml IV ASDIRECTED 10/05/19 15:46 Communication Order [RC] PRN Communication Order [RC] PRN 10/05/19 15:47 Up With Assistance [RC] ASDIRECTED 10/05/19 17:00 Insulin Lispro [HumaLOG] See Protocol SUBCUT QIDACANDBED 10/06/19 08:47 Transfuse Red Blood Cells [COMM] Routine 10/06/19 10:35 Lumbar Spine Comp wo Cont [MR] Routine 10/06/19 14:00 cephALEXin [Keflex] 500 mg PO TID 10/07/19 05:00 BASIC METABOLIC PANEL,BMP [CHEM] Timed CBC W/O DIFF,HEMOGRAM [HEME] Timed (1) INR,PT,PROTHROMBIN TIME [COAG] Timed 10/08/19 17:30 VANCOMYCIN TROUGH [CHEM] Routine - Plan Plan:: ASSESSMENT / PLAN Cellulitis of the right lower extremity with sepsis-sepsis has resolved and infection is improving. There is less erythema and warmth. Cultures negative so far. -Saline lock IV -Transition antibiotics to cephalexin -Follow-up cultures -Pain control -Physical therapy Suspected right-sided lumbar radiculopathy-moderate to moderately severe pain of the right posterior thigh radiating to the knee. Concerning for radiculopathy. Progressive pain and weakness in the leg were responsible for his fall that prompted his admission to the hospital. History of lumbar disc disease. -MRI of the lumbar spine -Pain control -Physical therapy Hypokalemia-potassium level slowly improving with supplementation. -PO Potassium 40 meq again this morning -Recheck potassium in the morning Heart failure-no evidence for exacerbation. He seems intravascularly deplete and his diuretics will be on hold. -continue outpatient medications except diuretics A-fib chronic-INR nearly therapeutic. -continue outpatient coumadin -Repeat INR in the morning Diabetes Type 2-blood sugars improving. Oral home medication on hold because of decreased kidney function -Hold Glyubride, anticipate restarting tomorrow -Medium dose sliding scale coverage -blood glucose testing before meals and at bedtime Pressure ulcers x2-present on admission. -wound care Maintenance issues -Nutrition: consistent carb diet -DVT: Coumadin therapy -GI: PPI Disposition-I would anticipate discharge home with home care versus possibly subacute rehab Alvaro Moreno MD
[2019-10-06] MEDS ORDERED: Warfarin 5 MG Tab PO SCH ×2 (13:00→20:02)
[2019-10-06] MEDS: Cephalexin 250 MG Cap PO SCH ×2 (13:19→21:11)
--- NOTE | 2019-10-06 14:55 | CRLMR ---
INDICATION: Low back pain. History of cancer. TECHNIQUE: Noncontrast MRI of the lumbar spine is performed in the usual fashion . Comparison : From January 05, 2019. FINDINGS: The overall stature, alignment and marrow signal of the lumbar spine is within normal limits. Conus is within normal limits. L1-2: Minor disk bulge results in no central canal or foraminal narrowing. L2-3: Mild circumferential disk bulge, endplate osteophyte and facet arthropathy results in no significant central canal or foraminal narrowing. L3-4: Stable mild circumferential disk bulge and endplate osteophyte with facet arthropathy results in stable mild central canal, bilateral recess and foraminal narrowing. L4-5: Stable posterior central disk protrusion extends approximately 10 mm beyond the posterior vertebral body margin resulting in stable severe central canal, bilateral lateral recess narrowing. Stable mild bilateral foraminal narrowing. L5-S1: Stable mild disk bulge and moderate facet arthropathy results in no central canal or left foraminal narrowing. Mild right foraminal narrowing with contact of the exiting right L5 nerve root is again demonstrated. IMPRESSION: 1. Stable severe central canal and bilateral recess narrowing at L4-5. 2. Stable, milder degenerative changes within the remainder of the lumbar spine as outlined above. Dictated by Zachariah Hsu MD @ 10/06/2019 2:53:49 PM Dictated by: Zachariah Hsu MD @ 10/06/2019 14:53:58 (Electronically Signed)
[2019-10-06] MEDS: Clopidogrel 75 MG Tab PO SCH (21:11)
[2019-10-07] MEDS: Acetaminophen/HYDROcodone 325-5 MG Tab PO PRN ×2 (01:14→07:47)
[2019-10-07] MEDS: Budesonide 0.5 MG/2 ML Neb Susp INH SCH ×2 (07:14→22:28)
[2019-10-07] MEDS: Allopurinol 300 MG Tab PO SCH (08:03)
[2019-10-07] MEDS: Multivitamins with Iron/Calcium/Folic Acid/Minerals Tab PO SCH (08:03)
[2019-10-07] MEDS: Cephalexin 250 MG Cap PO SCH ×3 (08:03→21:14)
[2019-10-07] MEDS: Insulin Lispro 100 Unit/ML 3 ML KwikPen SUBCUT SCH ×4 (08:06→21:15)
--- NOTE | 2019-10-07 09:32 | PCM.PN ---
- General Info Date of Service: 10/07/19 Subjective Update: No acute events overnight. He did not sleep well partly because of pain in the right thigh area and partly because of the unfamiliar setting. Pain is stable but not dramatically improved. He has had several episodes of nausea with vomiting after taking pain pills. No nausea in between doses of pain medications. Tolerating steroids so far. Blood sugars moderately elevated. Kidney function back to normal. Potassium still on the low side but improving. He does note some lower extremity edema today. Functional Status: Reports: Pain Controlled, Tolerating Diet - Review of Systems Gastrointestinal: Reports: Vomiting Musculoskeletal: Reports: Leg Pain - Patient Data Vitals - Most Recent: Last Vital Signs Temp 36.5 C 10/07/19 07:25 Pulse 76 10/07/19 07:37 Resp 20 10/07/19 07:25 BP 123/59 L 10/07/19 07:25 Pulse Ox 96 10/07/19 07:25 Weight - Most Recent: 102.058 kg I&O - Last 24 Hours: Intake & Output 10/06/19 10/07/19 10/07/19 22:59 06:59 14:59 Intake Total 480 240 Output Total 650 625 300 Balance -170 -385 -300 Lab Results Last 24 Hours: Laboratory Results - last 24 hr 10/05/19 10/06/19 10/07/19 Range/Units 11:50 09:58 04:15 WBC 6.1 (4.5-11.0) K/uL RBC 2.69 L (4.30-5.90) M/uL Hgb 9.3 L (12.0-15.0) g/dL Hct 27.7 L (40.0-54.0) % MCV 103 H (80-98) fL MCH 35 H (27-31) pg MCHC 34 (32-36) % Plt Count 263 (150-400) K/uL PT (9.5-12.0) sec INR (0.80-1.20) Sodium (140-148) mmol/L Potassium (3.6-5.2) mmol/L Chloride (100-108) mmol/L Carbon Dioxide (21-32) mmol/L Anion Gap (5.0-14.0) mmol/L BUN (7-18) mg/dL Creatinine (0.8-1.3) mg/dL Est Cr Clr Drug Dosing mL/min Estimated GFR (MDRD) (>60) Glucose (74-106) mg/dL Calcium (8.5-10.1) mg/dL Troponin I 0.103 H* (0.000-0.056) ng/mL Blood Type O POSITIVE Gel Antibody Screen Negative Crossmatch See Detail 10/07/19 10/07/19 Range/Units 04:15 04:15 WBC (4.5-11.0) K/uL RBC (4.30-5.90) M/uL Hgb (12.0-15.0) g/dL Hct (40.0-54.0) % MCV (80-98) fL MCH (27-31) pg MCHC (32-36) % Plt Count (150-400) K/uL PT 19.8 H (9.5-12.0) sec INR 1.90 H (0.80-1.20) Sodium 137 L (140-148) mmol/L Potassium 3.2 L (3.6-5.2) mmol/L Chloride 101 (100-108) mmol/L Carbon Dioxide 27 (21-32) mmol/L Anion Gap 12.2 (5.0-14.0) mmol/L BUN 59 H (7-18) mg/dL Creatinine 2.2 H (0.8-1.3) mg/dL Est Cr Clr Drug Dosing 22.45 mL/min Estimated GFR (MDRD) 28 L (>60) Glucose 246 H (74-106) mg/dL Calcium 9.1 (8.5-10.1) mg/dL Troponin I (0.000-0.056) ng/mL Blood Type Gel Antibody Screen Crossmatch Danny Results Last 24 Hours: Microbiology 10/04/19 18:50 Aerobic Blood Culture - Preliminary Blood - Venous - Iv Start NO GROWTH AFTER 2 DAYS Anaerobic Blood Culture - Preliminary NO GROWTH AFTER 2 DAYS 10/04/19 19:00 Aerobic Blood Culture - Preliminary Blood - Arm, Left NO GROWTH AFTER 2 DAYS Anaerobic Blood Culture - Preliminary NO GROWTH AFTER 2 DAYS Med Orders - Current: Current Medications Albuterol (Proventil Neb Soln) 2.5 mg NEB Q4H PRN PRN Reason: Shortness Of Breath/wheezing Albuterol/Ipratropium (Duoneb 3.0-0.5 Mg/3 Ml) 3 ml NEB QID PRN PRN Reason: Shortness Of Breath/wheezing Allopurinol (Zyloprim) 150 mg PO DAILY [facility] Last Admin: 10/07/19 08:03 Dose: 150 mg Bisacodyl (Dulcolax) 5 mg PO DAILY PRN PRN Reason: Constipation Last Admin: 10/06/19 09:07 Dose: 5 mg Budesonide (Pulmicort) 0.5 mg INH BIDRT [facility] Last Admin: 10/07/19 07:14 Dose: 0.5 mg Cephalexin (Keflex) 500 mg PO TID [facility] Last Admin: 10/07/19 08:03 Dose: 500 mg Cilostazol (Pletal) 100 mg PO BIDAC [facility] Last Admin: 10/07/19 07:55 Dose: 100 mg Clopidogrel Bisulfate (Plavix) 75 mg PO BEDTIME [facility] Last Admin: 10/06/19 21:11 Dose: 75 mg Docusate Sodium (Colace) 100 mg PO BID PRN PRN Reason: Constipation Ezetimibe (Zetia) 10 mg PO DAILY [facility] Last Admin: 10/06/19 09:07 Dose: 10 mg Insulin Human Lispro (Humalog) 0 unit SUBCUT QIDACANDBED [facility]; Protocol Last Admin: 10/07/19 08:06 Dose: 6 units Multivitamins/Minerals (Thera M Plus) 1 tab PO DAILY [facility] Last Admin: 10/07/19 08:03 Dose: 1 tab Ondansetron HCl (Zofran Odt) 4 mg PO Q6H PRN PRN Reason: Nausea able to take PO Ondansetron HCl (Zofran) 4 mg IV Q4H PRN PRN Reason: Nausea/Vomiting Last Admin: 10/07/19 08:46 Dose: 4 mg Oxycodone HCl (Oxycodone) 5 - 10 mg PO Q4H PRN PRN Reason: Pain Potassium Chloride (Klor-Con M20) 40 meq PO BID [facility] Trazodone HCl (Trazodone) 50 mg PO BEDTIME PRN PRN Reason: Sleep Last Admin: 10/06/19 00:39 Dose: 50 mg Warfarin Sodium (Coumadin) 2.5 mg PO SUTUWETHSA [facility] Last Admin: 10/05/19 12:05 Dose: 2.5 mg Warfarin Sodium (Coumadin) 5 mg PO MOFR [facility] Last Admin: 10/06/19 13:19 Dose: 5 mg Discontinued Medications Acetaminophen/Codeine Phosphate (Tylenol With Codeine No.3 300mg/30mg) 1 tab PO Q4H PRN PRN Reason: Pain Hydrocodone Bitart/Acetaminophen ([place] 325-5 Mg) 1 - 2 tab PO Q6H PRN PRN Reason: Pain Last Admin: 10/05/19 17:02 Dose: 1 tab Hydrocodone Bitart/Acetaminophen ([place] 325-5 Mg) 0 tab PO Q4H PRN PRN Reason: Pain (severe 7-10) Last Admin: 10/07/19 07:47 Dose: 2 tab Bumetanide (Bumex) 2 mg PO TID [facility] Glimepiride (Amaryl) 4 mg PO DAILY [facility] Last Admin: 10/05/19 08:01 Dose: 4 mg Piperacillin Sod/Tazobactam (Sod 4.5 gm/ Sodium Chloride) 100 mls @ 100 mls/hr IV Q6H [facility] Last Admin: 10/04/19 19:25 Dose: 100 mls/hr Vancomycin HCl 1 gm/ Sodium (Chloride) 250 mls @ 150 mls/hr IV Q12H [facility] Last Admin: 10/04/19 19:27 Dose: 150 mls/hr Potassium Chloride 20 meq/ (Premix) 100 mls @ 50 mls/hr IV ONETIME ONE Stop: 10/04/19 21:34 Last Admin: 10/04/19 20:33 Dose: 50 mls/hr Piperacillin/Tazobactam/Dextrose (Zosyn In Dextrose Iso-Osmotic) 50 mls @ 100 mls/hr IV Q8H [facility] Stop: 10/05/19 14:00 Last Admin: 10/05/19 12:05 Dose: 100 mls/hr Sodium Chloride (Normal Saline) 1,000 mls @ 75 mls/hr IV ASDIRECTED [facility] Last Admin: 10/04/19 22:47 Dose: 75 mls/hr Sodium Chloride (Normal Saline) Confirm Administered Dose 50 mls @ as directed .ROUTE .STK-MED ONE Stop: 10/05/19 03:41 Last Admin: 10/05/19 03:59 Dose: Not Given Vancomycin HCl 1.5 gm/ Sodium (Chloride) 250 mls @ 167 mls/hr IV Q24H [facility] Last Admin: 10/05/19 17:03 Dose: 167 mls/hr Sodium Chloride (Normal Saline) 1,000 mls @ 50 mls/hr IV ASDIRECTED [facility] Stop: 10/06/19 13:00 Last Admin: 10/06/19 09:10 Dose: 50 mls/hr Piperacillin/Tazobactam/ (Dextrose 2.25 gm/ Premix) 50 mls @ 100 mls/hr IV Q8H [facility] Last Admin: 10/06/19 03:56 Dose: 100 mls/hr Insulin Human Lispro (Humalog) 0 unit SUBCUT QIDACANDBED [facility]; Protocol Last Admin: 10/05/19 12:00 Dose: Not Given Insulin Human Lispro (Humalog) 10 unit SUBCUT ONETIME ONE Stop: 10/04/19 22:49 Last Admin: 10/04/19 23:36 Dose: 10 unit Insulin Human Lispro (Humalog) 15 unit SUBCUT ONETIME ONE Stop: 10/05/19 16:36 Last Admin: 10/05/19 16:46 Dose: 15 units Insulin Human Lispro (Humalog) 20 unit SUBCUT ONETIME ONE Stop: 10/05/19 20:55 Last Admin: 10/05/19 21:02 Dose: 20 units Metolazone (Zaroxolyn) 2.5 mg PO MoWeFr@0900 [facility] Potassium Chloride (Klor-Con M20) 40 meq PO ONETIME ONE Stop: 10/04/19 19:36 Last Admin: 10/04/19 19:58 Dose: 40 meq Potassium Chloride (Klor-Con M20) 40 meq PO ONETIME ONE Stop: 10/05/19 06:20 Last Admin: 10/05/19 06:35 Dose: 40 meq Potassium Chloride (Klor-Con M20) 40 meq PO ONETIME ONE Stop: 10/05/19 15:36 Last Admin: 10/05/19 16:48 Dose: 40 meq Potassium Chloride (Klor-Con M20) 40 meq PO BID [facility] Stop: 10/06/19 09:01 Last Admin: 10/06/19 09:06 Dose: 40 meq Warfarin Sodium (Coumadin) 2.5 mg PO SUTUWETHSA [facility] Last Admin: 10/04/19 22:44 Dose: 2.5 mg Warfarin Sodium (Coumadin) 5 mg PO MOFR [facility] - Exam Quality Assessment: No: Supplemental Oxygen General: Alert, Oriented, Cooperative, No Acute Distress Lungs: Normal Respiratory Effort Cardiovascular: Regular Rate, Regular Rhythm GI/Abdominal Exam: Soft, No Distention Extremities: Pedal Edema Skin: Warm, Dry Psy/Mental Status: Alert, Normal Affect Sepsis Event Note - Evaluation Sepsis Screening Result: No Definite Risk - Focused Exam Vital Signs: Vital Signs Temp Temp Pulse Resp BP Pulse Ox 10/07/19 07:37 76 10/07/19 07:25 36.5 C 76 20 123/59 L 96 10/07/19 06:07 36.8 C 78 16 80/41 L 10/07/19 04:00 36.5 C 55 L 16 144/42 H 93 L 10/06/19 23:24 36.2 C 55 L 15 122/54 L 93 L 10/06/19 22:02 36 C L 76 12 147/56 H 97 Date Exam was Performed: 10/07/19 Time Exam was Performed: 10:42 - Problem List Review Problem List Initiated/Reviewed/Updated: Yes - My Orders Last 24 Hours: My Active Orders 10/06/19 08:47 Transfuse Red Blood Cells [COMM] Routine 10/06/19 14:00 cephALEXin [Keflex] 500 mg PO TID 10/07/19 09:00 Potassium Chloride [Klor-Con M20] 40 meq PO BID 10/07/19 09:05 oxyCODONE 5 - 10 mg PO Q4H PRN 10/07/19 09:30 Antiembolic Devices [RC] .Routine [place]NOR Hose [Antiembolic Hose] [OM.PC] Routine 10/07/19 14:00 Bumetanide [Bumex] 2 mg PO BIDDIURETIC 10/07/19 21:00 Gabapentin [Neurontin] 100 mg PO BEDTIME 10/08/19 05:00 BASIC METABOLIC PANEL,BMP [CHEM] Timed HGB [HEMOGLOBIN] [HEME] Timed INR,PT,PROTHROMBIN TIME [COAG] Timed 10/08/19 17:30 VANCOMYCIN TROUGH [CHEM] Routine - Plan Plan:: ASSESSMENT / PLAN Cellulitis of the right lower extremity with sepsis-sepsis has resolved and infection continues to improve. -Saline lock IV -Continue cephalexin -Follow-up cultures -Pain control -Physical therapy Right-sided lumbar radiculopathy-MRI of the lumbar spine showed lumbar disc protrusion between L4 and L5 with severe canal stenosis which is stable compared to last summer. Still having significant pain but moving a little better. -Trial of steroids -Gabapentin at bedtime -Pain control with change to oxycodone -Consider epidural steroid injections -Physical therapy Acute on chronic kidney injury-creatinine has improved with hydration and holding diuretics. Kidney function now back to normal and he is starting to develop some edema. -Restart diuretics Hypokalemia-potassium level slowly improving with supplementation. -PO Potassium 40 meq twice daily today -Recheck potassium in the morning Heart failure-no evidence for exacerbation but edema is starting to build up. -continue outpatient medications -Restart diuretics today A-fib chronic-INR nearly therapeutic. -continue outpatient coumadin -Repeat INR in the morning Diabetes Type 2-moderate elevation of blood sugars with steroids. -Restart glyburide -Medium dose sliding scale coverage -blood glucose testing before meals and at bedtime Pressure ulcers x2-present on admission. -wound care Maintenance issues -Nutrition: consistent carb diet -DVT: Coumadin therapy -GI: PPI Disposition-I would anticipate discharge home with home care versus possibly subacute rehab Alvaro Moreno MD
[2019-10-07] MEDS: Potassium Chloride 20 MEQ Tab.ER PO SCH ×2 (13:12→21:15)
[2019-10-07] MEDS: Ezetimibe 10 MG Tab PO SCH (13:12)
[2019-10-07] MEDS: Bumetanide 1 MG Tab PO SCH (13:13)
[2019-10-07] MEDS: Warfarin 2.5 MG Tab PO SCH (13:14)
[2019-10-07] MEDS: oxyCODONE 5 MG Tab PO PRN (14:44)
[2019-10-07] MEDS: Gabapentin 100 MG Cap PO SCH (21:14)
[2019-10-07] MEDS: Clopidogrel 75 MG Tab PO SCH (21:14)
[2019-10-08] MEDS: oxyCODONE 5 MG Tab PO PRN ×3 (02:46→20:53)
[2019-10-08] MEDS: traZODone 50 MG Tab PO PRN ×2 (02:47→20:52)
[2019-10-08] MEDS: Budesonide 0.5 MG/2 ML Neb Susp INH SCH ×2 (07:02→21:02)
[2019-10-08] MEDS: Insulin Lispro 100 Unit/ML 3 ML KwikPen SUBCUT SCH ×4 (08:30→20:55)
[2019-10-08] MEDS: Glimepiride 2 MG Tab PO SCH (08:31)
[2019-10-08] MEDS: Cephalexin 250 MG Cap PO SCH ×3 (08:32→20:52)
[2019-10-08] MEDS: Ezetimibe 10 MG Tab PO SCH (08:32)
[2019-10-08] MEDS: Allopurinol 300 MG Tab PO SCH (08:32)
[2019-10-08] MEDS: Potassium Chloride 20 MEQ Tab.ER PO SCH ×2 (08:32→20:53)
[2019-10-08] MEDS: Multivitamins with Iron/Calcium/Folic Acid/Minerals Tab PO SCH (08:32)
[2019-10-08] MEDS: Bumetanide 1 MG Tab PO SCH ×2 (08:32→14:04)
[2019-10-08] MEDS: Lactobacillus Rhamnosus GG (Probiotic) Cap PO SCH ×2 (09:58→20:53)
--- NOTE | 2019-10-08 10:00 | PCM.PN ---
- General Info Date of Service: 10/08/19 Subjective Update: No acute events overnight. No emesis since yesterday morning. Still having pain in the right posterior thigh. Pain is 2 out of 10 at rest and about 4-5 out of 10 with activity. This is better than yesterday. Strength is improving. Still has some lower extremity edema. No fevers. Kidney function stable. Functional Status: Reports: Pain Controlled, Tolerating Diet - Review of Systems General: Denies: Fever Musculoskeletal: Reports: Leg Pain - Patient Data Vitals - Most Recent: Last Vital Signs Temp 36.7 C 10/08/19 07:45 Pulse 84 10/08/19 07:45 Resp 16 10/08/19 07:45 BP 108/62 10/08/19 07:45 Pulse Ox 91 L 10/08/19 07:45 Weight - Most Recent: 102.058 kg I&O - Last 24 Hours: Intake & Output 10/07/19 10/08/19 10/08/19 22:59 06:59 14:59 Intake Total 1000 600 Output Total 450 Balance 550 600 Lab Results Last 24 Hours: Laboratory Results - last 24 hr 10/08/19 10/08/19 10/08/19 Range/Units 04:40 04:40 04:40 Hgb 9.9 L (12.0-15.0) g/dL PT 26.0 H (9.5-12.0) sec INR 2.54 H (0.80-1.20) Sodium 138 L (140-148) mmol/L Potassium 4.1 (3.6-5.2) mmol/L Chloride 101 (100-108) mmol/L Carbon Dioxide 27 (21-32) mmol/L Anion Gap 14.1 H (5.0-14.0) mmol/L BUN 52 H (7-18) mg/dL Creatinine 2.4 H (0.8-1.3) mg/dL Est Cr Clr Drug Dosing 20.58 mL/min Estimated GFR (MDRD) 26 L (>60) Glucose 218 H (74-106) mg/dL Calcium 9.1 (8.5-10.1) mg/dL Danny Results Last 24 Hours: Microbiology 10/04/19 19:00 Aerobic Blood Culture - Preliminary Blood - Arm, Left NO GROWTH AFTER 3 DAYS Anaerobic Blood Culture - Preliminary NO GROWTH AFTER 3 DAYS 10/04/19 18:50 Aerobic Blood Culture - Preliminary Blood - Venous - Iv Start NO GROWTH AFTER 3 DAYS Anaerobic Blood Culture - Preliminary NO GROWTH AFTER 3 DAYS Med Orders - Current: Current Medications Albuterol (Proventil Neb Soln) 2.5 mg NEB Q4H PRN PRN Reason: Shortness Of Breath/wheezing Albuterol/Ipratropium (Duoneb 3.0-0.5 Mg/3 Ml) 3 ml NEB QID PRN PRN Reason: Shortness Of Breath/wheezing Allopurinol (Zyloprim) 150 mg PO DAILY [facility] Last Admin: 10/08/19 08:32 Dose: 150 mg Bisacodyl (Dulcolax) 5 mg PO DAILY PRN PRN Reason: Constipation Last Admin: 10/06/19 09:07 Dose: 5 mg Budesonide (Pulmicort) 0.5 mg INH BIDRT [facility] Last Admin: 10/08/19 07:02 Dose: 0.5 mg Bumetanide (Bumex) 2 mg PO BIDDIURETIC [facility] Last Admin: 10/08/19 08:32 Dose: 2 mg Cephalexin (Keflex) 500 mg PO TID [facility] Last Admin: 10/08/19 08:32 Dose: 500 mg Cilostazol (Pletal) 100 mg PO BIDAC [facility] Last Admin: 10/08/19 08:32 Dose: 100 mg Clopidogrel Bisulfate (Plavix) 75 mg PO BEDTIME [facility] Last Admin: 10/07/19 21:14 Dose: 75 mg Docusate Sodium (Colace) 100 mg PO BID PRN PRN Reason: Constipation Ezetimibe (Zetia) 10 mg PO DAILY [facility] Last Admin: 10/08/19 08:32 Dose: 10 mg Gabapentin (Neurontin) 100 mg PO BEDTIME [facility] Last Admin: 10/07/19 21:14 Dose: 100 mg Glimepiride (Amaryl) 4 mg PO WITHBREAKFAST [facility] Last Admin: 10/08/19 08:31 Dose: 4 mg Insulin Human Lispro (Humalog) 0 unit SUBCUT QIDACANDBED [facility]; Protocol Last Admin: 10/08/19 08:30 Dose: 4 units Lactobacillus Rhamnosus (Culturelle) 1 cap PO BID [facility] Multivitamins/Minerals (Thera M Plus) 1 tab PO DAILY [facility] Last Admin: 10/08/19 08:32 Dose: 1 tab Ondansetron HCl (Zofran Odt) 4 mg PO Q6H PRN PRN Reason: Nausea able to take PO Ondansetron HCl (Zofran) 4 mg IV Q4H PRN PRN Reason: Nausea/Vomiting Last Admin: 10/07/19 08:46 Dose: 4 mg Oxycodone HCl (Oxycodone) 5 - 10 mg PO Q4H PRN PRN Reason: Pain Last Admin: 10/08/19 02:46 Dose: 5 mg Potassium Chloride (Klor-Con M20) 40 meq PO BID [facility] Last Admin: 10/08/19 08:32 Dose: 40 meq Trazodone HCl (Trazodone) 50 mg PO BEDTIME PRN PRN Reason: Sleep Last Admin: 10/08/19 02:47 Dose: 50 mg Warfarin Sodium (Coumadin) 2.5 mg PO SUTUWETHSA [facility] Last Admin: 10/07/19 13:14 Dose: 2.5 mg Warfarin Sodium (Coumadin) 5 mg PO MOFR [facility] Last Admin: 10/06/19 13:19 Dose: 5 mg Discontinued Medications Acetaminophen/Codeine Phosphate (Tylenol With Codeine No.3 300mg/30mg) 1 tab PO Q4H PRN PRN Reason: Pain Hydrocodone Bitart/Acetaminophen ([place] 325-5 Mg) 1 - 2 tab PO Q6H PRN PRN Reason: Pain Last Admin: 10/05/19 17:02 Dose: 1 tab Hydrocodone Bitart/Acetaminophen ([place] 325-5 Mg) 0 tab PO Q4H PRN PRN Reason: Pain (severe 7-10) Last Admin: 10/07/19 07:47 Dose: 2 tab Bumetanide (Bumex) 2 mg PO TID [facility] Glimepiride (Amaryl) 4 mg PO DAILY [facility] Last Admin: 10/05/19 08:01 Dose: 4 mg Piperacillin Sod/Tazobactam (Sod 4.5 gm/ Sodium Chloride) 100 mls @ 100 mls/hr IV Q6H [facility] Last Admin: 10/04/19 19:25 Dose: 100 mls/hr Vancomycin HCl 1 gm/ Sodium (Chloride) 250 mls @ 150 mls/hr IV Q12H [facility] Last Admin: 10/04/19 19:27 Dose: 150 mls/hr Potassium Chloride 20 meq/ (Premix) 100 mls @ 50 mls/hr IV ONETIME ONE Stop: 10/04/19 21:34 Last Admin: 10/04/19 20:33 Dose: 50 mls/hr Piperacillin/Tazobactam/Dextrose (Zosyn In Dextrose Iso-Osmotic) 50 mls @ 100 mls/hr IV Q8H [facility] Stop: 10/05/19 14:00 Last Admin: 10/05/19 12:05 Dose: 100 mls/hr Sodium Chloride (Normal Saline) 1,000 mls @ 75 mls/hr IV ASDIRECTED [facility] Last Admin: 10/04/19 22:47 Dose: 75 mls/hr Sodium Chloride (Normal Saline) Confirm Administered Dose 50 mls @ as directed .ROUTE .STK-MED ONE Stop: 10/05/19 03:41 Last Admin: 10/05/19 03:59 Dose: Not Given Vancomycin HCl 1.5 gm/ Sodium (Chloride) 250 mls @ 167 mls/hr IV Q24H [facility] Last Admin: 10/05/19 17:03 Dose: 167 mls/hr Sodium Chloride (Normal Saline) 1,000 mls @ 50 mls/hr IV ASDIRECTED [facility] Stop: 10/06/19 13:00 Last Admin: 10/06/19 09:10 Dose: 50 mls/hr Piperacillin/Tazobactam/ (Dextrose 2.25 gm/ Premix) 50 mls @ 100 mls/hr IV Q8H [facility] Last Admin: 10/06/19 03:56 Dose: 100 mls/hr Insulin Human Lispro (Humalog) 0 unit SUBCUT QIDACANDBED [facility]; Protocol Last Admin: 10/05/19 12:00 Dose: Not Given Insulin Human Lispro (Humalog) 10 unit SUBCUT ONETIME ONE Stop: 10/04/19 22:49 Last Admin: 10/04/19 23:36 Dose: 10 unit Insulin Human Lispro (Humalog) 15 unit SUBCUT ONETIME ONE Stop: 10/05/19 16:36 Last Admin: 10/05/19 16:46 Dose: 15 units Insulin Human Lispro (Humalog) 20 unit SUBCUT ONETIME ONE Stop: 10/05/19 20:55 Last Admin: 10/05/19 21:02 Dose: 20 units Metolazone (Zaroxolyn) 2.5 mg PO MoWeFr@0900 [facility] Potassium Chloride (Klor-Con M20) 40 meq PO ONETIME ONE Stop: 10/04/19 19:36 Last Admin: 10/04/19 19:58 Dose: 40 meq Potassium Chloride (Klor-Con M20) 40 meq PO ONETIME ONE Stop: 10/05/19 06:20 Last Admin: 10/05/19 06:35 Dose: 40 meq Potassium Chloride (Klor-Con M20) 40 meq PO ONETIME ONE Stop: 10/05/19 15:36 Last Admin: 10/05/19 16:48 Dose: 40 meq Potassium Chloride (Klor-Con M20) 40 meq PO BID [facility] Stop: 10/06/19 09:01 Last Admin: 10/06/19 09:06 Dose: 40 meq Warfarin Sodium (Coumadin) 2.5 mg PO SUTUWETHSA [facility] Last Admin: 10/04/19 22:44 Dose: 2.5 mg Warfarin Sodium (Coumadin) 5 mg PO MOFR [facility] - Exam Quality Assessment: No: Supplemental Oxygen General: Alert, Oriented, Cooperative, No Acute Distress Lungs: Normal Respiratory Effort Cardiovascular: Regular Rate, Regular Rhythm GI/Abdominal Exam: Soft, No Distention Extremities: Pedal Edema, Increased Warmth (mild right medial thigh ) Skin: Warm, Dry Psy/Mental Status: Alert, Normal Affect Sepsis Event Note - Evaluation Sepsis Screening Result: No Definite Risk - Focused Exam Vital Signs: Vital Signs Temp Pulse Resp BP Pulse Ox 10/08/19 07:45 36.7 C 84 16 108/62 91 L 10/08/19 07:02 76 10/07/19 22:29 36.6 C 71 18 134/57 L 92 L Date Exam was Performed: 10/08/19 Time Exam was Performed: 10:27 - Problem List Review Problem List Initiated/Reviewed/Updated: Yes - My Orders Last 24 Hours: My Active Orders 10/07/19 09:00 Potassium Chloride [Klor-Con M20] 40 meq PO BID 10/07/19 09:05 oxyCODONE 5 - 10 mg PO Q4H PRN 10/07/19 09:30 Antiembolic Devices [RC] .Routine CONNOR Hose [Antiembolic Hose] [OM.PC] Routine 10/07/19 14:00 Bumetanide [Bumex] 2 mg PO BIDDIURETIC 10/07/19 21:00 Gabapentin [Neurontin] 100 mg PO BEDTIME 10/08/19 08:00 Glimepiride [Amaryl] 4 mg PO WITHBREAKFAST 10/08/19 10:00 Lactobacillus Rhamnosus GG [Culturelle] 1 cap PO BID 10/08/19 17:30 VANCOMYCIN TROUGH [CHEM] Routine 10/09/19 05:00 BASIC METABOLIC PANEL,BMP [CHEM] Timed HGB [HEMOGLOBIN] [HEME] Timed INR,PT,PROTHROMBIN TIME [COAG] Timed - Plan Plan:: ASSESSMENT / PLAN - Cellulitis of the right lower extremity with sepsis-sepsis has resolved and infection continues to improve. -Saline lock IV -Continue cephalexin (today is day 5 of abx) -Follow-up cultures -Pain control -Physical therapy Right-sided lumbar radiculopathy-MRI of the lumbar spine showed lumbar disc protrusion between L4 and L5 with severe canal stenosis which is stable compared to last summer. Pain control has improved and he is moving a little better. Tolerating medications so far. -Trial of steroids (day 3) -Gabapentin at bedtime -Pain control with oxycodone -Consider epidural steroid injections? -Physical therapy Acute on chronic kidney injury-creatinine is now back at baseline. -Continue diuretics Hypokalemia-potassium level now normal. -Recheck potassium in the morning Heart failure-no evidence for exacerbation but edema is starting to build up. -continue outpatient medications -continue diuretics A-fib chronic-INR therapeutic. -continue outpatient coumadin -Repeat INR in the morning Diabetes Type 2-moderate elevation of blood sugars with steroids. -Continue glyburide -Medium dose sliding scale coverage -blood glucose testing before meals and at bedtime Pressure ulcers x2-present on admission. -wound care Maintenance issues -Nutrition: consistent carb diet -DVT: Coumadin therapy -GI: PPI Disposition-I would anticipate discharge home with home care versus possibly subacute rehab Alvaro Moreno MD
[2019-10-08] MEDS: Warfarin 2.5 MG Tab PO SCH (12:02)
[2019-10-08] MEDS: Gabapentin 100 MG Cap PO SCH (20:53)
[2019-10-08] MEDS: Clopidogrel 75 MG Tab PO SCH (20:54)
[2019-10-09] MEDS: oxyCODONE 5 MG Tab PO PRN (04:06)
[2019-10-09] MEDS: Budesonide 0.5 MG/2 ML Neb Susp INH SCH ×2 (07:21→21:16)
[2019-10-09] MEDS: Glimepiride 2 MG Tab PO SCH (07:54)
[2019-10-09] MEDS: Bumetanide 1 MG Tab PO SCH ×2 (07:54→14:33)
[2019-10-09] MEDS: Insulin Lispro 100 Unit/ML 3 ML KwikPen SUBCUT SCH ×4 (07:55→21:06)
[2019-10-09] MEDS: Ezetimibe 10 MG Tab PO SCH (08:02)
[2019-10-09] MEDS: Cephalexin 250 MG Cap PO SCH ×3 (08:02→21:05)
[2019-10-09] MEDS: Potassium Chloride 20 MEQ Tab.ER PO SCH ×2 (08:02→21:06)
[2019-10-09] MEDS: Multivitamins with Iron/Calcium/Folic Acid/Minerals Tab PO SCH (08:02)
[2019-10-09] MEDS: Lactobacillus Rhamnosus GG (Probiotic) Cap PO SCH ×2 (08:02→21:05)
[2019-10-09] MEDS: Allopurinol 300 MG Tab PO SCH (09:41)
[2019-10-09] MEDS ORDERED: oxyCODONE 5 MG Tab PO PRN (11:49)
--- NOTE | 2019-10-09 11:57 | PCM.PN ---
- General Info Date of Service: 10/09/19 Subjective Update: Mr. Kamara used to experience significant lower back pain radiating into his right leg. Minimal improvement noted thus far and he continues to require assistance of at least 1 for transfers and ambulation. Cellulitis of the thigh has essentially resolved with antibiotic therapy and he has been transitioned to oral antibiotic. Vital signs have been stable and he has remained afebrile. Functional Status: Reports: Tolerating Diet, Urinating - Review of Systems General: Reports: Weakness. Denies: Fever, Chills Pulmonary: Reports: No Symptoms Cardiovascular: Reports: No Symptoms Gastrointestinal: Reports: No Symptoms - Patient Data Vitals - Most Recent: Last Vital Signs Temp 97.3 F 10/09/19 10:49 Pulse 80 10/09/19 10:49 Resp 18 10/09/19 10:49 BP 99/40 L 10/09/19 10:49 Pulse Ox 96 10/09/19 10:49 Weight - Most Recent: 217 lb 12.8 oz I&O - Last 24 Hours: Intake & Output 10/08/19 10/09/19 10/09/19 22:59 06:59 14:59 Intake Total 480 480 Output Total 400 400 Balance 80 80 Lab Results Last 24 Hours: Laboratory Results - last 24 hr 10/05/19 10/08/19 10/09/19 Range/Units 11:50 17:30 04:10 Hgb 9.1 L (12.0-15.0) g/dL PT (9.5-12.0) sec INR (0.80-1.20) Sodium (140-148) mmol/L Potassium (3.6-5.2) mmol/L Chloride (100-108) mmol/L Carbon Dioxide (21-32) mmol/L Anion Gap (5.0-14.0) mmol/L BUN (7-18) mg/dL Creatinine (0.8-1.3) mg/dL Est Cr Clr Drug Dosing mL/min Estimated GFR (MDRD) (>60) Glucose (74-106) mg/dL Calcium (8.5-10.1) mg/dL Vancomycin Trough 7.3 L (10.0-20.0) ug/mL Crossmatch See Detail 10/09/19 10/09/19 Range/Units 04:10 04:10 Hgb (12.0-15.0) g/dL PT 31.7 H (9.5-12.0) sec INR 3.13 H (0.80-1.20) Sodium 137 L (140-148) mmol/L Potassium 3.7 (3.6-5.2) mmol/L Chloride 101 (100-108) mmol/L Carbon Dioxide 27 (21-32) mmol/L Anion Gap 12.7 (5.0-14.0) mmol/L BUN 50 H (7-18) mg/dL Creatinine 2.4 H (0.8-1.3) mg/dL Est Cr Clr Drug Dosing 20.58 mL/min Estimated GFR (MDRD) 26 L (>60) Glucose 250 H (74-106) mg/dL Calcium 9.0 (8.5-10.1) mg/dL Vancomycin Trough (10.0-20.0) ug/mL Crossmatch Danny Results Last 24 Hours: Microbiology 10/04/19 19:00 Aerobic Blood Culture - Preliminary Blood - Arm, Left NO GROWTH AFTER 4 DAYS Anaerobic Blood Culture - Preliminary NO GROWTH AFTER 4 DAYS 10/04/19 18:50 Aerobic Blood Culture - Preliminary Blood - Venous - Iv Start NO GROWTH AFTER 4 DAYS Anaerobic Blood Culture - Preliminary NO GROWTH AFTER 4 DAYS Med Orders - Current: Current Medications Albuterol (Proventil Neb Soln) 2.5 mg NEB Q4H PRN PRN Reason: Shortness Of Breath/wheezing Albuterol/Ipratropium (Duoneb 3.0-0.5 Mg/3 Ml) 3 ml NEB QID PRN PRN Reason: Shortness Of Breath/wheezing Allopurinol (Zyloprim) 150 mg PO DAILY [facility] Last Admin: 10/09/19 09:41 Dose: 150 mg Bisacodyl (Dulcolax) 5 mg PO DAILY PRN PRN Reason: Constipation Last Admin: 10/06/19 09:07 Dose: 5 mg Budesonide (Pulmicort) 0.5 mg INH BIDRT [facility] Last Admin: 10/09/19 07:21 Dose: 0.5 mg Bumetanide (Bumex) 2 mg PO BIDDIURETIC [facility] Last Admin: 10/09/19 07:54 Dose: 2 mg Cephalexin (Keflex) 500 mg PO TID [facility] Last Admin: 10/09/19 08:02 Dose: 500 mg Cilostazol (Pletal) 100 mg PO BIDAC [facility] Last Admin: 10/09/19 07:54 Dose: 100 mg Clopidogrel Bisulfate (Plavix) 75 mg PO BEDTIME [facility] Last Admin: 10/08/19 20:54 Dose: 75 mg Dexamethasone (Dexamethasone) 4 mg IVPUSH Q12H [facility] Docusate Sodium (Colace) 100 mg PO BID PRN PRN Reason: Constipation Ezetimibe (Zetia) 10 mg PO DAILY [facility] Last Admin: 10/09/19 08:02 Dose: 10 mg Gabapentin (Neurontin) 100 mg PO BEDTIME [facility] Last Admin: 10/08/19 20:53 Dose: 100 mg Glimepiride (Amaryl) 4 mg PO WITHBREAKFAST [facility] Last Admin: 10/09/19 07:54 Dose: 4 mg Insulin Human Lispro (Humalog) 0 unit SUBCUT QIDACANDBED [facility]; Protocol Last Admin: 10/09/19 11:36 Dose: 8 units Lactobacillus Rhamnosus (Culturelle) 1 cap PO BID [facility] Last Admin: 10/09/19 08:02 Dose: 1 cap Multivitamins/Minerals (Thera M Plus) 1 tab PO DAILY [facility] Last Admin: 10/09/19 08:02 Dose: 1 tab Ondansetron HCl (Zofran Odt) 4 mg PO Q6H PRN PRN Reason: Nausea able to take PO Ondansetron HCl (Zofran) 4 mg IV Q4H PRN PRN Reason: Nausea/Vomiting Last Admin: 10/07/19 08:46 Dose: 4 mg Oxycodone HCl (Oxycodone) 5 mg PO Q4H PRN PRN Reason: Pain Potassium Chloride (Klor-Con M20) 40 meq PO BID [facility] Last Admin: 10/09/19 08:02 Dose: 40 meq Trazodone HCl (Trazodone) 50 mg PO BEDTIME PRN PRN Reason: Sleep Last Admin: 10/08/19 20:52 Dose: 50 mg Warfarin Sodium (Coumadin) 2.5 mg PO DAILY@1300 [facility] Discontinued Medications Acetaminophen/Codeine Phosphate (Tylenol With Codeine No.3 300mg/30mg) 1 tab PO Q4H PRN PRN Reason: Pain Hydrocodone Bitart/Acetaminophen ([place] 325-5 Mg) 1 - 2 tab PO Q6H PRN PRN Reason: Pain Last Admin: 10/05/19 17:02 Dose: 1 tab Hydrocodone Bitart/Acetaminophen ([place] 325-5 Mg) 0 tab PO Q4H PRN PRN Reason: Pain (severe 7-10) Last Admin: 10/07/19 07:47 Dose: 2 tab Bumetanide (Bumex) 2 mg PO TID [facility] Glimepiride (Amaryl) 4 mg PO DAILY [facility] Last Admin: 10/05/19 08:01 Dose: 4 mg Piperacillin Sod/Tazobactam (Sod 4.5 gm/ Sodium Chloride) 100 mls @ 100 mls/hr IV Q6H [facility] Last Admin: 10/04/19 19:25 Dose: 100 mls/hr Vancomycin HCl 1 gm/ Sodium (Chloride) 250 mls @ 150 mls/hr IV Q12H [facility] Last Admin: 10/04/19 19:27 Dose: 150 mls/hr Potassium Chloride 20 meq/ (Premix) 100 mls @ 50 mls/hr IV ONETIME ONE Stop: 10/04/19 21:34 Last Admin: 10/04/19 20:33 Dose: 50 mls/hr Piperacillin/Tazobactam/Dextrose (Zosyn In Dextrose Iso-Osmotic) 50 mls @ 100 mls/hr IV Q8H [facility] Stop: 10/05/19 14:00 Last Admin: 10/05/19 12:05 Dose: 100 mls/hr Sodium Chloride (Normal Saline) 1,000 mls @ 75 mls/hr IV ASDIRECTED [facility] Last Admin: 10/04/19 22:47 Dose: 75 mls/hr Sodium Chloride (Normal Saline) Confirm Administered Dose 50 mls @ as directed .ROUTE .STK-MED ONE Stop: 10/05/19 03:41 Last Admin: 10/05/19 03:59 Dose: Not Given Vancomycin HCl 1.5 gm/ Sodium (Chloride) 250 mls @ 167 mls/hr IV Q24H [facility] Last Admin: 10/05/19 17:03 Dose: 167 mls/hr Sodium Chloride (Normal Saline) 1,000 mls @ 50 mls/hr IV ASDIRECTED [facility] Stop: 10/06/19 13:00 Last Admin: 10/06/19 09:10 Dose: 50 mls/hr Piperacillin/Tazobactam/ (Dextrose 2.25 gm/ Premix) 50 mls @ 100 mls/hr IV Q8H [facility] Last Admin: 10/06/19 03:56 Dose: 100 mls/hr Insulin Human Lispro (Humalog) 0 unit SUBCUT QIDACANDBED [facility]; Protocol Last Admin: 10/05/19 12:00 Dose: Not Given Insulin Human Lispro (Humalog) 10 unit SUBCUT ONETIME ONE Stop: 10/04/19 22:49 Last Admin: 10/04/19 23:36 Dose: 10 unit Insulin Human Lispro (Humalog) 15 unit SUBCUT ONETIME ONE Stop: 10/05/19 16:36 Last Admin: 10/05/19 16:46 Dose: 15 units Insulin Human Lispro (Humalog) 20 unit SUBCUT ONETIME ONE Stop: 10/05/19 20:55 Last Admin: 10/05/19 21:02 Dose: 20 units Metolazone (Zaroxolyn) 2.5 mg PO MoWeFr@0900 [facility] Oxycodone HCl (Oxycodone) 5 - 10 mg PO Q4H PRN PRN Reason: Pain Last Admin: 10/09/19 04:06 Dose: 10 mg Potassium Chloride (Klor-Con M20) 40 meq PO ONETIME ONE Stop: 10/04/19 19:36 Last Admin: 10/04/19 19:58 Dose: 40 meq Potassium Chloride (Klor-Con M20) 40 meq PO ONETIME ONE Stop: 10/05/19 06:20 Last Admin: 10/05/19 06:35 Dose: 40 meq Potassium Chloride (Klor-Con M20) 40 meq PO ONETIME ONE Stop: 10/05/19 15:36 Last Admin: 10/05/19 16:48 Dose: 40 meq Potassium Chloride (Klor-Con M20) 40 meq PO BID [facility] Stop: 10/06/19 09:01 Last Admin: 10/06/19 09:06 Dose: 40 meq Warfarin Sodium (Coumadin) 2.5 mg PO SUTUWETHSA [facility] Last Admin: 10/04/19 22:44 Dose: 2.5 mg Warfarin Sodium (Coumadin) 5 mg PO MOFR [facility] Warfarin Sodium (Coumadin) 2.5 mg PO SUTUWETHSA [facility] Last Admin: 10/08/19 12:02 Dose: 2.5 mg Warfarin Sodium (Coumadin) 5 mg PO MOFR [facility] Last Admin: 10/06/19 13:19 Dose: 5 mg - Exam Quality Assessment: DVT Prophylaxis General: Alert, Oriented, Cooperative, Moderate Distress Lungs: Clear to Auscultation, Normal Respiratory Effort, Decreased Breath Sounds Cardiovascular: Regular Rate, Regular Rhythm, Murmurs GI/Abdominal Exam: Soft, Non-Tender, No Organomegaly, No Distention Extremities: Other (Cellulitis right thigh has resolved) Sepsis Event Note - Evaluation Sepsis Screening Result: No Definite Risk - Focused Exam Vital Signs: Vital Signs Temp Pulse Resp BP Pulse Ox Pulse Ox 10/09/19 10:49 97.3 F 80 18 99/40 L 96 10/09/19 07:21 89 95 10/09/19 07:00 97.3 F 95 18 122/73 96 10/09/19 04:07 97.6 F 101 H 18 134/69 94 L Date Exam was Performed: 10/09/19 Time Exam was Performed: 11:52 - Problem List Review Problem List Initiated/Reviewed/Updated: Yes - My Orders Last 24 Hours: My Active Orders 10/09/19 11:49 oxyCODONE 5 mg PO Q4H PRN 10/09/19 12:00 dexAMETHasone [Dexamethasone] 4 mg IVPUSH Q12H 10/09/19 13:00 Warfarin [Coumadin] 2.5 mg PO DAILY@1300 10/10/19 05:00 BASIC METABOLIC PANEL,BMP [CHEM] Timed INR,PT,PROTHROMBIN TIME [COAG] Timed - Plan Plan:: ASSESSMENT / PLAN Cellulitis of the right lower extremity with sepsis-initially resolved -Saline lock IV -Continue cephalexin (today is day 5 of abx) -Follow-up cultures -Pain control -Physical therapy Right-sided lumbar radiculopathy-MRI of the lumbar spine showed lumbar disc protrusion between L4 and L5 with severe canal stenosis which is stable compared to last summer. Going pain with very limited mobility. He has tried epidural injections in the past and does not want to consider repeating them. -Dexamethasone 4 mg IV every 12 hours -Gabapentin at bedtime -Pain control with oxycodone -Physical therapy Acute on chronic kidney injury-creatinine is now back at baseline. -Continue diuretics Hypokalemia-potassium level now normal. -Recheck potassium in the morning Heart failure-no evidence for exacerbation but edema is starting to build up. -continue outpatient medications -continue diuretics A-fib chronic-INR supratherapeutic -Decrease warfarin to 2.5 mg p.o. daily -Repeat INR in the morning Diabetes Type 2-moderate elevation of blood sugars with steroids. -Continue glyburide -Medium dose sliding scale coverage -blood glucose testing before meals and at bedtime Pressure ulcers x2-present on admission. -wound care Maintenance issues -Nutrition: consistent carb diet -DVT: Coumadin therapy -GI: PPI Disposition-I would anticipate discharge home with home care versus possibly subacute rehab
[2019-10-09] MEDS: Dexamethasone 4 MG/ML SDV IVPUSH SCH (12:24)
[2019-10-09] MEDS ORDERED: Warfarin 2.5 MG Tab PO SCH (13:00)
[2019-10-09] MEDS: Gabapentin 100 MG Cap PO SCH (21:06)
[2019-10-09] MEDS: Clopidogrel 75 MG Tab PO SCH (21:06)
[2019-10-09] MEDS ORDERED: Insulin Lispro 100 Units/ML 3 ML Vial SUBCUT ONE (21:07)
[2019-10-10] MEDS: Dexamethasone 4 MG/ML SDV IVPUSH SCH ×2 (00:09→12:02)
[2019-10-10] MEDS: Budesonide 0.5 MG/2 ML Neb Susp INH SCH (07:00)
[2019-10-10] MEDS: Glimepiride 2 MG Tab PO SCH (08:06)
[2019-10-10] MEDS: Bumetanide 1 MG Tab PO SCH (08:06)
[2019-10-10] MEDS: Insulin Lispro 100 Unit/ML 3 ML KwikPen SUBCUT SCH ×2 (08:08→11:59)
[2019-10-10] MEDS ORDERED: oxyCODONE 5 MG Tab PO ONE (08:22)
[2019-10-10] MEDS: Lactobacillus Rhamnosus GG (Probiotic) Cap PO SCH (08:41)
[2019-10-10] MEDS: Cephalexin 250 MG Cap PO SCH (08:41)
[2019-10-10] MEDS: Potassium Chloride 20 MEQ Tab.ER PO SCH (08:41)
[2019-10-10] MEDS: Multivitamins with Iron/Calcium/Folic Acid/Minerals Tab PO SCH (08:42)
[2019-10-10] MEDS: Allopurinol 300 MG Tab PO SCH (08:42)
[2019-10-10] MEDS: Ezetimibe 10 MG Tab PO SCH (08:42)
[2019-10-10 11:30] VITALS: BP 138/60; PULSE 86
[2019-10-10] MEDS ORDERED: Insulin Lispro 100 Unit/ML 3 ML KwikPen SUBCUT ONE (11:30)
--- NOTE | 2019-10-10 12:21 | PCM.DCSUM1 ---
Discharge Summary - Hospital Course Brief History: Mr. Kamara is an 89-year-old gentleman who was admitted through the emergency department with weakness and pain into his right buttock and leg, secondary to cellulitis of the thigh and underlying spinal stenosis. - Discharge Data Discharge Date: 10/10/19 Discharge Disposition: DC/Tfer to SNF 03 Condition: Fair - Referral to Home Health Primary Care Physician: PCP None - Discharge Diagnosis/Problem(s) (1) Radiculopathy SNOMED Code(s): 04708966 ICD Code: M54.10 - RADICULOPATHY, SITE UNSPECIFIED Status: Acute Current Visit: Yes (2) Peripheral edema SNOMED Code(s): 654600205 ICD Code: R60.9 - EDEMA, UNSPECIFIED Status: Acute Current Visit: No (3) Sepsis SNOMED Code(s): 38634537 ICD Code: A41.9 - SEPSIS, UNSPECIFIED ORGANISM Status: Acute Priority: High Current Visit: Yes Qualifiers: Sepsis type: sepsis due to unspecified organism Sepsis acute organ dysfunction status: without acute organ dysfunction Qualified Code(s): A41.9 - Sepsis, unspecified organism (4) Cellulitis SNOMED Code(s): 398406425 ICD Code: L03.90 - CELLULITIS, UNSPECIFIED Status: Acute Priority: High Current Visit: Yes Qualifiers: Site of cellulitis: extremity Site of cellulitis of extremity: lower extremity Laterality: right Qualified Code(s): L03.115 - Cellulitis of right lower limb (5) Decubital ulcer SNOMED Code(s): 943720447 ICD Code: L89.90 - PRESSURE ULCER OF UNSPECIFIED SITE, UNSPECIFIED STAGE Status: Acute Priority: High Current Visit: Yes Qualifiers: Pressure injury location: sacral region Pressure injury stage: stage 2 Qualified Code(s): L89.152 - Pressure ulcer of sacral region, stage 2 (6) Afib, Atrial fibrillation SNOMED Code(s): 67610054 ICD Code: I48.91 - UNSPECIFIED ATRIAL FIBRILLATION Status: Chronic Priority: Low Current Visit: No (7) Type 2 diabetes mellitus SNOMED Code(s): 38385005 ICD Code: E11.9 - TYPE 2 DIABETES MELLITUS WITHOUT COMPLICATIONS Status: Chronic Priority: Medium Current Visit: Yes Qualifiers: Diabetes mellitus terminal supervisor insulin use: without terminal supervisor use Diabetes mellitus complication status: with other specified complication Qualified Code (s): E11.69 - Type 2 diabetes mellitus with other specified complication (8) Spinal stenosis of lumbar region SNOMED Code(s): 30740059 ICD Code: M48.061 - SPINAL STENOSIS, LUMBAR REGION WITHOUT NEUROGENIC JORY Status: Chronic Current Visit: No Qualifiers: Neurogenic claudication status: with neurogenic claudication - Patient Summary/Data Consults: Consultations 10/04/19 22:15 Consult to Wound Care Services [CONS] Routine Comment: Physician Instructions: Reason for Consult: open wound grade 2 ulcer right buttocks OT Evaluation and Treatment [CONS] Routine Please Evaluate and Treat. OT Reason for Consult: Discharge Planning This query below is only for informational purposes and is not editable. PT Evaluation and Treatment [CONS] Routine Please Evaluate and Treat. PT Reason for Consult: Strengthening This query below is only for informational purposes and is not editable. Hospital Course: Mr. Kamara is a 89-year-old gentleman who presented to the emergency department via EMS services, complaint of increasing weakness with fall states he fell today on his right hip it is causing pain all throughout he does have a large erythematous patch in that area he is unsure of when that started. He does have an extensive history of coronary artery disease with congestive heart failure recent adjustment of medications in August with initiation of metolazone he states the breathing is about the same for him but he has had a decrease in his leg edema, denies any fevers or chest pain. On admission he was felt to have exacerbation of his known spinal stenosis with radicular features into the right leg as well as an area of cellulitis on the right thigh. He was started on IV antibiotic therapy with vancomycin, cultures from the blood remain negative and he was transitioned to oral cephalexin. By the time of discharge there was no evidence of ongoing cellulitis in the thigh. He had significant difficulty with his spinal stenosis and radicular pain into the right leg. Options for management were discussed and he was offered consideration of epidural steroid injection, he reported he tried this in the past with little relief and did not want to consider trying it again. He was started on a short course of Decadron which did seem to help his pain. He was given limited amounts of oxycodone and was also started on gabapentin at night. He was still experiencing significant pain by the time of discharge and was requiring assistance of at least 1 for transfers and ambulation. Was felt that he would not be safe for discharged home and will be discharged to care home for further restorative physical therapy and Occupational Therapy. He is in the process of having his spinal stenosis further evaluated and appointment was made for him in [place] for reassessment and recommendations concerning management. Blood glucose levels were monitored during hospital stay and did increase with use of steroids, it is expected these will return to baseline level after he is off of the Decadron. INR was followed through his hospital stay and was supratherapeutic at the time of discharge, warfarin will be held today and follow-up INR will be obtained on October 11. He will remain on a low- sodium diabetic diet and activity will be as tolerated. Follow-up with primary care will be at the care home as needed. - Patient Instructions Diet: Low Sodium, Diabetic Diet Activity: As Tolerated Other/Special Instructions: Follow-up labs , October 11, BMP and INR - Discharge Plan *PRESCRIPTION DRUG MONITORING PROGRAM REVIEWED*: Not Applicable *COPY OF PRESCRIPTION DRUG MONITORING REPORT IN PATIENT ROHIT: Not Applicable Prescriptions/Med Rec: cephALEXin [Cephalexin] 500 mg PO Q8H #9 tablet dexAMETHasone [Dexamethasone] 4 mg PO DAILY #4 tablet Gabapentin [Neurontin] 100 mg PO BEDTIME #30 cap Lactobacillus Rhamnosus GG [Culturelle] 1 cap PO BID #60 cap oxyCODONE 5 mg PO Q4H PRN #20 tablet PRN Reason: Pain Home Medications: Home Meds Budesonide [Pulmicort Flexhaler] 2 puff INH BID 09/26/14 [History] Cetirizine [ZyrTEC] 10 mg PO DAILY 09/26/14 [History] Ezetimibe [Zetia] 10 mg PO DAILY 09/26/14 [History] Fluticasone Propionate [Flonase] 2 spray NASBOTH DAILY 09/26/14 [History] Glimepiride 4 mg PO DAILY 09/26/14 [History] Multivitamin with Minerals [Multiple Vitamin] 1 tab PO DAILY 09/26/14 [History] Warfarin [Coumadin] 5 mg PO MOFR 09/26/14 [History] Clopidogrel Bisulfate [Clopidogrel] 75 mg PO BEDTIME 10/02/17 [History] allopurinoL [Zyloprim] 150 mg PO DAILY 12/09/17 [History] cilostazoL [Pletal] 100 mg PO BIDAC 01/17/18 [History] traZODone HCl [Trazodone HCl] 50 mg PO BEDTIME PRN 12/15/18 [History] Warfarin [Coumadin] 2.5 mg PO SUTUWETHSA 07/25/19 [History] Bumetanide [Bumex] 4 mg PO BID 08/16/19 [History] Ibuprofen [Advil] 200 mg PO ASDIRECTED 09/12/19 [History] Gabapentin [Neurontin] 100 mg PO BEDTIME #30 cap 10/10/19 [Rx] Lactobacillus Rhamnosus GG [Culturelle] 1 cap PO BID #60 cap 10/10/19 [Rx] cephALEXin [Cephalexin] 500 mg PO Q8H #9 tablet 10/10/19 [Rx] dexAMETHasone [Dexamethasone] 4 mg PO DAILY #4 tablet 10/10/19 [Rx] oxyCODONE 5 mg PO Q4H PRN #20 tablet 10/10/19 [Rx] Referrals: Rocco Barnhart MD [Ordering Only Provider] - 11/02/19 2:15 pm (Your appointment is with [facility]. Please arrive at 1:45 to register for your appointment.) - Discharge Summary/Plan Comment DC Time >30 min.: No - Patient Data Vitals - Most Recent: Last Vital Signs Temp 97.2 F 10/10/19 11:27 Pulse 86 10/10/19 11:27 Resp 12 10/10/19 11:27 BP 138/60 10/10/19 11:27 Pulse Ox 98 10/10/19 11:27 Weight - Most Recent: 217 lb 9.6 oz I&O - Last 24 hours: Intake & Output 10/09/19 10/10/19 10/10/19 22:59 06:59 14:59 Intake Total 1200 Output Total 2125 600 550 Balance -925 -600 -550 Lab Results - Last 24 hrs: Laboratory Results - last 24 hr 10/10/19 10/10/19 Range/Units 04: 04:20 PT 35.1 H (9.5-12.0) sec INR 3.49 H (0.80-1.20) Sodium 134 L (140-148) mmol/L Potassium 4.5 (3.6-5.2) mmol/L Chloride 97 L (100-108) mmol/L Carbon Dioxide 26 (21-32) mmol/L Anion Gap 15.5 H (5.0-14.0) mmol/L BUN 44 H (7-18) mg/dL Creatinine 2.3 H (0.8-1.3) mg/dL Est Cr Clr Drug Dosing 21.48 mL/min Estimated GFR (MDRD) 27 L (>60) Glucose 290 H (74-106) mg/dL Calcium 9.2 (8.5-10.1) mg/dL CECI Results - Last 24 hrs: Microbiology 10/04/19 19:00 Aerobic Blood Culture - Final Blood - Arm, Left NO GROWTH AFTER 5 DAYS Anaerobic Blood Culture - Final NO GROWTH AFTER 5 DAYS 10/04/19 18:50 Aerobic Blood Culture - Final Blood - Venous - Iv Start NO GROWTH AFTER 5 DAYS Anaerobic Blood Culture - Final NO GROWTH AFTER 5 DAYS Med Orders - Current: Current Medications Albuterol (Proventil Neb Soln) 2.5 mg NEB Q4H PRN PRN Reason: Shortness Of Breath/wheezing Albuterol/Ipratropium (Duoneb 3.0-0.5 Mg/3 Ml) 3 ml NEB QID PRN PRN Reason: Shortness Of Breath/wheezing Allopurinol (Zyloprim) 150 mg PO DAILY [facility] Last Admin: 10/10/19 08:42 Dose: 150 mg Bisacodyl (Dulcolax) 5 mg PO DAILY PRN PRN Reason: Constipation Last Admin: 10/06/19 09:07 Dose: 5 mg Budesonide (Pulmicort) 0.5 mg INH BIDRT [facility] Last Admin: 10/10/19 07:00 Dose: 0.5 mg Bumetanide (Bumex) 2 mg PO BIDDIURETIC [facility] Last Admin: 10/10/19 08:06 Dose: 2 mg Cephalexin (Keflex) 500 mg PO TID [facility] Last Admin: 10/10/19 08:41 Dose: 500 mg Cilostazol (Pletal) 100 mg PO BIDAC [facility] Last Admin: 10/10/19 08:06 Dose: 100 mg Clopidogrel Bisulfate (Plavix) 75 mg PO BEDTIME [facility] Last Admin: 10/09/19 21:06 Dose: 75 mg Dexamethasone (Dexamethasone) 4 mg IVPUSH Q12H [facility] Last Admin: 10/10/19 12:02 Dose: 4 mg Docusate Sodium (Colace) 100 mg PO BID PRN PRN Reason: Constipation Ezetimibe (Zetia) 10 mg PO DAILY [facility] Last Admin: 10/10/19 08:42 Dose: 10 mg Gabapentin (Neurontin) 100 mg PO BEDTIME [facility] Last Admin: 10/09/19 21:06 Dose: 100 mg Glimepiride (Amaryl) 4 mg PO WITHBREAKFAST [facility] Last Admin: 10/10/19 08:06 Dose: 4 mg Insulin Human Lispro (Humalog) 0 unit SUBCUT QIDACANDBED [facility]; Protocol Last Admin: 10/10/19 11:59 Dose: Not Given Lactobacillus Rhamnosus (Culturelle) 1 cap PO BID [facility] Last Admin: 10/10/19 08:41 Dose: 1 cap Multivitamins/Minerals (Thera M Plus) 1 tab PO DAILY [facility] Last Admin: 10/10/19 08:42 Dose: 1 tab Ondansetron HCl (Zofran Odt) 4 mg PO Q6H PRN PRN Reason: Nausea able to take PO Ondansetron HCl (Zofran) 4 mg IV Q4H PRN PRN Reason: Nausea/Vomiting Last Admin: 10/07/19 08:46 Dose: 4 mg Oxycodone HCl (Oxycodone) 5 mg PO Q4H PRN PRN Reason: Pain Potassium Chloride (Klor-Con M20) 40 meq PO BID [facility] Last Admin: 10/10/19 08:41 Dose: 40 meq Trazodone HCl (Trazodone) 50 mg PO BEDTIME PRN PRN Reason: Sleep Last Admin: 10/08/19 20:52 Dose: 50 mg Discontinued Medications Acetaminophen/Codeine Phosphate (Tylenol With Codeine No.3 300mg/30mg) 1 tab PO Q4H PRN PRN Reason: Pain Hydrocodone Bitart/Acetaminophen ([place] 325-5 Mg) 1 - 2 tab PO Q6H PRN PRN Reason: Pain Last Admin: 10/05/19 17:02 Dose: 1 tab Hydrocodone Bitart/Acetaminophen ([place] 325-5 Mg) 0 tab PO Q4H PRN PRN Reason: Pain (severe 7-10) Last Admin: 10/07/19 07:47 Dose: 2 tab Bumetanide (Bumex) 2 mg PO TID [facility] Glimepiride (Amaryl) 4 mg PO DAILY [facility] Last Admin: 10/05/19 08:01 Dose: 4 mg Piperacillin Sod/Tazobactam (Sod 4.5 gm/ Sodium Chloride) 100 mls @ 100 mls/hr IV Q6H [facility] Last Admin: 10/04/19 19:25 Dose: 100 mls/hr Vancomycin HCl 1 gm/ Sodium (Chloride) 250 mls @ 150 mls/hr IV Q12H [facility] Last Admin: 10/04/19 19:27 Dose: 150 mls/hr Potassium Chloride 20 meq/ (Premix) 100 mls @ 50 mls/hr IV ONETIME ONE Stop: 10/04/19 21:34 Last Admin: 10/04/19 20:33 Dose: 50 mls/hr Piperacillin/Tazobactam/Dextrose (Zosyn In Dextrose Iso-Osmotic) 50 mls @ 100 mls/hr IV Q8H [facility] Stop: 10/05/19 14:00 Last Admin: 10/05/19 12:05 Dose: 100 mls/hr Sodium Chloride (Normal Saline) 1,000 mls @ 75 mls/hr IV ASDIRECTED [facility] Last Admin: 10/04/19 22:47 Dose: 75 mls/hr Sodium Chloride (Normal Saline) Confirm Administered Dose 50 mls @ as directed .ROUTE .STK-MED ONE Stop: 10/05/19 03:41 Last Admin: 10/05/19 03:59 Dose: Not Given Vancomycin HCl 1.5 gm/ Sodium (Chloride) 250 mls @ 167 mls/hr IV Q24H [facility] Last Admin: 10/05/19 17:03 Dose: 167 mls/hr Sodium Chloride (Normal Saline) 1,000 mls @ 50 mls/hr IV ASDIRECTED [facility] Stop: 10/06/19 13:00 Last Admin: 10/06/19 09:10 Dose: 50 mls/hr Piperacillin/Tazobactam/ (Dextrose 2.25 gm/ Premix) 50 mls @ 100 mls/hr IV Q8H [facility] Last Admin: 10/06/19 03:56 Dose: 100 mls/hr Insulin Human Lispro (Humalog) 0 unit SUBCUT QIDACANDBED [facility]; Protocol Last Admin: 10/05/19 12:00 Dose: Not Given Insulin Human Lispro (Humalog) 10 unit SUBCUT ONETIME ONE Stop: 10/04/19 22:49 Last Admin: 10/04/19 23:36 Dose: 10 unit Insulin Human Lispro (Humalog) 15 unit SUBCUT ONETIME ONE Stop: 10/05/19 16:36 Last Admin: 10/05/19 16:46 Dose: 15 units Insulin Human Lispro (Humalog) 20 unit SUBCUT ONETIME ONE Stop: 10/05/19 20:55 Last Admin: 10/05/19 21:02 Dose: 20 units Insulin Human Lispro (Humalog) 14 unit SUBCUT ONETIME ONE Stop: 10/09/19 21:08 Last Admin: 10/09/19 21:26 Dose: 14 units Insulin Human Lispro (Humalog) 12 unit SUBCUT ONETIME ONE Stop: 10/10/19 11:31 Last Admin: 10/10/19 11:40 Dose: 12 units Metolazone (Zaroxolyn) 2.5 mg PO MoWeFr@0900 [facility] Oxycodone HCl (Oxycodone) 5 - 10 mg PO Q4H PRN PRN Reason: Pain Last Admin: 10/09/19 04:06 Dose: 10 mg Oxycodone HCl (Oxycodone) 2.5 mg PO ONETIME ONE Stop: 10/10/19 08:23 Last Admin: 10/10/19 08:39 Dose: 2.5 mg Potassium Chloride (Klor-Con M20) 40 meq PO ONETIME ONE Stop: 10/04/19 19:36 Last Admin: 10/04/19 19:58 Dose: 40 meq Potassium Chloride (Klor-Con M20) 40 meq PO ONETIME ONE Stop: 10/05/19 06:20 Last Admin: 10/05/19 06:35 Dose: 40 meq Potassium Chloride (Klor-Con M20) 40 meq PO ONETIME ONE Stop: 10/05/19 15:36 Last Admin: 10/05/19 16:48 Dose: 40 meq Potassium Chloride (Klor-Con M20) 40 meq PO BID [facility] Stop: 10/06/19 09:01 Last Admin: 10/06/19 09:06 Dose: 40 meq Warfarin Sodium (Coumadin) 2.5 mg PO SUTUWETHSA [facility] Last Admin: 10/04/19 22:44 Dose: 2.5 mg Warfarin Sodium (Coumadin) 5 mg PO [facility] Warfarin Sodium (Coumadin) 2.5 mg PO SUTUWETHSA [facility] Last Admin: 10/08/19 12:02 Dose: 2.5 mg Warfarin Sodium (Coumadin) 5 mg PO [facility] Last Admin: 10/06/19 13:19 Dose: 5 mg Warfarin Sodium (Coumadin) 2.5 mg PO DAILY@1300 [facility] Last Admin: 10/09/19 13:04 Dose: 2.5 mg - Exam Quality Assessment: Reports: DVT Prophylaxis General: Reports: Alert, Oriented, Cooperative, Moderate Distress Lungs: Reports: Clear to Auscultation, Normal Respiratory Effort, Decreased Breath Sounds Cardiovascular: Reports: Regular Rate, Irregular Rhythm, Murmurs GI/Abdominal Exam: Soft, Non-Tender, No Organomegaly, No Distention Extremities: Non-Tender, No Pedal Edema Skin: Reports: Other (Resolution of cellulitis right thigh)
== END 2019-10-10 13:30 | DRG 872 ==
LOC: JP.ED 18:00 → JP.MS 19:52
PROVIDERS: ADMIT Internal Medicine; ATTEND Hospitalist
PROC: 30233N1 Transfusion of Nonautologous Red Blood Cells into Peripheral Vein, Percutaneous Approach (ICD-10-PCS; principal; 2019-10-04)
DX: A41.9 Sepsis, unspecified organism (principal); L03.115 Cellulitis of right lower limb; M25.551 Pain in right hip; N17.9 Acute kidney failure, unspecified; E11.9 Type 2 diabetes mellitus without complications; I10 Essential (primary) hypertension; E66.9 Obesity, unspecified; I13.0 Hypertensive heart and chronic kidney disease with heart failure and stage 1 through stage 4 chronic kidney disease, or unspecified chronic kidney disease; E78.00 Pure hypercholesterolemia, unspecified; L89.152 Pressure ulcer of sacral region, stage 2; I48.91 Unspecified atrial fibrillation; Z95.1 Presence of aortocoronary bypass graft; M48.061 Spinal stenosis, lumbar region without neurogenic claudication; W19.XXXA Unspecified fall, initial encounter; E11.622 Type 2 diabetes mellitus with other skin ulcer; I50.9 Heart failure, unspecified; I25.10 Atherosclerotic heart disease of native coronary artery without angina pectoris; J45.909 Unspecified asthma, uncomplicated; M19.90 Unspecified osteoarthritis, unspecified site; G47.30 Sleep apnea, unspecified; Z96.649 Presence of unspecified artificial hip joint; Z96.659 Presence of unspecified artificial knee joint; Z66 Do not resuscitate; E87.6 Hypokalemia; N18.9 Chronic kidney disease, unspecified; M54.16 Radiculopathy, lumbar region; Z88.0 Allergy status to penicillin; Z88.8 Allergy status to other drugs, medicaments and biological substances; Z79.899 Other long term (current) drug therapy; Z79.01 Long term (current) use of anticoagulants; Z87.01 Personal history of pneumonia (recurrent); Z98.49 Cataract extraction status, unspecified eye; Z90.49 Acquired absence of other specified parts of digestive tract; Z87.891 Personal history of nicotine dependence
CPT/HCPCS: 36415; 71045 ×2; 73502 ×2; 80053; 81001; 83605; 84145; 85025; 85610; 85730; 86140; 87040 ×2; 96365; 96368; 99285 ×2; J2543; J3370; J7050 ×2; 36430; 72148; 80048; 80202; 82962; 83735; 84132; 84484; 85018; 85027; 86850; 86900; 86901; 86920; 86922; 93005; 94640; 97110-GP; 97161-GP; 97165-GO; 97530-GP; A9270-GY; J1100; J1815; J1815-GY; J2405; J3480; J7030; P9016

== ENCOUNTER 2019-11-06 15:16 | Inpatient (IN) | payer MEDICARE, OTHER ==
--- NOTE | 2019-11-06 16:10 | EDM.PDOC ---
ED HPI GENERAL MEDICAL PROBLEM - General Chief Complaint: General Stated Complaint: [facility] Time Seen by Provider: 11/06/19 15:45 Source of Information: Reports: Patient, EMS, RN History Limitations: Reports: No Limitations - History of Present Illness INITIAL COMMENTS - FREE TEXT/NARRATIVE: 89-year-old male who has been struggling with right-sided hip pain for the past 2 to 3 weeks since falling, also was treated for cellulitis of the right hip earlier this month. The pain is getting so uncomfortable that he cannot sleep, he cannot bear any weight on the right hip while lying down, and he is miserable. No fevers or chills, denies nausea or vomiting. They stopped the antibiotic several weeks ago. Onset: Gradual Duration: Week(s): (3 weeks, worse the last several days) Location: Reports: Pelvis (Right pelvis and hip) Associated Symptoms: Reports: Weakness. Denies: Chest Pain, Fever/Chills, Nausea/Vomiting, Shortness of Breath Right Hip Pain Score (Numeric/FACES): 8 - Related Data Allergies Allergy/AdvReac Type Severity Reaction Status Date / Time amoxicillin AdvReac Intermediate Diarrhea Verified 11/06/19 15:42 niacin AdvReac Mild Headache Verified 11/06/19 15:42 Home Meds: Home Meds Budesonide [Pulmicort Flexhaler] 2 puff INH BID 09/26/14 [History] Cetirizine [ZyrTEC] 10 mg PO DAILY 09/26/14 [History] Ezetimibe [Zetia] 10 mg PO DAILY 09/26/14 [History] Fluticasone Propionate [Flonase] 2 spray NASBOTH DAILY 09/26/14 [History] Glimepiride 4 mg PO DAILY 09/26/14 [History] Multivitamin with Minerals [Multiple Vitamin] 1 tab PO DAILY 09/26/14 [History] Warfarin [Coumadin] 5 mg PO MOFR 09/26/14 [History] Clopidogrel Bisulfate [Clopidogrel] 75 mg PO BEDTIME 10/02/17 [History] allopurinoL [Zyloprim] 150 mg PO DAILY 12/09/17 [History] cilostazoL [Pletal] 100 mg PO BIDAC 01/17/18 [History] traZODone HCl [Trazodone HCl] 50 mg PO BEDTIME PRN 12/15/18 [History] Warfarin [Coumadin] 2.5 mg PO SUTUWETHSA 07/25/19 [History] Bumetanide [Bumex] 4 mg PO BID 08/16/19 [History] Ibuprofen [Advil] 200 mg PO ASDIRECTED 09/12/19 [History] Gabapentin [Neurontin] 100 mg PO BEDTIME #30 cap 10/10/19 [Rx] Lactobacillus Rhamnosus GG [Culturelle] 1 cap PO BID #60 cap 10/10/19 [Rx] dexAMETHasone [Dexamethasone] 4 mg PO DAILY #4 tablet 10/10/19 [Rx] oxyCODONE 5 mg PO Q4H PRN #20 tablet 10/10/19 [Rx] Past Medical History HEENT History: Reports: Impaired Vision Cardiovascular History: Reports: Afib, Bypass, CAD, Heart Failure, High Cholesterol, Hypertension, SOB on Exertion, Other (See Below) Other Cardiovascular History: Mitral valve insuffient, electrical cardioversion Respiratory History: Reports: Asthma, Pneumonia, Recurrent, Sleep Apnea Gastrointestinal History: Reports: Diverticulosis, Hiatal Hernia, Other (See Below) Other Gastrointestinal History: right and left ing hernias Genitourinary History: Reports: Other (See Below) Other Genitourinary History: "kidneys getting weak" Musculoskeletal History: Reports: Osteoarthritis, Other (See Below) Other Musculoskeletal History: low back and left hip pain. R hip pain. R leg pain Endocrine/Metabolic History: Reports: Diabetes, Type II, Obesity/BMI 30+ Hematologic History: Reports: Blood Transfusion(s) Immunologic History: Reports: None Oncologic (Cancer) History: Reports: Basal Cell Carcinoma Other Oncologic History: melanoma on nose Dermatologic History: Reports: Melanoma, Other (See Below) Other Dermatologic History: Basal Cell CA - Infectious Disease History Infectious Disease History: Reports: C-Difficile, Influenza, Measles, Mumps, Shingles - Past Surgical History Head Surgeries/Procedures: Reports: None HEENT Surgical History: Reports: Cataract Surgery, Oral Surgery Cardiovascular Surgical History: Reports: Coronary Artery Bypass Respiratory Surgical History: Reports: None GI Surgical History: Reports: Appendectomy, Cholecystectomy, Colon, Colonoscopy , Hernia Repair/Other Male Surgical History: Reports: None Endocrine Surgical History: Reports: None Musculoskeletal Surgical History: Reports: Hip Replacement, Knee Replacement Oncologic Surgical History: Reports: None Dermatological Surgical History: Reports: Other (See Below) Social & Family History - Family History Family Medical History: Noncontributory - Tobacco Use Smoking Status *Q: Never Smoker - Caffeine Use Caffeine Use: Reports: None - Recreational Drug Use Recreational Drug Use: No - Living Situation & Occupation Living situation: Reports: , Extended Care Facility 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, 3 adult children.) ED ROS GENERAL - Review of Systems Review Of Systems: See Below Constitutional: Reports: Malaise. Denies: Fever, Chills Respiratory: Denies: Shortness of Breath Cardiovascular: Denies: Chest Pain GI/Abdominal: Denies: Abdominal Pain, Nausea, Vomiting Musculoskeletal: Reports: Back Pain, Other (Right hip and pelvis discomfort) Skin: Reports: Erythema (There is erythema over the right lateral hip) Neurological: Denies: Headache ED EXAM, GENERAL - Physical Exam Exam: See Below Exam Limited By: No Limitations General Appearance: Alert, No Apparent Distress, Other (Patient looks very tired and uncomfortable but in no acute distress) Eye Exam: Bilateral Eye: Other (Conjunctiva are pale) Head: Atraumatic Neck: Supple, Non-Tender Respiratory/Chest: No Respiratory Distress, Lungs Clear Cardiovascular: Irregularly Irregular GI/Abdominal: Other (Diffusely uncomfortable to palpation, no focal tenderness, morbidly obese) Back Exam: No: CVA Tenderness (R), CVA Tenderness (L) Extremities: Other (Lower extremities are wrapped with Kieran wraps to support chronic edema. He has moderate pain over the lateral right hip with passive range of motion, palpation tenderness is significant over the greater trochanteric area into the lateral buttock. There is also overlying erythema.) Neurological: Alert, Oriented Psychiatric: Flat Affect Skin Exam: Erythema (Erythema is present over the right lateral hip. He has numerous bruises in various degrees of healing on the forearms especially the right arm. Overall the patient appears pale) Course - Vital Signs Last Recorded V/S: Last Vital Signs Temp 96.3 F L 11/07/19 10:15 Pulse 91 11/07/19 10:15 Resp 15 11/07/19 10:15 BP 96/41 L 11/07/19 10:15 Pulse Ox 92 L 11/07/19 10:15 - Orders/Labs/Meds Orders: Active Orders 24 hr Category Date Time Status Patient Status [ADT] Routine ADT 11/06/19 19:07 Active Ambulate [RC] QID Care 11/06/19 19:07 Active Blood Glucose Check, Bedside [RC] QIDACANDBED Care 11/06/19 19:07 Active Diabetes Education [RC] Click to Edit Care 11/06/19 19:07 Active Height and Weight [RC] DAILY Care 11/06/19 19:07 Active Intake and Output [RC] QSHIFT Care 11/06/19 19:07 Active Notify Provider Vital Signs [RC] ASDIRECTED Care 11/06/19 19:07 Active Notify Provider [RC] PRN Care 11/06/19 19:07 Active Oxygen Therapy [RC] PRN Care 11/06/19 19:07 Active RT Aerosol Therapy [RC] ASDIRECTED Care 11/06/19 19:07 Active Up With Assistance [RC] ASDIRECTED Care 11/06/19 19:07 Active Up to Chair [RC] QID Care 11/06/19 19:07 Active VTE/DVT Education [RC] Per Unit Routine Care 11/06/19 19:07 Active Vital Signs [RC] Q4H Care 11/06/19 19:07 Active PT Evaluation and Treatment [CONS] Routine Cons 11/06/19 19:07 Active 2 Gram Sodium Diet [DIET] Diet 11/06/19 Dinner Active CULTURE BLOOD [BC] Stat Lab 11/06/19 16:18 Received CULTURE BLOOD [BC] Stat Lab 11/06/19 18:20 Received GLUCOSE POC LAB TO COLLECT [POC] QIDACANDBED Lab 11/08/19 07:30 Ordered GLUCOSE POC LAB TO COLLECT [POC] QIDACANDBED Lab 11/08/19 11:30 Ordered GLUCOSE POC LAB TO COLLECT [POC] QIDACANDBED Lab 11/08/19 16:30 Ordered GLUCOSE POC LAB TO COLLECT [POC] QIDACANDBED Lab 11/08/19 21:00 Ordered GLUCOSE POC LAB TO COLLECT [POC] QIDACANDBED Lab 11/09/19 07:30 Ordered GLUCOSE POC LAB TO COLLECT [POC] QIDACANDBED Lab 11/09/19 11:30 Ordered GLUCOSE POC LAB TO COLLECT [POC] QIDACANDBED Lab 11/09/19 16:30 Ordered GLUCOSE POC LAB TO COLLECT [POC] QIDACANDBED Lab 11/09/19 21:00 Ordered GLUCOSE POC LAB TO COLLECT [POC] QIDACANDBED Lab 11/10/19 07:30 Ordered GLUCOSE POC LAB TO COLLECT [POC] QIDACANDBED Lab 11/10/19 11:30 Ordered GLUCOSE POC LAB TO COLLECT [POC] QIDACANDBED Lab 11/10/19 16:30 Ordered GLUCOSE POC LAB TO COLLECT [POC] QIDACANDBED Lab 11/10/19 21:00 Ordered GLUCOSE POC LAB TO COLLECT [POC] QIDACANDBED Lab 11/11/19 07:30 Ordered GLUCOSE POC LAB TO COLLECT [POC] QIDACANDBED Lab 11/11/19 11:30 Ordered GLUCOSE POC LAB TO COLLECT [POC] QIDACANDBED Lab 11/11/19 16:30 Ordered Acetaminophen [Tylenol] Med 11/06/19 19:07 Active 650 mg PO Q4H PRN Albuterol [Proventil Neb Soln] Med 11/06/19 19:07 Active 2.5 mg NEB Q4H PRN Bumetanide [Bumex] Med 11/06/19 21:00 Active 4 mg PO BID Cetirizine [ZyrTEC] Med 11/07/19 09:00 Active 10 mg PO DAILY Clopidogrel [Plavix] Med 11/06/19 21:00 Active 75 mg PO BEDTIME Dextrose 50% in Water Med 11/06/19 19:07 Active 50 ml IV ONETIME PRN Dextrose [Glutose 15] Med 11/06/19 19:07 Active 15 gm PO ONETIME PRN Ezetimibe [Zetia] Med 11/07/19 09:00 Active 10 mg PO DAILY Fluticasone Propionate [Flonase] Med 11/07/19 09:00 Active 0 gm NASBOTH DAILY Gabapentin [Neurontin] Med 11/06/19 21:00 Active 100 mg PO BEDTIME Glimepiride [Amaryl] Med 11/07/19 08:00 Active 4 mg PO DAILY@0800 HYDROmorphone [Dilaudid] Med 11/06/19 19:07 Active 0.5 mg IVPUSH Q2H PRN Insulin Lispro [HumaLOG] Med 11/06/19 20:00 Active See Protocol SUBCUT QIDACANDBED Lactobacillus Rhamnosus GG [Culturelle] Med 11/06/19 21:00 Active 1 cap PO BID Meropenem [Merrem] 500 mg Med 11/06/19 18:15 Active Sodium Chloride 0.9% [Normal Saline] 100 ml IV Q12H Ondansetron [Zofran] Med 11/06/19 19:07 Active 4 mg IV Q4H PRN Sodium Chloride 0.9% [Saline Flush] Med 11/06/19 19:07 Active 10 ml FLUSH ASDIRECTED PRN Vancomycin Med 11/06/19 19:00 Active 1 gm IV .PHARMACY TO DOSE allopurinoL [Zyloprim] Med 11/07/19 09:00 Active 150 mg PO DAILY cilostazoL [Pletal] Med 11/07/19 07:30 Active 100 mg PO BIDAC dexAMETHasone Med 11/07/19 09:00 Active 4 mg PO DAILY oxyCODONE Med 11/06/19 19:07 Active 5 mg PO Q4H PRN polyethylene glycoL 3350 [MiraLAX] Med 11/06/19 19:07 Active 17 gm PO DAILY PRN traZODone Med 11/06/19 19:07 Active 50 mg PO BEDTIME PRN Blood Culture x2 Reflex Set [OM.PC] Urgent Oth 11/06/19 18:07 Ordered Saline Lock Insert [OM.PC] Routine Oth 11/06/19 19:07 Ordered Resuscitation Status Routine Resus Stat 11/06/19 17:34 Ordered Medication Orders Acetaminophen (Tylenol) 650 mg PO Q4H PRN PRN Reason: Pain (Mild 1-3)/fever Albuterol (Proventil Neb Soln) 2.5 mg NEB Q4H PRN PRN Reason: Shortness Of Breath/wheezing Allopurinol (Zyloprim) 150 mg PO DAILY [facility] Last Admin: 11/07/19 08:53 Dose: 150 mg Bumetanide (Bumex) 4 mg PO BID [facility] Last Admin: 11/07/19 08:52 Dose: 4 mg Admin: 11/06/19 21:00 Dose: 4 mg Cetirizine HCl (Zyrtec) 10 mg PO DAILY [facility] Last Admin: 11/07/19 08:53 Dose: 10 mg Cilostazol (Pletal) 100 mg PO BIDAC [facility] Last Admin: 05/26/20 08:53 Dose: 100 mg Clopidogrel Bisulfate (Plavix) 75 mg PO BEDTIME [facility] Last Admin: 11/06/19 21:01 Dose: 75 mg Dexamethasone (Dexamethasone) 4 mg PO DAILY [facility] Last Admin: 11/07/19 08:53 Dose: 4 mg Dextrose (Glutose 15) 15 gm PO ONETIME PRN PRN Reason: Hypoglycemia Dextrose/Water (Dextrose 50% In Water) 50 ml IV ONETIME PRN PRN Reason: Hypoglycemia Ezetimibe (Zetia) 10 mg PO DAILY [facility] Last Admin: 11/07/19 08:53 Dose: 10 mg Enoxaparin Sodium (Lovenox) 30 mg SUBCUT Q24H [facility] Fluticasone Propionate (Flonase) 0 gm NASBOTH DAILY [facility] Last Admin: 11/07/19 08:52 Dose: 2 sprays Gabapentin (Neurontin) 100 mg PO BEDTIME [facility] Last Admin: 11/06/19 21:01 Dose: 100 mg Glimepiride (Amaryl) 4 mg PO DAILY@0800 [facility] Last Admin: 11/07/19 08:53 Dose: 4 mg Hydromorphone HCl (Dilaudid) 0.5 mg IVPUSH Q2H PRN PRN Reason: Pain Last Admin: 11/07/19 03:47 Dose: 0.5 mg Meropenem 500 mg/ Sodium (Chloride) 100 mls @ 200 mls/hr IV Q12H [facility] Last Admin: 11/07/19 06:04 Dose: 200 mls/hr Admin: 11/06/19 18:31 Dose: 200 mls/hr Vancomycin HCl 1.75 gm/ Sodium (Chloride) 250 mls @ 166.667 mls/hr IV Q24H [facility] Last Admin: 11/06/19 20:01 Dose: 166.667 mls/hr Insulin Human Lispro (Humalog) 0 unit SUBCUT QIDACANDBED [facility]; Protocol Last Admin: 11/07/19 07:34 Dose: 1 unit Admin: 11/06/19 21:15 Dose: 1 unit Lactobacillus Rhamnosus (Culturelle) 1 cap PO BID [facility] Last Admin: 11/07/19 08:53 Dose: 1 cap Admin: 11/06/19 21:00 Dose: 1 cap Mometasone Furoate (Asmanex 220 Mcg) 2 puff INH DAILY [facility] Last Admin: 11/07/19 09:22 Dose: 2 puff Ondansetron HCl (Zofran) 4 mg IV Q4H PRN PRN Reason: Nausea/Vomiting Oxycodone HCl (Oxycodone) 5 mg PO Q4H PRN PRN Reason: Pain Last Admin: 11/07/19 09:45 Dose: 5 mg Admin: 11/06/19 22:52 Dose: 5 mg Polyethylene Glycol (Miralax) 17 gm PO DAILY PRN PRN Reason: Constipation Sodium Chloride (Saline Flush) 10 ml FLUSH ASDIRECTED PRN PRN Reason: Keep Vein Open Trazodone HCl (Trazodone) 50 mg PO BEDTIME PRN PRN Reason: Sleep Last Admin: 11/06/19 22:52 Dose: 50 mg Vancomycin HCl (Vancomycin) 1 gm IV .PHARMACY TO DOSE [facility] Warfarin Sodium (Coumadin) 5 mg PO DAILY@1300 [facility] Labs: Laboratory Tests 11/06/19 11/06/19 11/06/19 Range/Units 16:13 16:13 16:18 WBC 13.2 H (4.5-11.0) K/uL RBC 2.10 L (4.30-5.90) M/uL Hgb 7.8 L (12.0-15.0) g/dL Hct 23.6 L (40.0-54.0) % MCV 112 H (80-98) fL MCH 37 H (27-31) pg MCHC 33 (32-36) % Plt Count 277 (150-400) K/uL Neut % (Auto) 90 H (36-66) % Lymph % (Auto) 5 L (24-44) % [place] % (Auto) 5 (2-6) % Eos % (Auto) 1 L (2-4) % Baso % (Auto) 0 (0-1) % PT 15.3 H (9.5-12.0) sec INR 1.45 H (0.80-1.20) Sodium 134 L (140-148) mmol/L Potassium 2.7 L* (3.6-5.2) mmol/L Chloride 96 L (100-108) mmol/L Carbon Dioxide 29 (21-32) mmol/L Anion Gap 11.7 (5.0-14.0) mmol/L BUN 65 H (7-18) mg/dL Creatinine 2.5 H (0.8-1.3) mg/dL Est Cr Clr Drug Dosing 19.76 mL/min Estimated GFR (MDRD) 24 L (>60) Glucose 210 H (74-106) mg/dL Calcium 8.6 (8.5-10.1) mg/dL Total Bilirubin 1.6 H (0.2-1.0) mg/dL AST 19 (15-37) U/L ALT 23 (12-78) U/L Alkaline Phosphatase 112 (46-116) U/L C-Reactive Protein 5.55 H (0.0-0.3) mg/dL Total Protein 5.7 L (6.4-8.2) g/dL Albumin 2.6 L (3.4-5.0) g/dL Globulin 3.1 (2.3-3.5) g/dL Albumin/Globulin Ratio 0.8 L (1.2-2.2) Meds: Medications Generic Name Dose Route Start Last Admin Trade Name Freq PRN Reason Stop Dose Admin Acetaminophen 650 mg 11/06/19 19:07 Tylenol PO Q4H PRN Pain (Mild 1-3)/fever Albuterol 2.5 mg 11/06/19 19:07 Proventil Neb Soln NEB Q4H PRN Shortness Of Breath/wheezing Allopurinol 150 mg 11/07/19 09:00 11/07/19 08:53 Zyloprim PO 150 mg DAILY [facility] Administration Bumetanide 4 mg 11/06/19 21:00 11/07/19 08:52 Bumex PO 4 mg BID [facility] Administration Cetirizine HCl 10 mg 11/07/19 09:00 11/07/19 08:53 Zyrtec PO 10 mg DAILY [facility] Administration Cilostazol 100 mg 11/07/19 07:30 11/07/19 08:53 Pletal PO 100 mg BIDAC [facility] Administration Clopidogrel Bisulfate 75 mg 11/06/19 21:00 11/06/19 21:01 Plavix PO 75 mg BEDTIME [facility] Administration Dexamethasone 4 mg 11/07/19 09:00 11/07/19 08:53 Dexamethasone PO 4 mg DAILY [facility] Administration Dextrose 15 gm 11/06/19 19:07 Glutose 15 PO ONETIME PRN Hypoglycemia Dextrose/Water 50 ml 05/25/20 19:07 Dextrose 50% In Water IV ONETIME PRN Hypoglycemia Ezetimibe 10 mg 11/07/19 09:00 11/07/19 08:53 Zetia PO 10 mg DAILY [facility] Administration Enoxaparin Sodium 30 mg 11/07/19 18:00 Lovenox SUBCUT Q24H [facility] Fluticasone Propionate 0 gm 11/07/19 09:00 11/07/19 08:52 Flonase NASBOTH 2 sprays DAILY [facility] Administration Gabapentin 100 mg 11/06/19 21:00 11/06/19 21:01 Neurontin PO 100 mg BEDTIME [facility] Administration Glimepiride 4 mg 11/07/19 08:00 11/07/19 08:53 Amaryl PO 4 mg DAILY@0800 [facility] Administration Hydromorphone HCl 0.5 mg 11/06/19 19:07 11/07/19 03:47 Dilaudid IVPUSH 0.5 mg Q2H PRN Administration Pain Meropenem 500 mg/ Sodium 100 mls @ 200 mls/hr 11/06/19 18:15 11/07/19 06:04 Chloride IV 200 mls/hr Q12H [facility] Administration Vancomycin HCl 1.75 gm/ Sodium 250 mls @ 166.667 mls/hr 11/06/19 19:00 20:01 Chloride IV 166.667 mls/hr Q24H [facility] Administration Insulin Human Lispro 0 unit 11/06/19 20:00 11/07/19 07:34 Humalog SUBCUT 1 unit QIDACANDBED [facility] Administration Protocol Lactobacillus Rhamnosus 1 cap 11/06/19 21:00 11/07/19 08:53 Culturelle PO 1 cap BID [facility] Administration Mometasone Furoate 2 puff 11/07/19 09:00 11/07/19 09:22 Asmanex 220 Mcg INH 2 puff DAILY [facility] Administration Ondansetron HCl 4 mg 11/06/19 19:07 Zofran IV Q4H PRN Nausea/Vomiting Oxycodone HCl 5 mg 11/06/19 19:07 11/07/19 09:45 Oxycodone PO 5 mg Q4H PRN Administration Pain Polyethylene Glycol 17 gm 11/06/19 19:07 Miralax PO DAILY PRN Constipation Sodium Chloride 10 ml 11/06/19 19:07 Saline Flush FLUSH ASDIRECTED PRN Keep Vein Open Trazodone HCl 50 mg 11/06/19 19:07 11/06/19 22:52 Trazodone PO 50 mg BEDTIME PRN Administration Sleep Vancomycin HCl 1 gm 11/06/19 19:00 Vancomycin IV .PHARMACY TO DOSE [facility] Warfarin Sodium 5 mg 11/07/19 13:00 Coumadin PO DAILY@1300 [facility] Discontinued Medications Generic Name Dose Route Start Last Admin Trade Name Freq PRN Reason Stop Dose Admin Enoxaparin Sodium 30 mg 11/06/19 19:07 11/06/19 20:02 Lovenox SUBCUT 30 mg DAILY [facility] Administration Potassium Chloride 40 meq/ 100 mls @ 25 mls/hr 11/06/19 17:30 11/06/19 18:23 Premix IV 11/06/19 21:29 Not Given Q4H [facility] Potassium Chloride 20 meq/ 0 mls @ 50 mls/hr 11/06/19 19:00 11/06/19 20:22 Premix IV 50 mls/hr ONETIME [facility] Administration Potassium Chloride Confirm 11/06/19 18:07 11/06/19 18:16 Kcl 20 Meq In Water 100 Ml Administered 11/06/19 18:08 Not Given Dose 100 mls @ as directed .ROUTE .STK-MED ONE Lidocaine HCl 2 ml 11/06/19 18:04 11/06/19 18:15 Xylocaine-Mpf 1% INJECT 11/06/19 18:05 2 ml ONETIME ONE Administration Mometasone Furoate 2 puff 11/07/19 17:00 Asmanex 220 Mcg INH QPM [facility] Potassium Chloride 40 meq 11/06/19 17:30 11/06/19 17:43 Klor-Con M20 PO 11/06/19 17:31 40 meq ONETIME ONE Administration Potassium Chloride 40 meq 11/06/19 21:00 11/06/19 21:00 Klor-Con M20 PO 11/06/19 21:01 40 meq ONETIME ONE Administration Warfarin Sodium 5 mg 11/06/19 19:07 11/06/19 21:01 Coumadin PO 5 mg MoFr@1300 [facility] Administration Warfarin Sodium 2.5 mg 11/07/19 13:00 Coumadin PO SuTuWeThSa@1300 [facility] - Re-Assessments/Exams Free Text/Narrative Re-Assessment/Exam: 11/06/19 17:[address] of the pelvis shows no acute fracture of the pelvis or hip. There appears to be some soft tissue stranding around the right hip versus the left. White count is 14.3, hemoglobin 7.8, potassium 2.7. Patient feels he is in too much discomfort and too weak to go back to his assisted living although I think he might be currently admitted to rehab in the nursing facility. 11/06/19 17:21 C-reactive protein is 5.55. Above findings were discussed with Dr. Combs, he is can assess the patient for possible admission for pain control, further treatment of right hip inflammation and possibly more aggressive treatment of his hypokalemia, anemia and hydration status. Departure - Departure Time of Disposition: 19:08 Disposition: Admitted As Inpatient 67 Clinical Impression: Hypokalemia, Afib, Atrial fibrillation Cellulitis Qualifiers: Site of cellulitis: extremity Site of cellulitis of extremity: lower extremity Laterality: right Qualified Code(s): L03.115 - Cellulitis of right lower limb Anemia Qualifiers: Anemia type: unspecified type Qualified Code(s): D64.9 - Anemia, unspecified - Discharge Information Sepsis Event Note - Evaluation Sepsis Screening Result: No Definite Risk - Focused Exam Date Exam was Performed: 11/07/19 Time Exam was Performed: 10:39
--- NOTE | 2019-11-06 17:06 | CRLCT ---
Indication: Right hip pain. Trauma. Technique: CT examination of the pelvis was performed. The examination consists of thin-section axial images obtained from a about L5 through the sub trochanteric area on the right. This study terminates beyond the tip the right hip arthroplasty. Sagittal and coronal reformatted imaging was performed. Contrast was not administered Comparison: No recent studies Findings: Bone mineral density is markedly decreased. There is atherosclerotic vascular calcifications, postsurgical changes of the anterior abdominal wall, postsurgical changes in the left lower quadrant and diverticulosis. There is mild left hip joint osteoarthritis and degenerative change to the small lower lumbar spine. The sacrum and left innominate bone and left hip show no fracture. There is a right hip arthroplasty. Streak artifact of the femoral head component markedly limits the study at in near the acetabulum. I am comfortable that there is no fracture of the right femur. There is probably no fracture of the acetabular osseous structures though the anterior and superior aspect of the acetabulum and a portion of the superior right pubic ramus or poorly seen due to streak artifact. In this setting, I would recommend that this study be augmented with plain film. I would recommend an AP and frogleg lateral view of the right hip and 2 additional images, namely a right posterior oblique view and a left posterior oblique view of the right hip only. This would give the best view possible of acetabular area Impression: There is no definite acute fracture of the acetabular area is poorly visualized due to streak artifact from the femoral component of the arthroplasty. I recommend 4 specific plain film images of the right hip as discussed above Please note that all CT scans at this facility use dose modulation, iterative reconstruction, and/or weight-based dosing when appropriate to reduce radiation dose to as low as reasonably achievable. Dictated by Pito Colón MD @ Nov 06 2019 4:50PM Signed by Dr. Pito Colón @ Nov 06 2019 5:06PM
[2019-11-06] MEDS ORDERED: Potassium Chloride 20 MEQ Tab.ER PO ONE ×2 (17:30→21:00)
[2019-11-06] MEDS ORDERED: Potassium Chloride Riders 40 MEQ in Premix Bag 1 BAG IV SCH (17:30)
--- NOTE | 2019-11-06 17:38 | PCM.HP.2 ---
H&P History of Present Illness - General Date of Service: 11/06/19 Admit Problem/Dx: Admission Diagnosis/Problem Admission Diagnosis/Problem Hypokalemia Source of Information: Patient, Old Records, Provider, RN Notes Reviewed History Limitations: Reports: No Limitations - History of Present Illness Initial Comments - Free Text/Narative: Mr. Kamara is an 89-year-old gentleman who was admitted through the emergency department with increased pain right hip and across his lower back, secondary to cellulitis. He was hospitalized at this facility for cellulitis of his right thigh approximately 1 month ago. He was treated with antibiotics and improved and was [facility] and Occupational Therapy. He has known severe lumbar spinal stenosis causing his chronic pain right hip and down the right leg. He is not felt to be a good good candidate for any type of surgical intervention because of his chronic kidney disease as well as underlying cardiac disease. He has been receiving physical therapy and has been able to walk short distances but has ongoing pain. He is tried epidural steroid injections in the past and did not feel that they were helpful and is not interested in trying them again. He has erythema around the right lateral hip extending into the back and across to the left flank there is tenderness to palpation of the skin and increase in warmth. Denies recent fevers chills or sweats. White blood cell count is elevated and there is also elevation in his CRP. Right Hip Pain Score (Numeric/FACES): 8 - Related Data Allergies/Adverse Reactions: Allergies Allergy/AdvReac Type Severity Reaction Status Date / Time amoxicillin AdvReac Intermediate Diarrhea Verified 11/06/19 15:42 niacin AdvReac Mild Headache Verified 11/06/19 15:42 Home Medications: Home Meds Budesonide [Pulmicort Flexhaler] 2 puff INH BID 09/26/14 [History] Cetirizine [ZyrTEC] 10 mg PO DAILY 09/26/14 [History] Ezetimibe [Zetia] 10 mg PO DAILY 09/26/14 [History] Fluticasone Propionate [Flonase] 2 spray NASBOTH DAILY 09/26/14 [History] Glimepiride 4 mg PO DAILY 09/26/14 [History] Multivitamin with Minerals [Multiple Vitamin] 1 tab PO DAILY 09/26/14 [History] Warfarin [Coumadin] 5 mg PO MOFR 09/26/14 [History] Clopidogrel Bisulfate [Clopidogrel] 75 mg PO BEDTIME 10/02/17 [History] allopurinoL [Zyloprim] 150 mg PO DAILY 12/09/17 [History] cilostazoL [Pletal] 100 mg PO BIDAC 01/17/18 [History] traZODone HCl [Trazodone HCl] 50 mg PO BEDTIME PRN 12/15/18 [History] Warfarin [Coumadin] 2.5 mg PO SUTUWETHSA 07/25/19 [History] Bumetanide [Bumex] 4 mg PO BID 08/16/19 [History] Ibuprofen [Advil] 200 mg PO ASDIRECTED 09/12/19 [History] Gabapentin [Neurontin] 100 mg PO BEDTIME #30 cap 10/10/19 [Rx] Lactobacillus Rhamnosus GG [Culturelle] 1 cap PO BID #60 cap 10/10/19 [Rx] dexAMETHasone [Dexamethasone] 4 mg PO DAILY #4 tablet 10/10/19 [Rx] oxyCODONE 5 mg PO Q4H PRN #20 tablet 10/10/19 [Rx] Past Medical History HEENT History: Reports: Impaired Vision Cardiovascular History: Reports: Afib, Bypass, CAD, Heart Failure, High Cholesterol, Hypertension, SOB on Exertion, Other (See Below) Other Cardiovascular History: Mitral valve insuffient, electrical cardioversion Respiratory History: Reports: Asthma, Pneumonia, Recurrent, Sleep Apnea Gastrointestinal History: Reports: Diverticulosis, Hiatal Hernia, Other (See Below) Other Gastrointestinal History: right and left ing hernias Genitourinary History: Reports: Other (See Below) Other Genitourinary History: "kidneys getting weak" Musculoskeletal History: Reports: Osteoarthritis, Other (See Below) Other Musculoskeletal History: low back and left hip pain. R hip pain. R leg pain Endocrine/Metabolic History: Reports: Diabetes, Type II, Obesity/BMI 30+ Hematologic History: Reports: Blood Transfusion(s) Immunologic History: Reports: None Oncologic (Cancer) History: Reports: Basal Cell Carcinoma Other Oncologic History: melanoma on nose Dermatologic History: Reports: Melanoma, Other (See Below) Other Dermatologic History: Basal Cell CA - Infectious Disease History Infectious Disease History: Reports: C-Difficile, Influenza, Measles, Mumps, Shingles - Past Surgical History Head Surgeries/Procedures: Reports: None HEENT Surgical History: Reports: Cataract Surgery, Oral Surgery Cardiovascular Surgical History: Reports: Coronary Artery Bypass Respiratory Surgical History: Reports: None GI Surgical History: Reports: Appendectomy, Cholecystectomy, Colon, Colonoscopy , Hernia Repair/Other Male Surgical History: Reports: None Endocrine Surgical History: Reports: None Musculoskeletal Surgical History: Reports: Hip Replacement, Knee Replacement Oncologic Surgical History: Reports: None Dermatological Surgical History: Reports: Other (See Below) Social & Family History - Family History Family Medical History: Noncontributory - Tobacco Use Smoking Status *Q: Never Smoker - Caffeine Use Caffeine Use: Reports: None - Recreational Drug Use Recreational Drug Use: No - Living Situation & Occupation Living situation: Reports: , Extended Care Facility 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 Denies: Fever, Chills HEENT: Reports: No Symptoms Pulmonary: Reports: No Symptoms Cardiovascular: Reports: No Symptoms Gastrointestinal: Reports: No Symptoms Genitourinary: Reports: No Symptoms Musculoskeletal: Reports: No Symptoms Skin: Reports: Erythema, Other (Small decubitus ulcers present over the coccyx, present on admission) Psychiatric: Reports: No Symptoms Neurological: Reports: No Symptoms Hematologic/Lymphatic: Reports: No Symptoms Immunologic: Reports: No Symptoms Exam - Exam Exam: See Below - Vital Signs Vital Signs: Last Vital Signs Temp 98.2 F 11/06/19 15:45 Pulse 84 11/06/19 16:57 Resp 16 11/06/19 16:33 BP 100/46 L 11/06/19 16:57 Pulse Ox 86 L 11/06/19 16:33 Weight: 260 lb - Exam Quality Assessment: DVT Prophylaxis, Skin Breakdown (2 small decubitus ulcers present on admission) General: Alert, Oriented, Cooperative, Moderate Distress HEENT: Conjunctiva Clear, Hearing Intact, Mucosa Moist & [place], Normal Nasal Septum, Posterior Pharynx Clear, Pupils Equal Neck: Supple, Trachea Midline, +2 Carotid Pulse wo Bruit Lungs: Clear to Auscultation, Normal Respiratory Effort Cardiovascular: Regular Rate, Regular Rhythm, Normal S1, Normal S2 GI/Abdominal Exam: Soft, Non-Tender, No Organomegaly, No Distention Back Exam: Normal Inspection, Full Range of Motion Extremities: Non-Tender, Pedal Edema Skin: Warm, Dry, Other (Erythema right hip extending across lower back and into the buttocks) Neurological: Cranial Nerves Intact, Strength Equal Bilateral, Normal Speech, Normal Tone, Sensation Intact. No: Focal Deficit Neuro Extensive - Mental Status: Alert, Oriented x3, Normal Mood/Affect, Normal Cognition, Memory Intact - Patient Data Lab Results Last 24 hrs: Laboratory Results - last 24 hr 11/06/19 11/06/19 Range/Units 16:13 16:13 WBC 13.2 H (4.5-11.0) K/uL RBC 2.10 L (4.30-5.90) M/uL Hgb 7.8 L (12.0-15.0) g/dL Hct 23.6 L (40.0-54.0) % MCV 112 H (80-98) fL MCH 37 H (27-31) pg MCHC 33 (32-36) % Plt Count 277 (150-400) K/uL Neut % (Auto) 90 H (36-66) % Lymph % (Auto) 5 L (24-44) % Emanuel % (Auto) 5 (2-6) % Eos % (Auto) 1 L (2-4) % Baso % (Auto) 0 (0-1) % Sodium 134 L (140-148) mmol/L Potassium 2.7 L* (3.6-5.2) mmol/L Chloride 96 L (100-108) mmol/L Carbon Dioxide 29 (21-32) mmol/L Anion Gap 11.7 (5.0-14.0) mmol/L BUN 65 H (7-18) mg/dL Creatinine 2.5 H (0.8-1.3) mg/dL Est Cr Clr Drug Dosing 19.76 mL/min Estimated GFR (MDRD) 24 L (>60) Glucose 210 H (74-106) mg/dL Calcium 8.6 (8.5-10.1) mg/dL Total Bilirubin 1.6 H (0.2-1.0) mg/dL AST 19 (15-37) U/L ALT 23 (12-78) U/L Alkaline Phosphatase 112 (46-116) U/L C-Reactive Protein 5.55 H (0.0-0.3) mg/dL Total Protein 5.7 L (6.4-8.2) g/dL Albumin 2.6 L (3.4-5.0) g/dL Globulin 3.1 (2.3-3.5) g/dL Albumin/Globulin Ratio 0.8 L (1.2-2.2) Result Diagrams: 11/06/19 16:13 11/06/19 16:13 Sepsis Event Note - Evaluation Sepsis Screening Result: No Definite Risk - Focused Exam Vital Signs: Vital Signs Temp Pulse Resp BP Pulse Ox 11/06/19 16:57 84 100/46 L 11/06/19 16:33 79 16 117/55 L 86 L 11/06/19 15:45 98.2 F 61 18 118/67 92 L 11/06/19 15:40 98.2 F 61 18 118/67 92 L Date Exam was Performed: 11/06/19 Time Exam was Performed: 18:11 *Q Meaningful Use (ADM) - VTE Risk Assess *Q Each Risk Factor Represents 1 Point: Swollen Legs, Current, Obesity ( BMI > 25 kg/m2), Congestive heart failure (CHF) Total Score 1 Point Risk Factors: 3 Each Risk Factor Represents 2 Points: None Total Score 2 Point Risk Factors: 0 Each Risk Factor Represents 3 Points: Age 75 Years or Greater Total Score 3 Point Risk Factors: 3 Each Risk Factor Represents 5 Points: None Total Score 5 Point Risk Factors: 0 Venous Thromboembolism Risk Factor Score *Q: 6 Problem List Initiated/Reviewed/Updated: Yes Orders Last 24hrs: Active Orders 24 hr Category Date Time Status Patient Status Manage Transfer [TRANSFER] Routine ADT 11/06/19 17:31 Ordered Potassium Chloride Riders [KCL 40 MEQ in Water 100 ML] Med 11/06/19 17:30 Ordered 40 meq Premix Bag 1 bag IV ONETIME Potassium Chloride [Klor-Con M20] Med 11/06/19 17:30 Once 40 meq PO ONETIME ONE Resuscitation Status Routine Resus Stat 11/06/19 17:34 Ordered Medication Orders Potassium Chloride 40 meq/ (Premix) 100 mls @ 25 mls/hr IV ONETIME ONE Stop: 11/06/19 21:29 Potassium Chloride (Klor-Con M20) 40 meq PO ONETIME ONE Stop: 11/06/19 17:31 Assessment/Plan Comment:: ASSESSMENT AND PLAN CELLULITIS-second episode over the past month, erythema and tenderness with increased warmth of the skin right lateral hip extending into buttocks and across the lower back. White blood cell count is elevated although some of this may be secondary to his current therapy with Decadron. CRP is elevated and he definitely notes an increase in pain and tenderness even over the past few hours. We will need to start with expanded IV antibiotic coverage given his recent hospitalization with antibiotics. -IV vancomycin and meropenem, pending culture results -Blood cultures pending DECUBITUS ULCERS-2 small ulcers noted over the lower back, present on admission. They do not appear to represent source of infection. -Continue current management CHRONIC KIDNEY DISEASE STAGE IV-renal function appears to be at baseline -Closely monitor urine output and renal function CONGESTIVE HEART FAILURE-does have an increase in peripheral edema, denies any increase in shortness of breath or chest pain -Continue outpatient medications HYPOKALEMIA -IV and oral potassium replacement -Reassess potassium level in a.m. SEVERE LUMBAR SPINAL STENOSIS PALLIATIVE CARE-he feels that he is slowly dying, would like to consider more of a comfort care hospice approach to management -Discuss further MAINTENANCE ISSUES -DVT prophylaxis; Lovenox 30 mg subcu daily -GI prophylaxis; not indicated -[place] catheter; not indicated -Nutrition; 2 g sodium diet -Nicotine dependence; not required CODE STATUS-DNR/DNI ADMISSION STATUS-this patient will be admitted to observation status, expect no more than a one night hospital stay for evaluation and management of problems as outlined above. DISPOSITION-anticipate discharge to home after the hospital stay. PRIMARY CARE PROVIDER-Dr. Olmos - Mortality Measure Prognosis:: Poor
[2019-11-06] MEDS ORDERED: Potassium Chloride 100 ML ONE (18:07)
[2019-11-06] MEDS: Potassium Chloride 20 MEQ in Premix Bag 2 BAG IV SCH ×2 (18:15→20:22)
[2019-11-06] MEDS: Meropenem 500 MG in Sodium Chloride 0.9% 100 ML IV SCH (18:31)
[2019-11-06] MEDS ORDERED: Vancomycin 1 GM SDV IV SCH (19:00)
[2019-11-06] MEDS ORDERED: Sodium Chloride 0.9% 10 ML Syringe FLUSH PRN (19:07)
[2019-11-06] MEDS ORDERED: Glucose Gel 15 GM in 37.5 GM Tube PO PRN (19:07)
[2019-11-06] MEDS ORDERED: Polyethylene Glycol 3350 Powder 17 GM Packet PO PRN (19:07)
[2019-11-06] MEDS ORDERED: Ondansetron 4 MG/2 ML SDV IV PRN (19:07)
[2019-11-06] MEDS ORDERED: Warfarin 5 MG Tab PO SCH (19:07)
[2019-11-06] MEDS ORDERED: 50% Dextrose in Water 50 ML Syringe IV PRN (19:07)
[2019-11-06] MEDS ORDERED: Albuterol 0.083% 2.5 MG/3 ML Neb Soln NEB PRN (19:07)
[2019-11-06] MEDS ORDERED: Enoxaparin 30 MG/0.3 ML Syringe SUBCUT SCH (19:07)
[2019-11-06] MEDS ORDERED: HYDROmorphone 0.5 MG/0.5 ML Syringe IVPUSH PRN (19:07)
[2019-11-06] MEDS: Lactobacillus Rhamnosus GG (Probiotic) Cap PO SCH (21:00)
[2019-11-06] MEDS: Bumetanide 1 MG Tab PO SCH (21:00)
[2019-11-06] MEDS: Gabapentin 100 MG Cap PO SCH (21:01)
[2019-11-06] MEDS: Clopidogrel 75 MG Tab PO SCH (21:01)
[2019-11-06] MEDS: Insulin Lispro 100 Unit/ML 3 ML KwikPen SUBCUT SCH (21:15)
[2019-11-06] MEDS: traZODone 50 MG Tab PO PRN (22:52)
[2019-11-06] MEDS: oxyCODONE 5 MG Tab PO PRN (22:52)
[2019-11-07] MEDS: Meropenem 500 MG in Sodium Chloride 0.9% 100 ML IV SCH (06:04)
[2019-11-07] MEDS: Insulin Lispro 100 Unit/ML 3 ML KwikPen SUBCUT SCH ×4 (07:34→21:01)
[2019-11-07] MEDS: Fluticasone Propionate Nasal Spray 16 GM Bottle NASBOTH SCH (08:52)
[2019-11-07] MEDS: Bumetanide 1 MG Tab PO SCH ×3 (08:52→20:57)
[2019-11-07] MEDS: Dexamethasone 4 MG Tab PO SCH (08:53)
[2019-11-07] MEDS: Cetirizine 10 MG Tab PO SCH (08:53)
[2019-11-07] MEDS: Glimepiride 2 MG Tab PO SCH (08:53)
[2019-11-07] MEDS: Lactobacillus Rhamnosus GG (Probiotic) Cap PO SCH ×2 (08:53→20:59)
[2019-11-07] MEDS: Ezetimibe 10 MG Tab PO SCH (08:53)
[2019-11-07] MEDS: Allopurinol 300 MG Tab PO SCH (08:53)
[2019-11-07] MEDS: Mometasone Furoate Powder 220 MCG/Puff 14 Dose Inhaler INH SCH (09:22)
[2019-11-07] MEDS: oxyCODONE 5 MG Tab PO PRN ×2 (09:45→14:47)
[2019-11-07] MEDS ORDERED: Dimethicone 20%/Zinc Oxide 25% 56 GM Spray Bottle TOP PRN (11:49)
--- NOTE | 2019-11-07 12:30 | PCM.PN ---
- General Info Date of Service: 11/07/19 Subjective Update: Mr. Kamara feels improved today with less pain in his back buttocks and right lateral hip. Vital signs have remained stable and he has been afebrile. Sleepy today, more alert and interactive. Cell count has normalized. Functional Status: Reports: Tolerating Diet, Urinating - Review of Systems General: Reports: Weakness. Denies: Fever, Chills Pulmonary: Reports: No Symptoms Cardiovascular: Reports: No Symptoms Gastrointestinal: Reports: No Symptoms Musculoskeletal: Reports: Back Pain - Patient Data Vitals - Most Recent: Last Vital Signs Temp 98.6 F 11/07/19 11:30 Pulse 91 11/07/19 11:30 Resp 15 11/07/19 11:30 BP 105/51 L 11/07/19 11:30 Pulse Ox 95 11/07/19 11:30 Weight - Most Recent: 232 lb I&O - Last 24 Hours: Intake & Output 11/06/19 11/07/19 11/07/19 22:59 06:59 14:59 Intake Total 850 610 Output Total 200 400 125 Balance -200 450 485 Lab Results Last 24 Hours: Laboratory Results - last 24 hr 11/06/19 11/06/19 11/06/19 Range/Units 16:13 16:13 16:18 WBC 13.2 H (4.5-11.0) K/uL RBC 2.10 L (4.30-5.90) M/uL Hgb 7.8 L (12.0-15.0) g/dL Hct 23.6 L (40.0-54.0) % MCV 112 H (80-98) fL MCH 37 H (27-31) pg MCHC 33 (32-36) % Plt Count 277 (150-400) K/uL Neut % (Auto) 90 H (36-66) % Lymph % (Auto) 5 L (24-44) % [place] % (Auto) 5 (2-6) % Eos % (Auto) 1 L (2-4) % Baso % (Auto) 0 (0-1) % PT 15.3 H (9.5-12.0) sec INR 1.45 H (0.80-1.20) Sodium 134 L (140-148) mmol/L Potassium 2.7 L* (3.6-5.2) mmol/L Chloride 96 L (100-108) mmol/L Carbon Dioxide 29 (21-32) mmol/L Anion Gap 11.7 (5.0-14.0) mmol/L BUN 65 H (7-18) mg/dL Creatinine 2.5 H (0.8-1.3) mg/dL Est Cr Clr Drug Dosing 19.76 mL/min Estimated GFR (MDRD) 24 L (>60) Glucose 210 H (74-106) mg/dL Calcium 8.6 (8.5-10.1) mg/dL Magnesium (1.8-2.4) mg/dL Total Bilirubin 1.6 H (0.2-1.0) mg/dL AST 19 (15-37) U/L ALT 23 (12-78) U/L Alkaline Phosphatase 112 (46-116) U/L C-Reactive Protein 5.55 H (0.0-0.3) mg/dL Total Protein 5.7 L (6.4-8.2) g/dL Albumin 2.6 L (3.4-5.0) g/dL Globulin 3.1 (2.3-3.5) g/dL Albumin/Globulin Ratio 0.8 L (1.2-2.2) Blood Type Gel Antibody Screen Crossmatch 11/07/19 11/07/19 11/07/19 Range/Units 04:30 04:30 04:50 WBC 10.9 (4.5-11.0) K/uL RBC 1.95 L (4.30-5.90) M/uL Hgb 7.0 L (12.0-15.0) g/dL Hct 22.3 L (40.0-54.0) % MCV 114 H (80-98) fL MCH 36 H (27-31) pg MCHC 31 L (32-36) % Plt Count 252 (150-400) K/uL Neut % (Auto) 90 H (36-66) % Lymph % (Auto) 5 L (24-44) % [place] % (Auto) 5 (2-6) % Eos % (Auto) 0 L (2-4) % Baso % (Auto) 0 (0-1) % PT 16.1 H (9.5-12.0) sec INR 1.53 H (0.80-1.20) Sodium 136 L (140-148) mmol/L Potassium 4.0 (3.6-5.2) mmol/L Chloride 99 L (100-108) mmol/L Carbon Dioxide 28 (21-32) mmol/L Anion Gap 13.0 (5.0-14.0) mmol/L BUN 69 H (7-18) mg/dL Creatinine 2.5 H (0.8-1.3) mg/dL Est Cr Clr Drug Dosing 19.83 mL/min Estimated GFR (MDRD) 24 L (>60) Glucose 190 H (74-106) mg/dL Calcium 8.5 (8.5-10.1) mg/dL Magnesium 1.8 (1.8-2.4) mg/dL Total Bilirubin (0.2-1.0) mg/dL AST (15-37) U/L ALT (12-78) U/L Alkaline Phosphatase (46-116) U/L C-Reactive Protein (0.0-0.3) mg/dL Total Protein (6.4-8.2) g/dL Albumin (3.4-5.0) g/dL Globulin (2.3-3.5) g/dL Albumin/Globulin Ratio (1.2-2.2) Blood Type Gel Antibody Screen Crossmatch 11/07/19 Range/Units 07:35 WBC (4.5-11.0) K/uL RBC (4.30-5.90) M/uL Hgb (12.0-15.0) g/dL Hct (40.0-54.0) % MCV (80-98) fL MCH (27-31) pg MCHC (32-36) % Plt Count (150-400) K/uL Neut % (Auto) (36-66) % Lymph % (Auto) (24-44) % [place] % (Auto) (2-6) % Eos % (Auto) (2-4) % Baso % (Auto) (0-1) % PT (9.5-12.0) sec INR (0.80-1.20) Sodium (140-148) mmol/L Potassium (3.6-5.2) mmol/L Chloride (100-108) mmol/L Carbon Dioxide (21-32) mmol/L Anion Gap (5.0-14.0) mmol/L BUN (7-18) mg/dL Creatinine (0.8-1.3) mg/dL Est Cr Clr Drug Dosing mL/min Estimated GFR (MDRD) (>60) Glucose (74-106) mg/dL Calcium (8.5-10.1) mg/dL Magnesium (1.8-2.4) mg/dL Total Bilirubin (0.2-1.0) mg/dL AST (15-37) U/L ALT (12-78) U/L Alkaline Phosphatase (46-116) U/L C-Reactive Protein (0.0-0.3) mg/dL Total Protein (6.4-8.2) g/dL Albumin (3.4-5.0) g/dL Globulin (2.3-3.5) g/dL Albumin/Globulin Ratio (1.2-2.2) Blood Type O POSITIVE Gel Antibody Screen Negative Crossmatch See Detail Med Orders - Current: Current Medications Acetaminophen (Tylenol) 650 mg PO Q4H PRN PRN Reason: Pain (Mild 1-3)/fever Albuterol (Proventil Neb Soln) 2.5 mg NEB Q4H PRN PRN Reason: Shortness Of Breath/wheezing Allopurinol (Zyloprim) 150 mg PO DAILY [facility] Last Admin: 11/07/19 08:53 Dose: 150 mg Bumetanide (Bumex) 4 mg PO BID [facility] Last Admin: 11/07/19 08:52 Dose: 4 mg Cetirizine HCl (Zyrtec) 10 mg PO DAILY [facility] Last Admin: 11/07/19 08:53 Dose: 10 mg Cilostazol (Pletal) 100 mg PO BIDAC [facility] Last Admin: 11/07/19 08:53 Dose: 100 mg Clopidogrel Bisulfate (Plavix) 75 mg PO BEDTIME [facility] Last Admin: 11/06/19 21:01 Dose: 75 mg Dexamethasone (Dexamethasone) 4 mg PO DAILY [facility] Last Admin: 11/07/19 08:53 Dose: 4 mg Dextrose (Glutose 15) 15 gm PO ONETIME PRN PRN Reason: Hypoglycemia Dextrose/Water (Dextrose 50% In Water) 50 ml IV ONETIME PRN PRN Reason: Hypoglycemia Dimethicone/Zinc Oxide (Rash Relief-Zinc Oxide [place]) 1 gm TOP ASDIRECTED PRN PRN Reason: Rash Ezetimibe (Zetia) 10 mg PO DAILY [facility] Last Admin: 11/07/19 08:53 Dose: 10 mg Enoxaparin Sodium (Lovenox) 30 mg SUBCUT Q24H [facility] Fluticasone Propionate (Flonase) 0 gm NASBOTH DAILY [facility] Last Admin: 11/07/19 08:52 Dose: 2 sprays Gabapentin (Neurontin) 100 mg PO BEDTIME [facility] Last Admin: 11/06/19 21:01 Dose: 100 mg Glimepiride (Amaryl) 4 mg PO DAILY@0800 [facility] Last Admin: 11/07/19 08:53 Dose: 4 mg Hydromorphone HCl (Dilaudid) 0.5 mg IVPUSH Q2H PRN PRN Reason: Pain Last Admin: 11/07/19 03:47 Dose: 0.5 mg Meropenem 500 mg/ Sodium (Chloride) 100 mls @ 200 mls/hr IV Q12H [facility] Last Admin: 11/07/19 06:04 Dose: 200 mls/hr Vancomycin HCl 1.75 gm/ Sodium (Chloride) 250 mls @ 166.667 mls/hr IV Q24H [facility] Last Admin: 11/06/19 20:01 Dose: 166.667 mls/hr Insulin Human Lispro (Humalog) 0 unit SUBCUT QIDACANDBED [facility]; Protocol Last Admin: 11/07/19 11:37 Dose: 3 unit Lactobacillus Rhamnosus (Culturelle) 1 cap PO BID [facility] Last Admin: 11/07/19 08:53 Dose: 1 cap Mometasone Furoate (Asmanex 220 Mcg) 2 puff INH DAILY [facility] Last Admin: 11/07/19 09:22 Dose: 2 puff Ondansetron HCl (Zofran) 4 mg IV Q4H PRN PRN Reason: Nausea/Vomiting Oxycodone HCl (Oxycodone) 5 mg PO Q4H PRN PRN Reason: Pain Last Admin: 11/07/19 09:45 Dose: 5 mg Polyethylene Glycol (Miralax) 17 gm PO DAILY PRN PRN Reason: Constipation Sodium Chloride (Saline Flush) 10 ml FLUSH ASDIRECTED PRN PRN Reason: Keep Vein Open Trazodone HCl (Trazodone) 50 mg PO BEDTIME PRN PRN Reason: Sleep Last Admin: 11/06/19 22:52 Dose: 50 mg Vancomycin HCl (Vancomycin) 1 gm IV .PHARMACY TO DOSE [facility] Warfarin Sodium (Coumadin) 5 mg PO DAILY@1300 [facility] Discontinued Medications Enoxaparin Sodium (Lovenox) 30 mg SUBCUT DAILY [facility] Last Admin: 11/06/19 20:02 Dose: 30 mg Potassium Chloride 40 meq/ (Premix) 100 mls @ 25 mls/hr IV Q4H [facility] Stop: 11/06/19 21:29 Last Admin: 11/06/19 18:23 Dose: Not Given Potassium Chloride 20 meq/ (Premix) 0 mls @ 50 mls/hr IV ONETIME [facility] Last Admin: 11/06/19 20:22 Dose: 50 mls/hr Potassium Chloride (Kcl 20 Meq In Water 100 Ml) Confirm Administered Dose 100 mls @ as directed .ROUTE .STK-MED ONE Stop: 11/06/19 18:08 Last Admin: 11/06/19 18:16 Dose: Not Given Lidocaine HCl (Xylocaine-Mpf 1%) 2 ml INJECT ONETIME ONE Stop: 11/06/19 18:05 Last Admin: 11/06/19 18:15 Dose: 2 ml Mometasone Furoate (Asmanex 220 Mcg) 2 puff INH QPM [facility] Potassium Chloride (Klor-Con M20) 40 meq PO ONETIME ONE Stop: 11/06/19 17:31 Last Admin: 11/06/19 17:43 Dose: 40 meq Potassium Chloride (Klor-Con M20) 40 meq PO ONETIME ONE Stop: 11/06/19 21:01 Last Admin: 11/06/19 21:00 Dose: 40 meq Warfarin Sodium (Coumadin) 5 mg PO MoFr@1300 [facility] Last Admin: 11/06/19 21:01 Dose: 5 mg Warfarin Sodium (Coumadin) 2.5 mg PO SuTuWeThSa@1300 [facility] - Exam Quality Assessment: DVT Prophylaxis General: Alert, Oriented, Cooperative, Mild Distress Lungs: Clear to Auscultation, Normal Respiratory Effort Cardiovascular: Regular Rate, No Murmurs, Irregular Rhythm GI/Abdominal Exam: Soft, Non-Tender, No Organomegaly, No Distention Skin: Other (Skin over the lower back buttocks and right lateral hip less erythematous and warm) Sepsis Event Note - Evaluation Sepsis Screening Result: No Definite Risk - Focused Exam Vital Signs: Vital Signs Temp Temp Pulse Resp BP Pulse Ox 11/07/19 11:30 98.6 F 91 15 105/51 L 95 11/07/19 11:00 98.1 F 84 15 98/43 L 96 11/07/19 10:30 96.3 F L 90 14 104/44 L 92 L 11/07/19 10:15 96.3 F L 91 15 96/41 L 92 L 11/07/19 10:00 97 F 88 15 99/41 L 91 L 11/07/19 09:45 96.6 F L 78 14 90/48 L 95 11/07/19 09:31 96.6 F L 89 15 100/52 L 11/07/19 07:31 97.3 F 65 16 97/46 L 92 L 11/07/19 04:51 78 102/50 L 11/07/19 04:22 76 85/44 L 11/07/19 03:47 97.3 F 83 21 H 79/46 L 94 L Date Exam was Performed: 11/07/19 Time Exam was Performed: 12:26 - Problem List Review Problem List Initiated/Reviewed/Updated: Yes - My Orders Last 24 Hours: My Active Orders 11/06/19 16:18 CULTURE BLOOD [BC] Stat 11/06/19 17:34 Resuscitation Status Routine 11/06/19 18:07 Blood Culture x2 Reflex Set [OM.PC] Urgent 11/06/19 18:15 Meropenem [Merrem] 500 mg Sodium Chloride 0.9% [Normal Saline] 100 ml IV Q12H 11/06/19 18:20 CULTURE BLOOD [BC] Stat 11/06/19 18:31 Patient Status [ADT] Routine 11/06/19 19:00 Vancomycin 1 gm IV .PHARMACY TO DOSE 11/06/19 19:07 Patient Status [ADT] Routine Ambulate [RC] QID Blood Glucose Check, Bedside [RC] QIDACANDBED Diabetes Education [RC] Click to Edit Height and Weight [RC] DAILY Intake and Output [RC] QSHIFT Notify Provider Vital Signs [RC] ASDIRECTED Notify Provider [RC] PRN Oxygen Therapy [RC] PRN RT Aerosol Therapy [RC] ASDIRECTED Up With Assistance [RC] ASDIRECTED Up to Chair [RC] QID VTE/DVT Education [RC] Per Unit Routine Vital Signs [RC] Q4H PT Evaluation and Treatment [CONS] Routine Acetaminophen [Tylenol] 650 mg PO Q4H PRN Albuterol [Proventil Neb Soln] 2.5 mg NEB Q4H PRN Dextrose 50% in Water 50 ml IV ONETIME PRN Dextrose [Glutose 15] 15 gm PO ONETIME PRN HYDROmorphone [Dilaudid] 0.5 mg IVPUSH Q2H PRN Ondansetron [Zofran] 4 mg IV Q4H PRN Sodium Chloride 0.9% [Saline Flush] 10 ml FLUSH ASDIRECTED PRN oxyCODONE 5 mg PO Q4H PRN polyethylene glycoL 3350 [MiraLAX] 17 gm PO DAILY PRN traZODone 50 mg PO BEDTIME PRN Saline Lock Insert [OM.PC] Routine 11/06/19 20:00 Insulin Lispro [HumaLOG] See Protocol SUBCUT QIDACANDBED 11/06/19 21:00 Bumetanide [Bumex] 4 mg PO BID Clopidogrel [Plavix] 75 mg PO BEDTIME Gabapentin [Neurontin] 100 mg PO BEDTIME Lactobacillus Rhamnosus GG [Culturelle] 1 cap PO BID 11/06/19 Dinner 2 Gram Sodium Diet [DIET] 11/07/19 07:20 Transfuse Red Blood Cells [COMM] Urgent 11/07/19 07:30 cilostazoL [Pletal] 100 mg PO BIDAC 11/07/19 08:00 Glimepiride [Amaryl] 4 mg PO DAILY@0800 11/07/19 09:00 Cetirizine [ZyrTEC] 10 mg PO DAILY Ezetimibe [Zetia] 10 mg PO DAILY Fluticasone Propionate [Flonase] 0 gm NASBOTH DAILY Mometasone Furoate [Asmanex 220 MCG] 2 puff INH DAILY allopurinoL [Zyloprim] 150 mg PO DAILY dexAMETHasone 4 mg PO DAILY 11/07/19 11:49 Dimethicone/Zinc Oxide [Rash Relief-Zinc Oxide [place]] 1 gm TOP ASDIRECTED PRN 11/07/19 13:00 Warfarin [Coumadin] 5 mg PO DAILY@1300 11/07/19 18:00 Enoxaparin [Lovenox] 30 mg SUBCUT Q24H 11/08/19 05:00 BASIC METABOLIC PANEL,BMP [CHEM] Timed CBC WITH AUTO DIFF [HEME] Timed MAGNESIUM [CHEM] Timed 11/08/19 07:30 GLUCOSE POC LAB TO COLLECT [POC] QIDACANDBED 11/08/19 11:30 GLUCOSE POC LAB TO COLLECT [POC] QIDACANDBED 11/08/19 16:00 VANCOMYCIN TROUGH [CHEM] Timed 11/08/19 16:30 GLUCOSE POC LAB TO COLLECT [POC] QIDACANDBED 11/08/19 21:00 GLUCOSE POC LAB TO COLLECT [POC] QIDACANDBED 11/09/19 07:30 GLUCOSE POC LAB TO COLLECT [POC] QIDACANDBED 11/09/19 11:30 GLUCOSE POC LAB TO COLLECT [POC] QIDACANDBED 11/09/19 16:30 GLUCOSE POC LAB TO COLLECT [POC] QIDACANDBED 11/09/19 21:00 GLUCOSE POC LAB TO COLLECT [POC] QIDACANDBED 11/10/19 07:30 GLUCOSE POC LAB TO COLLECT [POC] QIDACANDBED 11/10/19 11:30 GLUCOSE POC LAB TO COLLECT [POC] QIDACANDBED 11/10/19 16:30 GLUCOSE POC LAB TO COLLECT [POC] QIDACANDBED 11/10/19 21:00 GLUCOSE POC LAB TO COLLECT [POC] QIDACANDBED 11/11/19 07:30 GLUCOSE POC LAB TO COLLECT [POC] QIDACANDBED 11/11/19 11:30 GLUCOSE POC LAB TO COLLECT [POC] QIDACANDBED 11/11/19 16:30 GLUCOSE POC LAB TO COLLECT [POC] QIDACANDBED - Plan Plan:: ASSESSMENT AND PLAN CELLULITIS-second episode over the past month, erythema and tenderness with increased warmth of the skin right lateral hip extending into buttocks and across the lower back. Improved since admission with less erythema, warmth, and pain -IV vancomycin and meropenem, pending culture results -Blood cultures pending DECUBITUS ULCERS-2 small ulcers noted over the lower back, present on admission. They do not appear to represent source of infection. -Continue current management CHRONIC KIDNEY DISEASE STAGE IV-renal function appears to be at baseline -Closely monitor urine output and renal function CONGESTIVE HEART FAILURE-does have an increase in peripheral edema, denies any increase in shortness of breath or chest pain -Continue outpatient medications HYPOKALEMIA-resolved -Reassess potassium level in a.m. SEVERE LUMBAR SPINAL STENOSIS PALLIATIVE CARE-he feels that he is slowly dying, would like to consider more of a comfort care hospice approach to management -Discuss further over the course of his hospital stay MAINTENANCE ISSUES -DVT prophylaxis; Lovenox 30 mg subcu daily -GI prophylaxis; not indicated -[place] catheter; not indicated -Nutrition; 2 g sodium diet -Nicotine dependence; not required CODE STATUS-DNR/DNI ADMISSION STATUS-this patient will be admitted to observation status, expect no more than a one night hospital stay for evaluation and management of problems as outlined above. DISPOSITION-anticipate discharge to home after the hospital stay. PRIMARY CARE PROVIDER-Dr. Olmos
[2019-11-07] MEDS ORDERED: Warfarin 2.5 MG Tab PO SCH (13:00)
[2019-11-07] MEDS: Warfarin 5 MG Tab PO SCH (13:22)
[2019-11-07] MEDS ORDERED: Mometasone Furoate Powder 220 MCG/Puff 14 Dose Inhaler INH SCH (17:00)
[2019-11-07] MEDS: Meropenem 500 MG in Sodium Chloride 0.9% 50 ML IV SCH (18:07)
[2019-11-07] MEDS: Enoxaparin 30 MG/0.3 ML Syringe SUBCUT SCH (18:08)
[2019-11-07] MEDS: LORazepam 0.5 MG Tab PO PRN (19:25)
[2019-11-07] MEDS: Clopidogrel 75 MG Tab PO SCH (20:58)
[2019-11-07] MEDS: Gabapentin 100 MG Cap PO SCH (20:58)
[2019-11-07] MEDS: Acetaminophen 325 MG Tab PO PRN (21:44)
[2019-11-07] MEDS: traZODone 50 MG Tab PO PRN (21:45)
[2019-11-08] MEDS: Meropenem 500 MG in Sodium Chloride 0.9% 50 ML IV SCH (05:57)
[2019-11-08] MEDS: oxyCODONE 5 MG Tab PO PRN (06:05)
[2019-11-08] MEDS: Insulin Lispro 100 Unit/ML 3 ML KwikPen SUBCUT SCH ×4 (07:53→21:11)
[2019-11-08] MEDS: Glimepiride 2 MG Tab PO SCH (07:57)
[2019-11-08] MEDS: Bumetanide 1 MG Tab PO SCH ×2 (08:01→21:01)
[2019-11-08] MEDS: Dexamethasone 4 MG Tab PO SCH (08:02)
[2019-11-08] MEDS: Lactobacillus Rhamnosus GG (Probiotic) Cap PO SCH ×2 (08:02→21:01)
[2019-11-08] MEDS: Ezetimibe 10 MG Tab PO SCH (08:03)
[2019-11-08] MEDS: Allopurinol 300 MG Tab PO SCH (08:03)
[2019-11-08] MEDS: Fluticasone Propionate Nasal Spray 16 GM Bottle NASBOTH SCH (08:04)
[2019-11-08] MEDS: Cetirizine 10 MG Tab PO SCH (08:04)
[2019-11-08] MEDS: Mometasone Furoate Powder 220 MCG/Puff 14 Dose Inhaler INH SCH (08:05)
[2019-11-08] MEDS ORDERED: Potassium Chloride 20 MEQ Tab.ER PO ONE ×2 (09:00→17:00)
--- NOTE | 2019-11-08 09:34 | PCM.PN ---
- General Info Date of Service: 11/08/19 Subjective Update: Mr. Kamara continues to experience significant back and leg pain related to his spinal stenosis. Erythema along his back right hip and buttocks is significantly improved with current antibiotic therapy. He has been afebrile and has remained hemodynamically stable. Overall he feels as though he is losing ground and slowly dying. He wants to consider a move to comfort care with hospice admission. Functional Status: Reports: Tolerating Diet, Urinating. Denies: Ambulating - Review of Systems General: Reports: Weakness, Fatigue. Denies: Fever, Chills Pulmonary: Reports: No Symptoms Cardiovascular: Reports: No Symptoms Gastrointestinal: Reports: No Symptoms Musculoskeletal: Reports: Back Pain, Leg Pain - Patient Data Vitals - Most Recent: Last Vital Signs Temp 97.4 F 11/08/19 08:00 Pulse 82 11/08/19 08:00 Resp 20 11/08/19 04:00 BP 104/43 L 11/08/19 04:00 Pulse Ox 94 L 11/08/19 04:00 Weight - Most Recent: 232 lb I&O - Last 24 Hours: Intake & Output 11/07/19 11/08/19 11/08/19 22:59 06:59 14:59 Intake Total 250 Output Total 750 Balance -500 Lab Results Last 24 Hours: Laboratory Results - last 24 hr 11/07/19 11/08/19 11/08/19 Range/Units 07:35 04:57 04:57 WBC 4.9 (4.5-11.0) K/uL RBC 2.35 L (4.30-5.90) M/uL Hgb 8.4 L (12.0-15.0) g/dL Hct 25.8 L (40.0-54.0) % MCV 110 H (80-98) fL MCH 36 H (27-31) pg MCHC 33 (32-36) % Plt Count 255 (150-400) K/uL Neut % (Auto) 80 H (36-66) % Lymph % (Auto) 12 L (24-44) % [place] % (Auto) 7 H (2-6) % Eos % (Auto) 0 L (2-4) % Baso % (Auto) 1 (0-1) % Sodium 137 L (140-148) mmol/L Potassium 3.3 L (3.6-5.2) mmol/L Chloride 98 L (100-108) mmol/L Carbon Dioxide 28 (21-32) mmol/L Anion Gap 14.3 H (5.0-14.0) mmol/L BUN 71 H (7-18) mg/dL Creatinine 2.5 H (0.8-1.3) mg/dL Est Cr Clr Drug Dosing 20.42 mL/min Estimated GFR (MDRD) 24 L (>60) Glucose 244 H (74-106) mg/dL Calcium 9.0 (8.5-10.1) mg/dL Magnesium 1.9 (1.8-2.4) mg/dL Blood Type O POSITIVE Gel Antibody Screen Negative Crossmatch See Detail Danny Results Last 24 Hours: Microbiology 11/06/19 18:20 Aerobic Blood Culture - Preliminary Blood - Arm, Left NO GROWTH AFTER 1 DAY Anaerobic Blood Culture - Preliminary NO GROWTH AFTER 1 DAY 11/06/19 16:18 Aerobic Blood Culture - Preliminary Blood - Arm, Left NO GROWTH AFTER 1 DAY Anaerobic Blood Culture - Preliminary NO GROWTH AFTER 1 DAY Med Orders - Current: Current Medications Acetaminophen (Tylenol) 650 mg PO Q4H PRN PRN Reason: Pain (Mild 1-3)/fever Last Admin: 11/07/19 21:44 Dose: 650 mg Albuterol (Proventil Neb Soln) 2.5 mg NEB Q4H PRN PRN Reason: Shortness Of Breath/wheezing Last Admin: 11/07/19 19:23 Dose: 2.5 mg Allopurinol (Zyloprim) 150 mg PO DAILY COUNTS INCLUDE 234 BEDS AT THE [facility] Last Admin: 11/08/19 08:03 Dose: 150 mg Bumetanide (Bumex) 4 mg PO BID COUNTS INCLUDE 234 BEDS AT THE [facility] Last Admin: 11/08/19 08:01 Dose: 4 mg Cetirizine HCl (Zyrtec) 10 mg PO DAILY COUNTS INCLUDE 234 BEDS AT THE [facility] Last Admin: 11/08/19 08:04 Dose: 10 mg [facility] Last Admin: 11/08/19 07:57 Dose: 100 mg Clopidogrel Bisulfate (Plavix) 75 mg PO BEDTIME COUNTS INCLUDE 234 BEDS AT THE [facility] Last Admin: 11/07/19 20:58 Dose: 75 mg Dexamethasone (Dexamethasone) 4 mg PO DAILY COUNTS INCLUDE 234 BEDS AT THE [facility] Last Admin: 11/08/19 08:02 Dose: 4 mg Dextrose (Glutose 15) 15 gm PO ONETIME PRN PRN Reason: Hypoglycemia Dextrose/Water (Dextrose 50% In Water) 50 ml IV ONETIME PRN PRN Reason: Hypoglycemia Dimethicone/Zinc Oxide (Rash Relief-Zinc Oxide [place]) 1 gm TOP ASDIRECTED PRN PRN Reason: Rash Last Admin: 11/07/19 13:19 Dose: 1 applic Ezetimibe (Zetia) 10 mg PO DAILY COUNTS INCLUDE 234 BEDS AT THE [facility] Last Admin: 11/08/19 08:03 Dose: 10 mg Enoxaparin Sodium (Lovenox) 30 mg SUBCUT Q24H COUNTS INCLUDE 234 BEDS AT THE [facility] Last Admin: 11/07/19 18:08 Dose: 30 mg Fentanyl (Duragesic) 12 mcg TRDERM Q72H COUNTS INCLUDE 234 BEDS AT THE [facility] Fluticasone Propionate (Flonase) 0 gm NASBOTH DAILY COUNTS INCLUDE 234 BEDS AT THE [facility] Last Admin: 11/08/19 08:04 Dose: 2 sprays Gabapentin (Neurontin) 100 mg PO BEDTIME COUNTS INCLUDE 234 BEDS AT THE [facility] Last Admin: 11/07/19 20:58 Dose: 100 mg Glimepiride (Amaryl) 4 mg PO DAILY@0800 COUNTS INCLUDE 234 BEDS AT THE [facility] Last Admin: 11/08/19 07:57 Dose: 4 mg Hydromorphone HCl (Dilaudid) 2 mg PO Q3H PRN PRN Reason: Pain Cefazolin Sodium 1 gm/ Sodium (Chloride) 50 mls @ 200 mls/hr IV Q8HR COUNTS INCLUDE 234 BEDS AT THE [facility] Insulin Human Lispro (Humalog) 0 unit SUBCUT QIDACANDBED COUNTS INCLUDE 234 BEDS AT THE [facility]; Protocol Last Admin: 11/08/19 07:53 Dose: 2 unit Lactobacillus Rhamnosus (Culturelle) 1 cap PO BID COUNTS INCLUDE 234 BEDS AT THE [facility] Last Admin: 11/08/19 08:02 Dose: 1 cap Lorazepam (Ativan) 0.5 mg PO Q4H PRN PRN Reason: Anxiety Last Admin: 11/07/19 19:25 Dose: 0.5 mg Mometasone Furoate (Asmanex 220 Mcg) 2 puff INH DAILY COUNTS INCLUDE 234 BEDS AT THE [facility] Last Admin: 11/08/19 08:05 Dose: 2 puff Fentanyl Patch Check 1 each TOP BID COUNTS INCLUDE 234 BEDS AT THE [facility] Ondansetron HCl (Zofran) 4 mg IV Q4H PRN PRN Reason: Nausea/Vomiting Polyethylene Glycol (Miralax) 17 gm PO DAILY PRN PRN Reason: Constipation Potassium Chloride (Klor-Con M20) 40 meq PO ONETIME ONE Stop: 11/08/19 17:01 Sodium Chloride (Saline Flush) 10 ml FLUSH ASDIRECTED PRN PRN Reason: Keep Vein Open Trazodone HCl (Trazodone) 50 mg PO BEDTIME PRN PRN Reason: Sleep Last Admin: 11/07/19 21:45 Dose: 50 mg Vancomycin HCl (Vancomycin) 1 gm IV .PHARMACY TO DOSE COUNTS INCLUDE 234 BEDS AT THE [facility] Warfarin Sodium (Coumadin) 5 mg PO DAILY@1300 COUNTS INCLUDE 234 BEDS AT THE [facility] Last Admin: 11/07/19 13:22 Dose: 5 mg Discontinued Medications Enoxaparin Sodium (Lovenox) 30 mg SUBCUT DAILY COUNTS INCLUDE 234 BEDS AT THE [facility] Last Admin: 11/06/19 20:02 Dose: 30 mg Hydromorphone HCl (Dilaudid) 0.5 mg IVPUSH Q2H PRN PRN Reason: Pain Last Admin: 11/07/19 03:47 Dose: 0.5 mg Potassium Chloride 40 meq/ (Premix) 100 mls @ 25 mls/hr IV Q4H COUNTS INCLUDE 234 BEDS AT THE [facility] Stop: 11/06/19 21:29 Last Admin: 11/06/19 18:23 Dose: Not Given Potassium Chloride 20 meq/ (Premix) 0 mls @ 50 mls/hr IV ONETIME COUNTS INCLUDE 234 BEDS AT THE [facility] Last Admin: 11/06/19 20:22 Dose: 50 mls/hr Potassium Chloride (Kcl 20 Meq In Water 100 Ml) Confirm Administered Dose 100 mls @ as directed .ROUTE .STK-MED ONE Stop: 11/06/19 18:08 Last Admin: 11/06/19 18:16 Dose: Not Given Meropenem 500 mg/ Sodium (Chloride) 100 mls @ 200 mls/hr IV Q12H COUNTS INCLUDE 234 BEDS AT THE [facility] Last Admin: 11/07/19 06:04 Dose: 200 mls/hr Vancomycin HCl 1.75 gm/ Sodium (Chloride) 250 mls @ 166.667 mls/hr IV Q24H COUNTS INCLUDE 234 BEDS AT THE [facility] Last Admin: 11/07/19 18:42 Dose: 166.667 mls/hr Meropenem 500 mg/ Sodium (Chloride) 50 mls @ 100 mls/hr IV Q12H COUNTS INCLUDE 234 BEDS AT THE [facility] Last Admin: 11/08/19 05:57 Dose: 100 mls/hr Lidocaine HCl (Xylocaine-Mpf 1%) 2 ml INJECT ONETIME ONE Stop: 11/06/19 18:05 Last Admin: 11/06/19 18:15 Dose: 2 ml Mometasone Furoate (Asmanex 220 Mcg) 2 puff INH QPM [place] Oxycodone HCl (Oxycodone) 5 mg PO Q4H PRN PRN Reason: Pain Last Admin: 11/08/19 06:05 Dose: 5 mg Potassium Chloride (Klor-Con M20) 40 meq PO ONETIME ONE Stop: 11/06/19 17:31 Last Admin: 11/06/19 17:43 Dose: 40 meq Potassium Chloride (Klor-Con M20) 40 meq PO ONETIME ONE Stop: 11/06/19 21:01 Last Admin: 11/06/19 21:00 Dose: 40 meq Potassium Chloride (Klor-Con M20) 40 meq PO ONETIME ONE Stop: 11/08/19 09:01 Warfarin Sodium (Coumadin) 5 mg PO MoFr@1300 [place] Last Admin: 11/06/19 21:01 Dose: 5 mg Warfarin Sodium (Coumadin) 2.5 mg PO SuTuWeThSa@1300 [place] - Exam Quality Assessment: DVT Prophylaxis General: Alert, Oriented, Cooperative, Moderate Distress Lungs: Clear to Auscultation, Normal Respiratory Effort Cardiovascular: Regular Rate, Regular Rhythm, Murmurs GI/Abdominal Exam: Soft, Non-Tender, No Organomegaly, No Distention Skin: Other (Edema related to cellulitis is almost totally resolved.) Sepsis Event Note - Evaluation Sepsis Screening Result: No Definite Risk - Focused Exam Vital Signs: Vital Signs Temp Pulse Resp BP Pulse Ox 11/08/19 08:00 97.4 F 82 11/08/19 04:00 75 20 104/43 L 94 L 11/08/19 00:43 97.1 F 75 20 88/32 L 94 L Date Exam was Performed: 11/08/19 Time Exam was Performed: 09:29 - Problem List Review Problem List Initiated/Reviewed/Updated: Yes - My Orders Last 24 Hours: My Active Orders 11/07/19 09:00 Cetirizine [ZyrTEC] 10 mg PO DAILY Ezetimibe [Zetia] 10 mg PO DAILY Fluticasone Propionate [Flonase] 0 gm NASBOTH DAILY Mometasone Furoate [Asmanex 220 MCG] 2 puff INH DAILY allopurinoL [Zyloprim] 150 mg PO DAILY dexAMETHasone 4 mg PO DAILY 11/07/19 11:49 Dimethicone/Zinc Oxide [Rash Relief-Zinc Oxide [place]] 1 gm TOP ASDIRECTED PRN 11/07/19 13:00 Warfarin [Coumadin] 5 mg PO DAILY@1300 11/07/19 16:13 LORazepam [Ativan] 0.5 mg PO Q4H PRN 11/07/19 18:00 Enoxaparin [Lovenox] 30 mg SUBCUT Q24H 11/08/19 09:22 HYDROmorphone [Dilaudid] 2 mg PO Q3H PRN 11/08/19 09:30 fentaNYL [Duragesic] 12 mcg TRDERM Q72H 11/08/19 14:00 ceFAZolin [Ancef] 1 gm Sodium Chloride 0.9% [Normal Saline] 50 ml IV Q8HR 11/08/19 16:00 VANCOMYCIN TROUGH [CHEM] Routine 11/08/19 17:00 Potassium Chloride [Klor-Con M20] 40 meq PO ONETIME ONE 11/08/19 21:00 Non-Formulary Medication [NF Drug] 1 each TOP BID 11/09/19 05:00 BASIC METABOLIC PANEL,BMP [CHEM] Timed CBC WITH AUTO DIFF [HEME] Timed INR,PT,PROTHROMBIN TIME [COAG] Timed 11/09/19 07:30 GLUCOSE POC LAB TO COLLECT [POC] QIDACANDBED 11/09/19 11:30 GLUCOSE POC LAB TO COLLECT [POC] QIDACANDBED 11/09/19 16:30 GLUCOSE POC LAB TO COLLECT [POC] QIDACANDBED 11/09/19 21:00 GLUCOSE POC LAB TO COLLECT [POC] QIDACANDBED 11/10/19 07:30 GLUCOSE POC LAB TO COLLECT [POC] QIDACANDBED 11/10/19 11:30 GLUCOSE POC LAB TO COLLECT [POC] QIDACANDBED 11/10/19 16:30 GLUCOSE POC LAB TO COLLECT [POC] QIDACANDBED 11/10/19 21:00 GLUCOSE POC LAB TO COLLECT [POC] QIDACANDBED 11/11/19 07:30 GLUCOSE POC LAB TO COLLECT [POC] QIDACANDBED 11/11/19 11:30 GLUCOSE POC LAB TO COLLECT [POC] QIDACANDBED 11/11/19 16:30 GLUCOSE POC LAB TO COLLECT [POC] QIDACANDBED - Plan Plan:: ASSESSMENT AND PLAN CELLULITIS-second episode over the past month, erythema and tenderness almost totally resolved since admission -Discontinue vancomycin and meropenem -Cefazolin 1 g IV every 8 hours -Blood cultures pending DECUBITUS ULCERS-2 small ulcers noted over the lower back, present on admission. They do not appear to represent source of infection. -Continue current management CHRONIC KIDNEY DISEASE STAGE IV-renal function appears to be at baseline -Closely monitor urine output and renal function CONGESTIVE HEART FAILURE-does have an increase in peripheral edema, denies any increase in shortness of breath or chest pain -Continue outpatient medications HYPOKALEMIA-level mildly low today -Reassess potassium level in a.m. SEVERE LUMBAR SPINAL STENOSIS PALLIATIVE CARE-he feels that he is slowly dying, would like to consider more of a comfort care hospice approach to management -Hospice consult today MAINTENANCE ISSUES -DVT prophylaxis; Lovenox 30 mg subcu daily -GI prophylaxis; not indicated -[place] catheter; not indicated -Nutrition; 2 g sodium diet -Nicotine dependence; not required CODE STATUS-DNR/DNI ADMISSION STATUS-this patient will be admitted to observation status, expect no more than a one night hospital stay for evaluation and management of problems as outlined above. DISPOSITION-anticipate discharge to home after the hospital stay. PRIMARY CARE PROVIDER-Dr. Olmos
[2019-11-08] MEDS ORDERED: fentaNYL 12 MCG/HR Transdermal Patch TRDERM SCH (10:00)
[2019-11-08] MEDS: ceFAZolin 1 GM in Premix Bag 1 BAG IV SCH ×2 (10:15→18:10)
[2019-11-08] MEDS: Warfarin 5 MG Tab PO SCH (13:24)
[2019-11-08] MEDS: Enoxaparin 30 MG/0.3 ML Syringe SUBCUT SCH (18:12)
[2019-11-08] MEDS: Gabapentin 100 MG Cap PO SCH (21:01)
[2019-11-08] MEDS: FENTANYL PATCH CHECK TOP SCH (21:01)
[2019-11-08] MEDS: Clopidogrel 75 MG Tab PO SCH (21:02)
[2019-11-08] MEDS: Acetaminophen 325 MG Tab PO PRN (21:02)
[2019-11-08] MEDS: traZODone 50 MG Tab PO PRN (21:02)
[2019-11-09] MEDS: ceFAZolin 1 GM in Premix Bag 1 BAG IV SCH ×2 (01:43→09:21)
[2019-11-09] MEDS: HYDROmorphone 2 MG Tab PO PRN ×4 (07:02→15:48)
[2019-11-09] MEDS: Insulin Lispro 100 Unit/ML 3 ML KwikPen SUBCUT SCH ×4 (07:05→21:02)
[2019-11-09] MEDS: Fluticasone Propionate Nasal Spray 16 GM Bottle NASBOTH SCH (08:07)
[2019-11-09] MEDS: Glimepiride 2 MG Tab PO SCH (08:08)
[2019-11-09] MEDS: Bumetanide 1 MG Tab PO SCH ×2 (08:08→21:04)
[2019-11-09] MEDS: Lactobacillus Rhamnosus GG (Probiotic) Cap PO SCH ×2 (08:08→21:04)
[2019-11-09] MEDS: Dexamethasone 4 MG Tab PO SCH (08:09)
[2019-11-09] MEDS: Cetirizine 10 MG Tab PO SCH (08:10)
[2019-11-09] MEDS: Ezetimibe 10 MG Tab PO SCH (08:10)
[2019-11-09] MEDS: Allopurinol 300 MG Tab PO SCH (08:10)
[2019-11-09] MEDS: Mometasone Furoate Powder 220 MCG/Puff 14 Dose Inhaler INH SCH (08:11)
[2019-11-09] MEDS: FENTANYL PATCH CHECK TOP SCH ×2 (08:20→21:45)
[2019-11-09] MEDS ORDERED: Warfarin 2.5 MG Tab PO SCH (13:00)
--- NOTE | 2019-11-09 13:10 | PCM.PN ---
- General Info Date of Service: 11/09/19 Subjective Update: Mr. Kamara is remained fairly stable since yesterday. Pain control has improved with current regimen, not yet totally under control. He is decided to proceed with comfort cares only and hospice admission, does not want further antibiotic therapy. Functional Status: Reports: Tolerating Diet, Urinating - Review of Systems General: Reports: Weakness, Fatigue. Denies: Fever, Chills Pulmonary: Reports: No Symptoms Cardiovascular: Reports: No Symptoms Gastrointestinal: Reports: No Symptoms Musculoskeletal: Reports: Neck Pain, Back Pain - Patient Data Vitals - Most Recent: Last Vital Signs Temp 96.4 F L 11/09/19 07:48 Pulse 97 11/09/19 07:48 Resp 20 11/09/19 07:48 BP 100/55 L 11/09/19 07:48 Pulse Ox 95 11/09/19 01:43 Weight - Most Recent: 232 lb I&O - Last 24 Hours: Intake & Output 11/08/19 11/09/19 11/09/19 22:59 06:59 14:59 Intake Total 1200 1000 Output Total 250 550 500 Balance 950 -550 500 Lab Results Last 24 Hours: Laboratory Results - last 24 hr 11/09/19 11/09/19 11/09/19 Range/Units 04:34 04:34 04:34 WBC 2.9 L (4.5-11.0) K/uL RBC 2.40 L (4.30-5.90) M/uL Hgb 8.4 L (12.0-15.0) g/dL Hct 25.9 L (40.0-54.0) % MCV 108 H (80-98) fL MCH 35 H (27-31) pg MCHC 32 (32-36) % Plt Count 275 (150-400) K/uL Add Manual Diff Yes Neutrophils % (Manual) 68 H (36-66) % Band Neutrophils % 9 (5-11) % Lymphocytes % (Manual) 13 L (24-44) % Monocytes % (Manual) 10 H (2-6) % PT 24.8 H (9.5-12.0) sec INR 2.41 H (0.80-1.20) Sodium 135 L (140-148) mmol/L Potassium 3.6 (3.6-5.2) mmol/L Chloride 97 L (100-108) mmol/L Carbon Dioxide 31 (21-32) mmol/L Anion Gap 10.6 (5.0-14.0) mmol/L BUN 70 H (7-18) mg/dL Creatinine 2.5 H (0.8-1.3) mg/dL Est Cr Clr Drug Dosing 20.42 mL/min Estimated GFR (MDRD) 24 L (>60) Glucose 225 H (74-106) mg/dL Calcium 8.8 (8.5-10.1) mg/dL Danny Results Last 24 Hours: Microbiology 11/06/19 18:20 Aerobic Blood Culture - Preliminary Blood - Arm, Left NO GROWTH AFTER 2 DAYS Anaerobic Blood Culture - Preliminary NO GROWTH AFTER 2 DAYS 11/06/19 16:18 Aerobic Blood Culture - Preliminary Blood - Arm, Left NO GROWTH AFTER 2 DAYS Anaerobic Blood Culture - Preliminary NO GROWTH AFTER 2 DAYS Med Orders - Current: Current Medications Acetaminophen (Tylenol) 650 mg PO Q4H PRN PRN Reason: Pain (Mild 1-3)/fever Last Admin: 11/08/19 21:02 Dose: 650 mg Albuterol (Proventil Neb Soln) 2.5 mg NEB Q4H PRN PRN Reason: Shortness Of Breath/wheezing Last Admin: 11/07/19 19:23 Dose: 2.5 mg Allopurinol (Zyloprim) 150 mg PO DAILY [facility] Last Admin: 11/09/19 08:10 Dose: 150 mg Bumetanide (Bumex) 4 mg PO BID [facility] Last Admin: 11/09/19 08:08 Dose: 4 mg Cetirizine HCl (Zyrtec) 10 mg PO DAILY [facility] Last Admin: 11/09/19 08:10 Dose: 10 mg [facility] (Pletal) [facility] Last Admin: 11/09/19 07:08 Dose: 100 mg Clopidogrel Bisulfate (Plavix) 75 mg PO BEDTIME [facility] Last Admin: 11/08/19 21:02 Dose: 75 mg Dexamethasone (Dexamethasone) 4 mg PO DAILY [facility] Last Admin: 11/09/19 08:09 Dose: 4 mg Dextrose (Glutose 15) 15 gm PO ONETIME PRN PRN Reason: Hypoglycemia Dextrose/Water (Dextrose 50% In Water) 50 ml IV ONETIME PRN PRN Reason: Hypoglycemia Dimethicone/Zinc Oxide (Rash Relief-Zinc Oxide [place]) 1 gm TOP ASDIRECTED PRN PRN Reason: Rash Last Admin: 11/07/19 13:19 Dose: 1 applic Ezetimibe (Zetia) 10 mg PO DAILY [facility] Last Admin: 11/09/19 08:10 Dose: 10 mg Enoxaparin Sodium (Lovenox) 30 mg SUBCUT Q24H [facility] Last Admin: 11/08/19 18:12 Dose: 30 mg Fentanyl (Duragesic) 12 mcg TRDERM Q72H [facility] Last Admin: 11/08/19 10:26 Dose: 12 mcg Fluticasone Propionate (Flonase) 0 gm NASBOTH DAILY [facility] Last Admin: 11/09/19 08:07 Dose: 2 sprays Gabapentin (Neurontin) 100 mg PO BEDTIME [facility] Last Admin: 11/08/19 21:01 Dose: 100 mg Glimepiride (Amaryl) 4 mg PO DAILY@0800 [facility] Last Admin: 11/09/19 08:08 Dose: 4 mg Hydromorphone HCl (Dilaudid) 2 mg PO Q3H PRN PRN Reason: Pain Last Admin: 11/09/19 12:02 Dose: 2 mg Hydromorphone HCl (Dilaudid) 4 mg PO Q4H PRN PRN Reason: pain Cefazolin Sodium/Dextrose 1 gm (/ Premix) 50 mls @ 200 mls/hr IV Q8H [facility] Last Admin: 11/09/19 09:21 Dose: Not Given Insulin Human Lispro (Humalog) 0 unit SUBCUT QIDACANDBED [facility]; Protocol Last Admin: 11/09/19 07:05 Dose: 2 unit Lactobacillus Rhamnosus (Culturelle) 1 cap PO BID [facility] Last Admin: 11/09/19 08:08 Dose: 1 cap Lorazepam (Ativan) 0.5 mg PO Q4H PRN PRN Reason: Anxiety Last Admin: 11/07/19 19:25 Dose: 0.5 mg Mometasone Furoate (Asmanex 220 Mcg) 2 puff INH DAILY [facility] Last Admin: 11/09/19 08:11 Dose: 2 puff Fentanyl Patch Check 1 each TOP BID [facility] Last Admin: 11/09/19 08:20 Dose: Not Given Ondansetron HCl (Zofran) 4 mg IV Q4H PRN PRN Reason: Nausea/Vomiting Polyethylene Glycol (Miralax) 17 gm PO DAILY PRN PRN Reason: Constipation Sodium Chloride (Saline Flush) 10 ml FLUSH ASDIRECTED PRN PRN Reason: Keep Vein Open Trazodone HCl (Trazodone) 50 mg PO BEDTIME PRN PRN Reason: Sleep Last Admin: 11/08/19 21:02 Dose: 50 mg Warfarin Sodium (Coumadin) 2.5 mg PO DAILY@1300 [facility] Discontinued Medications Enoxaparin Sodium (Lovenox) 30 mg SUBCUT DAILY [facility] Last Admin: 11/06/19 20:02 Dose: 30 mg Hydromorphone HCl (Dilaudid) 0.5 mg IVPUSH Q2H PRN PRN Reason: Pain Last Admin: 11/07/19 03:47 Dose: 0.5 mg Potassium Chloride 40 meq/ (Premix) 100 mls @ 25 mls/hr IV Q4H [facility] Stop: 11/06/19 21:29 Last Admin: 11/06/19 18:23 Dose: Not Given Potassium Chloride 20 meq/ (Premix) 0 mls @ 50 mls/hr IV ONETIME [facility] Last Admin: 11/06/19 20:22 Dose: 50 mls/hr Potassium Chloride (Kcl 20 Meq In Water 100 Ml) Confirm Administered Dose 100 mls @ as directed .ROUTE .STK-MED ONE Stop: 11/06/19 18:08 Last Admin: 11/06/19 18:16 Dose: Not Given Meropenem 500 mg/ Sodium (Chloride) 100 mls @ 200 mls/hr IV Q12H [facility] Last Admin: 11/07/19 06:04 Dose: 200 mls/hr Vancomycin HCl 1.75 gm/ Sodium (Chloride) 250 mls @ 166.667 mls/hr IV Q24H [facility] Last Admin: 11/07/19 18:42 Dose: 166.667 mls/hr Meropenem 500 mg/ Sodium (Chloride) 50 mls @ 100 mls/hr IV Q12H [facility] Last Admin: 11/08/19 05:57 Dose: 100 mls/hr Lidocaine HCl (Xylocaine-Mpf 1%) 2 ml INJECT ONETIME ONE Stop: 11/06/19 18:05 Last Admin: 11/06/19 18:15 Dose: 2 ml Mometasone Furoate (Asmanex 220 Mcg) 2 puff INH QPM [facility] Oxycodone HCl (Oxycodone) 5 mg PO Q4H PRN PRN Reason: Pain Last Admin: 11/08/19 06:05 Dose: 5 mg Potassium Chloride (Klor-Con M20) 40 meq PO ONETIME ONE Stop: 11/06/19 17:31 Last Admin: 11/06/19 17:43 Dose: 40 meq Potassium Chloride (Klor-Con M20) 40 meq PO ONETIME ONE Stop: 11/06/19 21:01 Last Admin: 11/06/19 21:00 Dose: 40 meq Potassium Chloride (Klor-Con M20) 40 meq PO ONETIME ONE Stop: 11/08/19 09:01 Last Admin: 11/08/19 10:02 Dose: 40 meq Potassium Chloride (Klor-Con M20) 40 meq PO ONETIME ONE Stop: 11/08/19 17:01 Last Admin: 11/08/19 17:35 Dose: 40 meq Vancomycin HCl (Vancomycin) 1 gm IV .PHARMACY TO DOSE [facility] Warfarin Sodium (Coumadin) 5 mg PO MoFr@1300 [facility] Last Admin: 11/06/19 21:01 Dose: 5 mg Warfarin Sodium (Coumadin) 2.5 mg PO SuTuWeThSa@1300 [facility] Warfarin Sodium (Coumadin) 5 mg PO DAILY@1300 [facility] Last Admin: 11/08/19 13:24 Dose: 5 mg - Exam Quality Assessment: DVT Prophylaxis General: Alert, Oriented, Cooperative, Moderate Distress Lungs: Clear to Auscultation, Normal Respiratory Effort Cardiovascular: Regular Rate, Regular Rhythm, No Murmurs GI/Abdominal Exam: Soft, Non-Tender, No Organomegaly, No Distention Extremities: Non-Tender, No Pedal Edema Sepsis Event Note - Evaluation Sepsis Screening Result: No Definite Risk - Focused Exam Vital Signs: Vital Signs Temp Pulse Resp BP Pulse Ox 11/09/19 07:48 96.4 F L 97 20 100/55 L 11/09/19 01:43 67 16 126/48 L 95 Date Exam was Performed: 11/09/19 Time Exam was Performed: 13:07 - Problem List & Annotations (1) CKD (chronic kidney disease) stage 4, GFR 15-29 ml/min SNOMED Code(s): 999814924 Code(s): N18.4 - CHRONIC KIDNEY DISEASE, STAGE 4 (SEVERE) Status: Acute Current Visit: Yes (2) CHF (congestive heart failure) SNOMED Code(s): 06981779 Code(s): I50.9 - HEART FAILURE, UNSPECIFIED Status: Chronic Priority: Low Current Visit: No Qualifiers: Heart failure chronicity: chronic (3) Afib, Atrial fibrillation SNOMED Code(s): 41127237 Code(s): I48.91 - UNSPECIFIED ATRIAL FIBRILLATION Status: Chronic Priority: Low Current Visit: Yes (4) Type 2 diabetes mellitus SNOMED Code(s): 73715788 Code(s): E11.9 - TYPE 2 DIABETES MELLITUS WITHOUT COMPLICATIONS Status: Chronic Priority: Medium Current Visit: No Qualifiers: Diabetes mellitus machine long goods helper insulin use: without [place] [facility] use Diabetes mellitus complication status: with other specified complication Qualified Code (s): E11.69 - Type 2 diabetes mellitus with other specified complication (5) VHD (valvular heart disease) Status: Chronic Current Visit: No (6) Spinal stenosis of lumbar region SNOMED Code(s): 65323966 Code(s): M48.061 - SPINAL STENOSIS, LUMBAR REGION WITHOUT NEUROGENIC JORY Status: Chronic Current Visit: No Qualifiers: Neurogenic claudication status: with neurogenic claudication (7) Macrocytic anemia SNOMED Code(s): 33229490 Code(s): D53.9 - NUTRITIONAL ANEMIA, UNSPECIFIED Status: Chronic Current Visit: No - Problem List Review Problem List Initiated/Reviewed/Updated: Yes - My Orders Last 24 Hours: My Active Orders 11/08/19 21:00 Non-Formulary Medication [NF Drug] 1 each TOP BID 11/09/19 11:57 HYDROmorphone [Dilaudid] 4 mg PO Q4H PRN 11/09/19 13:00 Warfarin [Coumadin] 2.5 mg PO DAILY@1300 11/09/19 16:30 GLUCOSE POC LAB TO COLLECT [POC] QIDACANDBED 11/09/19 21:00 GLUCOSE POC LAB TO COLLECT [POC] QIDACANDBED 11/10/19 05:00 INR,PT,PROTHROMBIN TIME [COAG] Timed 11/10/19 07:30 GLUCOSE POC LAB TO COLLECT [POC] QIDACANDBED 11/10/19 11:30 GLUCOSE POC LAB TO COLLECT [POC] QIDACANDBED 11/10/19 16:30 GLUCOSE POC LAB TO COLLECT [POC] QIDACANDBED 11/10/19 21:00 GLUCOSE POC LAB TO COLLECT [POC] QIDACANDBED 11/11/19 07:30 GLUCOSE POC LAB TO COLLECT [POC] QIDACANDBED 11/11/19 11:30 GLUCOSE POC LAB TO COLLECT [POC] QIDACANDBED 11/11/19 16:30 GLUCOSE POC LAB TO COLLECT [POC] QIDACANDBED - Plan Plan:: ASSESSMENT AND PLAN CELLULITIS-solved, he does not want further antibiotic therapy, blood cultures negative DECUBITUS ULCERS-2 small ulcers noted over the lower back, present on admission. They do not appear to represent source of infection. -Continue current management CHRONIC KIDNEY DISEASE STAGE IV-renal function appears to be at baseline -Closely monitor urine output and renal function CONGESTIVE HEART FAILURE-does have an increase in peripheral edema, denies any increase in shortness of breath or chest pain -Continue outpatient medications HYPOKALEMIA SEVERE LUMBAR SPINAL STENOSIS-pain management somewhat improved since yesterday. Hopefully should see further benefit from fentanyl patch today. -Fentanyl patch 12 mcg every 72 hours -Dilaudid, increase dose to 4 mg every 3 hours as needed PALLIATIVE CARE-he feels that he is slowly dying, would like to consider more of a comfort care hospice approach to management -Hospice consult today MAINTENANCE ISSUES -DVT prophylaxis; Lovenox 30 mg subcu daily -GI prophylaxis; not indicated -Gaona catheter; not indicated -Nutrition; 2 g sodium diet -Nicotine dependence; not required CODE STATUS-DNR/DNI ADMISSION STATUS-this patient will be admitted to observation status, expect no more than a one night hospital stay for evaluation and management of problems as outlined above. DISPOSITION-anticipate discharge to home after the hospital stay. PRIMARY CARE PROVIDER-Dr. Olmos
[2019-11-09] MEDS: LORazepam 0.5 MG Tab PO PRN (17:46)
[2019-11-09] MEDS ORDERED: LORazepam 0.5 MG Tab PO PRN (18:02)
[2019-11-09] MEDS: Gabapentin 100 MG Cap PO SCH (21:04)
[2019-11-09] MEDS: Clopidogrel 75 MG Tab PO SCH (21:04)
[2019-11-10] MEDS: HYDROmorphone 2 MG Tab PO PRN (00:37)
[2019-11-10 07:31] VITALS: BP 111/55; PULSE 89
[2019-11-10] MEDS: Glimepiride 2 MG Tab PO SCH (07:55)
[2019-11-10] MEDS: Insulin Lispro 100 Unit/ML 3 ML KwikPen SUBCUT SCH (07:55)
[2019-11-10] MEDS: Mometasone Furoate Powder 220 MCG/Puff 14 Dose Inhaler INH SCH (08:31)
[2019-11-10] MEDS: Fluticasone Propionate Nasal Spray 16 GM Bottle NASBOTH SCH (08:47)
[2019-11-10] MEDS: Allopurinol 300 MG Tab PO SCH (08:47)
[2019-11-10] MEDS: Lactobacillus Rhamnosus GG (Probiotic) Cap PO SCH (08:47)
[2019-11-10] MEDS: Ezetimibe 10 MG Tab PO SCH (08:47)
[2019-11-10] MEDS: Cetirizine 10 MG Tab PO SCH (08:47)
[2019-11-10] MEDS: Dexamethasone 4 MG Tab PO SCH (08:48)
[2019-11-10] MEDS: Bumetanide 1 MG Tab PO SCH (08:48)
[2019-11-10] MEDS: FENTANYL PATCH CHECK TOP SCH (08:56)
--- NOTE | 2019-11-10 09:32 | PCM.DCSUM1 ---
Discharge Summary - Hospital Course Brief History: Mr. Kamara is an 89-year-old gentleman who was admitted through the emergency department with increased pain and weakness secondary to cellulitis of the lower back right thigh in addition to underlying spinal stenosis. - Discharge Data Discharge Date: 11/10/19 Discharge Disposition: DC/Tfer to SNF 03 Condition: Poor - Referral to Home Health Primary Care Physician: PCP None - Discharge Diagnosis/Problem(s) (1) CKD (chronic kidney disease) stage 4, GFR 15-29 ml/min SNOMED Code(s): 642266995 ICD Code: N18.4 - CHRONIC KIDNEY DISEASE, STAGE 4 (SEVERE) Status: Acute Current Visit: Yes (2) CHF (congestive heart failure) SNOMED Code(s): 26761926 ICD Code: I50.9 - HEART FAILURE, UNSPECIFIED Status: Chronic Priority: Low Current Visit: No Qualifiers: Heart failure chronicity: chronic (3) Afib, Atrial fibrillation SNOMED Code(s): 62557758 ICD Code: I48.91 - UNSPECIFIED ATRIAL FIBRILLATION Status: Chronic Priority: Low Current Visit: Yes (4) Type 2 diabetes mellitus SNOMED Code(s): 10147649 ICD Code: E11.9 - TYPE 2 DIABETES MELLITUS WITHOUT COMPLICATIONS Status: Chronic Priority: Medium Current Visit: No Qualifiers: Diabetes mellitus extermination supervisor insulin use: without extermination supervisor use Diabetes mellitus complication status: with other specified complication Qualified Code (s): E11.69 - Type 2 diabetes mellitus with other specified complication (5) VHD (valvular heart disease) Status: Chronic Current Visit: No (6) Spinal stenosis of lumbar region SNOMED Code(s): 10100920 ICD Code: M48.061 - SPINAL STENOSIS, LUMBAR REGION WITHOUT NEUROGENIC JORY Status: Chronic Current Visit: No Qualifiers: Neurogenic claudication status: with neurogenic claudication Qualified Code (s): M48.062 - Spinal stenosis, lumbar region with neurogenic claudication (7) Macrocytic anemia SNOMED Code(s): 84218761 ICD Code: D53.9 - NUTRITIONAL ANEMIA, UNSPECIFIED Status: Chronic Current Visit: No - Patient Summary/Data Consults: Consultations 11/06/19 19:07 PT Evaluation and Treatment [CONS] Routine Please Evaluate and Treat. PT Reason for Consult: Pain R Hip, Spinal stenosis This query below is only for informational purposes and is not editable. Hospital Course: Mr. Kamara is an 89-year-old gentleman who was admitted through the emergency department with increased pain right hip and across his lower back, secondary to cellulitis. He was hospitalized at this facility for cellulitis of his right thigh approximately 1 month ago. He was treated with antibiotics and improved and was discharged to the correction for restorative physical therapy and Occupational Therapy. He has known severe lumbar spinal stenosis causing his chronic pain right hip and down the right leg. He is not felt to be a good good candidate for any type of surgical intervention because of his chronic kidney disease as well as underlying cardiac disease. He has been receiving physical therapy and has been able to walk short distances but has ongoing pain. He is tried epidural steroid injections in the past and did not feel that they were helpful and is not interested in trying them again. He has erythema around the right lateral hip extending into the back and across to the left flank there is tenderness to palpation of the skin and increase in warmth. Denies recent fevers chills or sweats. White blood cell count is elevated and there is also elevation in his CRP. On admission he was given IV fluids for hydration and IV antibiotic therapy with vancomycin and meropenem. Cellulitis resolved quickly within a few days and he had normalization of white blood cell count and no significant fevers. He had ongoing pain related to his spinal stenosis and requested that he be managed for comfort with no further aggressive interventions or evaluation. He has requested comfort cares only with hospice admission. He was seen by hospice staff during hospital stay and will be discharged to the correction with hospice admission after discharge. He was started on a fentanyl patch 12 mcg and oral Dilaudid for management of his pain. Medications will be adjusted after discharge to assure good relief of pain. Activity will be as tolerated and he will resume his usual low-sodium diet. - Patient Instructions Diet: Low Sodium Activity: As Tolerated Other/Special Instructions: Admit to hospice after discharge from hospital. Obtain INR on October 13 - Discharge Plan *PRESCRIPTION DRUG MONITORING PROGRAM REVIEWED*: Not Applicable *COPY OF PRESCRIPTION DRUG MONITORING REPORT IN PATIENT ROHIT: Not Applicable Prescriptions/Med Rec: fentaNYL [Duragesic] 12 mcg TRDERM Q72H #10 patch HYDROmorphone [Dilaudid] 2 mg PO Q3H PRN #100 tablet PRN Reason: Pain Home Medications: Home Meds Budesonide [Pulmicort Flexhaler] 2 puff INH BID 09/26/14 [History] Cetirizine [ZyrTEC] 10 mg PO DAILY 09/26/14 [History] Fluticasone Propionate [Flonase] 2 spray NASBOTH DAILY 09/26/14 [History] Glimepiride 4 mg PO DAILY 09/26/14 [History] Warfarin [Coumadin] 5 mg PO MOFR 09/26/14 [History] Clopidogrel Bisulfate [Clopidogrel] 75 mg PO BEDTIME 10/02/17 [History] allopurinoL [Zyloprim] 150 mg PO DAILY 12/09/17 [History] cilostazoL [Pletal] 100 mg PO BIDAC 01/17/18 [History] traZODone HCl [Trazodone HCl] 50 mg PO BEDTIME PRN 12/15/18 [History] Warfarin [Coumadin] 2.5 mg PO SUTUWETHSA 07/25/19 [History] Bumetanide [Bumex] 4 mg PO BID 08/16/19 [History] Gabapentin [Neurontin] 100 mg PO BEDTIME #30 cap 10/10/19 [Rx] Lactobacillus Rhamnosus GG [Culturelle] 1 cap PO BID #60 cap 10/10/19 [Rx] dexAMETHasone [Dexamethasone] 4 mg PO DAILY #4 tablet 10/10/19 [Rx] HYDROmorphone [Dilaudid] 2 mg PO Q3H PRN #100 tablet 11/09/19 [Rx] fentaNYL [Duragesic] 12 mcg TRDERM Q72H #10 patch 11/09/19 [Rx] Referrals: Aldair Carey MD [Physician] - - Discharge Summary/Plan Comment DC Time >30 min.: No - Patient Data Vitals - Most Recent: Last Vital Signs Temp 96.7 F L 11/10/19 07:00 Pulse 89 11/10/19 07:00 Resp 18 11/10/19 07:00 BP 111/55 L 11/10/19 07:00 Pulse Ox 92 L 11/10/19 07:00 Weight - Most Recent: 232 lb I&O - Last 24 hours: Intake & Output 11/09/19 11/10/19 11/10/19 22:59 06:59 14:59 Output Total 725 Balance -725 Lab Results - Last 24 hrs: Laboratory Results - last 24 hr 11/10/19 Range/Units 04:08 PT 29.5 H (9.5-12.0) sec INR 2.90 H (0.80-1.20) [facility] Results - Last 24 hrs: Microbiology 11/06/19 18:20 Aerobic Blood Culture - Preliminary Blood - Arm, Left NO GROWTH AFTER 3 DAYS Anaerobic Blood Culture - Preliminary NO GROWTH AFTER 3 DAYS 11/06/19 16:18 Aerobic Blood Culture - Preliminary Blood - Arm, Left NO GROWTH AFTER 3 DAYS Anaerobic Blood Culture - Preliminary NO GROWTH AFTER 3 DAYS Med Orders - Current: Current Medications Acetaminophen (Tylenol) 650 mg PO Q4H PRN PRN Reason: Pain (Mild 1-3)/fever Last Admin: 11/08/19 21:02 Dose: 650 mg Albuterol (Proventil Neb Soln) 2.5 mg NEB Q4H PRN PRN Reason: Shortness Of Breath/wheezing Last Admin: 11/07/19 19:23 Dose: 2.5 mg Allopurinol (Zyloprim) 150 mg PO DAILY [facility] Last Admin: 11/10/19 08:47 Dose: 150 mg Bumetanide (Bumex) 4 mg PO BID [facility] Last Admin: 11/10/19 08:48 Dose: 4 mg Cetirizine HCl (Zyrtec) 10 mg PO DAILY [facility] Last Admin: 11/10/19 08:47 Dose: 10 mg Cilostazol (Pletal) 100 mg PO BIDAC [facility] Last Admin: 11/10/19 07:54 Dose: 100 mg Clopidogrel Bisulfate (Plavix) 75 mg PO BEDTIME [facility] Last Admin: 11/09/19 21:04 Dose: 75 mg Dexamethasone (Dexamethasone) 4 mg PO DAILY [facility] Last Admin: 11/10/19 08:48 Dose: 4 mg Dextrose (Glutose 15) 15 gm PO ONETIME PRN PRN Reason: Hypoglycemia Dimethicone/Zinc Oxide (Rash Relief-Zinc Oxide [place]) 1 gm TOP ASDIRECTED PRN PRN Reason: Rash Last Admin: 11/07/19 13:19 Dose: 1 applic Ezetimibe (Zetia) 10 mg PO DAILY [facility] Last Admin: 11/10/19 08:47 Dose: 10 mg Fentanyl (Duragesic) 12 mcg TRDERM Q72H [facility] Last Admin: 11/08/19 10:26 Dose: 12 mcg Fluticasone Propionate (Flonase) 0 gm NASBOTH DAILY [facility] Last Admin: 11/10/19 08:47 Dose: 2 sprays Gabapentin (Neurontin) 100 mg PO BEDTIME [facility] Last Admin: 11/09/19 21:04 Dose: 100 mg Glimepiride (Amaryl) 4 mg PO DAILY@0800 [facility] Last Admin: 11/10/19 07:55 Dose: 4 mg Hydromorphone HCl (Dilaudid) 4 mg PO Q4H PRN PRN Reason: pain Last Admin: 11/10/19 00:37 Dose: 4 mg Insulin Human Lispro (Humalog) 0 unit SUBCUT QIDACANDBED [facility]; Protocol Last Admin: 11/10/19 07:55 Dose: 2 unit Lactobacillus Rhamnosus (Culturelle) 1 cap PO BID [facility] Last Admin: 11/10/19 08:47 Dose: 1 cap Lorazepam (Ativan) 0.5 mg PO Q2H PRN PRN Reason: Anxiety Mometasone Furoate (Asmanex 220 Mcg) 2 puff INH DAILY [facility] Last Admin: 11/10/19 08:31 Dose: 2 puff Fentanyl Patch Check 1 each TOP BID [facility] Last Admin: 11/10/19 08:56 Dose: Not Given Polyethylene Glycol (Miralax) 17 gm PO DAILY PRN PRN Reason: Constipation Last Admin: 11/09/19 16:58 Dose: 17 gm Trazodone HCl (Trazodone) 50 mg PO BEDTIME PRN PRN Reason: Sleep Last Admin: 11/08/19 21:02 Dose: 50 mg Warfarin Sodium (Coumadin) 2.5 mg PO DAILY@1300 [facility] Last Admin: 11/09/19 13:20 Dose: 2.5 mg Discontinued Medications Dextrose/Water (Dextrose 50% In Water) 50 ml IV ONETIME PRN PRN Reason: Hypoglycemia Enoxaparin Sodium (Lovenox) 30 mg SUBCUT DAILY [facility] Last Admin: 11/06/19 20:02 Dose: 30 mg Enoxaparin Sodium (Lovenox) 30 mg SUBCUT Q24H [facility] Last Admin: 11/08/19 18:12 Dose: 30 mg Hydromorphone HCl (Dilaudid) 0.5 mg IVPUSH Q2H PRN PRN Reason: Pain Last Admin: 11/07/19 03:47 Dose: 0.5 mg Hydromorphone HCl (Dilaudid) 2 mg PO Q3H PRN PRN Reason: Pain Last Admin: 11/09/19 12:02 Dose: 2 mg Potassium Chloride 40 meq/ (Premix) 100 mls @ 25 mls/hr IV Q4H [facility] Stop: 11/06/19 21:29 Last Admin: 11/06/19 18:23 Dose: Not Given Potassium Chloride 20 meq/ (Premix) 0 mls @ 50 mls/hr IV ONETIME [facility] Last Admin: 11/06/19 20:22 Dose: 50 mls/hr Potassium Chloride (Kcl 20 Meq In Water 100 Ml) Confirm Administered Dose 100 mls @ as directed .ROUTE .STK-MED ONE Stop: 11/06/19 18:08 Last Admin: 11/06/19 18:16 Dose: Not Given Meropenem 500 mg/ Sodium (Chloride) 100 mls @ 200 mls/hr IV Q12H [facility] Last Admin: 11/07/19 06:04 Dose: 200 mls/hr Vancomycin HCl 1.75 gm/ Sodium (Chloride) 250 mls @ 166.667 mls/hr IV Q24H [facility] Last Admin: 11/07/19 18:42 Dose: 166.667 mls/hr Meropenem 500 mg/ Sodium (Chloride) 50 mls @ 100 mls/hr IV Q12H [facility] Last Admin: 11/08/19 05:57 Dose: 100 mls/hr Cefazolin Sodium/Dextrose 1 gm (/ Premix) 50 mls @ 200 mls/hr IV Q8H [facility] Last Admin: 11/09/19 09:21 Dose: Not Given Lidocaine HCl (Xylocaine-Mpf 1%) 2 ml INJECT ONETIME ONE Stop: 11/06/19 18:05 Last Admin: 11/06/19 18:15 Dose: 2 ml Lorazepam (Ativan) 0.5 mg PO Q4H PRN PRN Reason: Anxiety Last Admin: 11/09/19 17:46 Dose: 0.5 mg Mometasone Furoate (Asmanex 220 Mcg) 2 puff INH QPM [facility] Ondansetron HCl (Zofran) 4 mg IV Q4H PRN PRN Reason: Nausea/Vomiting Oxycodone HCl (Oxycodone) 5 mg PO Q4H PRN PRN Reason: Pain Last Admin: 11/08/19 06:05 Dose: 5 mg Potassium Chloride (Klor-Con M20) 40 meq PO ONETIME ONE Stop: 11/06/19 17:31 Last Admin: 11/06/19 17:43 Dose: 40 meq Potassium Chloride (Klor-Con M20) 40 meq PO ONETIME ONE Stop: 11/06/19 21:01 Last Admin: 11/06/19 21:00 Dose: 40 meq Potassium Chloride (Klor-Con M20) 40 meq PO ONETIME ONE Stop: 11/08/19 09:01 Last Admin: 11/08/19 10:02 Dose: 40 meq Potassium Chloride (Klor-Con M20) 40 meq PO ONETIME ONE Stop: 11/08/19 17:01 Last Admin: 11/08/19 17:35 Dose: 40 meq Sodium Chloride (Saline Flush) 10 ml FLUSH ASDIRECTED PRN PRN Reason: Keep Vein Open Vancomycin HCl (Vancomycin) 1 gm IV .PHARMACY TO DOSE [facility] Warfarin Sodium (Coumadin) 5 mg PO MoFr@1300 [facility] Last Admin: 11/06/19 21:01 Dose: 5 mg Warfarin Sodium (Coumadin) 2.5 mg PO SuTuWeThSa@1300 [facility] Warfarin Sodium (Coumadin) 5 mg PO DAILY@1300 [facility] Last Admin: 11/08/19 13:24 Dose: 5 mg - Exam Quality Assessment: Reports: DVT Prophylaxis General: Reports: Alert, Oriented, Cooperative, Moderate Distress Lungs: Reports: Clear to Auscultation, Normal Respiratory Effort Cardiovascular: Reports: Regular Rate, Regular Rhythm, No Murmurs GI/Abdominal Exam: Soft, Non-Tender, No Organomegaly Skin: Reports: Warm, Dry, Intact
== END 2019-11-10 11:01 | DRG 552 ==
LOC: JP.ED 15:16 → JP.ICU 18:31 → JP.MS 11-09 14:22
PROVIDERS: ADMIT Hospitalist; ATTEND Hospitalist
DX: L03.115 Cellulitis of right lower limb (principal); M48.062 Spinal stenosis, lumbar region with neurogenic claudication; I48.91 Unspecified atrial fibrillation; D64.9 Anemia, unspecified; Z91.81 History of falling; H54.7 Unspecified visual loss; N18.4 Chronic kidney disease, stage 4 (severe); I11.0 Hypertensive heart disease with heart failure; I48.20 Chronic atrial fibrillation, unspecified; I38 Endocarditis, valve unspecified; Z95.1 Presence of aortocoronary bypass graft; I34.0 Nonrheumatic mitral (valve) insufficiency; J45.909 Unspecified asthma, uncomplicated; I13.0 Hypertensive heart and chronic kidney disease with heart failure and stage 1 through stage 4 chronic kidney disease, or unspecified chronic kidney disease; G47.30 Sleep apnea, unspecified; K57.90 Diverticulosis of intestine, part unspecified, without perforation or abscess without bleeding; M19.90 Unspecified osteoarthritis, unspecified site; E66.9 Obesity, unspecified; E11.9 Type 2 diabetes mellitus without complications; Z85.820 Personal history of malignant melanoma of skin; Z98.49 Cataract extraction status, unspecified eye; Z90.49 Acquired absence of other specified parts of digestive tract; Z96.649 Presence of unspecified artificial hip joint; Z96.659 Presence of unspecified artificial knee joint; Z88.1 Allergy status to other antibiotic agents; L03.317 Cellulitis of buttock; L03.312 Cellulitis of back [any part except buttock and flank]; Z79.84 Long term (current) use of oral hypoglycemic drugs; Z51.5 Encounter for palliative care; Z66 Do not resuscitate; L89.109 Pressure ulcer of unspecified part of back, unspecified stage; I25.10 Atherosclerotic heart disease of native coronary artery without angina pectoris; E78.00 Pure hypercholesterolemia, unspecified; E11.22 Type 2 diabetes mellitus with diabetic chronic kidney disease; E87.6 Hypokalemia; I50.9 Heart failure, unspecified; D53.9 Nutritional anemia, unspecified; Z88.0 Allergy status to penicillin; Z88.8 Allergy status to other drugs, medicaments and biological substances; Z79.01 Long term (current) use of anticoagulants; Z79.899 Other long term (current) drug therapy; Z87.01 Personal history of pneumonia (recurrent)
CPT/HCPCS: 36415; 72192; 80053; 85025; 85610; 86140; 87040 ×2; 99285; A9270; J2001; J3480; 36430; 80048; 82962; 83735; 86850; 86900; 86901; 86920; 86922; 94640; 97161-GP; 97530-GP; J0690; J1170; J1650; J1815; J2185; J3370; J7050; J8540; P9016